=== PATIENT | female | born 1935 | race Caucasian/White ===

== ENCOUNTER → 2016-11-11 | Day surgery (SDC) | payer MEDICARE, BC ==
[~2016-11-11] MED LIST: Acetaminophen/HYDROcodone 325-5 MG Tab PO PRN; Dexamethasone 10 MG/ML SDV ONE; Glycopyrrolate 0.2 MG/ML SDV ONE; Ketorolac 30 MG/ML SDV ONE; Lactated Ringers 1,000 ML IV SCH; Metoprolol Tartrate 5 MG/5 ML SDV ONE; Midazolam 1 MG/ML 2 ML SDV ONE; Morphine 2 MG/ML Syringe IVPUSH PRN; Neostigmine Methylsulfate 10 MG/10 ML MDV ONE; Ondansetron 4 MG/2 ML SDV ONE; Propofol 200 MG/20 ML SDV ONE; Rocuronium 100 MG/10 ML MDV ONE; Sodium Chloride 0.9% 10 ML Syringe FLUSH PRN; Succinylcholine 200 MG/10 ML MDV ONE; fentaNYL 100 MCG/2 ML SDV ONE
--- NOTE | 2016-11-11 09:06 | PCM.HPR ---
H & P Addendum review - H & P Addendum Review Date of Original H & P: 10/21/16 Date Reviewed: 11/11/16 Time Reviewed: 09:00 Patient was examined: No Changes (Cardiac eval was normal. Ok to proceed with lap codey)
--- NOTE | 2016-11-11 10:29 | PCM.OPNOTE ---
- General Post-Op/Procedure Note Date of Surgery/Procedure: 11/11/16 Operative Procedure(s): Lap Deloris Pre Op Diagnosis: Symptomatic Cholelithiasis Post-Op Diagnosis: Same Anesthesia Technique: General ET tube Primary Surgeon: Deonte Arreguin Anesthesia Provider: Tereso Ga Pathology: Gallbladder EBL in mLs: 5 Complications: None Condition: Good
[2016-11-11 15:21] VITALS: BP 150/73
--- NOTE | 2016-11-11 15:43 | OR ---
Date of Procedure: 11/11/2016 PREOPERATIVE DIAGNOSIS: Symptomatic cholelithiasis. POSTOPERATIVE DIAGNOSIS: Symptomatic cholelithiasis. PROCEDURE: Laparoscopic cholecystectomy. ANESTHESIA: General. DESCRIPTION OF PROCEDURE: The patient was brought to the operating room, where general endotracheal anesthesia was administered. Her abdomen was prepped with ChloraPrep and draped sterilely. An infraumbilical incision was made and extended into the peritoneal cavity without difficulty. The Peter cannulator was introduced and pneumoperitoneum obtained. The patient was placed in reverse Trendelenburg position and rotated to the left. The remaining three 5-mm ports were placed in the usual positions. The gallbladder was large and distended. This was grasped and retracted cephalad. The cystic duct and cystic artery were dissected free without difficulty. Some fibrous adhesions were present and a large cystic duct node was also present. The cystic artery and cystic duct were each doubly clipped proximally and once distally, and then transected. Gallbladder was removed from the bed of the liver using electrocautery without difficulty. There was no bile leakage or bleeding that occurred. The gallbladder was then brought out through the umbilical incision. Right upper quadrant was thoroughly inspected and irrigated, and return was clear and hemostasis assured. Ports were removed under direct vision and remained hemostatic. Umbilical fascia was closed with [id number] 0 Vicryl. Skin was closed with 4-0 Vicryl subcuticular sutures. Benzoin and Steri-Strips were placed, and Band-Aids applied. The patient tolerated the procedure well and returned to recovery in stable condition. ESTIMATED BLOOD LOSS: 5 mL. AJ MCCRARY MD /[id number]
== END | disposition home or self-care (01) ==
LOC: LL.SDS 07:36
PROVIDERS: ATTEND Surgery
PROC: 0FT44ZZ Resection of Gallbladder, Percutaneous Endoscopic Approach (ICD-10-PCS; principal; 2016-11-11)
DX: K81.1 Chronic cholecystitis (principal); K21.9 Gastro-esophageal reflux disease without esophagitis; E11.9 Type 2 diabetes mellitus without complications; I10 Essential (primary) hypertension; K44.9 Diaphragmatic hernia without obstruction or gangrene; E78.5 Hyperlipidemia, unspecified; K57.90 Diverticulosis of intestine, part unspecified, without perforation or abscess without bleeding; I25.10 Atherosclerotic heart disease of native coronary artery without angina pectoris; Z95.5 Presence of coronary angioplasty implant and graft; R01.1 Cardiac murmur, unspecified; F41.9 Anxiety disorder, unspecified; F32.9 Major depressive disorder, single episode, unspecified; Z79.899 Other long term (current) drug therapy; Z79.84 Long term (current) use of oral hypoglycemic drugs; Z88.8 Allergy status to other drugs, medicaments and biological substances
CPT/HCPCS: 47562; 88304; J0330; J1100; J1885; J2250; J2270; J2405; J2704; J2710; J3010; J7050; J7120; 00790; J3490

== ENCOUNTER 2017-04-06 21:34 | Emergency (ER) | payer MEDICARE, BC ==
--- NOTE | 2017-04-06 21:56 | EDM.PDOC ---
ED HPI GENERAL MEDICAL PROBLEM - General Chief Complaint: General Stated Complaint: Fall Time Seen by Provider: 04/06/17 21:45 Source of Information: Reports: Patient, Family (Sister), Old Records ([facility] chart/EMR) History Limitations: Reports: No Limitations - History of Present Illness INITIAL COMMENTS - FREE TEXT/NARRATIVE: Patient was brought to the emergency room via private automobile for evaluation of multiple minor contusions, which occurred outside her apartment building at about 21:00 hours this evening. She was attempting to climb the front step when she accidentally slipped and fell hitting the side of her head and right leg with no history of visual changes, change in mental status, dizziness, nausea, headaches, neck/back pain, neurological deficits, or other complaints or injuries. No treatment prior to arrival. The patient denies any chest pain/ pressure, heart flutter, orthostasis, orthopnea, diaphoresis, paresthesias, recent decreased exercise tolerance, or any other anginal-type symptoms. No recent history of abdominal pain, heartburn, diarrhea, melena, gross hematochezia, or any food intolerance, including fatty foods, etc.. The patient also denies any recent fever, cough, wheezing, dyspnea, etc.. Onset: Today, Sudden Onset Date: 04/06/17 Onset Time: 21:00 Duration: Constant Location: Reports: Face, Upper Extremity, Right, Lower Extremity, Right. Denies : Head, Neck, Chest, Abdomen, Back, Pelvis, Upper Extremity, Left, Lower Extremity, Left, Radiates to Quality: Reports: Ache Severity: Mild Improves with: Reports: Rest Worsens with: Reports: Movement Context: Reports: Trauma (As above) Associated Symptoms: Denies: Confusion, Chest Pain, Cough, Diaphoresis, Fever/ Chills, Headaches, Loss of Appetite, Malaise, Nausea/Vomiting, Seizure, Shortness of Breath, Syncope, Weakness Treatments SUPPORT COORDINATOR: Reports: Other (see below) (None) Right Eye Pain Score (Numeric/FACES): 1 Right Arm Pain Score (Numeric/FACES): 3 Right Lower Leg Pain Score (Numeric/FACES): 1 - Related Data Allergies Allergy/AdvReac Type Severity Reaction Status Date / Time ZUNILDA Inhibitors Allergy Other Verified 04/06/17 21:40 lisinopril Allergy Cannot Verified 04/06/17 21:40 Remember shrimp Allergy Nausea and Verified 04/06/17 21:40 Vomiting Home Meds: Home Meds Aspirin 325 mg PO DAILY 09/15/16 [History] Cetirizine HCl [Zyrtec] 10 mg PO BEDTIME 09/15/16 [History] Ferrous Sulfate 325 mg PO DAILY 09/15/16 [History] Furosemide [Lasix] 20 mg PO DAILY 09/15/16 [History] LORazepam [Ativan] 1 mg PO BEDTIME 09/15/16 [History] Metoprolol Tartrate [Lopressor] 50 mg PO DAILY 09/15/16 [History] Pantoprazole Sodium [Protonix] 40 mg PO DAILY 09/15/16 [History] Pregabalin [Lyrica] 75 mg PO BEDTIME 09/15/16 [History] Simvastatin [Zocor] 20 mg PO BEDTIME 09/15/16 [History] Sodium Chloride 1 gm PO Q2D 09/15/16 [History] metFORMIN [Glucophage] 500 mg PO BIDMEALS 09/15/16 [History] Lysine 1,000 mg PO DAILY 09/16/16 [History] Sennosides [Senna] 1 tab PO BEDTIME 09/16/16 [History] Acetaminophen [Tylenol] 325 mg PO DAILY 11/11/16 [History] Cyanocobalamin (Vitamin B12) [Vitamin B12] 1,000 mcg IM ASDIRECTED 11/11/16 [ History] Multivitamin [One Daily] 1 tab PO DAILY 11/11/16 [History] Nitroglycerin [Nitrostat] 0.4 mg SL ASDIRECTED PRN 11/11/16 [History] Cholecalciferol (Vitamin D3) [Vitamin D3] 1,000 units PO DAILY 04/06/17 [History ] Past Medical History HEENT History: Reports: Allergic Rhinitis, Cataract, Hard of Hearing, Impaired Vision, Other (See Below). Denies: Glaucoma, Macular Degeneration, Retinal Detachment Other HEENT History: wears glasses, moderate bilateral presbycusis with no current hearing aids Cardiovascular History: Reports: Arrhythmia, CAD, Cardiomyopathy, Heart Murmur, High Cholesterol, Hypertension, SD, PTCA, Stents, Other (See Below). Denies: Afib, Aneurysm, Blood Clots/VTE/DVT, Pacemaker, PVD, Syncope Other Cardiovascular History: First degree AV block, grade 1 diastolic dysfunction, hyperlipidemia with history of fatty liver, mild aortic valve stenosis and mitral valve insufficiency by clinical exam with only minimal valvular disease by echocardiogram Respiratory History: Reports: COPD, Intubation, Previous. Denies: Asthma, Intubation, Difficult, PE, Sleep Apnea Gastrointestinal History: Reports: Cholelithiasis, Chronic Constipation, Diverticulosis, GERD, Hiatal Hernia, Other (See Below). Denies: Gastritis, GI Bleed, PUD Other Gastrointestinal History: Fatty liver as above with secondary LFTs elevation Genitourinary History: Reports: Other (See Below). Denies: Acute Renal Failure , Chronic Renal Insuffiency, Diabetic Nephropathy, Renal Calculus, Retention, Urinary, Urinary Incontinence Other Genitourinary History: Overactive bladder : 0 LMP (Approximate): Menopausal Musculoskeletal History: Reports: Back Pain, Chronic, Neck Pain, Chronic, Osteoarthritis, Osteoporosis, Other (See Below) Other Musculoskeletal History: Moderate degenerative disc disease with mild Scoliosis Neurological History: Reports: Neuropathy, Diabetic, Neuropathy, Peripheral Psychiatric History: Reports: Anxiety, Depression Endocrine/Metabolic History: Reports: Diabetes, Type II, Osteoporosis. Denies: Diabetes, Type I, Hypothyroidism, IDDM Hematologic History: Reports: Anemia, B12 Deficiency, Iron Deficiency Immunologic History: Reports: None. Denies: AIDS, HIV, SLE Oncologic (Cancer) History: Reports: None Dermatologic History: Reports: None - Infectious Disease History Infectious Disease History: Reports: Chicken Pox, Shingles (Left chest and back region in July 2010) - Past Surgical History Head Surgeries/Procedures: Reports: None HEENT Surgical History: Reports: Cataract Surgery, Oral Surgery, Other (See Below) Other HEENT Surgeries/Procedures: Bilateral cataract surgery in about 2014, complete upper teeth extraction with multiple lower teeth extractions Cardiovascular Surgical History: Reports: Coronary Artery Stent, Other (See Below) Other Cardiovascular Surgeries/Procedures: PTCA/stent in her 1970s Respiratory Surgical History: Reports: None GI Surgical History: Reports: Cholecystectomy, Colonoscopy, EGD, Other (See Below) Other GI Surgeries/Procedures: Laparoscopic cholecystectomy on 11/11/16, previous appendectomy, last EGD and colonoscopy with biopsies on 03/29/12 previous colonoscopy on 04/29/05 - Past Imaging History Past Imaging History: Reports: Cardiac Echo (10/12/16 with ejection fraction of 55-60%), CAT Scan (CT of the abdomen and pelvis with IV contrast on 08/11/09), DEXA Scan (07/30/11), Mammogram (Last mammogram on 09/12/13), MRI (MRI of the lumbar spine 05/01/13), Stress Testing (Cardiolite Lexiscan on 10/14/16 with previous Cardiolite evaluation on 02/07/14 with ejection fraction of 86%, additional Cardiolite stress test on 09/12/08 and 12/29/06), Ultrasound (Right upper quadrant ultrasound on 08/11/09 with complete abdominal ultrasound on 09/16), Venous Doppler (lower extremities bilaterally on 09/15/10) Social & Family History - Family History Cardiac: Reports: CAD, SD, Pacemaker, Other (See Below) Other Cardiac Family History: Sister with pacemaker, CHF, and coronary artery disease; brother with coronary artery disease and SD GI: Reports: Cholelithiasis, Other (See Below) Other GI Family History: Parents and brother with cholelithiasis Endocrine/Metabolic: Reports: Diabetes, type II, Other (See Below) Other Endocrine/Metabolic Family History: brother with diabetes mellitus - Tobacco Use Smoking Status *Q: Former Smoker Years of Tobacco use: 40 (Stopped Smoking in her 70s) Used Tobacco, but Quit: Yes Smoking Cessation Information Provided To Patient: No Second Hand Smoke Exposure: No Second Hand Smoke Education Provided: No - Caffeine Use Caffeine Use: Reports: Coffee - Recreational Drug Use Recreational Drug Use: No - Living Situation & Occupation Living situation: Reports: Alone (however her sister lives in the same apartment building) ED ROS GENERAL - Review of Systems Review Of Systems: ROS reveals no pertinent complaints other than HPI. ED EXAM, GENERAL - Physical Exam Exam: See Below Exam Limited By: No Limitations General Appearance: Alert, WD/WN, No Apparent Distress, Anxious (Moderate) Eye Exam: Bilateral Eye: EOMI, Normal Fundi (No nystagmus), Normal Inspection, Periorbital Changes (Recently in diameter right lateral periocular small hematoma with no crepitation, deformity, or sign of fracture) Ears: Normal External Exam, Normal Canal, Normal TMs, Hearing Loss (Moderate presbycusis bilaterally) Nose: Normal Inspection, Normal Mucosa, No Blood. No: Nasal Tenderness, Nasal Deformity, Nasal Swelling Throat/Mouth: Normal Inspection, Normal Lips, Normal Gums, Normal Oropharynx, Normal Voice, No Airway Compromise. No: Normal Teeth (Complete upper dentures with multiple missing teeth lowers), Dysphagia, Perioral Cyanosis Head: Facial Tenderness (Mild at site of ecchymosis as above), Other (As above) Neck: Supple, Non-Tender, Full Range of Motion, Carotid Bruit (Mild bilateral carotid bruits versus transmitted heart sounds). No: Lymphadenopathy (L), Lymphadenopathy (R), Thyromegaly Respiratory/Chest: No Respiratory Distress, Lungs Clear, Normal Breath Sounds, No Accessory Muscle Use, Chest Non-Tender. No: Pleural Rub, Retractions Cardiovascular: Normal Peripheral Pulses, Regular Rate, Rhythm, No Edema, No Gallop, No JVD, No Rub, Systolic Murmur (Mild 1/6 SHERITA over the aortic and mitral valves). No: Gallop/S3, Gallop/S4 Peripheral Pulses: 2+: Radial (L), Radial (R), Dorsalis Pedis (L), Dorsalis Pedis (R) GI/Abdominal: Normal Bowel Sounds, Soft, Non-Tender, No Organomegaly, No Distention, No Abnormal Bruit, No Mass, Pelvis Stable. No: Guarding (Female) Exam: Deferred Rectal (Female) Exam: Deferred Back Exam: Normal Inspection, Full Range of Motion. No: CVA Tenderness (L), CVA Tenderness (R), Muscle Spasm Extremities: Normal Range of Motion, No Pedal Edema, Normal Capillary Refill, Arm Pain (Small 0.25 cm ecchymosis over the right olecranon with no evidence deformity, crepitation, or fracture), Leg Pain (5 cm in diameter mild to moderate hematoma over the mid anterior right tibial region with no crepitation , fracture, or deformity, mild localized tenderness by palpation in this area). No: Christi's Sign Neurological: Alert, Oriented, CN II-XII Intact, Normal Cognition, Normal Gait, Normal Reflexes (Negative Babinski's), No Motor/Sensory Deficits Psychiatric: Anxious (Moderate). No: Depressed Mood Skin Exam: Ecchymosis (As above). No: Cyanosis, Diaphoretic, Petechiae, Wound/ Incision Lymphatic: No Adenopathy Course - Vital Signs Last Recorded V/S: Last Vital Signs Temp 36.9 C 04/06/17 21:35 Pulse 90 04/06/17 21:35 Resp 20 04/06/17 21:35 BP 168/82 H 04/06/17 22:45 Pulse Ox 99 04/06/17 21:35 Vital Signs - 24 hr 04/06/17 04/06/17 21:35 22:45 Temperature [ 36.9 C Temporal] Pulse, 90 Peripheral [ Brachial] Respiratory 20 Rate Blood Pressure 186/88 H 168/82 H [Upper Arm] O2 Sat by Pulse 99 Oximetry - Orders/Labs/Meds Labs: None Meds: None - Radiology Interpretation Free Text/Narrative:: None Departure - Departure Time of Disposition: 22:40 Disposition: Home, Self-Care 01 Condition: Good Clinical Impression: Head contusion, Contusion of leg, right, Coronary artery disease, Hypertension , Hyperlipidemia, Peptic reflux disease, Diabetes mellitus, Osteoarthritis, Mixed anxiety depressive disorder - Discharge Information Instructions: Contusion, [id number], Head Injury, Adult, [id number] Referrals: Audelia Rodrigez NP [Primary Care Provider] - Forms: ED Department Discharge Additional Instructions: 1. Follow up with your regular provider in 10-14 days as needed, if symptoms persist. 2. Tylenol 650 mg by mouth every 4 hours and/or OTC ibuprofen 2-3 tabs by mouth every 6 hours with food as directed./needed. 3. Otherwise follow-up with your regular provider, DAMIAN Lopez, from [facility] [place] in [place], as already scheduled next month with discussion of possible physical therapy referral for walker or cane evaluation 4. Strict fall precautions as discussed 5. Ice packs as discussed 6. Head precautions as directed-see form. - Problem List & Annotations (1) Head contusion SNOMED Code(s): 973401884 Code(s): S00.93XA - CONTUSION OF UNSPECIFIED PART OF HEAD, INITIAL ENCOUNTER Status: Acute Priority: High Current Visit: Yes Onset Date: 04/06/17 Annotation/Comment:: Minor right periorbital contusion with no neurological deficits. Head precautions given with her sister planning to stay with her this evening. Ice packs placed on both this contusion also on her right leg. Fall precautions discussed with possible initiation of either walker or cane use, which she will discuss with her regular provider. The patient did break her glasses, however no history or sign of foreign body in her eye Qualifiers: Encounter type: initial encounter Contusion of head detail: periocular area Laterality: right Qualified Code(s): S00.11XA - Contusion of right eyelid and periocular area, initial encounter (2) Contusion of leg, right SNOMED Code(s): 37697992 Code(s): S80.11XA - CONTUSION OF RIGHT LOWER LEG, INITIAL ENCOUNTER Status : Acute Priority: High Current Visit: Yes Onset Date: 04/06/17 Annotation/Comment:: As above Qualifiers: Encounter type: initial encounter Qualified Code(s): S80.11XA - Contusion of right lower leg, initial encounter (3) Coronary artery disease SNOMED Code(s): 29740105 Code(s): I25.10 - ATHSCL HEART DISEASE OF [place] CORONARY ARTERY W/O ANG PCTRS Status: Chronic Priority: Medium Current Visit: Yes Annotation/ Comment:: No Chest pain or anginal complaints Qualifiers: Coronary Disease-Associated Artery/Lesion type: habematolel artery [place] vs. transplanted heart: habematolel heart Associated angina: without angina Qualified Code(s): I25.10 - Atherosclerotic heart disease of [place] coronary artery without angina pectoris (4) Diabetes mellitus SNOMED Code(s): 00439864 Code(s): E11.9 - TYPE 2 DIABETES MELLITUS WITHOUT COMPLICATIONS Status: Chronic Priority: Medium Current Visit: Yes Annotation/Comment:: Stable by history Qualifiers: Diabetes mellitus type: type 2 Diabetes mellitus complication status: without complication Diabetes mellitus detention insulin use: without detention use Qualified Code(s): E11.9 - Type 2 diabetes mellitus without complications (5) Hyperlipidemia SNOMED Code(s): 95330429 Code(s): E78.5 - HYPERLIPIDEMIA, UNSPECIFIED Status: Chronic Priority: Medium Current Visit: Yes Annotation/Comment:: Currently under therapy Qualifiers: Hyperlipidemia type: unspecified Qualified Code(s): E78.5 - Hyperlipidemia , unspecified (6) Hypertension SNOMED Code(s): 86556070 Code(s): I10 - ESSENTIAL (PRIMARY) HYPERTENSION Status: Chronic Priority : Medium Current Visit: Yes Annotation/Comment:: Blood pressure somewhat elevated in the emergency room secondary to her anxiety and not yet taking her evening medications. Observe for now with blood pressures improved prior to discharge Qualifiers: Hypertension type: essential hypertension Qualified Code(s): I10 - Essential (primary) hypertension (7) Mixed anxiety depressive disorder SNOMED Code(s): 740165924 Code(s): F41.8 - OTHER SPECIFIED ANXIETY DISORDERS Status: Chronic Priority: Medium Current Visit: Yes Annotation/Comment:: Persistent moderate anxiety with no significant depression. Continue to observe closely by her regular providers (8) Osteoarthritis SNOMED Code(s): 098720739 Code(s): M19.90 - UNSPECIFIED OSTEOARTHRITIS, UNSPECIFIED SITE Status: Chronic Priority: Medium Current Visit: Yes Annotation/Comment:: Otherwise stable by history with history of osteoporosis Qualifiers: Osteoarthritis location: multiple joints Osteoarthritis type: primary Qualified Code(s): M15.0 - Primary generalized (osteo)arthritis (9) Peptic reflux disease SNOMED Code(s): 34760922 Code(s): K21.9 - GASTRO-ESOPHAGEAL REFLUX DISEASE WITHOUT ESOPHAGITIS Status: Chronic Priority: Medium Current Visit: Yes Annotation/Comment:: Stable by history - Problem List Review Problem List Initiated/Reviewed/Updated: Yes - Assessment/Plan Assessment:: As above Plan: As above. Extensive precautions were given to the patient and her sister, who are in agreement with the treatment plan.
[2017-04-06 23:03] VITALS: BP 168/82
== END 2017-04-06 22:40 | disposition home or self-care (01) ==
LOC: LL.ED 21:34
DX: S00.83XA Contusion of other part of head, initial encounter (principal); S40.021A Contusion of right upper arm, initial encounter; S80.11XA Contusion of right lower leg, initial encounter; I10 Essential (primary) hypertension; E78.5 Hyperlipidemia, unspecified; E11.9 Type 2 diabetes mellitus without complications; K21.9 Gastro-esophageal reflux disease without esophagitis; M19.90 Unspecified osteoarthritis, unspecified site; F41.8 Other specified anxiety disorders; H54.7 Unspecified visual loss; I25.10 Atherosclerotic heart disease of native coronary artery without angina pectoris; E78.00 Pure hypercholesterolemia, unspecified; I25.2 Old myocardial infarction; Z95.5 Presence of coronary angioplasty implant and graft; J44.9 Chronic obstructive pulmonary disease, unspecified; D64.9 Anemia, unspecified; M81.0 Age-related osteoporosis without current pathological fracture; Z98.49 Cataract extraction status, unspecified eye; Z90.49 Acquired absence of other specified parts of digestive tract; Z88.8 Allergy status to other drugs, medicaments and biological substances; Z79.82 Long term (current) use of aspirin; Z79.899 Other long term (current) drug therapy; Z87.891 Personal history of nicotine dependence; Z91.013 Allergy to seafood; W10.9XXA Fall (on) (from) unspecified stairs and steps, initial encounter
CPT/HCPCS: 99282; 99284

== ENCOUNTER 2019-03-18 09:35 | Emergency (ER) | payer MEDICARE, BC ==
[2019-03-18 09:41] VITALS: BP 145/58; PULSE 71
[2019-03-18] MEDS ORDERED: Bupivacaine 0.25% 10 ML SDV INJECT ONE (10:18)
[2019-03-18] MEDS ORDERED: traMADol 50 MG Tab PO ONE (11:00)
--- NOTE | 2019-03-18 12:33 | EDM.PDOC ---
ED HPI GENERAL MEDICAL PROBLEM - General Chief Complaint: Upper Extremity Injury/Pain Stated Complaint: R wrist pain Time Seen by Provider: 03/18/19 09:55 Source of Information: Reports: Patient History Limitations: Reports: No Limitations - History of Present Illness INITIAL COMMENTS - FREE TEXT/NARRATIVE: Patient fell this morning around 8am as she was getting out of bed. Denies hitting head/LOC. Only complaint is right wrist pain. Denies other injuries/complaints. No recent illness/med changes. [place] like usual self yesterday and when she woke up this morning. No reported neuro changes such as headache/one sided weakness or numbness. Fell a few months ago when she caught her foot on the edge of her bedspread. ROS is negative for other acute changes Right Wrist Pain Score (Numeric/FACES): 8 - Related Data Allergies Allergy/AdvReac Type Severity Reaction Status Date / Time ZUNILDA Inhibitors Allergy Other Verified 03/18/19 09:36 lisinopril Allergy Cannot Verified 03/18/19 09:36 Remember shrimp Allergy Nausea and Verified 03/18/19 09:36 Vomiting Home Meds: Home Meds Cetirizine HCl [Zyrtec] 10 mg PO BEDTIME 09/15/16 [History] LORazepam [Ativan] 1 mg PO BID 09/15/16 [History] Pregabalin [Lyrica] 75 mg PO BEDTIME 09/15/16 [History] Simvastatin [Zocor] 20 mg PO BEDTIME 09/15/16 [History] Sennosides [Senna] 1 tab PO BEDTIME PRN 09/16/16 [History] Acetaminophen [Tylenol] 650 mg PO Q4HR PRN 11/11/16 [History] Cholecalciferol (Vitamin D3) [Vitamin D3] 1,000 units PO DAILY 04/06/17 [History ] Metoprolol Succinate 50 mg PO DAILY 06/26/18 [History] Mirtazapine [Remeron] 15 mg PO BEDTIME #90 tablet 06/30/18 [Rx] Furosemide [Lasix] 10 mg PO DAILY 03/18/19 [History] Non-Formulary Medication [NF Drug] 1 tab PO BID 03/18/19 [History] Past Medical History HEENT History: Reports: Allergic Rhinitis, Cataract, Hard of Hearing, Impaired Vision, Other (See Below) Other HEENT History: wears glasses, moderate bilateral presbycusis with no current hearing aids Cardiovascular History: Reports: Arrhythmia, CAD, Cardiomyopathy, Heart Murmur, High Cholesterol, Hypertension, FL, PTCA, Stents, Other (See Below) Other Cardiovascular History: First degree AV block, grade 1 diastolic dysfunction, hyperlipidemia with history of fatty liver, mild aortic valve stenosis and mitral valve insufficiency by clinical exam with only minimal valvular disease by echocardiogram Respiratory History: Reports: COPD, Intubation, Previous Gastrointestinal History: Reports: Cholelithiasis, Chronic Constipation, Diverticulosis, GERD, Hiatal Hernia, Other (See Below) Other Gastrointestinal History: Fatty liver as above with secondary LFTs elevation Genitourinary History: Reports: Other (See Below) Other Genitourinary History: Overactive bladder Musculoskeletal History: Reports: Back Pain, Chronic, Neck Pain, Chronic, Osteoarthritis, Osteoporosis, Other (See Below) Other Musculoskeletal History: Moderate degenerative disc disease with mild Scoliosis Neurological History: Reports: Neuropathy, Diabetic, Neuropathy, Peripheral Psychiatric History: Reports: Anxiety, Depression Endocrine/Metabolic History: Reports: Diabetes, Type II, Osteoporosis Hematologic History: Reports: Anemia, B12 Deficiency, Iron Deficiency Immunologic History: Reports: None Oncologic (Cancer) History: Reports: None Dermatologic History: Reports: None Other Dermatologic History: shingles - Infectious Disease History Infectious Disease History: Reports: Chicken Pox, Shingles - Past Surgical History Head Surgeries/Procedures: Reports: None HEENT Surgical History: Reports: Cataract Surgery, Oral Surgery, Other (See Below) Other HEENT Surgeries/Procedures: Bilateral cataract surgery in about 2014, complete upper teeth extraction with multiple lower teeth extractions Cardiovascular Surgical History: Reports: Coronary Artery Stent, Other (See Below) Other Cardiovascular Surgeries/Procedures: PTCA/stent in her 1970s Respiratory Surgical History: Reports: None GI Surgical History: Reports: Cholecystectomy, Colonoscopy, EGD, Other (See Below) Other GI Surgeries/Procedures: Laparoscopic cholecystectomy on 11/11/16, previous appendectomy, last EGD and colonoscopy with biopsies on 03/29/12 previous colonoscopy on 04/29/05 - Past Imaging History Past Imaging History: Reports: Cardiac Echo (10/12/16 with ejection fraction of 55-60%), CAT Scan (CT of the abdomen and pelvis with IV contrast on 08/11/09), DEXA Scan (07/30/11), Mammogram (Last mammogram on 09/12/13), MRI (MRI of the lumbar spine 05/01/13), Stress Testing (Cardiolite Lexiscan on 10/14/16 with previous Cardiolite evaluation on 02/07/14 with ejection fraction of 86%, additional Cardiolite stress test on 09/12/08 and 12/29/06), Ultrasound (Right upper quadrant ultrasound on 08/11/09 with complete abdominal ultrasound on 09/16), Venous Doppler (lower extremities bilaterally on 09/15/10) Social & Family History - Family History Cardiac: Reports: CAD, FL, Pacemaker, Other (See Below) Other Cardiac Family History: Sister with pacemaker, CHF, and coronary artery disease; brother with coronary artery disease and FL GI: Reports: Cholelithiasis, Other (See Below) Other GI Family History: Parents and brother with cholelithiasis Endocrine/Metabolic: Reports: Diabetes, type II, Other (See Below) Other Endocrine/Metabolic Family History: brother with diabetes mellitus - Caffeine Use Caffeine Use: Reports: Coffee - Living Situation & Occupation Living situation: Reports: Alone (however her sister lives in the same apartment building) Review of Systems - Review of Systems Review Of Systems: ROS reveals no pertinent complaints other than HPI. ED EXAM, GENERAL - Physical Exam Exam: See Below Exam Limited By: No Limitations General Appearance: Alert, WD/WN, Anxious Eye Exam: Bilateral Eye: EOMI Ears: Normal External Exam Nose: No: Nasal Deformity, Nasal Swelling, Nasal Drainage Throat/Mouth: Normal Lips, Normal Voice, No Airway Compromise Head: Atraumatic, Normocephalic. No: Facial Swelling, Facial Tenderness, Sinus Tenderness Neck: Supple, Non-Tender Respiratory/Chest: No Respiratory Distress, Lungs Clear, Normal Breath Sounds, No Accessory Muscle Use, Chest Non-Tender Cardiovascular: Regular Rate, Rhythm, No Murmur Peripheral Pulses: 2+: Radial (L), Radial (R) GI/Abdominal: Soft, Non-Tender (Female) Exam: Deferred Rectal (Female) Exam: Deferred Extremities: Normal Capillary Refill, Other (deformity and swelling right wrist area/forearm. Able to wiggle fingers. ) Neurological: Alert, Oriented, CN II-XII Intact, Other (equal tone/strength bilaterally upper and lower extremities) Psychiatric: Anxious (mild) Skin Exam: Warm, Dry. No: Ecchymosis, Mottled, Pallor, Wound/Incision ED TRAUMA EXTREMITY PROCEDURES - Joint Reduction Site: Other (right wrist) Sedation: Hematoma/Fracture Block Local Anesthesia - Lidocaine (Xylocaine): 1% Plain Local Anesthesia - Bupivicaine (Marcaine): 0.25% Plain Local Anesthetic Volume: Other (90% Bupivicaine 10% Lidocaine mixture utilized for hematoma block. 10cc total injected into various areas of wrist area.) Pre-Procedure NV Status: Normal Post-Procedure NV Status: Normal Technique: Traction/Counter Traction Number of Attempts: 2 Post-Reduction Imaging: Acceptably Reduced, Fracture Seen Joint Reduction Complications: No - Splinting Right Upper Extremity Splint Site: right wrist/forearm Pre-Procedure NV Status: Normal Post-Procedure NV Status: Normal Splint Material: Fiberglass Splint Design: Volar Applied & Form Fitted By: Provider Provider Post-Splint Application NV Check: NV Status Normal, Good Position Complications: No Course - Vital Signs Last Recorded V/S: Last Vital Signs Temp 36.3 C 03/18/19 09:38 Pulse 71 03/18/19 09:38 Resp 15 03/18/19 09:38 BP 145/58 H 03/18/19 09:38 Pulse Ox 99 03/18/19 09:38 - Orders/Labs/Meds Orders: Active Orders 24 hr Category Date Time Status Wrist 2V Rt [CR] Stat Exams 03/18/19 11:01 Ordered Wrist 2V Rt [CR] Stat Exams 03/18/19 11:20 Ordered Wrist Comp Min 3V Rt [CR] Stat Exams 03/18/19 09:42 Taken Meds: Medications Discontinued Medications Generic Name Dose Route Start Last Admin Trade Name Freq PRN Reason Stop Dose Admin Bupivacaine HCl 10 ml 03/18/19 10:18 03/18/19 11:02 Sensorcaine-Mpf 0.25% INJECT 03/18/19 10:19 10 ml ONETIME ONE Administration Lidocaine HCl 5 ml 03/18/19 10:18 03/18/19 11:02 Xylocaine-Mpf 1% INJECT 03/18/19 10:19 5 ml ONETIME ONE Administration Tramadol HCl 50 mg 03/18/19 11:00 03/18/19 11:04 Ultram PO 03/18/19 11:01 50 mg ONETIME ONE Administration - Re-Assessments/Exams Free Text/Narrative Re-Assessment/Exam: Good pain reduction noted with hematoma block. Good improvement of fracture noted after second attempt at reduction. Splint applied. Care of splint and fracture reviewed with patient. Call placed to [facility] general operations agent Ortho, . He reviewed the films and recommended that the pt follow up at [facility] there this week for casting. Recommended to patient to go there on Tuesday or Tuesday in order to allow acute swelling to improve. Single to go bottle of Tramadol given to the patient to use for PRN pain if Tylenol is unable to help. Caution encouraged as it may be sedating and increase fall risk. To follow up otherwise as needed if there are problems. Departure - Departure Time of Disposition: 13:00 Disposition: Home, Self-Care 01 Condition: Good Clinical Impression: Fracture of radius and ulna Qualifiers: Encounter type: initial encounter Fracture type: closed Laterality: right Qualified Code(s): S52.91XA - Unspecified fracture of right forearm, initial encounter for closed fracture - Discharge Information *PRESCRIPTION DRUG MONITORING PROGRAM REVIEWED*: Not Applicable *COPY OF PRESCRIPTION DRUG MONITORING REPORT IN PATIENT TESSY: Not Applicable Instructions: Forearm Fracture, [id number], Cast or Splint Care, Adult, Easy- to-Read Referrals: Audelia Rodrigez NP [Primary Care Provider] - Forms: ED Department Discharge Additional Instructions: OK to elevate fracture for comfort. If Tylenol is unable to give good pain relief you may take one Tramadol every 6-8 hours for pain. Caution to be used if you take the Tramadol as it may make you tired. Follow up at [facility] this week on Tuesday or Tuesday for re-evaluation and casting. We spoke to from Ortho general operations agent today and he recommended this follow up plan. If you have any other problems, please follow up in the ER or clinic as needed. - My Orders Last 24 Hours: My Active Orders 03/18/19 09:42 Wrist Comp Min 3V Rt [CR] Stat 03/18/19 11:01 Wrist 2V Rt [CR] Stat 03/18/19 11:20 Wrist 2V Rt [CR] Stat - Assessment/Plan Last 24 Hours: My Active Orders 03/18/19 09:42 Wrist Comp Min 3V Rt [CR] Stat 03/18/19 11:01 Wrist 2V Rt [CR] Stat 03/18/19 11:20 Wrist 2V Rt [CR] Stat
== END 2019-03-18 14:35 | disposition home or self-care (01) ==
LOC: LL.ED 09:35
DX: S52.571A Other intraarticular fracture of lower end of right radius, initial encounter for closed fracture (principal); I25.10 Atherosclerotic heart disease of native coronary artery without angina pectoris; E78.00 Pure hypercholesterolemia, unspecified; I10 Essential (primary) hypertension; I25.2 Old myocardial infarction; J44.9 Chronic obstructive pulmonary disease, unspecified; K21.9 Gastro-esophageal reflux disease without esophagitis; F41.9 Anxiety disorder, unspecified; F32.9 Major depressive disorder, single episode, unspecified; E11.40 Type 2 diabetes mellitus with diabetic neuropathy, unspecified; Z88.8 Allergy status to other drugs, medicaments and biological substances; Z91.013 Allergy to seafood; Z79.899 Other long term (current) drug therapy; W06.XXXA Fall from bed, initial encounter
CPT/HCPCS: 25605; 73100; 73110; 99283; 99284; A9270; J2001; J3490; 29125

== ENCOUNTER 2019-07-16 07:34 | Inpatient (IN) | payer MEDICARE, BC ==
[2019-07-16] MEDS ORDERED: Famotidine 20 MG/2 ML SDV IVPUSH ONE (07:57)
--- NOTE | 2019-07-16 07:57 | EDM.PDOC ---
ED HPI GENERAL MEDICAL PROBLEM - General Chief Complaint: Cardiovascular Problem Stated Complaint: Weakness, heart racing, feeling unwell Time Seen by Provider: 07/16/19 07:50 Source of Information: Reports: Patient, Family (Sister- Indigo), Old Records ( [facility] chart/EMR) History Limitations: Reports: Altered Mental Status - History of Present Illness INITIAL COMMENTS - FREE TEXT/NARRATIVE: The patient was brought to the emergency room via private automobile by her sister for evaluation of nonspecific possible 4/10 retrosternal chest pressure associated with progressive dyspnea and some mild heart flutter/pounding during the night with symptoms starting after she went to bed at about 22:30 hours this past evening. She is a somewhat poor historian. The patient denies any dizziness, orthostasis, orthopnea, diaphoresis, paresthesias, recent decreased exercise tolerance, or any other anginal-type symptoms. No recent history of abdominal pain, heartburn, nausea, melena, gross hematochezia, or any food intolerance, including fatty foods, etc., although 2 small bowel movements this morning. She was apparently diagnosed with a mild UTI about one week ago with current antibiotic therapy, however denies any current gross hematuria, colic, or other UTI symptoms. The patient also denies any recent fever, cough, wheezing , etc.. Onset: Gradual, Unknown/Unsure Onset Date: 07/15/19 Onset Time: 22:30 Duration: Getting Worse, Intermittent Location: Reports: Chest. Denies: Head, Face, Neck, Abdomen, Back, Pelvis, Upper Extremity, Left, Upper Extremity, Right, Radiates to Quality: Reports: Pressure, Same as Previous Episode Severity: Mild Improves with: Reports: None Worsens with: Reports: None Context: Reports: Other (As above). Denies: Sick Contact, Trauma Associated Symptoms: Reports: Chest Pain, Shortness of Breath. 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: Reports: Other (see below) (None) Middle Chest Pain Score (Numeric/FACES): 4 - Related Data Allergies Allergy/AdvReac Type Severity Reaction Status Date / Time ZUNILDA Inhibitors Allergy Other Verified 03/18/19 09:36 lisinopril Allergy Cannot Verified 03/18/19 09:36 Remember shrimp Allergy Nausea and Verified 03/18/19 09:36 Vomiting tramadol Allergy Hallucinati Verified 07/16/19 08:34 ons Home Meds: Home Meds Cetirizine HCl [Zyrtec] 10 mg PO QPM 09/15/16 [History] LORazepam [Ativan] 1 mg PO BID@0800,2000 09/15/16 [History] Pregabalin [Lyrica] 75 mg PO BEDTIME 09/15/16 [History] Acetaminophen [Tylenol] 650 mg PO Q4HR PRN 11/11/16 [History] Cholecalciferol (Vitamin D3) [Vitamin D3] 1,000 units PO DAILY 04/06/17 [History ] Metoprolol Succinate 50 mg PO DAILY 06/26/18 [History] Mirtazapine [Remeron] 15 mg PO BEDTIME #90 tablet 06/30/18 [Rx] Non-Formulary Medication [NF Drug] 1 tab PO BID 03/18/19 [History] Amoxicillin/Potassium Clav [Augmentin 875-125 Tablet] 1 tab PO BID 07/16/19 [ History] Aspirin [Halfprin] 81 mg PO DAILY 07/16/19 [History] Glimepiride [Amaryl] 2 mg PO DAILY 07/16/19 [History] Past Medical History HEENT History: Reports: Allergic Rhinitis, Cataract, Hard of Hearing, Impaired Vision, Macular Degeneration, Other (See Below). Denies: Glaucoma, Otitis Media , Retinal Detachment Other HEENT History: The patient wears glasses; moderate bilateral presbycusis with no current hearing aids Cardiovascular History: Reports: Arrhythmia, CAD, Cardiomyopathy, Heart Murmur, High Cholesterol, Hypertension, NM, PTCA, Stents, Other (See Below). Denies: Afib, Aneurysm, Blood Clots/VTE/DVT, Bypass, PVD, Syncope Other Cardiovascular History: First degree AV block, grade 1 diastolic dysfunction, hyperlipidemia with history of fatty liver, mild aortic valve stenosis and mitral valve insufficiency by clinical exam with only minimal valvular disease by echocardiogram Respiratory History: Reports: Bronchitis, Recurrent, COPD, Intubation, Previous , Pneumonia, Recurrent. Denies: Intubation, Difficult, PE, Pneumothorax, Pulmonary Fibrosis, Sleep Apnea, TB Gastrointestinal History: Reports: Cholelithiasis, Chronic Constipation, Diverticulosis, Fatty Liver, GERD, Hiatal Hernia, Other (See Below). Denies: Celiac Disease, Fecal Incontinence, GI Bleed, Irritable Bowel Syndrome, Jaundice , PUD Other Gastrointestinal History: Fatty liver as above with secondary LFTs elevation Genitourinary History: Reports: Chronic Renal Insuffiency, UTI, Recurrent, Other (See Below). Denies: Acute Renal Failure, Renal Calculus, STD Other Genitourinary History: Borderline renal insufficiency/diabetic nephropathy. 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 Denies: Gout, RA, SLE Other Musculoskeletal History: Moderate degenerative disc disease with mild Scoliosis. Right sided fifth and sixth rib fractures on 01/02/19. Right distal radial fracture on 03/18/19. Neurological History: Reports: Neuropathy, Diabetic, Neuropathy, Peripheral. Denies: Alzheimers Disease, Cerebral Aneurysms, Concussion, CVA, Headaches, Chronic, Head Trauma, Migraines, MS, Parkinson's, Seizure, TIA Psychiatric History: Reports: Anxiety, Depression. Denies: Abuse, Victim of, ADD, ADHD, Addiction, Psych Hospitalization(s), PTSD, Suicide Attempt, Suicidal Ideation Endocrine/Metabolic History: Reports: Diabetes, Type II, Osteopenia, Osteoporosis, Other (See Below). Denies: Diabetes, Type I, Diabetes Mellitus, Type 3c, Hypothyroidism, IDDM Other Endocrine/Metabolic History: Hyponatremia. Hypoalbuminemia. Hematologic History: Reports: Anemia, B12 Deficiency, Iron Deficiency. Denies: Blood Transfusion(s) Immunologic History: Reports: None. Denies: AIDS, HIV, SLE Oncologic (Cancer) History: Reports: None. Denies: Basal Cell Carcinoma, Cervix , Hodgkin's Lymphoma, Leukemia, Lymphoma, Malignant Melanoma, Non-Hodgkin's Lymphoma, Ovarian, Squamous Cell Carcinoma, Uterine Dermatologic History: Reports: None. Denies: Eczema, Psoriasis Other Dermatologic History: shingles - Infectious Disease History Infectious Disease History: Reports: Chicken Pox, Shingles (Left chest and back region in July 2010.). Denies: C-Difficile, Measles, Meningitis, Mononucleosis, MRSA, Mumps, Pertussis (Whooping Cough), Rheumatic Fever, RSV, Rubella, Scarlet Fever, TB, VRE - Past Surgical History Head Surgeries/Procedures: Reports: None HEENT Surgical History: Reports: Cataract Surgery, Oral Surgery, Other (See Below). Denies: Adenoidectomy, Eye Surgery, Laser Surgery, LASIK, Myringotomy w Tube(s), Naso-Sinus Surgery, Tonsillectomy Other HEENT Surgeries/Procedures: Bilateral cataract surgery in about 2014, complete upper teeth extraction with multiple lower teeth extractions Cardiovascular Surgical History: Reports: Coronary Artery Stent, Percutaneous Transluminal Angioplasty, Other (See Below). Denies: Aneurysm, Varicose Other Cardiovascular Surgeries/Procedures: PTCA/stent in her 1970s Respiratory Surgical History: Reports: None. Denies: Thoracentesis GI Surgical History: Reports: Appendectomy, Cholecystectomy, Colonoscopy, EGD, Other (See Below). Denies: Hernia, Abdominal, Hernia, Inguinal, Hernia Repair/ Other, Polypectomy Other GI Surgeries/Procedures: Laparoscopic cholecystectomy on 11/11/16, previous appendectomy, last EGD and colonoscopy with biopsies on 03/29/12 previous colonoscopy on 04/29/05 Female Surgical History: Reports: None. Denies: D&C, Hysterectomy, Salpingo- Oophorectomy, Tubal Ligation Endocrine Surgical History: Reports: None. Denies: Thyroid Biopsy Neurological Surgical History: Reports: None. Denies: C-Spine, Discectomy, Laminectomy, Lumbar Spine, Sacral Spine, Spinal Fusion, Thoracic Spine, Vertebroplasty Musculoskeletal Surgical History: Reports: None. Denies: Arthroscopic Procedure , Carpal Tunnel, Ganglion Cyst, Joint Replacement, Knee Replacement, ORIF Oncologic Surgical History: Reports: None Dermatological Surgical History: Reports: None - Past Imaging History Past Imaging History: Reports: Cardiac Echo (10/12/16 with ejection fraction of 55-60%), CAT Scan (CT of the head on 02/12/19. CT of the abdomen and pelvis with IV contrast on 08/11/09), DEXA Scan (07/30/11), Mammogram (Last mammogram on 09/12), MRI (MRI of the lumbar spine 05/01/13), Stress Testing (Cardiolite Lexiscan on 10/14/16 with previous Cardiolite evaluation on 02/07/14 with ejection fraction of 86%, additional Cardiolite stress test on 09/12/08 and ), Ultrasound (Complete abdominal ultrasound on 04/13/19. Right upper quadrant ultrasound on 08/11/09 with complete abdominal ultrasound on 09/16/16), Venous Doppler (lower extremities bilaterally on 09/15/10) Social & Family History - Family History HEENT: Reports: None. Denies: Glaucoma, Macular Degeneration, Retinal Detachment Cardiac: Reports: Bypass, CAD, Heart Failure, High Cholesterol, Hypertension, NM , Pacemaker, PVD/COD, Other (See Below). Denies: Afib, Aneurysm, Arrhythmia, Blood Clots/VTE/DVT, Heart Murmur, Stent, Syncope Other Cardiac Family History: Sister with pacemaker, CHF, and coronary artery disease; brother with coronary artery disease and fatal NM in his 70s previous CABG. Mother with history of fatal CHF at age 72. Father with fatal CHF and NM in his early 80s. Hypertension in sister. Hyperlipidemia in sister. Stroke with history of carotid occlusive disease history of fatal NM in her 80s. Respiratory: Reports: Pneumothorax, Other (See Below). Denies: Asthma, COPD, PE , Sleep Apnea Other Respiratory Family Hisory: Mother with history of spontaneous pneumothorax. GI: Reports: Cholelithiasis, Diverticulitis, Diverticulosis, Other (See Below). Denies: Celiac Disease, Colon Polyps, GERD, GI bleed, Inflammatory Bowel Disease, Irritable Bowel Syndrome, PUD Other GI Family History: Parents and brother with cholelithiasis; sister with diverticulitis. : Reports: Renal Calculus, Other (See Below). Denies: Dialysis, Renal Disease /Insufficiency Other Family History: Brother with urolithiasis. OBGYN: Reports: None. Denies: Endometriosis, Fibroids, Recurrent Spontaneous Musculoskeletal: Reports: Arthritis, Osteoarthritis, Other (See Below). Denies : Gout, RA, SLE Neurological: Reports: Migraines, Other (See Below). Denies: Alzheimers Disease , Cerebral Aneurysms, CVA, Dementia, MS, Parkinson's, Seizure, TIA Other Neurological Family History: Migraine headaches and sisters 2. Psychiatric: Reports: None. Denies: Abuse, Victim of, ADD, Anxiety, Depression , Psych Hospitalization(s), PTSD, Suicide Attempt Endocrine/Metabolic: Reports: Diabetes, type II, Other (See Below). Denies: Diabetes, Type I, Diabetes Mellitus, Type 3c, Hypothyroidism, IDDM Other Endocrine/Metabolic Family History: Mother and brother with diabetes mellitus. Hematologic: Reports: None. Denies: Anemia Immunologic: Reports: None. Denies: AIDS, HIV, SLE Dermatologic: Reports: None. Denies: Eczema, Psoriasis Oncologic: Reports: Breast, Other (See Below). Denies: Bladder, Cervix, Colon, Leukemia, Lymphoma, Non-Hodgkin's Lymphoma, Ovarian, Prostate, Skin Other Oncologic Family History: Sister with history of breast cancer in her 70s. - Tobacco Use Smoking Status *Q: Never Smoker Tobacco Use Within Last Twelve Months: No Used Tobacco, but Quit: No Smoking Cessation Information Provided To Patient: No Second Hand Smoke Exposure: No Second Hand Smoke Education Provided: No - Caffeine Use Caffeine Use: Reports: None. 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 ED EXAM, GENERAL - Physical Exam Exam: See Below Exam Limited By: No Limitations General Appearance: Alert, WD/WN, No Apparent Distress, Anxious (Borderline) Eye Exam: Bilateral Eye: EOMI, Normal Inspection (No nystagmus. Patient wearing glasses.), PERRL Ears: Normal External Exam, Normal Canal, Normal TMs, Hearing Loss (Mild to moderate presbycusis with no current hearing aide therapy.) Nose: Normal Inspection, Normal Mucosa, No Blood Throat/Mouth: Normal Inspection, Normal Lips, Normal Teeth (Complete upper dentures with multiple missing teeth lowers the patient is normally using her lower partials.), Normal Gums, Normal Oropharynx, Normal Voice, No Airway Compromise. No: Dysphagia, Perioral Cyanosis Head: Atraumatic, Normocephalic. No: Facial Swelling, Facial Tenderness, Sinus Tenderness Neck: Supple, Non-Tender, Full Range of Motion, Carotid Bruit (Mild bilateral carotid bruits). No: Lymphadenopathy (L), Lymphadenopathy (R), Thyromegaly Respiratory/Chest: No Respiratory Distress, No Accessory Muscle Use, Chest Non- Tender, Rales (Mild bilateral basilar rales). No: Stridor, Pleural Rub, Retractions Cardiovascular: Normal Peripheral Pulses, No Edema, No Gallop, No JVD, No Rub, Tachycardia (Regular rhythm), Systolic Murmur (Mild 1/6 SHER[place] of the aortic and mitral valves.). No: Gallop/S3, Gallop/S4, Friction Rub Peripheral Pulses: 2+: Radial (L), Radial (R), Dorsalis Pedis (L), Dorsalis Pedis (R) GI/Abdominal: Normal Bowel Sounds, Soft, Non-Tender, No Organomegaly, No Distention, No Abnormal Bruit, No Mass. No: Guarding (Female) Exam: Deferred Rectal (Female) Exam: Deferred Back Exam: Full Range of Motion, Other (Mild kyphosis). No: CVA Tenderness (L) , CVA Tenderness (R), Muscle Spasm, Paraspinal Tenderness, Vertebral Tenderness Extremities: Normal Inspection, Normal Range of Motion, Non-Tender, No Pedal Edema, Normal Capillary Refill. No: Christi's Sign Neurological: Alert, Oriented, CN II-XII Intact, Normal Gait, Normal Reflexes ( Negative Babinski's), No Motor/Sensory Deficits, Confused (Borderline) Psychiatric: Anxious (Borderline). No: Depressed Mood Skin Exam: Warm, Dry, Intact, Normal Color, No Rash. No: Diaphoretic Lymphatic: No Adenopathy EKG INTERPRETATION EKG Date: 07/16/19 Time: 08:05 Rhythm: Other (Sinus tachycardia) Rate (Beats/Min): 102 [place]: Normal P-Wave: Present QRS: Normal (0.07 seconds) ST-T: Normal QT: Normal ND/PQ Interval: 0.15 seconds Comparison: NA - No Prior EKG EKG Interpretation Comments: No acute ischemic changes Course - Vital Signs Last Recorded V/S: Last Vital Signs Temp 37.7 C 07/16/19 08:10 Pulse 101 H 07/16/19 08:35 Resp 28 H 07/16/19 08:35 BP 134/48 L 07/16/19 08:35 Pulse Ox 93 L 07/16/19 08:35 Vital Signs - 24 hr 07/16/19 07/16/19 07/16/19 07:53 07:56 07:58 Temperature [ 36.8 C Temporal] Pulse, 102 H 107 H Peripheral [ Right Pulse Oximetry] Respiratory 28 H 23 H Rate Blood Pressure [Left Upper Arm ] Blood Pressure 127/44 L 143/59 H [Right Upper Arm] O2 Sat by Pulse 92 L 94 L Oximetry O2 Sat by Pulse 93 L Oximetry [Room Air] 07/16/19 07/16/19 07/16/19 08:10 08:25 08:35 Temperature [ 37.7 C Temporal] Pulse, 103 H 101 H 101 H Peripheral [ Right Pulse Oximetry] Respiratory 28 H 27 H 28 H Rate Blood Pressure 139/57 L 134/48 L [Left Upper Arm ] Blood Pressure 140/60 [Right Upper Arm] O2 Sat by Pulse 93 L 92 L 93 L Oximetry O2 Sat by Pulse Oximetry [Room Air] - Orders/Labs/Meds Orders: Active Orders 24 hr Category Date Time Status Cardiac Monitoring [RC] . DIRECTED Care 07/16/19 07:58 Active EKG Documentation Completion [RC] ASDIRECTED Care 07/16/19 07:58 Active Oxygen Therapy, ED [RC] PRN Care 07/16/19 07:58 Active Peripheral IV Care [RC] . DIRECTED Care 07/16/19 07:58 Active Pulse Oximetry [RC] CONTINUOUS Care 07/16/19 07:58 Active Up With Assistance [RC] PFP Care 07/16/19 07:58 Active Vital Signs [RC] PFP Care 07/16/19 07:58 Active Nothing per Oral Now Diet [DIET] Diet 07/16/19 Breakfast Active Chest 1V Frontal [CR] Stat Exams 07/16/19 07:58 Taken Sodium Chloride 0.9% [Saline Flush] Med 07/16/19 07:57 Active 10 ml FLUSH ASDIRECTED PRN Obtain Past Medical Record [OM.PC] Urgent Oth 07/16/19 07:58 Active Peripheral IV Insertion Adult [OM.PC] Stat Oth 07/16/19 07:58 Ordered Resuscitation Status Stat Resus Stat 07/16/19 07:57 Ordered Medication Orders Sodium Chloride (Saline Flush) 10 ml FLUSH ASDIRECTED PRN PRN Reason: Keep Vein Open Last Admin: 07/16/19 08:37 Dose: 10 ml Labs: Laboratory Tests 07/16/19 07/16/19 07/16/19 Range/Units 08:05 08:05 08:05 WBC 10.5 H (4.0-10.2) K/uL RBC 3.46 L (3.77-5.09) M/uL Hgb 10.1 L (11.7-15.5) g/dL Hct 32.2 L (34.0-46.0) % MCV 93.1 (84.0-98.0) fL MCH 29.2 (28.2-33.3) pg MCHC 31.4 L (31.7-36.0) g/dL RDW 13.8 (11.2-14.1) % Plt Count 276 (150-350) K/uL Neut % (Auto) 79.9 (45.0-80.0) % Lymph % (Auto) 7.3 L (10.0-50.0) % Craig % (Auto) 11.1 (2.0-14.0) % Eos % (Auto) 1.6 (0.0-5.0) % Baso % (Auto) 0.1 (0.0-2.0) % Neut # (Auto) 8.36 H (1.40-7.00) K/uL Lymph # (Auto) 0.76 (0.50-3.50) K/uL Craig # (Auto) 1.16 H (0.00-1.00) K/uL Eos # (Auto) 0.17 (0.00-0.50) K/uL Baso # (Auto) 0.01 (0.00-0.20) K/uL PT 10.7 (9.5-12.0) SEC INR 1.0 APTT 26.9 (21.0-31.3) SEC D-Dimer, Quantitative 1570 H (0-400) ng/mL Sodium (136-145) mmol/L Potassium (3.5-5.1) mmol/L Chloride (98-107) mmol/L Carbon Dioxide (21.0-32.0) mmol/L BUN (7-18) mg/dL Creatinine (0.51-1.17) mg/dL Est Cr Clr Drug Dosing mL/min Estimated GFR (MDRD) mL/min Glucose (74-106) mg/dL Lactic Acid (0.4-2.0) mmol/L Uric Acid (2.6-7.2) mg/dL Calcium (8.5-10.1) mg/dL Magnesium (1.8-2.4) mg/dL Total Bilirubin (0.2-1.0) mg/dL AST (15-37) U/L ALT (12-78) U/L Alkaline Phosphatase (46-116) IU/L Creatine Kinase (26-308) U/L Creatine Kinase Index (0.0-2.5) % CK-MB (CK-2) (0.00-3.60) ng/mL Troponin I (0.000-0.056) ng/mL NT-Pro-B Natriuret Pep (0-125) pg/mL Total Protein (6.4-8.2) g/dL Albumin (3.4-5.0) g/dL TSH, Ultra Sensitive (0.358-3.740) mIU/mL 07/16/19 07/16/19 Range/Units 08:05 08:05 WBC (4.0-10.2) K/uL RBC (3.77-5.09) M/uL Hgb (11.7-15.5) g/dL Hct (34.0-46.0) % MCV (84.0-98.0) fL MCH (28.2-33.3) pg MCHC (31.7-36.0) g/dL RDW (11.2-14.1) % Plt Count (150-350) K/uL Neut % (Auto) (45.0-80.0) % Lymph % (Auto) (10.0-50.0) % Craig % (Auto) (2.0-14.0) % Eos % (Auto) (0.0-5.0) % Baso % (Auto) (0.0-2.0) % Neut # (Auto) (1.40-7.00) K/uL Lymph # (Auto) (0.50-3.50) K/uL Craig # (Auto) (0.00-1.00) K/uL Eos # (Auto) (0.00-0.50) K/uL Baso # (Auto) (0.00-0.20) K/uL PT (9.5-12.0) SEC INR APTT (21.0-31.3) SEC D-Dimer, Quantitative (0-400) ng/mL Sodium 138 (136-145) mmol/L Potassium 4.7 (3.5-5.1) mmol/L Chloride 102 (98-107) mmol/L Carbon Dioxide 24.3 (21.0-32.0) mmol/L BUN 15 (7-18) mg/dL Creatinine 1.14 (0.51-1.17) mg/dL Est Cr Clr Drug Dosing 31.16 mL/min Estimated GFR (MDRD) 45 mL/min Glucose 210 H (74-106) mg/dL Lactic Acid 1.9 (0.4-2.0) mmol/L Uric Acid 7.1 (2.6-7.2) mg/dL Calcium 9.0 (8.5-10.1) mg/dL Magnesium 1.6 L (1.8-2.4) mg/dL Total Bilirubin 0.4 (0.2-1.0) mg/dL AST 20 (15-37) U/L ALT 21 (12-78) U/L Alkaline Phosphatase 81 (46-116) IU/L Creatine Kinase 19 L (26-308) U/L Creatine Kinase Index 3.7 H (0.0-2.5) % CK-MB (CK-2) 0.70 (0.00-3.60) ng/mL Troponin I 0.000 (0.000-0.056) ng/mL NT-Pro-B Natriuret Pep 537 H (0-125) pg/mL Total Protein 7.5 (6.4-8.2) g/dL Albumin 2.9 L (3.4-5.0) g/dL TSH, Ultra Sensitive 3.096 (0.358-3.740) mIU/mL Meds: Medications Generic Name Dose Route Start Last Admin Trade Name Freq PRN Reason Stop Dose Admin Sodium Chloride 10 ml 07/16/19 07:57 07/16/19 08:37 Saline Flush FLUSH 10 ml ASDIRECTED PRN Administration Keep Vein Open Discontinued Medications Generic Name Dose Route Start Last Admin Trade Name Edouard PRN Reason Stop Dose Admin Famotidine 40 mg 07/16/19 07:57 07/16/19 08:37 Pepcid IVPUSH 07/16/19 07:58 40 mg ONETIME ONE Administration - Radiology Interpretation Free Text/Narrative:: cardiac monitor shows mild sinus tachycardia with heart rate in the low 100s with no ectopy or arrhythmia Chest x-ray, portable, shows moderate COPD changes, including some mild borderline pulmonary hypertension versus centralized CHF. No pulmonary infiltrates, pneumothorax, etc. Mild scoliosis with mild to moderate osteoarthritic and osteoporotic changes. Moderately elevated right hemidiaphragm. Moderate aortic valve calcification with no cardiomegaly. Departure - Departure Time of Disposition: 09:15 Disposition: Admitted As Inpatient 64 Condition: Good Clinical Impression: Mixed anxiety depressive disorder, Peptic reflux disease, Hypomagnesemia, Elevated d-dimer, UTI (urinary tract infection), Confusion Osteoarthritis Qualifiers: Osteoarthritis location: multiple joints Osteoarthritis type: primary Qualified Code(s): M15.0 - Primary generalized (osteo)arthritis Hyperlipidemia Qualifiers: Hyperlipidemia type: unspecified Qualified Code(s): E78.5 - Hyperlipidemia, unspecified Diabetes mellitus Qualifiers: Diabetes mellitus type: type 2 Diabetes mellitus medical records custodian insulin use: without medical records custodian use Diabetes mellitus complication status: without complication Qualified Code(s): E11.9 - Type 2 diabetes mellitus without complications Coronary artery disease Qualifiers: Coronary Disease-Associated Artery/Lesion type: [place] artery [place] vs. transplanted heart: [place] heart Associated angina: without angina Qualified Code(s): I25.10 - Atherosclerotic heart disease of [place] coronary artery without angina pectoris Hypertension Qualifiers: Hypertension type: essential hypertension Qualified Code(s): I10 - Essential ( primary) hypertension COPD (chronic obstructive pulmonary disease) Qualifiers: COPD type: emphysema Emphysema type: panlobular Qualified Code(s): J43.1 - Panlobular emphysema CHF (congestive heart failure) Qualifiers: Heart failure type: systolic Heart failure chronicity: acute on chronic Qualified Code(s): I50.23 - Acute on chronic systolic (congestive) heart failure Anemia Qualifiers: Anemia type: unspecified type Qualified Code(s): D64.9 - Anemia, unspecified - Problem List & Annotations (1) CHF (congestive heart failure) SNOMED Code(s): 94604829 Code(s): I50.9 - HEART FAILURE, UNSPECIFIED Status: Acute Priority: High Current Visit: No Annotation/Comment:: Patient was apparently instructed not to take her Lasix quite some time ago. Initiate IV Lasix therapy with oral Lasix to be continued after hospital discharge. Continue close follow-up by regular provider. Echocardiogram to be conducted tomorrow. The patient is allergic to ZUNILDA inhibitors. Note only mildly elevated BNP with borderline centralized CHF by chest x-ray. Qualifiers: Heart failure type: systolic Heart failure chronicity: acute on chronic Qualified Code(s): I50.23 - Acute on chronic systolic (congestive) heart failure (2) Coronary artery disease SNOMED Code(s): 78657952 Code(s): I25.10 - ATHSCL HEART DISEASE OF [place] CORONARY ARTERY W/O ANG PCTRS Status: Chronic Priority: Medium Current Visit: No Annotation/ Comment:: No Chest pain or anginal complaints on arrival despite dyspnea as above. Patient is a somewhat poor historian. Chest pain protocol was initiated on arrival, however no ASA or Brilinta were given. Note initiation of subcutaneous Lovenox therapy as below. Initiate standard rule out NM orders with cardiology consultation depending on her clinical course. Consider further Cardiolite stress test on an outpatient basis after discharge. Patient was previously comfort care, however wishes to be full code at this time. No chest pain on admission. EKG and cardiac enzymes negative for acute NM with artifactually elevated CK index secondary to low baseline CK. Qualifiers: Coronary Disease-Associated Artery/Lesion type: [place] artery [place] vs. transplanted heart: [place] heart Associated angina: without angina Qualified Code(s): I25.10 - Atherosclerotic heart disease of [place] coronary artery without angina pectoris (3) Anemia SNOMED Code(s): 398934859 Code(s): D64.9 - ANEMIA, UNSPECIFIED Status: Chronic Priority: Medium Current Visit: No Annotation/Comment:: Iron studies and vitamin B 12 level to be conducted tomorrow morning. Anemia stable by medical records. No evidence of acute GI bleed, etc. Qualifiers: Anemia type: unspecified type Qualified Code(s): D64.9 - Anemia, unspecified (4) COPD (chronic obstructive pulmonary disease) SNOMED Code(s): 45110964 Code(s): J44.9 - CHRONIC OBSTRUCTIVE PULMONARY DISEASE, UNSPECIFIED Status : Acute Current Visit: No Qualifiers: COPD type: emphysema Emphysema type: panlobular Qualified Code(s): J43.1 - Panlobular emphysema (5) Elevated d-dimer SNOMED Code(s): 253369292 Code(s): R79.89 - OTHER SPECIFIED ABNORMAL FINDINGS OF BLOOD CHEMISTRY Status: Acute Priority: High Current Visit: No Onset Date: 07/16/19 Annotation/Comment:: No direct clinical evidence of DVT or PE, however no dyspnea likely secondary to CHF as above. CTA of the chest to be conducted immediately upon admission. Lovenox to be diagnosed at the VTE/PE dose with venous Doppler studies unavailable until tomorrow. (6) Hypertension SNOMED Code(s): 07724095 Code(s): I10 - ESSENTIAL (PRIMARY) HYPERTENSION Status: Chronic Priority : Medium Current Visit: No Annotation/Comment:: Blood pressures stable in the emergency room. Continue to observe closely during this hospitalization. Qualifiers: Hypertension type: essential hypertension Qualified Code(s): I10 - Essential (primary) hypertension (7) Hypomagnesemia SNOMED Code(s): 462452341 Code(s): E83.42 - HYPOMAGNESEMIA Status: Acute Priority: Medium Current Visit: No Onset Date: 07/16/19 Annotation/Comment:: Initiate magnesium supplementation on admission with close follow-up by her regular providers after discharge especially in light of reinitiated Lasix therapy as above. (8) Diabetes mellitus SNOMED Code(s): 93173070 Code(s): E11.9 - TYPE 2 DIABETES MELLITUS WITHOUT COMPLICATIONS Status: Chronic Priority: Medium Current Visit: No Annotation/Comment:: Oral medical therapy was initiated a few months ago. Glycosylated hemoglobin in the a.m. Qualifiers: Diabetes mellitus type: type 2 Diabetes mellitus residential insulin use: without residential use Diabetes mellitus complication status: without complication Qualified Code(s): E11.9 - Type 2 diabetes mellitus without complications (9) Hyperlipidemia SNOMED Code(s): 89424398 Code(s): E78.5 - HYPERLIPIDEMIA, UNSPECIFIED Status: Chronic Priority: Medium Current Visit: No Annotation/Comment:: Not currently under therapy with previous apparent discontinuation of her statin therapy. Lipid panel in the a.m. Consider reinitiation of statin secondary to her known coronary artery disease including previous PTCA/stent as above. Qualifiers: Hyperlipidemia type: unspecified Qualified Code(s): E78.5 - Hyperlipidemia , unspecified (10) Hypertension SNOMED Code(s): 97361724 Code(s): I10 - ESSENTIAL (PRIMARY) HYPERTENSION Status: Chronic Priority : Medium Current Visit: No Annotation/Comment:: Blood pressure somewhat elevated in the emergency room secondary to her anxiety and not yet taking her evening medications. Observe for now with blood pressures improved prior to discharge Qualifiers: Hypertension type: essential hypertension Qualified Code(s): I10 - Essential (primary) hypertension (11) Mixed anxiety depressive disorder SNOMED Code(s): 240117114 Code(s): F41.8 - OTHER SPECIFIED ANXIETY DISORDERS Status: Chronic Priority: Medium Current Visit: No Annotation/Comment:: Stable by history. Borderline anxiety today. Continue to observe closely by her regular providers with no change in medical therapy for now. (12) Osteoarthritis SNOMED Code(s): 734330981 Code(s): M19.90 - UNSPECIFIED OSTEOARTHRITIS, UNSPECIFIED SITE Status: Chronic Priority: Medium Current Visit: No Annotation/Comment:: Stable by history with history of osteoporosis Qualifiers: Osteoarthritis location: multiple joints Osteoarthritis type: primary Qualified Code(s): M15.0 - Primary generalized (osteo)arthritis (13) Peptic reflux disease SNOMED Code(s): 580505559 Code(s): K21.9 - GASTRO-ESOPHAGEAL REFLUX DISEASE WITHOUT ESOPHAGITIS Status: Chronic Priority: Medium Current Visit: No Annotation/Comment:: Stable by history with high-dose IV Pepcid given as GI prophylaxis. (14) Confusion SNOMED Code(s): 579732264 Code(s): R41.0 - DISORIENTATION, UNSPECIFIED Status: Acute Priority: Medium Current Visit: Yes Annotation/Comment:: Borderline confusion with possible beginning organic brain syndrome. Note current UTI. Observe for now. (15) UTI (urinary tract infection) SNOMED Code(s): 47138086 Code(s): N39.0 - URINARY TRACT INFECTION, SITE NOT SPECIFIED Status: Acute Priority: Medium Current Visit: Yes Annotation/Comment:: Note recent UTI currently under therapy. Repeat UA with culture and sensitivity during this hospitalization. Qualifiers: Urinary tract infection type: acute cystitis Hematuria presence: without hematuria Qualified Code(s): N30.00 - Acute cystitis without hematuria - Problem List Review Problem List Initiated/Reviewed/Updated: Yes - My Orders Last 24 Hours: My Active Orders 07/16/19 07:57 Sodium Chloride 0.9% [Saline Flush] 10 ml FLUSH ASDIRECTED PRN Resuscitation Status Stat 07/16/19 07:58 Cardiac Monitoring [RC] . DIRECTED EKG Documentation Completion [RC] ASDIRECTED Oxygen Therapy, ED [RC] PRN Peripheral IV Care [RC] . DIRECTED Pulse Oximetry [RC] CONTINUOUS Up With Assistance [RC] PFP Vital Signs [RC] PFP Chest 1V Frontal [CR] Stat Obtain Past Medical Record [OM.PC] Urgent Peripheral IV Insertion Adult [OM.PC] Stat 07/16/19 Breakfast Nothing per Oral Now Diet [DIET] - Assessment/Plan Admission H&P: Please use this note as an admission H&P Last 24 Hours: My Active Orders 07/16/19 07:57 Sodium Chloride 0.9% [Saline Flush] 10 ml FLUSH ASDIRECTED PRN Resuscitation Status Stat 07/16/19 07:58 Cardiac Monitoring [RC] . DIRECTED EKG Documentation Completion [RC] ASDIRECTED Oxygen Therapy, ED [RC] PRN Peripheral IV Care [RC] . DIRECTED Pulse Oximetry [RC] CONTINUOUS Up With Assistance [RC] PFP Vital Signs [RC] PFP Chest 1V Frontal [CR] Stat Obtain Past Medical Record [OM.PC] Urgent Peripheral IV Insertion Adult [OM.PC] Stat 07/16/19 Breakfast Nothing per Oral Now Diet [DIET] Assessment:: As above Plan: As above. Extensive precautions were given to the patient and her sister, who are in agreement with the treatment plan. The patient will require about 3-4 days of inpatient/acute care secondary to multiple health problems as above. Dr. Owen assumes care.
[2019-07-16] MEDS: Sodium Chloride 0.9% 10 ML Syringe FLUSH PRN ×4 (08:37→20:05)
[2019-07-16] MEDS ORDERED: Iopamidol 755 Mg/ML 100 ML Bottle IVPUSH ONE (09:32)
[2019-07-16] MEDS: Amoxicillin/Clavulanate K 875-125 MG Tab PO SCH ×2 (11:07→17:43)
[2019-07-16] MEDS: Metoprolol Succinate 50 MG Tab.ER PO SCH (11:08)
[2019-07-16] MEDS: Lutein/Minerals/Vitamin C/Vitamin E Acetate Cap PO SCH ×2 (11:08→17:43)
[2019-07-16] MEDS: Potassium Chloride 20 MEQ Tab.ER PO SCH ×2 (11:08→17:43)
[2019-07-16] MEDS: Furosemide 40 MG/4 ML VIAL IVPUSH SCH ×2 (11:09→17:49)
[2019-07-16] MEDS: Acetaminophen 325 MG Tab PO PRN (11:09)
[2019-07-16] MEDS: Enoxaparin 60 MG/0.6 ML Syringe SUBCUT SCH (11:10)
[2019-07-16] MEDS: Cetirizine 10 MG Tab PO SCH (17:43)
[2019-07-16] MEDS: LORazepam 0.5 MG Tab PO SCH (20:01)
[2019-07-16] MEDS: Pregabalin 75 MG Cap PO SCH (20:01)
[2019-07-16] MEDS: Mirtazapine 15 MG Tab PO SCH (20:01)
[2019-07-17] MEDS: Furosemide 40 MG/4 ML VIAL IVPUSH SCH (04:59)
[2019-07-17 07:33] LABS: HEMOGLOBIN A1C 6.5 % (4.3-5.7)
[2019-07-17] MEDS: LORazepam 0.5 MG Tab PO SCH ×2 (07:39→19:56)
[2019-07-17] MEDS: Cholecalciferol (Vitamin D3) 25 MCG Tab PO SCH (07:40)
[2019-07-17] MEDS: Acetaminophen 325 MG Tab PO PRN ×2 (07:40→16:21)
[2019-07-17] MEDS: Metoprolol Succinate 50 MG Tab.ER PO SCH (07:40)
[2019-07-17] MEDS: Glimepiride 2 MG Tab PO SCH (07:41)
[2019-07-17] MEDS: Lutein/Minerals/Vitamin C/Vitamin E Acetate Cap PO SCH ×2 (07:41→17:34)
[2019-07-17] MEDS: Potassium Chloride 20 MEQ Tab.ER PO SCH ×2 (07:42→11:10)
[2019-07-17] MEDS: Amoxicillin/Clavulanate K 875-125 MG Tab PO SCH (07:42)
[2019-07-17] MEDS: Enoxaparin 60 MG/0.6 ML Syringe SUBCUT SCH (09:59)
[2019-07-17] MEDS: Enoxaparin 30 MG/0.3 ML Syringe SUBCUT SCH (11:10)
[2019-07-17] MEDS ORDERED: Albuterol/Ipratropium 3.0-0.5 MG/3 ML Neb Soln NEB ONE (15:15)
--- NOTE | 2019-07-17 15:23 | PCM.PN ---
- General Info Date of Service: 07/17/19 Admission Dx/Problem (Free Text): Patient admitted from ER after presenting with complaint of fatigue, retrosternal tightness, and SOB. Subjective Update: Patient continues to complain that her chest feels a bit heavy. Has not really gotten out of bed today and cannot comment on if there is change in her sensation of being weak. No acute SOB however. No new complaints. Functional Status: Reports: Pain Controlled, Tolerating Diet, Urinating. Denies : New Symptoms - Review of Systems General: Reports: Weakness, Fatigue. Denies: Fever, Malaise, Chills, Night Sweats, Appetite HEENT: Reports: Glasses. Denies: Sinus Congestion, Sore Throat, Visual Changes Pulmonary: Reports: Shortness of Breath (not noted today), Cough (mild/dry). Denies: Pleuritic Chest Pain, Sputum, Hemoptysis, Wheezing Cardiovascular: Reports: Other (heavy chest sensation, however no pain complaint ). Denies: Chest Pain, Palpitations, Dyspnea on Exertion, Orthopnea, Edema, Lightheadedness Gastrointestinal: Reports: No Symptoms. Denies: Abdominal Pain, Constipation, Decreased Appetite, Diarrhea, Nausea, Vomiting Genitourinary: Reports: No Symptoms Musculoskeletal: Reports: No Symptoms (no acute changes from baseline) Skin: Reports: No Symptoms Neurological: Reports: Weakness (bilateral, nonfocal). Denies: Dizziness, Headache, Numbness, Trouble Speaking, Change in Speech, Gait Disturbance Psychiatric: Reports: No Symptoms - Patient Data Vitals - Most Recent: Last Vital Signs Temp 36.3 C 07/17/19 12:00 Pulse 83 07/17/19 12:00 Resp 17 07/17/19 12:00 BP 103/52 L 07/17/19 12:00 Pulse Ox 100 07/17/19 12:00 Weight - Most Recent: 53.479 kg I&O - Last 24 Hours: Intake & Output 07/17/19 07/17/19 07/17/19 06:59 14:59 22:59 Intake Total 100 630 Output Total 500 200 Balance -400 430 Lab Results Last 24 Hours: Laboratory Results - last 24 hr 07/16/19 07/16/19 07/17/19 Range/Units 19:30 20:05 07:11 WBC (4.0-10.2) K/uL RBC (3.77-5.09) M/uL Hgb (11.7-15.5) g/dL Hct (34.0-46.0) % MCV (84.0-98.0) fL MCH (28.2-33.3) pg MCHC (31.7-36.0) g/dL RDW (11.2-14.1) % Plt Count (150-350) K/uL Neut % (Auto) (45.0-80.0) % Lymph % (Auto) (10.0-50.0) % [place] % (Auto) (2.0-14.0) % Eos % (Auto) (0.0-5.0) % Baso % (Auto) (0.0-2.0) % Neut # (Auto) (1.40-7.00) K/uL Lymph # (Auto) (0.50-3.50) K/uL [place] # (Auto) (0.00-1.00) K/uL Eos # (Auto) (0.00-0.50) K/uL Baso # (Auto) (0.00-0.20) K/uL D-Dimer, Quantitative (0-400) ng/mL Sodium (136-145) mmol/L Potassium (3.5-5.1) mmol/L Chloride (98-107) mmol/L Carbon Dioxide (21.0-32.0) mmol/L BUN (7-18) mg/dL Creatinine (0.51-1.17) mg/dL Est Cr Clr Drug Dosing mL/min Estimated GFR (MDRD) mL/min Glucose (74-106) mg/dL Hemoglobin A1c (4.3-5.7) % Calcium (8.5-10.1) mg/dL Iron 40 L (50-175) ug/dL TIBC 222 L (250-450) ug/dL % Saturation [id number] Ferritin 130 (8-388) ng/mL Total Bilirubin (0.2-1.0) mg/dL AST (15-37) U/L ALT (12-78) U/L Alkaline Phosphatase (46-116) IU/L Creatine Kinase 26 (26-308) U/L Creatine Kinase Index 2.7 H (0.0-2.5) % CK-MB (CK-2) 0.70 (0.00-3.60) ng/mL Troponin I 0.000 (0.000-0.056) ng/mL NT-Pro-B Natriuret Pep (0-125) pg/mL Total Protein (6.4-8.2) g/dL Albumin (3.4-5.0) g/dL Triglycerides (30-150) mg/dL Cholesterol (100-200) mg/dL LDL Cholesterol, Calc (0-100) mg/dL HDL Cholesterol (40-60) mg/dL Vitamin B12 (193-986) pg/mL Specimen Type Urincc Urine Color Light yellow Urine Appearance Clear Urine pH 7.0 (5.0-9.0) Ur Specific [place] 1.015 (1.005-1.030) Urine Protein Negative (NEGATIVE) mg/dL Urine Glucose (UA) Negative (NEGATIVE) mg/dL Urine Ketones Negative (NEGATIVE) mg/dL Urine Occult Blood Trace-intact H (NEGATIVE) Urine Nitrite Negative (NEGATIVE) Urine Bilirubin Negative (NEGATIVE) Urine Urobilinogen 0.2 (0.2-1.0) E.U./dL Ur Leukocyte Esterase Negative (NEGATIVE) Urine RBC 0-5 /HPF Urine WBC 0-5 /HPF Ur Epithelial Cells Rare /LPF Urine Bacteria Rare (NONE TO FEW) /HPF 07/17/19 07/17/19 07/17/19 Range/Units 07:11 07:11 07:11 WBC 9.1 (4.0-10.2) K/uL RBC 3.54 L (3.77-5.09) M/uL Hgb 10.3 L (11.7-15.5) g/dL Hct 33.0 L (34.0-46.0) % MCV 93.2 (84.0-98.0) fL MCH 29.1 (28.2-33.3) pg MCHC 31.2 L (31.7-36.0) g/dL RDW 14.0 (11.2-14.1) % Plt Count 280 (150-350) K/uL Neut % (Auto) 58.6 (45.0-80.0) % Lymph % (Auto) 22.5 (10.0-50.0) % [place] % (Auto) 15.6 H (2.0-14.0) % Eos % (Auto) 3.0 (0.0-5.0) % Baso % (Auto) 0.3 (0.0-2.0) % Neut # (Auto) 5.35 (1.40-7.00) K/uL Lymph # (Auto) 2.06 (0.50-3.50) K/uL [place] # (Auto) 1.43 H (0.00-1.00) K/uL Eos # (Auto) 0.27 (0.00-0.50) K/uL Baso # (Auto) 0.03 (0.00-0.20) K/uL D-Dimer, Quantitative 1240 H (0-400) ng/mL Sodium 139 (136-145) mmol/L Potassium 4.3 (3.5-5.1) mmol/L Chloride 102 (98-107) mmol/L Carbon Dioxide 29.7 (21.0-32.0) mmol/L BUN 22 H (7-18) mg/dL Creatinine 1.73 H (0.51-1.17) mg/dL Est Cr Clr Drug Dosing 20.07 mL/min Estimated GFR (MDRD) 28 mL/min Glucose 142 H (74-106) mg/dL Hemoglobin A1c (4.3-5.7) % Calcium 8.6 (8.5-10.1) mg/dL Iron (50-175) ug/dL TIBC (250-450) ug/dL % Saturation Ferritin (8-388) ng/mL Total Bilirubin 0.4 (0.2-1.0) mg/dL AST 22 (15-37) U/L ALT 20 (12-78) U/L Alkaline Phosphatase 76 (46-116) IU/L Creatine Kinase 23 L (26-308) U/L Creatine Kinase Index 2.6 H (0.0-2.5) % CK-MB (CK-2) 0.60 (0.00-3.60) ng/mL Troponin I 0.000 (0.000-0.056) ng/mL NT-Pro-B Natriuret Pep 2598 H (0-125) pg/mL Total Protein 7.6 (6.4-8.2) g/dL Albumin 2.7 L (3.4-5.0) g/dL Triglycerides 83 (30-150) mg/dL Cholesterol 156 (100-200) mg/dL LDL Cholesterol, Calc 103 H (0-100) mg/dL HDL Cholesterol 36 L (40-60) mg/dL Vitamin B12 363 (193-986) pg/mL Specimen Type Urine Color Urine Appearance Urine pH (5.0-9.0) Ur Specific [place] (1.005-1.030) Urine Protein (NEGATIVE) mg/dL Urine Glucose (UA) (NEGATIVE) mg/dL Urine Ketones (NEGATIVE) mg/dL Urine Occult Blood (NEGATIVE) Urine Nitrite (NEGATIVE) Urine Bilirubin (NEGATIVE) Urine Urobilinogen (0.2-1.0) E.U./dL Ur Leukocyte Esterase (NEGATIVE) Urine RBC /HPF Urine WBC /HPF Ur Epithelial Cells /LPF Urine Bacteria (NONE TO FEW) /HPF 07/17/19 Range/Units 07:11 WBC (4.0-10.2) K/uL RBC (3.77-5.09) M/uL Hgb (11.7-15.5) g/dL Hct (34.0-46.0) % MCV (84.0-98.0) fL MCH (28.2-33.3) pg MCHC (31.7-36.0) g/dL RDW (11.2-14.1) % Plt Count (150-350) K/uL Neut % (Auto) (45.0-80.0) % Lymph % (Auto) (10.0-50.0) % [place] % (Auto) (2.0-14.0) % Eos % (Auto) (0.0-5.0) % Baso % (Auto) (0.0-2.0) % Neut # (Auto) (1.40-7.00) K/uL Lymph # (Auto) (0.50-3.50) K/uL [place] # (Auto) (0.00-1.00) K/uL Eos # (Auto) (0.00-0.50) K/uL Baso # (Auto) (0.00-0.20) K/uL D-Dimer, Quantitative (0-400) ng/mL Sodium (136-145) mmol/L Potassium (3.5-5.1) mmol/L Chloride (98-107) mmol/L Carbon Dioxide (21.0-32.0) mmol/L BUN (7-18) mg/dL Creatinine (0.51-1.17) mg/dL Est Cr Clr Drug Dosing mL/min Estimated GFR (MDRD) mL/min Glucose (74-106) mg/dL Hemoglobin A1c 6.5 H (4.3-5.7) % Calcium (8.5-10.1) mg/dL Iron (50-175) ug/dL TIBC (250-450) ug/dL % Saturation Ferritin (8-388) ng/mL Total Bilirubin (0.2-1.0) mg/dL AST (15-37) U/L ALT (12-78) U/L Alkaline Phosphatase (46-116) IU/L Creatine Kinase (26-308) U/L Creatine Kinase Index (0.0-2.5) % CK-MB (CK-2) (0.00-3.60) ng/mL Troponin I (0.000-0.056) ng/mL NT-Pro-B Natriuret Pep (0-125) pg/mL Total Protein (6.4-8.2) g/dL Albumin (3.4-5.0) g/dL Triglycerides (30-150) mg/dL Cholesterol (100-200) mg/dL LDL Cholesterol, Calc (0-100) mg/dL HDL Cholesterol (40-60) mg/dL Vitamin B12 (193-986) pg/mL Specimen Type Urine Color Urine Appearance Urine pH (5.0-9.0) Ur Specific [place] (1.005-1.030) Urine Protein (NEGATIVE) mg/dL Urine Glucose (UA) (NEGATIVE) mg/dL Urine Ketones (NEGATIVE) mg/dL Urine Occult Blood (NEGATIVE) Urine Nitrite (NEGATIVE) Urine Bilirubin (NEGATIVE) Urine Urobilinogen (0.2-1.0) E.U./dL Ur Leukocyte Esterase (NEGATIVE) Urine RBC /HPF Urine WBC /HPF Ur Epithelial Cells /LPF Urine Bacteria (NONE TO FEW) /HPF Med Orders - Current: Current Medications Acetaminophen (Tylenol) 650 mg PO Q4HR PRN PRN Reason: Pain Last Admin: 07/17/19 07:40 Dose: 650 mg Albuterol/Ipratropium (Duoneb 3.0-0.5 Mg/3 Ml) 3 ml NEB ONETIME ONE Stop: 07/17/19 15:16 Amoxicillin/Clavulanate Potassium (Augmentin 875 Mg/125 Mg) 1 tab PO BID [facility] Stop: 07/17/19 18:01 Last Admin: 07/17/19 07:42 Dose: 1 tab Cetirizine HCl (Zyrtec) 10 mg PO QPM [facility] [place] Last Admin: 07/16/19 17:43 Dose: 10 mg Cholecalciferol (Vitamin D3) 25 mcg PO DAILY [facility] [place] Last Admin: 07/17/19 07:40 Dose: 25 mcg Enoxaparin Sodium (Lovenox) 30 mg SUBCUT Q24H [facility] [place] Last Admin: 07/17/19 11:10 Dose: 30 mg Glimepiride (Amaryl) 2 mg PO DAILY [facility] [place] Last Admin: 07/17/19 07:41 Dose: 2 mg Lorazepam (Ativan) 1 mg PO BID@0800,2000 [facility] [place] Last Admin: 07/17/19 07:39 Dose: 1 mg Metoprolol Succinate (Toprol Xl) 50 mg PO DAILY [facility] [place] Last Admin: 07/17/19 07:40 Dose: 50 mg Mirtazapine (Remeron) 15 mg PO BEDTIME [facility] [place] Last Admin: 07/16/19 20:01 Dose: 15 mg Potassium Chloride (Klor-Con M20) 20 meq PO TID [facility] [place] Last Admin: 07/17/19 11:10 Dose: 20 meq Pregabalin (Lyrica) 75 mg PO BEDTIME [facility] [place] Last Admin: 07/16/19 20:01 Dose: 75 mg Sodium Chloride (Saline Flush) 10 ml FLUSH ASDIRECTED PRN PRN Reason: Keep Vein Open Last Admin: 07/16/19 20:05 Dose: 10 ml Sodium Chloride (Saline Flush) 10 ml FLUSH Q12HR PRN PRN Reason: Keep Vein Open Vit C/Vit E/Zinc/Copper/Lutein (Ocuvite Lutein) 1 each PO BID [facility] [place] Last Admin: 07/17/19 07:41 Dose: 1 each Discontinued Medications Enoxaparin Sodium (Lovenox) 50 mg SUBCUT Q24H [facility] [place] Last Admin: 07/17/19 09:59 Dose: Not Given Famotidine (Pepcid) 40 mg IVPUSH ONETIME ONE Stop: 07/16/19 07:58 Last Admin: 07/16/19 08:37 Dose: 40 mg Furosemide (Lasix) 40 mg IVPUSH Q8H [facility] Last Admin: 07/17/19 04:59 Dose: Not Given Iopamidol (Isovue-370 (76%)) 100 ml IVPUSH ONETIME ONE Stop: 07/16/19 09:33 Last Admin: 07/16/19 10:13 Dose: 100 ml - Exam Quality Assessment: DVT Prophylaxis General: Alert, Oriented, Cooperative, No Acute Distress HEENT: Pupils Equal, Pupils Reactive, EOMI, Mucous Membr. Moist/[place]ck: Supple Lungs: Clear to Auscultation, Normal Respiratory Effort Cardiovascular: Regular Rate, Regular Rhythm, Murmurs (faint/systolic) GI/Abdominal Exam: Normal Bowel Sounds, Soft, Non-Tender, No Distention (Female) Exam: Deferred Back Exam: No: CVA Tenderness (L), CVA Tenderness (R), Muscle Spasm, Paraspinal Tenderness, Vertebral Tenderness Extremities: Non-Tender, No Pedal Edema, Normal Capillary Refill Peripheral Pulses: 1+: Radial (L), Radial (R) Skin: Warm, Dry Neurological: No New Focal Deficit Psy/Mental Status: Alert, Normal Affect, Normal Mood EKG INTERPRETATION EKG Date: 07/17/19 Time: 07:04 Rhythm: NSR Rate (Beats/Min): 95 [place]: Normal P-Wave: Present QRS: Normal ST-T: Normal QT: Normal Comparison: No Change - Problem List & Annotations (1) Generalized weakness SNOMED Code(s): 03363252 Code(s): R53.1 - WEAKNESS Status: Acute Priority: High Current Visit: Yes Annotation/Comment:: Further questioning today led to patient admitting that she has been feeling weaker/more fatigued in general since early summer. Family member agrees. Sensation of weakness has included a feeling of heaviness /tightness in chest, similar to presenting complaint in ER. Still able to perform ADLs successfully/lives in apartment, but admits to becoming fatigued more easily. (2) COPD (chronic obstructive pulmonary disease) SNOMED Code(s): 31614832 Code(s): J44.9 - CHRONIC OBSTRUCTIVE PULMONARY DISEASE, UNSPECIFIED Status : Acute Current Visit: Yes Qualifiers: COPD type: emphysema Emphysema type: panlobular Qualified Code(s): J43.1 - Panlobular emphysema Annotation/Comment:: Radiology review of plain chest film and CT of chest did not appreciate any signs of fluid overload/pneumonia/PE. She does have moderate centrilobular emphysema and this may be a contributing factor to her SOB/heaviness in chest complaint in addition to the fatigue and weakness. Former smoker, quit years ago. Will trial patient on DuoNebs and see if this improves her above complaints. (3) Acute renal insufficiency SNOMED Code(s): 847526954 Code(s): N28.9 - DISORDER OF KIDNEY AND URETER, UNSPECIFIED Status: Acute Priority: High Current Visit: Yes Annotation/Comment:: Patient noted to have significant increase in BUN/Cr this morning (normal levels yesterday) and suspect this to be due to Lasix effect. Significant diuresis since admission. Lasix held this morning. Recheck levels in AM. (4) Coronary artery disease SNOMED Code(s): 58172716 Code(s): I25.10 - ATHSCL HEART DISEASE OF [place] CORONARY ARTERY W/O ANG PCTRS Status: Chronic Priority: Medium Current Visit: Yes Qualifiers: Coronary Disease-Associated Artery/Lesion type: [place] artery [place] vs. transplanted heart: [place] heart Associated angina: without angina Qualified Code(s): I25.10 - Atherosclerotic heart disease of [place] coronary artery without angina pectoris Annotation/Comment:: Patient continues to have no chest pain complaint/anginal symptoms. Serial cardiac labs unremarkable. Repeat EKG and telemetry show NSR/ no acute signs of ischemia. Given the new information of the chronic nature of patient's presenting complaints, it feels less likely that acute [place] is contributing to current picture. May still want to consider outpatient Cardiolite stress test to more fully rule out cardiac disease after discharge. (5) Comfort measures only status SNOMED Code(s): 61940609383722 Code(s): Z51.5 - ENCOUNTER FOR PALLIATIVE CARE Status: Acute Priority: High Current Visit: Yes Annotation/Comment:: Patient changed code status to DNR/DNI/comfort measures today. (6) UTI (urinary tract infection) SNOMED Code(s): 37704572 Code(s): N39.0 - URINARY TRACT INFECTION, SITE NOT SPECIFIED Status: Acute Priority: Medium Current Visit: Yes Qualifiers: Urinary tract infection type: acute cystitis Hematuria presence: without hematuria Qualified Code(s): N30.00 - Acute cystitis without hematuria Annotation/Comment:: Note recent UTI currently under therapy. Repeat UA with culture and sensitivity during this hospitalization. (7) CHF (congestive heart failure) SNOMED Code(s): 45509678 Code(s): I50.9 - HEART FAILURE, UNSPECIFIED Status: Acute Priority: Low Current Visit: Yes Qualifiers: Heart failure type: systolic Heart failure chronicity: acute on chronic Qualified Code(s): I50.23 - Acute on chronic systolic (congestive) heart failure Annotation/Comment:: Echocardiogram to be conducted today/results pending. Mildly elevated BNP at time of admission. No CHF changes noted on official Radiology reports for both chest CT and plain chest films. Patient diuresed and today reports no change in sensation of chest heaviness/fatigue/weakness. At this point CHF does not appear to be a significant contributor to presenting complaint. Given the large jump in BUN/Cr, in addition to the large increase in today's BNP (felt to be secondary to acute renal insufficiency), Lasix discontinued for now. (8) Hypomagnesemia SNOMED Code(s): 175503375 Code(s): E83.42 - HYPOMAGNESEMIA Status: Acute Priority: Medium Current Visit: Yes Onset Date: 07/16/19 Annotation/Comment:: Initiate magnesium supplementation on admission with close follow-up by her regular providers after discharge. (9) Elevated d-dimer SNOMED Code(s): 402344130 Code(s): R79.89 - OTHER SPECIFIED ABNORMAL FINDINGS OF BLOOD CHEMISTRY Status: Acute Priority: High Current Visit: Yes Onset Date: 07/16/19 Annotation/Comment:: No direct clinical evidence of DVT or PE. CTA of the chest showed no evidence of PE. Lovenox started at time of admission but dose decreased today secondary to acute renal insufficiency per recommendation of pharmacy. Venous Dopplar studies ordered for today/pending formal Radiology reading. No obvious abnormalities noted by tech performing study. DDimer level improved today. (10) Anemia SNOMED Code(s): 361455318 Code(s): D64.9 - ANEMIA, UNSPECIFIED Status: Chronic Priority: Medium Current Visit: Yes Qualifiers: Anemia type: other cause Other causes of anemia: chronic disease, other Qualified Code(s): D63.8 - Anemia in other chronic diseases classified elsewhere Annotation/Comment:: Iron/TIBC levels decreased. %Sat/Feritin and B12 levels normal. This is suggestive of anemia of chronic disease. Stable by medical records. No evidence of acute GI bleed, etc. (11) Diabetes mellitus SNOMED Code(s): 42100451 Code(s): E11.9 - TYPE 2 DIABETES MELLITUS WITHOUT COMPLICATIONS Status: Chronic Priority: Medium Current Visit: Yes Qualifiers: Diabetes mellitus type: type 2 Diabetes mellitus jail insulin use: without intermission coordinator use Diabetes mellitus complication status: without complication Qualified Code(s): E11.9 - Type 2 diabetes mellitus without complications Annotation/Comment:: Oral medical therapy was initiated a few months ago. Glycosylated hemoglobin 6.5 (12) Hyperlipidemia SNOMED Code(s): 09267857 Code(s): E78.5 - HYPERLIPIDEMIA, UNSPECIFIED Status: Chronic Priority: Low Current Visit: No Qualifiers: Hyperlipidemia type: unspecified Qualified Code(s): E78.5 - Hyperlipidemia , unspecified Annotation/Comment:: Not currently under therapy with previous apparent discontinuation of her statin therapy. Lipid panel showed normal cholesterol and Triglycerides. HDL low, LDL 103/mildly increased. (13) Hypertension SNOMED Code(s): 81256446 Code(s): I10 - ESSENTIAL (PRIMARY) HYPERTENSION Status: Chronic Priority : Medium Current Visit: Yes Qualifiers: Hypertension type: essential hypertension Qualified Code(s): I10 - Essential (primary) hypertension Annotation/Comment:: Blood pressure somewhat elevated in the emergency room secondary to her anxiety and not yet taking her evening medications. Observe for now with blood pressures improved prior to discharge (14) Hypertension SNOMED Code(s): 18608851 Code(s): I10 - ESSENTIAL (PRIMARY) HYPERTENSION Status: Chronic Priority : Medium Current Visit: No Qualifiers: Hypertension type: essential hypertension Qualified Code(s): I10 - Essential (primary) hypertension Annotation/Comment:: Blood pressures stable in the emergency room. Continue to observe closely during this hospitalization. 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 Borderline anxiety today. Continue to observe closely by her regular providers with no change in medical therapy for now. (16) Osteoarthritis SNOMED Code(s): 657297663 Code(s): M19.90 - UNSPECIFIED OSTEOARTHRITIS, UNSPECIFIED SITE Status: Chronic Priority: Medium Current Visit: No Qualifiers: Osteoarthritis location: multiple joints Osteoarthritis type: primary Qualified Code(s): M15.0 - Primary generalized (osteo)arthritis Annotation/Comment:: Stable by history with history of osteoporosis (17) Peptic reflux disease SNOMED Code(s): 231093859 Code(s): K21.9 - GASTRO-ESOPHAGEAL REFLUX DISEASE WITHOUT ESOPHAGITIS Status: Chronic Priority: Medium Current Visit: No Annotation/Comment:: Stable by history with high-dose IV Pepcid given as GI prophylaxis. (18) Confusion SNOMED Code(s): 880709761 Code(s): R41.0 - DISORIENTATION, UNSPECIFIED Status: Acute Priority: Medium Current Visit: Yes Annotation/Comment:: Borderline confusion in ER with possible beginning organic brain syndrome. Note current UTI. Observe for now. Will request cognitive eval from case management. - Problem List Review Problem List Initiated/Reviewed/Updated: Yes - My Orders Last 24 Hours: My Active Orders 07/16/19 Dinner [employer] Diet [DIET] 07/17/19 10:00 Enoxaparin [Lovenox] 30 mg SUBCUT Q24H 07/17/19 14:47 Consult to Physical Therapy [PT Evaluation and Treatment] [CONS] Routine OT Evaluation and Treatment [CONS] Routine 07/17/19 15:15 RT Aerosol Therapy [RC] ASDIRECTED Albuterol/Ipratropium [DuoNeb 3.0-0.5 MG/3 ML] 3 ml NEB ONETIME ONE - Assessment Assessment:: As above. Patient's story change a bit today to reveal that she has been experiencing increased fatigue and weakness since "early summer". Verified by family member. Chest heaviness and shortness of breath sensation is also not new, however it was worse during the night before pt presenting to ER. No specific trigger/illness or other change that could have contributed to this identified by the patient. No significant change observed by patient s/p diuresis. That in addition to acute renal insufficiency that is most likely secondary to the Lasix led to Lasix being discontinued this morning. Lovenox dose also adjusted given the decline in renal function. Cardiac enzymes/EKG/ telemetry noted to be unremarkable overall. Complaints may be secondary to age -related decline, but cannot rule out contribution from her COPD. - Plan Plan:: As above. [place] added to see if patient benefits from any improvement in above complaints. PT and OT consulted to evaluate and work with patient. Plan to request swallow eval as patient reports that she sometimes has pills get "stuck" in her throat. Also plan to ask Case Management to perform cognitive evaluation to more fully assess concerns in this area. to take over patient's care in AM.
[2019-07-17] MEDS: Sodium Chloride 0.9% 10 ML Syringe FLUSH PRN ×3 (16:23→19:57)
[2019-07-17] MEDS: Cetirizine 10 MG Tab PO SCH (17:34)
[2019-07-17] MEDS: Mirtazapine 15 MG Tab PO SCH (19:56)
[2019-07-17] MEDS: Pregabalin 75 MG Cap PO SCH (19:56)
[2019-07-17] MEDS: Albuterol/Ipratropium 3.0-0.5 MG/3 ML Neb Soln NEB SCH (19:57)
[2019-07-17] MEDS ORDERED: Sodium Chloride 0.9% 500 ML IV ONE (20:30)
[2019-07-17] MEDS ORDERED: Sodium Chloride 0.9% 500 ML IV SCH (20:45)
[2019-07-18] MEDS: LORazepam 0.5 MG Tab PO SCH ×2 (08:20→21:02)
[2019-07-18] MEDS: Glimepiride 2 MG Tab PO SCH (08:21)
[2019-07-18] MEDS: Lutein/Minerals/Vitamin C/Vitamin E Acetate Cap PO SCH ×2 (08:21→18:09)
[2019-07-18] MEDS: Metoprolol Succinate 50 MG Tab.ER PO SCH (08:22)
[2019-07-18] MEDS: Albuterol/Ipratropium 3.0-0.5 MG/3 ML Neb Soln NEB SCH ×2 (08:23→21:02)
[2019-07-18] MEDS: Cholecalciferol (Vitamin D3) 25 MCG Tab PO SCH (08:23)
[2019-07-18] MEDS: Enoxaparin 30 MG/0.3 ML Syringe SUBCUT SCH (09:41)
[2019-07-18] MEDS ORDERED: Sodium Chloride 0.9% 1,000 ML IV ONE (10:18)
--- NOTE | 2019-07-18 11:03 | PCM.PN ---
- General Info Date of Service: 07/18/19 Admission Dx/Problem (Free Text): Patient admitted from ER after presenting with complaint of fatigue, retrosternal tightness, and SOB. Subjective Update: Patient feels improved today. Reports feeling more energy and better walking endurance. Functional Status: Reports: Pain Controlled, Tolerating Diet, Ambulating, Urinating. Denies: New Symptoms - Review of Systems General: Reports: Weakness (improved), Fatigue (improved). Denies: Fever, Malaise, Chills, Night Sweats HEENT: Denies: Headaches, Sinus Congestion, Sore Throat, Rhinitis, Visual Changes Pulmonary: Reports: No Symptoms. Denies: Shortness of Breath Cardiovascular: Reports: No Symptoms. Denies: Dyspnea on Exertion, Lightheadedness Gastrointestinal: Reports: Difficulty Swallowing (sometimes has problems swallowing pills), Other (+ for occult blood). Denies: Abdominal Pain, Constipation, Diarrhea, Nausea, Vomiting Genitourinary: Reports: No Symptoms Musculoskeletal: Reports: Other (no acute changes from baseline) Skin: Reports: No Symptoms Neurological: Reports: Weakness (improving), Other (Patient thought she was in [place] today). Denies: Confusion, Dizziness, Headache, Paresthesia, Change in Speech, Gait Disturbance Psychiatric: Denies: Depression, Anxiety, Agitation, Hallucinations - Patient Data Vitals - Most Recent: Last Vital Signs Temp 36.6 C 07/18/19 05:30 Pulse 86 07/18/19 08:22 Resp 14 07/18/19 05:30 BP 113/61 07/18/19 08:22 Pulse Ox 96 07/18/19 05:30 Weight - Most Recent: 55.747 kg I&O - Last 24 Hours: Intake & Output 07/17/19 07/18/19 07/18/19 22:59 06:59 14:59 Intake Total 750 1060 680 Output Total 100 Balance 650 1060 680 Lab Results Last 24 Hours: Laboratory Results - last 24 hr 07/18/19 07/18/19 07/18/19 Range/Units 07:05 07:05 07:05 WBC 8.3 (4.0-10.2) K/uL RBC 3.04 L (3.77-5.09) M/uL Hgb 8.8 L D (11.7-15.5) g/dL Hct 28.6 L (34.0-46.0) % MCV 94.1 (84.0-98.0) fL MCH 28.9 (28.2-33.3) pg MCHC 30.8 L (31.7-36.0) g/dL RDW 13.8 (11.2-14.1) % Plt Count 263 (150-350) K/uL Neut % (Auto) 69.0 (45.0-80.0) % Lymph % (Auto) 14.7 (10.0-50.0) % [place] % (Auto) 11.0 (2.0-14.0) % Eos % (Auto) 5.2 H (0.0-5.0) % Baso % (Auto) 0.1 (0.0-2.0) % Neut # (Auto) 5.71 (1.40-7.00) K/uL Lymph # (Auto) 1.22 (0.50-3.50) K/uL [place] # (Auto) 0.91 (0.00-1.00) K/uL Eos # (Auto) 0.43 (0.00-0.50) K/uL Baso # (Auto) 0.01 (0.00-0.20) K/uL D-Dimer, Quantitative 955 H (0-400) ng/mL Sodium 137 (136-145) mmol/L Potassium 5.0 (3.5-5.1) mmol/L Chloride 104 (98-107) mmol/L Carbon Dioxide 24.6 (21.0-32.0) mmol/L BUN 31 H (7-18) mg/dL Creatinine 2.10 H (0.51-1.17) mg/dL Est Cr Clr Drug Dosing 16.91 mL/min Estimated GFR (MDRD) 22 mL/min Glucose 100 (74-106) mg/dL Calcium 7.9 L (8.5-10.1) mg/dL Magnesium 2.3 (1.8-2.4) mg/dL NT-Pro-B Natriuret Pep 1819 H (0-125) pg/mL [place] Results Last 24 Hours: Microbiology 07/16/19 19:30 Urine Culture - Final Urine, Clean Catch NO GROWTH AFTER 2 DAYS 07/18/19 07:41 Stool Occult Blood ([place]) - Final Stool / Feces Med Orders - Current: Current Medications Acetaminophen (Tylenol) 650 mg PO Q4HR PRN PRN Reason: Pain Last Admin: 07/17/19 16:21 Dose: 650 mg Albuterol/Ipratropium (Duoneb 3.0-0.5 Mg/3 Ml) 3 ml NEB BIDRT [facility] Last Admin: 07/18/19 08:23 Dose: 3 ml Cetirizine HCl (Zyrtec) 10 mg PO QPM [facility] Last Admin: 07/17/19 17:34 Dose: 10 mg Cholecalciferol (Vitamin D3) 25 mcg PO DAILY [facility] Last Admin: 07/18/19 08:23 Dose: 25 mcg Enoxaparin Sodium (Lovenox) 30 mg SUBCUT Q24H [facility] Last Admin: 07/18/19 09:41 Dose: 30 mg Glimepiride (Amaryl) 2 mg PO DAILY [facility] Last Admin: 07/18/19 08:21 Dose: 2 mg Sodium Chloride (Normal Saline) 1,000 mls @ 500 mls/hr IV ONETIME ONE Stop: 07/18/19 12:17 Lorazepam (Ativan) 1 mg PO BID@0800,2000 [facility] Last Admin: 07/18/19 08:20 Dose: 1 mg Metoprolol Succinate (Toprol Xl) 50 mg PO DAILY [facility] Last Admin: 07/18/19 08:22 Dose: 50 mg Mirtazapine (Remeron) 15 mg PO BEDTIME [facility] Last Admin: 07/17/19 19:56 Dose: 15 mg Pregabalin (Lyrica) 75 mg PO BEDTIME [facility] Last Admin: 07/17/19 19:56 Dose: 75 mg Sodium Chloride (Saline Flush) 10 ml FLUSH ASDIRECTED PRN PRN Reason: Keep Vein Open Last Admin: 07/17/19 17:35 Dose: 10 ml Sodium Chloride (Saline Flush) 10 ml FLUSH Q12HR PRN PRN Reason: Keep Vein Open Last Admin: 07/17/19 19:57 Dose: 10 ml Vit C/Vit E/Zinc/Copper/Lutein (Ocuvite Lutein) 1 each PO BID [facility] Last Admin: 07/18/19 08:21 Dose: 1 each Discontinued Medications Albuterol/Ipratropium (Duoneb 3.0-0.5 Mg/3 Ml) 3 ml NEB ONETIME ONE Stop: 07/17/19 15:16 Last Admin: 07/17/19 15:38 Dose: 3 ml Amoxicillin/Clavulanate Potassium (Augmentin 875 Mg/125 Mg) 1 tab PO BID [facility] Stop: 07/17/19 18:01 Last Admin: 07/17/19 07:42 Dose: 1 tab Enoxaparin Sodium (Lovenox) 50 mg SUBCUT Q24H [facility] Last Admin: 07/17/19 09:59 Dose: Not Given Famotidine (Pepcid) 40 mg IVPUSH ONETIME ONE Stop: 07/16/19 07:58 Last Admin: 07/16/19 08:37 Dose: 40 mg Furosemide (Lasix) 40 mg IVPUSH Q8H [facility] Last Admin: 07/17/19 04:59 Dose: Not Given Magnesium Sulfate/Dextrose 1 (gm/ Premix) 100 mls @ 100 mls/hr IV ONETIME ONE Stop: 07/17/19 17:14 Last Admin: 07/17/19 16:22 Dose: 100 mls/hr Sodium Chloride (Normal Saline) 500 mls @ 500 mls/hr IV ONETIME ONE Stop: 07/17/19 21:29 Last Admin: 07/17/19 20:55 Dose: 500 mls/hr Sodium Chloride (Normal Saline) 500 mls @ 80 mls/hr IV ASDIRECTED [facility] Stop: 07/18/19 02:59 Last Admin: 07/17/19 20:56 Dose: 80 mls/hr Iopamidol (Isovue-370 (76%)) 100 ml IVPUSH ONETIME ONE Stop: 07/16/19 09:33 Last Admin: 07/16/19 10:13 Dose: 100 ml Potassium Chloride (Klor-Con M20) 20 meq PO TID [facility] Last Admin: 07/17/19 11:10 Dose: 20 meq - Exam Quality Assessment: DVT Prophylaxis General: Alert, Oriented, Cooperative, No Acute Distress HEENT: Pupils Equal, Pupils Reactive, EOMI, Mucous Membr. Moist/[place] Neck: Supple Lungs: Clear to Auscultation, Normal Respiratory Effort Cardiovascular: Regular Rate, Regular Rhythm GI/Abdominal Exam: Normal Bowel Sounds, Soft, Non-Tender, No Distention (Female) Exam: Deferred Back Exam: No: CVA Tenderness (L), CVA Tenderness (R), Muscle Spasm, Paraspinal Tenderness, Vertebral Tenderness Extremities: Non-Tender, No Pedal Edema, Normal Capillary Refill, Other (mild puffiness right arm/attributed to IV site.) Skin: Warm, Dry Neurological: No New Focal Deficit Psy/Mental Status: Alert, Normal Affect, Normal Mood - Problem List & Annotations (1) Generalized weakness SNOMED Code(s): 67787783 Code(s): R53.1 - WEAKNESS Status: Acute Priority: High Current Visit: Yes Annotation/Comment:: Further questioning led to patient admitting that she has been feeling weaker/more fatigued in general since early summer. Family member agrees. Sensation of weakness has included a feeling of heaviness /tightness in chest, similar to presenting complaint in ER. Still able to perform ADLs successfully/lives in apartment, but admits to becoming fatigued more easily. No change s/p Lasix diuresis. Does feel improved today. Only other change was adding neb treatments for COPD yesterday morning. (2) COPD (chronic obstructive pulmonary disease) SNOMED Code(s): 85562700 Code(s): J44.9 - CHRONIC OBSTRUCTIVE PULMONARY DISEASE, UNSPECIFIED Status : Acute Current Visit: Yes Qualifiers: COPD type: emphysema Emphysema type: panlobular Qualified Code(s): J43.1 - Panlobular emphysema Annotation/Comment:: Radiology review of plain chest film and CT of chest did not appreciate any signs of fluid overload/pneumonia/PE. She does have moderate centrilobular emphysema and this may be a contributing factor to her SOB/heaviness in chest complaint in addition to the fatigue and weakness. Former smoker, quit years ago. DuoNebs initiated yesterday BID. Patient reports feeling improved today in regards to energy and walking. No chest tightness/retrosternal pressure reported today. (3) Acute renal insufficiency SNOMED Code(s): 332601560 Code(s): N28.9 - DISORDER OF KIDNEY AND URETER, UNSPECIFIED Status: Acute Priority: High Current Visit: Yes Annotation/Comment:: Patient noted to have significant increase in BUN/Cr yesterday (normal at time of admission) and suspect this to be due to Lasix effect. CT study performed in ER may have also contributed given IV contrast elimination. Significant diuresis since admission. Lasix held since yesterday. Today levels have worsened, Cr 2.1 with further elevation BUN. This is despite 500ml bolus of NS yesterday with initiation of 80ml/hr NS. Will give additional fluid today. Patient has voided small amounts of urine since last night. Continue to observe closely. (4) Coronary artery disease SNOMED Code(s): 04805719 Code(s): I25.10 - ATHSCL HEART DISEASE OF [place] CORONARY ARTERY W/O ANG PCTRS Status: Chronic Priority: Medium Current Visit: Yes Qualifiers: Coronary Disease-Associated Artery/Lesion type: [place] artery [place] vs. transplanted heart: [place] heart Associated angina: without angina Qualified Code(s): I25.10 - Atherosclerotic heart disease of [place] coronary artery without angina pectoris Annotation/Comment:: Patient continues to have no chest pain complaint/anginal symptoms. Serial cardiac labs unremarkable. Repeat EKG and telemetry show NSR/ no acute signs of ischemia. Given the new information of the chronic nature of patient's presenting complaints, it feels less likely that acute [place] is contributing to current picture. May still want to consider outpatient Cardiolite stress test to more fully rule out cardiac disease after discharge. (5) Comfort measures only status SNOMED Code(s): 67912539643017 Code(s): Z51.5 - ENCOUNTER FOR PALLIATIVE CARE Status: Acute Priority: High Current Visit: Yes Annotation/Comment:: Patient changed code status to DNR/DNI/comfort measures today. (6) UTI (urinary tract infection) SNOMED Code(s): 21864085 Code(s): N39.0 - URINARY TRACT INFECTION, SITE NOT SPECIFIED Status: Acute Priority: Medium Current Visit: Yes Qualifiers: Urinary tract infection type: acute cystitis Hematuria presence: without hematuria Qualified Code(s): N30.00 - Acute cystitis without hematuria Annotation/Comment:: Patient was on antibiotics for UTI. Recheck of UA showed infection cleared. Antibiotics discontinued. Repeat UC shows no growth after 2 days. (7) CHF (congestive heart failure) SNOMED Code(s): 09622325 Code(s): I50.9 - HEART FAILURE, UNSPECIFIED Status: Acute Priority: Low Current Visit: Yes Qualifiers: Heart failure type: systolic Heart failure chronicity: acute on chronic Qualified Code(s): I50.23 - Acute on chronic systolic (congestive) heart failure Annotation/Comment:: Echocardiogram to be conducted today/results pending. Mildly elevated BNP at time of admission. No CHF changes noted on official Radiology reports for both chest CT and plain chest films. Patient diuresed and today reports no change in sensation of chest heaviness/fatigue/weakness. At this point CHF does not appear to be a significant contributor to presenting complaint. Given the large jump in BUN/Cr, in addition to the large increase in yesterday's BNP (felt to be secondary to acute renal insufficiency), Lasix discontinued for now. BNP level showed improvement today. (8) Hypomagnesemia SNOMED Code(s): 083796323 Code(s): E83.42 - HYPOMAGNESEMIA Status: Acute Priority: Medium Current Visit: Yes Onset Date: 07/16/19 Annotation/Comment:: Level normal today per lab. Continue regular supplementation with close follow up by primary provider. (9) Elevated d-dimer SNOMED Code(s): 349755917 Code(s): R79.89 - OTHER SPECIFIED ABNORMAL FINDINGS OF BLOOD CHEMISTRY Status: Acute Priority: High Current Visit: Yes Onset Date: 07/16/19 Annotation/Comment:: No direct clinical evidence of DVT or PE. CTA of the chest showed no evidence of PE. Lovenox started at time of admission but dose decreased secondary to acute renal insufficiency per recommendation of pharmacy. Venous Dopplar study of lower extremities showed no abnormalities. DDimer level continues to improve. (10) Anemia SNOMED Code(s): 502977832 Code(s): D64.9 - ANEMIA, UNSPECIFIED Status: Chronic Priority: Medium Current Visit: Yes Qualifiers: Anemia type: other cause Other causes of anemia: chronic disease, other Qualified Code(s): D63.8 - Anemia in other chronic diseases classified elsewhere Annotation/Comment:: Iron/TIBC levels decreased. %Sat/Feritin and B12 levels normal. This is suggestive of anemia of chronic disease. Stable by medical records. 07/18: decrease of Hgb to 8.8 today. Suspect diluation effect from IV fluid received yesterday. Given worsening renal function patient will receive additional IV fluid support today and anticipate that Hgb level will fall lower tomorrow. Stool + for occult blood. Will need to consider outpatient colonoscopy after discharge. No evidence of acute GI bleed/obvious blood in stool noted during exam or by nursing staff. Continue to monitor closely. 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 Glycosylated hemoglobin 6.5 (12) Hyperlipidemia SNOMED Code(s): 74609685 Code(s): E78.5 - HYPERLIPIDEMIA, UNSPECIFIED Status: Chronic Priority: Low Current Visit: No Qualifiers: Hyperlipidemia type: unspecified Qualified Code(s): E78.5 - Hyperlipidemia , unspecified Annotation/Comment:: Not currently under therapy with previous apparent discontinuation of her statin therapy. Lipid panel showed normal cholesterol and Triglycerides. HDL low, LDL 103/mildly increased. (13) Hypertension SNOMED Code(s): 14343131 Code(s): I10 - ESSENTIAL (PRIMARY) HYPERTENSION Status: Chronic Priority : Medium Current Visit: Yes Qualifiers: Hypertension type: essential hypertension Qualified Code(s): I10 - Essential (primary) hypertension Annotation/Comment:: Blood pressure somewhat elevated in the emergency room secondary to her anxiety and not yet taking her evening medications. Observe for now with blood pressures improved prior to discharge (14) Hypertension SNOMED Code(s): 73936320 Code(s): I10 - ESSENTIAL (PRIMARY) HYPERTENSION Status: Chronic Priority : Medium Current Visit: No Qualifiers: Hypertension type: essential hypertension Qualified Code(s): I10 - Essential (primary) hypertension Annotation/Comment:: Blood pressures stable in the emergency room. Continue to observe closely during this hospitalization. 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 Borderline anxiety today. Continue to observe closely by her regular providers with no change in medical therapy for now. (16) Osteoarthritis SNOMED Code(s): 156705950 Code(s): M19.90 - UNSPECIFIED OSTEOARTHRITIS, UNSPECIFIED SITE Status: Chronic Priority: Medium Current Visit: No Qualifiers: Osteoarthritis location: multiple joints Osteoarthritis type: primary Qualified Code(s): M15.0 - Primary generalized (osteo)arthritis Annotation/Comment:: Stable by history with history of osteoporosis (17) Peptic reflux disease SNOMED Code(s): 666183771 Code(s): K21.9 - GASTRO-ESOPHAGEAL REFLUX DISEASE WITHOUT ESOPHAGITIS Status: Chronic Priority: Medium Current Visit: No Annotation/Comment:: Stable by history with high-dose IV Pepcid given as GI prophylaxis. (18) Confusion SNOMED Code(s): 408665012 Code(s): R41.0 - DISORIENTATION, UNSPECIFIED Status: Acute Priority: Medium Current Visit: Yes Annotation/Comment:: Borderline confusion in ER with possible beginning organic brain syndrome. Note current UTI. Observe for now. Will request cognitive eval from case management. - Problem List Review Problem List Initiated/Reviewed/Updated: Yes - My Orders Last 24 Hours: My Active Orders 07/17/19 10:00 Enoxaparin [Lovenox] 30 mg SUBCUT Q24H 07/17/19 14:47 Consult to Physical Therapy [PT Evaluation and Treatment] [CONS] Routine OT Evaluation and Treatment [CONS] Routine 07/17/19 15:15 RT Aerosol Therapy [RC] ASDIRECTED 07/17/19 16:36 Consult to Case Management/Heel Cutter [CONS] Routine 07/17/19 16:41 RT Aerosol Therapy [RC] 07/17/19 20:00 Albuterol/Ipratropium [DuoNeb 3.0-0.5 MG/3 ML] 3 ml NEB BIDRT 07/17/19 20:31 Communication Order [RC] 07/18/19 10:18 Sodium Chloride 0.9% [Normal Saline] 1,000 ml IV ONETIME - Assessment Assessment:: As above. Patient's story change a bit after admission to reveal that she has been experiencing increased fatigue and weakness since "early summer". Verified by family member. Chest heaviness and shortness of breath sensation is also not new, however it was worse during the night before pt presenting to ER. No specific trigger/illness or other change that could have contributed to this identified by the patient. No significant change observed by patient s/p diuresis. That in addition to acute renal insufficiency that is most likely secondary to the Lasix led to Lasix being discontinued this yesterday. Lovenox dose also adjusted given the decline in renal function. Cardiac enzymes/EKG/ telemetry noted to be unremarkable overall. Complaints may be secondary to age -related decline, but cannot rule out contribution from her COPD. DuoNebs BID added to regimen yesterday. Today patient reports feeling better/more energy and has easier time walking. Consider continuing DuoNebs at time of discharge. - Plan Plan:: As above. DuoNebs appear to be providing benefit for patient. PT and OT consulted to evaluate and work with patient. Plan to request swallow eval as patient reports that she sometimes has pills get "stuck" in her throat. Also plan to ask Case Management to perform cognitive evaluation to more fully assess concerns in this area. Continue to watch renal function and HGB closely. to take over patient's care in AM.
[2019-07-18] MEDS: Pantoprazole 40 MG Vial IVPUSH SCH (12:06)
[2019-07-18] MEDS: Cetirizine 10 MG Tab PO SCH (18:09)
[2019-07-18] MEDS: Pregabalin 75 MG Cap PO SCH (21:03)
[2019-07-18] MEDS: Mirtazapine 15 MG Tab PO SCH (21:03)
[2019-07-19] MEDS: Glimepiride 2 MG Tab PO SCH (07:53)
[2019-07-19] MEDS: LORazepam 0.5 MG Tab PO SCH ×2 (07:54→20:17)
[2019-07-19] MEDS: Cholecalciferol (Vitamin D3) 25 MCG Tab PO SCH (07:54)
[2019-07-19] MEDS: Metoprolol Succinate 50 MG Tab.ER PO SCH (07:54)
[2019-07-19] MEDS: Lutein/Minerals/Vitamin C/Vitamin E Acetate Cap PO SCH ×2 (07:54→17:05)
[2019-07-19] MEDS: Albuterol/Ipratropium 3.0-0.5 MG/3 ML Neb Soln NEB SCH ×2 (07:55→20:17)
[2019-07-19] MEDS: Magnesium Oxide 400 MG Tab PO SCH (07:55)
[2019-07-19] MEDS: Pantoprazole 40 MG Vial IVPUSH SCH (07:55)
--- NOTE | 2019-07-19 10:16 | PCM.PN ---
- General Info Date of Service: 07/19/19 Admission Dx/Problem (Free Text): 1. CHF 2. D-dimer elevation 3. Coronary artery disease 4. Anemia 5. COPD Subjective Update: Patient is a somewhat poor historian Functional Status: Reports: Pain Controlled, Tolerating Diet, Ambulating, Urinating, Incentive Spirometry. Denies: New Symptoms Pain Score: 0 - Review of Systems General: Reports: Weakness (Staple generalized), Fatigue (Stable generalized). Denies: Fever, Malaise, Chills, Night Sweats, Appetite (Adequate) HEENT: Reports: Glasses. Denies: Dysphasia, Ear Pain, Eye Pain, Headaches, Post Nasal Drip, Sinus Congestion, Sore Throat, Rhinitis, Visual Changes Pulmonary: Reports: No Symptoms. Denies: Shortness of Breath, Pleuritic Chest Pain, Cough, Sputum, Hemoptysis, Wheezing Cardiovascular: Reports: No Symptoms. Denies: Chest Pain, Palpitations, Dyspnea on Exertion, Orthopnea, PND, Edema, Lightheadedness Gastrointestinal: Reports: No Symptoms. Denies: Abdominal Pain, Constipation, Decreased Appetite, Diarrhea, Difficulty Swallowing, Flatus, Hematochezia, Melena, Nausea, Vomiting Genitourinary: Reports: No Symptoms. Denies: Dysuria, Frequency, Burning, Pain , Urgency, Hematuria, Retention, Flank Pain Musculoskeletal: Reports: No Symptoms. Denies: Neck Pain, Shoulder Pain, Arm Pain, Back Pain, Leg Pain Skin: Reports: No Symptoms. Denies: Diaphoresis, Bruising Neurological: Reports: Confusion (Stable to somewhat improved), Weakness. Denies: Dizziness, Headache, Numbness, Paresthesia, Tingling, Trouble Speaking, Difficulty Walking, Change in Speech Psychiatric: Reports: Confusion, Depression (Mild), Anxiety (Mild). Denies: Agitation, Cravings, Hallucinations - Patient Data Vitals - Most Recent: Last Vital Signs Temp 37.0 C 07/19/19 06:00 Pulse 93 07/19/19 07:54 Resp 16 07/19/19 06:00 BP 157/79 H 07/19/19 07:54 Pulse Ox 97 07/19/19 06:00 Vital Signs - 24 hr 07/18/19 07/18/19 07/18/19 11:39 18:45 23:46 Temperature [ 36.9 C 36.8 C 36.9 C Temporal] Pulse, Peripheral Pulse, 81 92 Peripheral [ Left Pulse Oximetry] Pulse, 89 Peripheral [ Right Pulse Oximetry] Respiratory 24 H 16 16 Rate Blood Pressure Blood Pressure 114/49 L [Left Upper Arm ] Blood Pressure 142/92 H 148/68 H [Right Upper Arm] O2 Sat by Pulse 95 100 100 Oximetry 07/19/19 07/19/19 06:00 07:54 Temperature [ 37.0 C Temporal] Pulse, 93 Peripheral Pulse, 93 Peripheral [ Left Pulse Oximetry] Pulse, Peripheral [ Right Pulse Oximetry] Respiratory 16 Rate Blood Pressure 157/79 H Blood Pressure [Left Upper Arm ] Blood Pressure 157/79 H [Right Upper Arm] O2 Sat by Pulse 97 Oximetry Weight - Most Recent: 55.61 kg I&O - Last 24 Hours: Intake & Output 07/18/19 07/19/19 07/19/19 22:59 06:59 14:59 Intake Total 1800 100 660 Output Total 1150 400 550 Balance 650 -300 110 Imaging Impressions - Last 24 Hours: None Lab Results Last 24 Hours: Laboratory Results - last 24 hr 07/19/19 07/19/19 07/19/19 Range/Units 06:55 06:55 06:55 WBC 7.3 (4.0-10.2) K/uL RBC 2.95 L (3.77-5.09) M/uL Hgb 8.5 L (11.7-15.5) g/dL Hct 27.8 L (34.0-46.0) % MCV 94.2 (84.0-98.0) fL MCH 28.8 (28.2-33.3) pg MCHC 30.6 L (31.7-36.0) g/dL RDW 14.0 (11.2-14.1) % Plt Count 268 (150-350) K/uL Neut % (Auto) 68.8 (45.0-80.0) % Lymph % (Auto) 15.1 (10.0-50.0) % [place] % (Auto) 10.7 (2.0-14.0) % Eos % (Auto) 5.3 H (0.0-5.0) % Baso % (Auto) 0.1 (0.0-2.0) % Neut # (Auto) 5.01 (1.40-7.00) K/uL Lymph # (Auto) 1.10 (0.50-3.50) K/uL [place] # (Auto) 0.78 (0.00-1.00) K/uL Eos # (Auto) 0.39 (0.00-0.50) K/uL Baso # (Auto) 0.01 (0.00-0.20) K/uL D-Dimer, Quantitative 910 H (0-400) ng/mL Sodium 141 (136-145) mmol/L Potassium 5.4 H (3.5-5.1) mmol/L Chloride 109 H (98-107) mmol/L Carbon Dioxide 22.8 (21.0-32.0) mmol/L BUN 20 H (7-18) mg/dL Creatinine 1.33 H (0.51-1.17) mg/dL Est Cr Clr Drug Dosing 26.70 mL/min Estimated GFR (MDRD) 38 mL/min Glucose 96 (74-106) mg/dL Calcium 8.4 L (8.5-10.1) mg/dL NT-Pro-B Natriuret Pep 3223 H (0-125) pg/mL [place] Results Last 24 Hours: Microbiology 07/16/19 19:30 Urine Culture - Final Urine, Clean Catch NO GROWTH AFTER 2 DAYS 07/18/19 07:41 Stool Occult Blood ([place]) - Final Stool / Feces Hemoccult positive Med Orders - Current: Current Medications Acetaminophen (Tylenol) 650 mg PO Q4HR PRN PRN Reason: Pain Last Admin: 07/17/19 16:21 Dose: 650 mg Albuterol/Ipratropium (Duoneb 3.0-0.5 Mg/3 Ml) 3 ml NEB BIDRT [facility] Last Admin: 07/19/19 07:55 Dose: 3 ml Cetirizine HCl (Zyrtec) 10 mg PO QPM [facility] Last Admin: 07/18/19 18:09 Dose: 10 mg Cholecalciferol (Vitamin D3) 25 mcg PO DAILY [facility] Last Admin: 07/19/19 07:54 Dose: 25 mcg Enoxaparin Sodium (Lovenox) 30 mg SUBCUT Q24H [facility] Last Admin: 07/18/19 09:41 Dose: 30 mg Glimepiride (Amaryl) 2 mg PO DAILY [facility] Last Admin: 07/19/19 07:53 Dose: 2 mg Lorazepam (Ativan) 1 mg PO BID@0800,1999 [facility] Last Admin: 07/19/19 07:54 Dose: 1 mg Magnesium Oxide (Magnesium Oxide) 400 mg PO DAILY [facility] Last Admin: 07/19/19 07:55 Dose: 400 mg Metoprolol Succinate (Toprol Xl) 50 mg PO DAILY [facility] Last Admin: 07/19/19 07:54 Dose: 50 mg Mirtazapine (Remeron) 15 mg PO BEDTIME [facility] Last Admin: 07/18/19 21:03 Dose: 15 mg Pantoprazole Sodium (Protonix Iv) 40 mg IVPUSH DAILY [facility] Last Admin: 07/19/19 07:55 Dose: 40 mg Pregabalin (Lyrica) 75 mg PO BEDTIME [facility] Last Admin: 07/18/19 21:03 Dose: 75 mg Sodium Chloride (Saline Flush) 10 ml FLUSH ASDIRECTED PRN PRN Reason: Keep Vein Open Last Admin: 07/17/19 17:35 Dose: 10 ml Sodium Chloride (Saline Flush) 10 ml FLUSH Q12HR PRN PRN Reason: Keep Vein Open Last Admin: 07/17/19 19:57 Dose: 10 ml Vit C/Vit E/Zinc/Copper/Lutein (Ocuvite Lutein) 1 each PO BID [facility] Last Admin: 07/19/19 07:54 Dose: 1 each Discontinued Medications Albuterol/Ipratropium (Duoneb 3.0-0.5 Mg/3 Ml) 3 ml NEB ONETIME ONE Stop: 07/17/19 15:16 Last Admin: 07/17/19 15:38 Dose: 3 ml Amoxicillin/Clavulanate Potassium (Augmentin 875 Mg/125 Mg) 1 tab PO BID [facility] Stop: 07/17/19 18:01 Last Admin: 07/17/19 07:42 Dose: 1 tab Enoxaparin Sodium (Lovenox) 50 mg SUBCUT Q24H [facility] Last Admin: 07/17/19 09:59 Dose: Not Given Famotidine (Pepcid) 40 mg IVPUSH ONETIME ONE Stop: 07/16/19 07:58 Last Admin: 07/16/19 08:37 Dose: 40 mg Furosemide (Lasix) 40 mg IVPUSH Q8H [facility] Last Admin: 07/17/19 04:59 Dose: Not Given Magnesium Sulfate/Dextrose 1 (gm/ Premix) 100 mls @ 100 mls/hr IV ONETIME ONE Stop: 07/17/19 17:14 Last Admin: 07/17/19 16:22 Dose: 100 mls/hr Sodium Chloride (Normal Saline) 500 mls @ 500 mls/hr IV ONETIME ONE Stop: 07/17/19 21:29 Last Admin: 07/17/19 20:55 Dose: 500 mls/hr Sodium Chloride (Normal Saline) 500 mls @ 80 mls/hr IV ASDIRECTED [facility] Stop: 07/18/19 02:59 Last Admin: 07/17/19 20:56 Dose: 80 mls/hr Sodium Chloride (Normal Saline) 1,000 mls @ 200 mls/hr IV ONETIME ONE Stop: 07/18/19 15:17 Last Infusion: 07/18/19 18:57 Dose: Infused Iopamidol (Isovue-370 (76%)) 100 ml IVPUSH ONETIME ONE Stop: 07/16/19 09:33 Last Admin: 07/16/19 10:13 Dose: 100 ml Potassium Chloride (Klor-Con M20) 20 meq PO TID [facility] Last Admin: 07/17/19 11:10 Dose: 20 meq - Exam Quality Assessment: DVT Prophylaxis (Lovenox). No: Supplemental Oxygen, Urine Catheter, Restraints General: Alert, Oriented, Cooperative, No Acute Distress HEENT: Pupils Equal, Pupils Reactive, EOMI, Mucous Membr. Moist/[place] Neck: Supple, Trachea Midline, No JVD, No Thyromegaly, Carotid Bruit (Stable mild bilateral carotid bruits versus transmitted heart sounds). No: Lymphadenopathy Lungs: Normal Respiratory Effort, Rales (Improved mild bilateral basilar). No: Rhonchi, Rub, Wheezing Cardiovascular: Regular Rate, Regular Rhythm, Murmurs (Stable mild 1/6 [place] of the aortic and mitral valves). No: No Murmurs, Gallops, Rubs GI/Abdominal Exam: Normal Bowel Sounds, Soft, Non-Tender, No Organomegaly, No Distention, No Abnormal Bruit, No Mass. No: Guarding (Female) Exam: Deferred Back Exam: Full Range of Motion, Other (Mild scoliosis). No: CVA Tenderness (L) , CVA Tenderness (R), Muscle Spasm Extremities: Normal Inspection, Normal Range of Motion, Non-Tender, No Pedal Edema, Normal Capillary Refill. No: Christi's Sign Peripheral Pulses: 2+: Radial (L), Radial (R), Dorsalis Pedis (L), Dorsalis Pedis (R) Skin: Warm, Dry, Intact. No: Ecchymosis Neurological: No New Focal Deficit, Other (Stable to somewhat improved borderline confusion/organic brain syndrome) Psy/Mental Status: Alert, Anxious (Mild), Depressed (Mild). No: Agitated, Hallucinations, Withdrawal Symptoms - Problem List & Annotations (1) CHF (congestive heart failure) SNOMED Code(s): 24107667 Code(s): I50.9 - HEART FAILURE, UNSPECIFIED Status: Acute Priority: Low Current Visit: Yes Qualifiers: Heart failure type: systolic Heart failure chronicity: acute on chronic Qualified Code(s): I50.23 - Acute on chronic systolic (congestive) heart failure Annotation/Comment:: Echocardiogram conducted on 07/18 with results pending and preliminary report not given to the on-call physician as requested.. Progressive elevated BNP after discontinuation of Lasix, which will be reinitiated today at a lower dose secondary to her progressive renal insufficiency with aggressive diuresis. Note hyperkalemia today with no potassium supplementation. CHF by clinical exam at time of admission. No CHF changes noted on official Radiology reports for both chest CTA and plain chest films. Renal insufficiency component to patient's elevated BNP, however note progressive BNP elevation despite improved renal function today. Note patient is intolerant to ZUNILDA inhibitors. (2) Coronary artery disease SNOMED Code(s): 90266196 Code(s): I25.10 - ATHSCL HEART DISEASE OF [place] CORONARY ARTERY W/O ANG PCTRS Status: Chronic Priority: Medium Current Visit: Yes Qualifiers: Coronary Disease-Associated Artery/Lesion type: [place] artery [place] vs. transplanted heart: [place] heart Associated angina: without angina Qualified Code(s): I25.10 - Atherosclerotic heart disease of [place] coronary artery without angina pectoris Annotation/Comment:: Patient continues to have no chest pain complaint/anginal symptoms. Serial cardiac labs unremarkable. Repeat EKG and telemetry show NSR/ no acute signs of ischemia. Repeat EKG and cardiac enzymes in the a.m.. May still want to consider outpatient Cardiolite stress test to more fully rule out cardiac disease after discharge, however note the patient is now requesting comfort care status only. (3) Anemia SNOMED Code(s): 851110946 Code(s): D64.9 - ANEMIA, UNSPECIFIED Status: Chronic Priority: High Current Visit: Yes Qualifiers: Anemia type: other cause Other causes of anemia: chronic disease, other Qualified Code(s): D63.8 - Anemia in other chronic diseases classified elsewhere Annotation/Comment:: Iron/TIBC levels decreased. %Sat/Feritin and B12 levels normal. This is suggestive of anemia of chronic disease with additional iron deficiency. Suspect additional diluation effect from IV fluids during this hospitalization. Note positive Hemoccult with current Lovenox as DVT prophylaxis , which will be discontinued at this time. Patient has become more active and is not a candidate for PT/OT per their evaluation during this hospitalization. Consider outpatient colonoscopy/EGD after discharge, however note comfort care status. Continue to monitor closely. (4) COPD (chronic obstructive pulmonary disease) SNOMED Code(s): 47900995 Code(s): J44.9 - CHRONIC OBSTRUCTIVE PULMONARY DISEASE, UNSPECIFIED Status : Acute Priority: Medium Current Visit: Yes Qualifiers: COPD type: emphysema Emphysema type: panlobular Qualified Code(s): J43.1 - Panlobular emphysema Annotation/Comment:: Moderate COPD by radiological reports. DuoNeb treatments initiated on 07/17 with overall improvement in symptoms. No fever or bronchitic type symptoms. Consider PFTs on an outpatient basis. (5) Elevated d-dimer SNOMED Code(s): 106143366 Code(s): R79.89 - OTHER SPECIFIED ABNORMAL FINDINGS OF BLOOD CHEMISTRY Status: Acute Priority: High Current Visit: Yes Onset Date: 07/16/19 Annotation/Comment:: Negative workup for DVT and PE during this hospital physician including negative CTA of the chest and venous Doppler studies of the lower extremities. Lovenox was discontinued on 07/19 as above. Increase activity as DVT prophylaxis with FLAVIO hose ordered on admission. (6) Hypertension SNOMED Code(s): 57518788 Code(s): I10 - ESSENTIAL (PRIMARY) HYPERTENSION Status: Chronic Priority : Medium Current Visit: Yes Qualifiers: Hypertension type: essential hypertension Qualified Code(s): I10 - Essential (primary) hypertension Annotation/Comment:: The blood pressures were variable however stable during this hospitalization. Continue to observe closely by her regular providers. (7) Hypomagnesemia SNOMED Code(s): 126530577 Code(s): E83.42 - HYPOMAGNESEMIA Status: Acute Priority: Medium Current Visit: Yes Onset Date: 07/16/19 Annotation/Comment:: Magnesium oxide initiated during this hospitalization with normal magnesium level prior to discharge. Continue close follow-up by regular provider. (8) Diabetes mellitus SNOMED Code(s): 24163002 Code(s): E11.9 - TYPE 2 DIABETES MELLITUS WITHOUT COMPLICATIONS Status: Chronic Priority: Medium Current Visit: Yes Qualifiers: Diabetes mellitus type: type 2 Diabetes mellitus alf insulin use: without alf use Diabetes mellitus complication status: without complication Qualified Code(s): E11.9 - Type 2 diabetes mellitus without complications Annotation/Comment:: Oral medical therapy was initiated a few months ago. Glycosylated hemoglobin 6.5 percent. Note probable diabetic nephropathy. (9) Hyperlipidemia SNOMED Code(s): 70235346 Code(s): E78.5 - HYPERLIPIDEMIA, UNSPECIFIED Status: Chronic Priority: Low Current Visit: Yes Qualifiers: Hyperlipidemia type: mixed hyperlipidemia Qualified Code(s): E78.2 - Mixed hyperlipidemia Annotation/Comment:: Not currently under therapy with previous apparent discontinuation of her statin therapy. Lipid panel during this hospitalization showed normal cholesterol and Triglycerides. HDL low, LDL 103/mildly increased, which indicates some mild dyslipidemia. 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 Borderline anxiety and depression during this hospitalization. Continue to observe closely by her regular providers with no change in medical therapy for now. (11) Osteoarthritis SNOMED Code(s): 959085289 Code(s): M19.90 - UNSPECIFIED OSTEOARTHRITIS, UNSPECIFIED SITE Status: Chronic Priority: Medium Current Visit: Yes Qualifiers: Osteoarthritis location: multiple joints Osteoarthritis type: primary Qualified Code(s): M15.0 - Primary generalized (osteo)arthritis Annotation/Comment:: Stable by history with history of osteoporosis (12) Peptic reflux disease SNOMED Code(s): 939860950 Code(s): K21.9 - GASTRO-ESOPHAGEAL REFLUX DISEASE WITHOUT ESOPHAGITIS Status: Chronic Priority: Medium Current Visit: Yes Annotation/Comment:: Stable by history with high-dose IV Pepcid given as GI prophylaxis in the emergency room. Secondary to her confusion/borderline organic brain syndrome this will be changed to oral Prilosec. Continue to observe her closely as above. (13) Confusion SNOMED Code(s): 625685922 Code(s): R41.0 - DISORIENTATION, UNSPECIFIED Status: Acute Priority: Medium Current Visit: Yes Annotation/Comment:: Borderline confusion in ER with possible beginning organic brain syndrome. Note current UTI treatment at time of admission, however note negative UA and urine culture during this hospitalization. Cognitive eval from case management to be performed prior to discharge. (14) UTI (urinary tract infection) SNOMED Code(s): 00800957 Code(s): N39.0 - URINARY TRACT INFECTION, SITE NOT SPECIFIED Status: Acute Priority: Medium Current Visit: Yes Qualifiers: Urinary tract infection type: acute cystitis Hematuria presence: without hematuria Qualified Code(s): N30.00 - Acute cystitis without hematuria Annotation/Comment:: Patient was on antibiotics for UTI. Recheck of UA showed infection cleared. Antibiotics discontinued. Repeat UC shows no growth after 2 days. (15) Comfort measures only status SNOMED Code(s): 24113339151743 Code(s): Z51.5 - ENCOUNTER FOR PALLIATIVE CARE Status: Acute Priority: High Current Visit: Yes Annotation/Comment:: Patient changed code status to DNR/DNI/comfort measures on 07/16. (16) Pulmonary nodules SNOMED Code(s): 089211756 Code(s): R91.8 - OTHER NONSPECIFIC ABNORMAL FINDING OF LUNG FIELD Status: Acute Current Visit: Yes Annotation/Comment:: Note bilateral small multiple pulmonary granulomas by CTA of the chest during this hospitalization. Continue to observe closely by regular providers. - Problem List Review Problem List Initiated/Reviewed/Updated: Yes - Assessment Assessment:: As above. - Plan Plan:: As above. Extensive precautions were given to the patient, who is in agreement with the treatment plan. She will require an additional 1-2 days of inpatient care.
[2019-07-19] MEDS: Enoxaparin 30 MG/0.3 ML Syringe SUBCUT SCH (10:37)
[2019-07-19] MEDS ORDERED: Furosemide 40 MG/4 ML VIAL IVPUSH ONE (10:45)
[2019-07-19] MEDS ORDERED: Omeprazole 20 MG Cap.CR PO SCH (11:02)
[2019-07-19] MEDS ORDERED: Albuterol/Ipratropium 3.0-0.5 MG/3 ML Neb Soln NEB PRN (11:03)
[2019-07-19] MEDS: Ferrous Sulfate 325 MG Tab PO SCH ×2 (11:08→17:05)
[2019-07-19] MEDS: Cetirizine 10 MG Tab PO SCH (17:05)
[2019-07-19] MEDS: Mirtazapine 15 MG Tab PO SCH (20:17)
[2019-07-19] MEDS: Pregabalin 75 MG Cap PO SCH (20:17)
[2019-07-20] MEDS: Pantoprazole 40 MG Vial IVPUSH SCH (07:33)
[2019-07-20] MEDS: Magnesium Oxide 400 MG Tab PO SCH (07:33)
[2019-07-20] MEDS: Albuterol/Ipratropium 3.0-0.5 MG/3 ML Neb Soln NEB SCH (07:33)
[2019-07-20] MEDS: LORazepam 0.5 MG Tab PO SCH (07:33)
[2019-07-20] MEDS: Cholecalciferol (Vitamin D3) 25 MCG Tab PO SCH (07:33)
[2019-07-20] MEDS: Ferrous Sulfate 325 MG Tab PO SCH (07:34)
[2019-07-20] MEDS: Lutein/Minerals/Vitamin C/Vitamin E Acetate Cap PO SCH (07:34)
[2019-07-20] MEDS: Metoprolol Succinate 50 MG Tab.ER PO SCH (07:34)
[2019-07-20] MEDS: Glimepiride 2 MG Tab PO SCH (07:34)
[2019-07-20] MEDS: Sodium Chloride 0.9% 10 ML Syringe FLUSH PRN (07:35)
--- NOTE | 2019-07-20 09:54 | PCM.DCSUM1 ---
Discharge Summary - Hospital Course HPI Initial Comments: See emergency room note/admission H&P Brief History: See emergency room note/admission H&P Diagnosis: Stroke: No Modified Thornton Scale: No Symptoms at All Modified Thornton Scale Score: 0 - Discharge Data Discharge Date: 07/20/19 Discharge Disposition: Home, W Home Health Agency 06 Condition: Fair - Referral to Home Health Date of Face to Face Encounter: 07/20/19 Reason for Homebound Status: Note that a mental status evaluation was conducted by case management on 07/20/19 during this hospitalization, including a mini mental score of 25/30 a MOCA score of 23/30. Patient does need home health secondary to her confusion with medication changes as per the above assessment with multiple medication changes during this hospitalization. Note likely end- stage CHF with close follow-up by regular providers. Meals on Wheels also initiated at discharge. Primary Care Physician: Audelia Rodrigez NP Skilled Need: As above, including medication set up and continued close observation of her ADLs, etc. - Discharge Diagnosis/Problem(s) (1) CHF (congestive heart failure) SNOMED Code(s): 51238004 ICD Code: I50.9 - HEART FAILURE, UNSPECIFIED Status: Acute Priority: Low Current Visit: Yes Problem Details: The patient is clinically improved despite persistent BNP elevation him although improved with reinitiation of IV Lasix on 07/19 as below. Echocardiogram conducted on 07/18 with results still pending and preliminary report not given to the on-call physician as requested.. Progressive elevated BNP after discontinuation of Lasix, which was reinitiated on 07/19 at a lower dose secondary to her progressive renal insufficiency with aggressive diuresis. Note hyperkalemia on 07/19 with previous discontinuation of potassium supplementation. No potassium at time of discharge with potassium supplement not to be initiated. CHF by clinical exam at time of admission despite no CHF changes noted on official Radiology reports for both chest CTA and plain chest films. Renal insufficiency component to patient's elevated BNP, however note progressive BNP elevation despite improved renal function on 07/19, which is stable at time of discharge. Note patient is intolerant to ZUNILDA inhibitors. Close follow-up by regular providers. Qualifiers: Heart failure type: systolic Heart failure chronicity: acute on chronic Qualified Code(s): I50.23 - Acute on chronic systolic (congestive) heart failure (2) Coronary artery disease SNOMED Code(s): 16443611 ICD Code: I25.10 - ATHSCL HEART DISEASE OF [place] CORONARY ARTERY W/O ANG PCTRS Status: Chronic Priority: Medium Current Visit: Yes Problem Details: Patient continues to have no chest pain complaint/anginal symptoms. Serial cardiac labs unremarkable. Repeat EKG and telemetry show NSR/no acute signs of ischemia. Repeat EKG and cardiac enzymes prior to discharge show no evidence of ND. May still want to consider outpatient Cardiolite stress test to more fully rule out cardiac disease after discharge, however note the patient is now requesting comfort care status only. Qualifiers: Coronary Disease-Associated Artery/Lesion type: [place] artery [place] vs. transplanted heart: [place] heart Associated angina: without angina Qualified Code(s): I25.10 - Atherosclerotic heart disease of [place] coronary artery without angina pectoris (3) Anemia SNOMED Code(s): 236353426 ICD Code: D64.9 - ANEMIA, UNSPECIFIED Status: Chronic Priority: High Current Visit: Yes Problem Details: Iron/TIBC levels decreased. %Sat/ Ferritin and B12 levels normal. This is suggestive of anemia of chronic disease with additional iron deficiency. Suspect additional diluation effect from IV fluids during this hospitalization. She was started on iron supplementation during this hospitalization with recommended repeat iron studies in 4 weeks. Note positive Hemoccult with current Lovenox as DVT prophylaxis, which was discontinued on 07/19. Patient has become more active and is not a candidate for PT/OT per their evaluation during this hospitalization. Consider outpatient colonoscopy/EGD after discharge, however note comfort care status. Continue to monitor closely. Qualifiers: Anemia type: other cause Other causes of anemia: chronic disease, other Qualified Code(s): D63.8 - Anemia in other chronic diseases classified elsewhere (4) COPD (chronic obstructive pulmonary disease) SNOMED Code(s): 81370999 ICD Code: J44.9 - CHRONIC OBSTRUCTIVE PULMONARY DISEASE, UNSPECIFIED Status : Acute Priority: Medium Current Visit: Yes Problem Details: Moderate COPD by radiological reports. DuoNeb treatments initiated on 07/17 with overall improvement in symptoms and continuation of this therapy at discharge. No fever or bronchitic type symptoms. Consider PFTs on an outpatient basis. Qualifiers: COPD type: emphysema Emphysema type: panlobular Qualified Code(s): J43.1 - Panlobular emphysema (5) Elevated d-dimer SNOMED Code(s): 112831367 ICD Code: R79.89 - OTHER SPECIFIED ABNORMAL FINDINGS OF BLOOD CHEMISTRY Status: Acute Priority: High Current Visit: Yes Onset Date: 07/16/19 Problem Details: Negative workup for DVT and PE during this hospital physician, including negative CTA of the chest and venous Doppler studies of the lower extremities. Lovenox was discontinued on 07/19 as above. Increase activity as DVT prophylaxis with FLAVIO hose ordered on admission. Close follow-up by regular provider with improved d-dimer throughout this hospitalization. (6) Hypertension SNOMED Code(s): 39576352 ICD Code: I10 - ESSENTIAL (PRIMARY) HYPERTENSION Status: Chronic Priority : Medium Current Visit: Yes Problem Details: The blood pressures were variable however stable during this hospitalization. Continue to observe closely by her regular providers. Qualifiers: Hypertension type: essential hypertension Qualified Code(s): I10 - Essential (primary) hypertension (7) Hypomagnesemia SNOMED Code(s): 165221995 ICD Code: E83.42 - HYPOMAGNESEMIA Status: Acute Priority: Medium Current Visit: Yes Onset Date: 07/16/19 Problem Details: Magnesium oxide initiated during this hospitalization with normal magnesium level prior to discharge. Continue close follow-up by regular provider. (8) Diabetes mellitus SNOMED Code(s): 65927586 ICD Code: E11.9 - TYPE 2 DIABETES MELLITUS WITHOUT COMPLICATIONS Status: Chronic Priority: Medium Current Visit: Yes Problem Details: Oral medical therapy was initiated a few months ago. Glycosylated hemoglobin 6.5 percent. Note probable diabetic nephropathy. Continue to observe closely by regular provider. Qualifiers: Diabetes mellitus type: type 2 Diabetes mellitus intermediate insulin use: without intermediate use Diabetes mellitus complication status: without complication Qualified Code(s): E11.9 - Type 2 diabetes mellitus without complications (9) Hyperlipidemia SNOMED Code(s): 78749387 ICD Code: E78.5 - HYPERLIPIDEMIA, UNSPECIFIED Status: Chronic Priority: Low Current Visit: Yes Problem Details: Not currently under therapy with previous apparent discontinuation of her statin therapy. Lipid panel during this hospitalization showed normal cholesterol and Triglycerides. HDL low, LDL 103/mildly increased, which indicates some mild dyslipidemia. No change in medical therapy for now with continued close observation by her regular provider. Qualifiers: Hyperlipidemia type: mixed hyperlipidemia Qualified Code(s): E78.2 - Mixed hyperlipidemia (10) Mixed anxiety depressive disorder SNOMED Code(s): 251929465 ICD Code: F41.8 - OTHER SPECIFIED ANXIETY DISORDERS Status: Chronic Priority: Medium Current Visit: Yes Problem Details: Stable by history. Borderline anxiety and depression during this hospitalization. Continue to observe closely by her regular providers with no change in medical therapy for now. (11) Osteoarthritis SNOMED Code(s): 124156513 ICD Code: M19.90 - UNSPECIFIED OSTEOARTHRITIS, UNSPECIFIED SITE Status: Chronic Priority: Medium Current Visit: Yes Problem Details: Stable by history with history of osteoporosis Qualifiers: Osteoarthritis location: multiple joints Osteoarthritis type: primary Qualified Code(s): M15.0 - Primary generalized (osteo)arthritis (12) Peptic reflux disease SNOMED Code(s): 049279837 ICD Code: K21.9 - GASTRO-ESOPHAGEAL REFLUX DISEASE WITHOUT ESOPHAGITIS Status: Chronic Priority: Medium Current Visit: Yes Problem Details: Stable by history with high-dose IV Pepcid given as GI prophylaxis in the emergency room. Note subsequent IV Protonix therapy during this hospitalization. Secondary to her confusion/borderline organic brain syndrome this will be changed to oral Prilosec. Continue to observe her closely as above. (13) Confusion SNOMED Code(s): 265087272 ICD Code: R41.0 - DISORIENTATION, UNSPECIFIED Status: Acute Priority: Medium Current Visit: Yes Problem Details: Borderline confusion in ER with possible beginning organic brain syndrome. Note current UTI treatment at time of admission, however note negative UA and urine culture during this hospitalization. Cognitive eval from case management to be performed prior to discharge. (14) UTI (urinary tract infection) SNOMED Code(s): 43042097 ICD Code: N39.0 - URINARY TRACT INFECTION, SITE NOT SPECIFIED Status: Acute Priority: Medium Current Visit: Yes Problem Details: Patient was on antibiotics for UTI. Recheck of UA showed infection cleared. Antibiotics discontinued. Repeat UC shows no growth after 2 days. Qualifiers: Urinary tract infection type: acute cystitis Hematuria presence: without hematuria Qualified Code(s): N30.00 - Acute cystitis without hematuria (15) Comfort measures only status SNOMED Code(s): 95204000472228 ICD Code: Z51.5 - ENCOUNTER FOR PALLIATIVE CARE Status: Acute Priority: High Current Visit: Yes Problem Details: Patient changed code status to DNR/ DNI/comfort measures on 07/16. (16) Pulmonary nodules SNOMED Code(s): 784956578 ICD Code: R91.8 - OTHER NONSPECIFIC ABNORMAL FINDING OF LUNG FIELD Status: Acute Current Visit: Yes Problem Details: Note bilateral small multiple pulmonary granulomas by CTA of the chest during this hospitalization. Continue to observe closely by regular providers. - Patient Summary/Data Operative Procedure(s) Performed: None Complications: None Consults: Consultations 07/17/19 14:47 Consult to Physical Therapy [PT Evaluation and Treatment] [CONS] Routine OT Evaluation and Treatment [CONS] Routine 07/17/19 16:36 Consult to Case Management/Surfacing Technician [CONS] Routine Labs Pending at D/C: Final echocardiogram report from 07/17/19 Recommended Follow-up Testing/Procedures: As per discharge instructions Planned Operative Procedure(s) after DC: None Hospital Course: The patient was admitted to inpatient/acute care with negative workup for acute ND. She was aggressively diuresed with IV Lasix, however note worsening renal function with this therapy. She did tolerate subsequent decrease of her IV Lasix with the patient to be discharged on oral Lasix with no additional potassium supplementation secondary to development of hyperkalemia as above without sequelae. She did decide to change her advanced directives back to no code as above. No further complications during this hospitalization. I did have an extensive family consultation throughout this hospitalization, including her 2 sisters on day prior to discharge. They were somewhat concerned about the patient going home, however note mental status, etc. evaluation prior to discharge as above. Note that a mental status evaluation was conducted by case management on 07/20/19 during this hospitalization, including a minimental score of 25/30 a MOCA score of 23/30. Patient does need home health secondary to her confusion with medication changes as per the above assessment with multiple medication changes during this hospitalization. Note likely end-stage CHF with close follow-up by regular providers. Meals on Wheels also initiated at discharge. Patient did not want to be admitted to either swing bed or a fpc. - Patient Instructions Diet: Fluid Restriction Diet, Other: Heart healthy, 1800-calorie ADA, diverticulosis Fluid Restriction: 2000 mL Activity: As Tolerated Driving: Do Not Drive Showering/Bathing: May Shower Notify Provider of: Fever, Increased Pain, Nausea and/or Vomiting Other/Special Instructions: 1. Followup with your regular provider in 3-4 days as directed for reevaluation and recommended repeat chest x-ray, CBC, comprehensive metabolic panel, d-dimer, CK, CK-MB, troponin I, and BNP. Bring these discharge instructions with you to that visit. 2. TIBC panel and ferritin level should be repeated in 4 weeks secondary to iron supplementation, which was initiated during this hospitalization. 3. Consider Cardiolite stress test on an outpatient basis, however patient has decided to be a NO CODE/ COMFORT CARE. 4. Home health and Meals on Wheels has been ordered at discharge. 5. Consider GI workup including EGD and colonoscopy secondary to iron deficiency anemia, however note patient's age and NO CODE STATUS. 6. DuoNeb nebulizer treatments are to be continued at discharge. 7. Immediately after this visit verify that your cellular telephone's voicemail has been activated and is empty. Also verify that your home telephone's answering machine is operating properly and has space to receive messages. Note that it is sometimes necessary for us to be able to contact you at a later date to discuss your medical care. 8. Please remember that we are ALWAYS here for you and want to answer any questions you may have. Feel free to call the hospital any time and we call you back GRETCHEN. 9. Consider repeat CT of the chest with IV contrast in 36 months secondary to newly diagnosed bilateral pulmonary nodules. - Discharge Plan *PRESCRIPTION DRUG MONITORING PROGRAM REVIEWED*: Not Applicable *COPY OF PRESCRIPTION DRUG MONITORING REPORT IN PATIENT TESSY: Not Applicable Prescriptions/Med Rec: Albuterol/Ipratropium [DuoNeb 3.0-0.5 MG/3 ML] 3 ml NEB Q4HRRT PRN #1 neb PRN Reason: Dyspnea Albuterol/Ipratropium [DuoNeb 3.0-0.5 MG/3 ML] 3 ml NEB BIDRT #60 neb Furosemide [Lasix] 20 mg PO DAILY #20 tab Omeprazole 20 mg PO BEDTIME #30 cap.sr Home Medications: Home Meds Cetirizine HCl [Zyrtec] 10 mg PO QPM 09/15/16 [History] LORazepam [Ativan] 1 mg PO BID@0800,2000 09/15/16 [History] Pregabalin [Lyrica] 75 mg PO BEDTIME 09/15/16 [History] Acetaminophen [Tylenol] 650 mg PO Q4HR PRN 11/11/16 [History] Cholecalciferol (Vitamin D3) [Vitamin D3] 1,000 units PO DAILY 04/06/17 [History ] Metoprolol Succinate 50 mg PO DAILY 06/26/18 [History] Non-Formulary Medication [NF Drug] 1 tab PO BID 03/18/19 [History] Aspirin [Halfprin] 81 mg PO DAILY 07/16/19 [History] Glimepiride [Amaryl] 2 mg PO DAILY 07/16/19 [History] Albuterol/Ipratropium [DuoNeb 3.0-0.5 MG/3 ML] 3 ml NEB BIDRT #60 neb 07/20/19 [ Rx] Albuterol/Ipratropium [DuoNeb 3.0-0.5 MG/3 ML] 3 ml NEB Q4HRRT PRN #1 neb [Rx] Ferrous Sulfate 325 mg PO BIDMEALS #60 tablet 07/20/19 [Rx] Furosemide [Lasix] 20 mg PO DAILY #20 tab 07/20/19 [Rx] Magnesium Oxide 400 mg PO DAILY tablet 07/20/19 [Rx] Omeprazole 20 mg PO BEDTIME #30 cap.sr 07/20/19 [Rx] Oxygen Therapy Mode: Room Air Patient Handouts: Heart Failure, [id number] Forms: ED Department Discharge Referrals: Audelia Rodrigze [facility] COORDINATOR [Primary Care Provider] - - Discharge Summary/Plan Comment DC Time >30 min.: Yes (Coordination of care) Discharge Summary/Plan Comment: As above. Extensive precautions were given to the patient, who is in agreement with the treatment plan. See Patient Instructions for further treatment and plan. - General Info Date of Service: 07/20/19 Admission Dx/Problem (Free Text: 1. CHF 2. D-dimer elevation 3. Coronary artery disease 4. Anemia 5. COPD Functional Status: Reports: Pain Controlled, Tolerating Diet, Ambulating, Urinating, New Symptoms, Incentive Spirometry Numeric/FACES Score: 0 - Review of Systems General: Reports: No Symptoms. Denies: Fever, Weakness (Improved), Fatigue ( Improved), Malaise, Chills, Night Sweats, Appetite (Adequate) HEENT: Reports: Glasses. Denies: Contact Lenses, Dysphasia, Ear Pain, Eye Pain , Headaches, Post Nasal Drip, Sinus Congestion, Sore Throat, Rhinitis, Visual Changes Pulmonary: Reports: No Symptoms. Denies: Shortness of Breath, Pleuritic Chest Pain, Cough, Sputum, Wheezing Cardiovascular: Reports: No Symptoms. Denies: Chest Pain, Palpitations, Dyspnea on Exertion, Orthopnea, Edema, Lightheadedness Gastrointestinal: Reports: No Symptoms, Other (Normal bowel movement yesterday by patient history). Denies: Abdominal Pain, Constipation, Decreased Appetite, Diarrhea, Difficulty Swallowing, Hematochezia, Melena, Nausea, Vomiting Genitourinary: Reports: No Symptoms. Denies: Dysuria, Frequency, Burning, Urgency, Hematuria, Retention, Flank Pain Musculoskeletal: Reports: No Symptoms. Denies: Neck Pain, Shoulder Pain, Arm Pain, Back Pain, Leg Pain Skin: Reports: No Symptoms. Denies: Diaphoresis, Bruising, Pruritis, Rash Neurological: Reports: Confusion (Borderline). Denies: Dizziness, Headache, Numbness, Paresthesia, Tingling, Weakness (Improved) Psychiatric: Reports: No Symptoms. Denies: Confusion (Improved) - Patient Data Vitals - Most Recent: Last Vital Signs Temp 36.2 C 07/20/19 06:00 Pulse 94 07/20/19 07:34 Resp 18 07/20/19 06:00 BP 143/72 H 07/20/19 07:34 Pulse Ox 95 07/20/19 06:00 Vital Signs - 24 hr 07/19/19 07/19/19 07/19/19 11:00 17:43 23:43 Temperature [ Oral] Temperature [ 36.6 C 36.9 C 37.3 C Temporal] Pulse, Peripheral Pulse, 96 88 91 Peripheral [ Left Pulse Oximetry] Respiratory 20 16 13 Rate Blood Pressure Blood Pressure 132/63 [Left Upper Arm ] Blood Pressure 147/69 H 158/78 H [Right Upper Arm] O2 Sat by Pulse 98 98 93 L Oximetry 07/20/19 07/20/19 06:00 07:34 Temperature [ 36.2 C Oral] Temperature [ Temporal] Pulse, 94 Peripheral Pulse, 94 Peripheral [ Left Pulse Oximetry] Respiratory 18 Rate Blood Pressure 143/72 H Blood Pressure 143/72 H [Left Upper Arm ] Blood Pressure [Right Upper Arm] O2 Sat by Pulse 95 Oximetry Weight - Most Recent: 54.295 kg I&O - Last 24 hours: Intake & Output 07/19/19 07/20/19 07/20/19 22:59 06:59 14:59 Intake Total 800 450 Output Total 450 900 125 Balance 350 -900 325 Imaging Impressions - Last 24 hrs: Chest X-ray, PA and lateral, report from 07/20/19 shows moderate COPD with left basilar atelectasis and small left pleural effusion with no significant cardiomegaly, infiltrates, etc.. CTA of the chest on 07/16/19 was negative for PE, however note incidental multiple bilateral pulmonary nodules and moderate COPD. Venous Doppler studies of the lower extremities bilaterally on 07/17/19 shows no evidence of DVT. Final echocardiogram report from 07/17/19 is still pending. Lab Results - Last 24 hrs: Laboratory Results - last 24 hr 07/20/19 07/20/19 07/20/19 Range/Units 06:47 06:47 06:47 WBC 8.0 (4.0-10.2) K/uL RBC 3.04 L (3.77-5.09) M/uL Hgb 8.7 L (11.7-15.5) g/dL Hct 28.5 L (34.0-46.0) % MCV 93.8 (84.0-98.0) fL MCH 28.6 (28.2-33.3) pg MCHC 30.5 L (31.7-36.0) g/dL RDW 13.9 (11.2-14.1) % Plt Count 289 (150-350) K/uL Neut % (Auto) 68.1 (45.0-80.0) % Lymph % (Auto) 12.8 (10.0-50.0) % [place] % (Auto) 12.6 (2.0-14.0) % Eos % (Auto) 6.2 H (0.0-5.0) % Baso % (Auto) 0.3 (0.0-2.0) % Neut # (Auto) 5.42 (1.40-7.00) K/uL Lymph # (Auto) 1.02 (0.50-3.50) K/uL [place] # (Auto) 1.00 (0.00-1.00) K/uL Eos # (Auto) 0.49 (0.00-0.50) K/uL Baso # (Auto) 0.02 (0.00-0.20) K/uL D-Dimer, Quantitative 982 H (0-400) ng/mL Sodium 139 (136-145) mmol/L Potassium 4.7 (3.5-5.1) mmol/L Chloride 105 (98-107) mmol/L Carbon Dioxide 23.3 (21.0-32.0) mmol/L BUN 19 H (7-18) mg/dL Creatinine 1.30 H (0.51-1.17) mg/dL Est Cr Clr Drug Dosing 27.32 mL/min Estimated GFR (MDRD) 39 mL/min Glucose 125 H (74-106) mg/dL Calcium 8.5 (8.5-10.1) mg/dL Total Bilirubin 0.2 (0.2-1.0) mg/dL AST 26 (15-37) U/L ALT 20 (12-78) U/L Alkaline Phosphatase 78 (46-116) IU/L Creatine Kinase 25 L (26-308) U/L Creatine Kinase Index 4.8 H (0.0-2.5) % CK-MB (CK-2) 1.20 (0.00-3.60) ng/mL Troponin I 0.000 (0.000-0.056) ng/mL NT-Pro-B Natriuret Pep 2288 H (0-125) pg/mL Total Protein 6.8 (6.4-8.2) g/dL Albumin 2.5 L (3.4-5.0) g/dL Laboratory Tests 07/16/19 07/16/19 07/16/19 Range/Units 08:05 08:05 08:05 WBC 10.5 H (4.0-10.2) K/uL RBC 3.46 L (3.77-5.09) M/uL Hgb 10.1 L (11.7-15.5) g/dL Hct 32.2 L (34.0-46.0) % MCV 93.1 (84.0-98.0) fL MCH 29.2 (28.2-33.3) pg MCHC 31.4 L (31.7-36.0) g/dL RDW 13.8 (11.2-14.1) % Plt Count 276 (150-350) K/uL Neut % (Auto) 79.9 (45.0-80.0) % Lymph % (Auto) 7.3 L (10.0-50.0) % [place] % (Auto) 11.1 (2.0-14.0) % Eos % (Auto) 1.6 (0.0-5.0) % Baso % (Auto) 0.1 (0.0-2.0) % Neut # (Auto) 8.36 H (1.40-7.00) K/uL Lymph # (Auto) 0.76 (0.50-3.50) K/uL [place] # (Auto) 1.16 H (0.00-1.00) K/uL Eos # (Auto) 0.17 (0.00-0.50) K/uL Baso # (Auto) 0.01 (0.00-0.20) K/uL PT 10.7 (9.5-12.0) SEC INR 1.0 APTT 26.9 (21.0-31.3) SEC D-Dimer, Quantitative 1570 H (0-400) ng/mL Sodium (136-145) mmol/L Potassium (3.5-5.1) mmol/L Chloride (98-107) mmol/L Carbon Dioxide (21.0-32.0) mmol/L BUN (7-18) mg/dL Creatinine (0.51-1.17) mg/dL Est Cr Clr Drug Dosing mL/min Estimated GFR (MDRD) mL/min Glucose (74-106) mg/dL Hemoglobin A1c (4.3-5.7) % Lactic Acid (0.4-2.0) mmol/L Uric Acid (2.6-7.2) mg/dL Calcium (8.5-10.1) mg/dL Magnesium (1.8-2.4) mg/dL Iron (50-175) ug/dL TIBC (250-450) ug/dL % Saturation Ferritin (8-388) ng/mL Total Bilirubin (0.2-1.0) mg/dL AST (15-37) U/L ALT (12-78) U/L Alkaline Phosphatase (46-116) IU/L Creatine Kinase (26-308) U/L Creatine Kinase Index (0.0-2.5) % CK-MB (CK-2) (0.00-3.60) ng/mL Troponin I (0.000-0.056) ng/mL NT-Pro-B Natriuret Pep (0-125) pg/mL Total Protein (6.4-8.2) g/dL Albumin (3.4-5.0) g/dL Triglycerides (30-150) mg/dL Cholesterol (100-200) mg/dL LDL Cholesterol, Calc (0-100) mg/dL HDL Cholesterol (40-60) mg/dL Vitamin B12 (193-986) pg/mL TSH, Ultra Sensitive (0.358-3.740) mIU/mL Specimen Type Urine Color Urine Appearance Urine pH (5.0-9.0) Ur Specific [place] (1.005-1.030) Urine Protein (NEGATIVE) mg/dL Urine Glucose (UA) (NEGATIVE) mg/dL Urine Ketones (NEGATIVE) mg/dL Urine Occult Blood (NEGATIVE) Urine Nitrite (NEGATIVE) Urine Bilirubin (NEGATIVE) Urine Urobilinogen (0.2-1.0) E.U./dL Ur Leukocyte Esterase (NEGATIVE) Urine RBC /HPF Urine WBC /HPF Ur Epithelial Cells /LPF Urine Bacteria (NONE TO FEW) /HPF 07/16/19 07/16/19 07/16/19 Range/Units 08:05 08:05 13:36 WBC (4.0-10.2) K/uL RBC (3.77-5.09) M/uL Hgb (11.7-15.5) g/dL Hct (34.0-46.0) % MCV (84.0-98.0) fL MCH (28.2-33.3) pg MCHC (31.7-36.0) g/dL RDW (11.2-14.1) % Plt Count (150-350) K/uL Neut % (Auto) (45.0-80.0) % Lymph % (Auto) (10.0-50.0) % [place] % (Auto) (2.0-14.0) % Eos % (Auto) (0.0-5.0) % Baso % (Auto) (0.0-2.0) % Neut # (Auto) (1.40-7.00) K/uL Lymph # (Auto) (0.50-3.50) K/uL [place] # (Auto) (0.00-1.00) K/uL Eos # (Auto) (0.00-0.50) K/uL Baso # (Auto) (0.00-0.20) K/uL PT (9.5-12.0) SEC INR APTT (21.0-31.3) SEC D-Dimer, Quantitative (0-400) ng/mL Sodium 138 (136-145) mmol/L Potassium 4.7 (3.5-5.1) mmol/L Chloride 102 (98-107) mmol/L Carbon Dioxide 24.3 (21.0-32.0) mmol/L BUN 15 (7-18) mg/dL Creatinine 1.14 (0.51-1.17) mg/dL Est Cr Clr Drug Dosing 31.16 mL/min Estimated GFR (MDRD) 45 mL/min Glucose 210 H (74-106) mg/dL Hemoglobin A1c (4.3-5.7) % Lactic Acid 1.9 (0.4-2.0) mmol/L Uric Acid 7.1 (2.6-7.2) mg/dL Calcium 9.0 (8.5-10.1) mg/dL Magnesium 1.6 L (1.8-2.4) mg/dL Iron (50-175) ug/dL TIBC (250-450) ug/dL % Saturation Ferritin (8-388) ng/mL Total Bilirubin 0.4 (0.2-1.0) mg/dL AST 20 (15-37) U/L ALT 21 (12-78) U/L Alkaline Phosphatase 81 (46-116) IU/L Creatine Kinase 19 L 18 L (26-308) U/L Creatine Kinase Index 3.7 H 2.8 H (0.0-2.5) % CK-MB (CK-2) 0.70 0.50 (0.00-3.60) ng/mL Troponin I 0.000 0.000 (0.000-0.056) ng/mL NT-Pro-B Natriuret Pep 537 H (0-125) pg/mL Total Protein 7.5 (6.4-8.2) g/dL Albumin 2.9 L (3.4-5.0) g/dL Triglycerides (30-150) mg/dL Cholesterol (100-200) mg/dL LDL Cholesterol, Calc (0-100) mg/dL HDL Cholesterol (40-60) mg/dL Vitamin B12 (193-986) pg/mL TSH, Ultra Sensitive 3.096 (0.358-3.740) mIU/mL Specimen Type Urine Color Urine Appearance Urine pH (5.0-9.0) Ur Specific [place] (1.005-1.030) Urine Protein (NEGATIVE) mg/dL Urine Glucose (UA) (NEGATIVE) mg/dL Urine Ketones (NEGATIVE) mg/dL Urine Occult Blood (NEGATIVE) Urine Nitrite (NEGATIVE) Urine Bilirubin (NEGATIVE) Urine Urobilinogen (0.2-1.0) E.U./dL Ur Leukocyte Esterase (NEGATIVE) Urine RBC /HPF Urine WBC /HPF Ur Epithelial Cells /LPF Urine Bacteria (NONE TO FEW) /HPF 07/16/19 07/16/19 07/17/19 Range/Units 19:30 20:05 07:11 WBC (4.0-10.2) K/uL RBC (3.77-5.09) M/uL Hgb (11.7-15.5) g/dL Hct (34.0-46.0) % MCV (84.0-98.0) fL MCH (28.2-33.3) pg MCHC (31.7-36.0) g/dL RDW (11.2-14.1) % Plt Count (150-350) K/uL Neut % (Auto) (45.0-80.0) % Lymph % (Auto) (10.0-50.0) % [place] % (Auto) (2.0-14.0) % Eos % (Auto) (0.0-5.0) % Baso % (Auto) (0.0-2.0) % Neut # (Auto) (1.40-7.00) K/uL Lymph # (Auto) (0.50-3.50) K/uL [place] # (Auto) (0.00-1.00) K/uL Eos # (Auto) (0.00-0.50) K/uL Baso # (Auto) (0.00-0.20) K/uL PT (9.5-12.0) SEC INR APTT (21.0-31.3) SEC D-Dimer, Quantitative (0-400) ng/mL Sodium (136-145) mmol/L Potassium (3.5-5.1) mmol/L Chloride (98-107) mmol/L Carbon Dioxide (21.0-32.0) mmol/L BUN (7-18) mg/dL Creatinine (0.51-1.17) mg/dL Est Cr Clr Drug Dosing mL/min Estimated GFR (MDRD) mL/min Glucose (74-106) mg/dL Hemoglobin A1c (4.3-5.7) % Lactic Acid (0.4-2.0) mmol/L Uric Acid (2.6-7.2) mg/dL Calcium (8.5-10.1) mg/dL Magnesium (1.8-2.4) mg/dL Iron 40 L (50-175) ug/dL TIBC 222 L (250-450) ug/dL % Saturation [id number] Ferritin 130 (8-388) ng/mL Total Bilirubin (0.2-1.0) mg/dL AST (15-37) U/L ALT (12-78) U/L Alkaline Phosphatase (46-116) IU/L Creatine Kinase 26 (26-308) U/L Creatine Kinase Index 2.7 H (0.0-2.5) % CK-MB (CK-2) 0.70 (0.00-3.60) ng/mL Troponin I 0.000 (0.000-0.056) ng/mL NT-Pro-B Natriuret Pep (0-125) pg/mL Total Protein (6.4-8.2) g/dL Albumin (3.4-5.0) g/dL Triglycerides (30-150) mg/dL Cholesterol (100-200) mg/dL LDL Cholesterol, Calc (0-100) mg/dL HDL Cholesterol (40-60) mg/dL Vitamin B12 (193-986) pg/mL TSH, Ultra Sensitive (0.358-3.740) mIU/mL Specimen Type Urincc Urine Color Light yellow Urine Appearance Clear Urine pH 7.0 (5.0-9.0) Ur Specific [place] 1.015 (1.005-1.030) Urine Protein Negative (NEGATIVE) mg/dL Urine Glucose (UA) Negative (NEGATIVE) mg/dL Urine Ketones Negative (NEGATIVE) mg/dL Urine Occult Blood Trace-intact H (NEGATIVE) Urine Nitrite Negative (NEGATIVE) Urine Bilirubin Negative (NEGATIVE) Urine Urobilinogen 0.2 (0.2-1.0) E.U./dL Ur Leukocyte Esterase Negative (NEGATIVE) Urine RBC 0-5 /HPF Urine WBC 0-5 /HPF Ur Epithelial Cells Rare /LPF Urine Bacteria Rare (NONE TO FEW) /HPF 07/17/19 07/17/19 07/17/19 Range/Units 07:11 07:11 07:11 WBC 9.1 (4.0-10.2) K/uL RBC 3.54 L (3.77-5.09) M/uL Hgb 10.3 L (11.7-15.5) g/dL Hct 33.0 L (34.0-46.0) % MCV 93.2 (84.0-98.0) fL MCH 29.1 (28.2-33.3) pg MCHC 31.2 L (31.7-36.0) g/dL RDW 14.0 (11.2-14.1) % Plt Count 280 (150-350) K/uL Neut % (Auto) 58.6 (45.0-80.0) % Lymph % (Auto) 22.5 (10.0-50.0) % [place] % (Auto) 15.6 H (2.0-14.0) % Eos % (Auto) 3.0 (0.0-5.0) % Baso % (Auto) 0.3 (0.0-2.0) % Neut # (Auto) 5.35 (1.40-7.00) K/uL Lymph # (Auto) 2.06 (0.50-3.50) K/uL [place] # (Auto) 1.43 H (0.00-1.00) K/uL Eos # (Auto) 0.27 (0.00-0.50) K/uL Baso # (Auto) 0.03 (0.00-0.20) K/uL PT (9.5-12.0) SEC INR APTT (21.0-31.3) SEC D-Dimer, Quantitative 1240 H (0-400) ng/mL Sodium 139 (136-145) mmol/L Potassium 4.3 (3.5-5.1) mmol/L Chloride 102 (98-107) mmol/L Carbon Dioxide 29.7 (21.0-32.0) mmol/L BUN 22 H (7-18) mg/dL Creatinine 1.73 H (0.51-1.17) mg/dL Est Cr Clr Drug Dosing 20.07 mL/min Estimated GFR (MDRD) 28 mL/min Glucose 142 H (74-106) mg/dL Hemoglobin A1c (4.3-5.7) % Lactic Acid (0.4-2.0) mmol/L Uric Acid (2.6-7.2) mg/dL Calcium 8.6 (8.5-10.1) mg/dL Magnesium (1.8-2.4) mg/dL Iron (50-175) ug/dL TIBC (250-450) ug/dL % Saturation Ferritin (8-388) ng/mL Total Bilirubin 0.4 (0.2-1.0) mg/dL AST 22 (15-37) U/L ALT 20 (12-78) U/L Alkaline Phosphatase 76 (46-116) IU/L Creatine Kinase 23 L (26-308) U/L Creatine Kinase Index 2.6 H (0.0-2.5) % CK-MB (CK-2) 0.60 (0.00-3.60) ng/mL Troponin I 0.000 (0.000-0.056) ng/mL NT-Pro-B Natriuret Pep 2598 H (0-125) pg/mL Total Protein 7.6 (6.4-8.2) g/dL Albumin 2.7 L (3.4-5.0) g/dL Triglycerides 83 (30-150) mg/dL Cholesterol 156 (100-200) mg/dL LDL Cholesterol, Calc 103 H (0-100) mg/dL HDL Cholesterol 36 L (40-60) mg/dL Vitamin B12 363 (193-986) pg/mL TSH, Ultra Sensitive (0.358-3.740) mIU/mL Specimen Type Urine Color Urine Appearance Urine pH (5.0-9.0) Ur Specific [place] (1.005-1.030) Urine Protein (NEGATIVE) mg/dL Urine Glucose (UA) (NEGATIVE) mg/dL Urine Ketones (NEGATIVE) mg/dL Urine Occult Blood (NEGATIVE) Urine Nitrite (NEGATIVE) Urine Bilirubin (NEGATIVE) Urine Urobilinogen (0.2-1.0) E.U./dL Ur Leukocyte Esterase (NEGATIVE) Urine RBC /HPF Urine WBC /HPF Ur Epithelial Cells /LPF Urine Bacteria (NONE TO FEW) /HPF 07/17/19 07/18/19 07/18/19 Range/Units 07:11 07:05 07:05 WBC 8.3 (4.0-10.2) K/uL RBC 3.04 L (3.77-5.09) M/uL Hgb 8.8 L D (11.7-15.5) g/dL Hct 28.6 L (34.0-46.0) % MCV 94.1 (84.0-98.0) fL MCH 28.9 (28.2-33.3) pg MCHC 30.8 L (31.7-36.0) g/dL RDW 13.8 (11.2-14.1) % Plt Count 263 (150-350) K/uL Neut % (Auto) 69.0 (45.0-80.0) % Lymph % (Auto) 14.7 (10.0-50.0) % [place] % (Auto) 11.0 (2.0-14.0) % Eos % (Auto) 5.2 H (0.0-5.0) % Baso % (Auto) 0.1 (0.0-2.0) % Neut # (Auto) 5.71 (1.40-7.00) K/uL Lymph # (Auto) 1.22 (0.50-3.50) K/uL [place] # (Auto) 0.91 (0.00-1.00) K/uL Eos # (Auto) 0.43 (0.00-0.50) K/uL Baso # (Auto) 0.01 (0.00-0.20) K/uL PT (9.5-12.0) SEC INR APTT (21.0-31.3) SEC D-Dimer, Quantitative (0-400) ng/mL Sodium 137 (136-145) mmol/L Potassium 5.0 (3.5-5.1) mmol/L Chloride 104 (98-107) mmol/L Carbon Dioxide 24.6 (21.0-32.0) mmol/L BUN 31 H (7-18) mg/dL Creatinine 2.10 H (0.51-1.17) mg/dL Est Cr Clr Drug Dosing 16.91 mL/min Estimated GFR (MDRD) 22 mL/min Glucose 100 (74-106) mg/dL Hemoglobin A1c 6.5 H (4.3-5.7) % Lactic Acid (0.4-2.0) mmol/L Uric Acid (2.6-7.2) mg/dL Calcium 7.9 L (8.5-10.1) mg/dL Magnesium 2.3 (1.8-2.4) mg/dL Iron (50-175) ug/dL TIBC (250-450) ug/dL % Saturation Ferritin (8-388) ng/mL Total Bilirubin (0.2-1.0) mg/dL AST (15-37) U/L ALT (12-78) U/L Alkaline Phosphatase (46-116) IU/L Creatine Kinase (26-308) U/L Creatine Kinase Index (0.0-2.5) % CK-MB (CK-2) (0.00-3.60) ng/mL Troponin I (0.000-0.056) ng/mL NT-Pro-B Natriuret Pep 1819 H (0-125) pg/mL Total Protein (6.4-8.2) g/dL Albumin (3.4-5.0) g/dL Triglycerides (30-150) mg/dL Cholesterol (100-200) mg/dL LDL Cholesterol, Calc (0-100) mg/dL HDL Cholesterol (40-60) mg/dL Vitamin B12 (193-986) pg/mL TSH, Ultra Sensitive (0.358-3.740) mIU/mL Specimen Type Urine Color Urine Appearance Urine pH (5.0-9.0) Ur Specific [place] (1.005-1.030) Urine Protein (NEGATIVE) mg/dL Urine Glucose (UA) (NEGATIVE) mg/dL Urine Ketones (NEGATIVE) mg/dL Urine Occult Blood (NEGATIVE) Urine Nitrite (NEGATIVE) Urine Bilirubin (NEGATIVE) Urine Urobilinogen (0.2-1.0) E.U./dL Ur Leukocyte Esterase (NEGATIVE) Urine RBC /HPF Urine WBC /HPF Ur Epithelial Cells /LPF Urine Bacteria (NONE TO FEW) /HPF 07/18/19 07/19/19 07/19/19 Range/Units 07:05 06:55 06:55 WBC (4.0-10.2) K/uL RBC (3.77-5.09) M/uL Hgb (11.7-15.5) g/dL Hct (34.0-46.0) % MCV (84.0-98.0) fL MCH (28.2-33.3) pg MCHC (31.7-36.0) g/dL RDW (11.2-14.1) % Plt Count (150-350) K/uL Neut % (Auto) (45.0-80.0) % Lymph % (Auto) (10.0-50.0) % [place] % (Auto) (2.0-14.0) % Eos % (Auto) (0.0-5.0) % Baso % (Auto) (0.0-2.0) % Neut # (Auto) (1.40-7.00) K/uL Lymph # (Auto) (0.50-3.50) K/uL [place] # (Auto) (0.00-1.00) K/uL Eos # (Auto) (0.00-0.50) K/uL Baso # (Auto) (0.00-0.20) K/uL PT (9.5-12.0) SEC INR APTT (21.0-31.3) SEC D-Dimer, Quantitative 955 H 910 H (0-400) ng/mL Sodium 141 (136-145) mmol/L Potassium 5.4 H (3.5-5.1) mmol/L Chloride 109 H (98-107) mmol/L Carbon Dioxide 22.8 (21.0-32.0) mmol/L BUN 20 H (7-18) mg/dL Creatinine 1.33 H (0.51-1.17) mg/dL Est Cr Clr Drug Dosing 26.70 mL/min Estimated GFR (MDRD) 38 mL/min Glucose 96 (74-106) mg/dL Hemoglobin A1c (4.3-5.7) % Lactic Acid (0.4-2.0) mmol/L Uric Acid (2.6-7.2) mg/dL Calcium 8.4 L (8.5-10.1) mg/dL Magnesium (1.8-2.4) mg/dL Iron (50-175) ug/dL TIBC (250-450) ug/dL % Saturation Ferritin (8-388) ng/mL Total Bilirubin (0.2-1.0) mg/dL AST (15-37) U/L ALT (12-78) U/L Alkaline Phosphatase (46-116) IU/L Creatine Kinase (26-308) U/L Creatine Kinase Index (0.0-2.5) % CK-MB (CK-2) (0.00-3.60) ng/mL Troponin I (0.000-0.056) ng/mL NT-Pro-B Natriuret Pep 3223 H (0-125) pg/mL Total Protein (6.4-8.2) g/dL Albumin (3.4-5.0) g/dL Triglycerides (30-150) mg/dL Cholesterol (100-200) mg/dL LDL Cholesterol, Calc (0-100) mg/dL HDL Cholesterol (40-60) mg/dL Vitamin B12 (193-986) pg/mL TSH, Ultra Sensitive (0.358-3.740) mIU/mL Specimen Type Urine Color Urine Appearance Urine pH (5.0-9.0) Ur Specific [place] (1.005-1.030) Urine Protein (NEGATIVE) mg/dL Urine Glucose (UA) (NEGATIVE) mg/dL Urine Ketones (NEGATIVE) mg/dL Urine Occult Blood (NEGATIVE) Urine Nitrite (NEGATIVE) Urine Bilirubin (NEGATIVE) Urine Urobilinogen (0.2-1.0) E.U./dL Ur Leukocyte Esterase (NEGATIVE) Urine RBC /HPF Urine WBC /HPF Ur Epithelial Cells /LPF Urine Bacteria (NONE TO FEW) /HPF 07/19/19 07/20/19 07/20/19 Range/Units 06:55 06:47 06:47 WBC 7.3 8.0 (4.0-10.2) K/uL RBC 2.95 L 3.04 L (3.77-5.09) M/uL Hgb 8.5 L 8.7 L (11.7-15.5) g/dL Hct 27.8 L 28.5 L (34.0-46.0) % MCV 94.2 93.8 (84.0-98.0) fL MCH 28.8 28.6 (28.2-33.3) pg MCHC 30.6 L 30.5 L (31.7-36.0) g/dL RDW 14.0 13.9 (11.2-14.1) % Plt Count 268 289 (150-350) K/uL Neut % (Auto) 68.8 68.1 (45.0-80.0) % Lymph % (Auto) 15.1 12.8 (10.0-50.0) % [place] % (Auto) 10.7 12.6 (2.0-14.0) % Eos % (Auto) 5.3 H 6.2 H (0.0-5.0) % Baso % (Auto) 0.1 0.3 (0.0-2.0) % Neut # (Auto) 5.01 5.42 (1.40-7.00) K/uL Lymph # (Auto) 1.10 1.02 (0.50-3.50) K/uL [place] # (Auto) 0.78 1.00 (0.00-1.00) K/uL Eos # (Auto) 0.39 0.49 (0.00-0.50) K/uL Baso # (Auto) 0.01 0.02 (0.00-0.20) K/uL PT (9.5-12.0) SEC INR APTT (21.0-31.3) SEC D-Dimer, Quantitative (0-400) ng/mL Sodium 139 (136-145) mmol/L Potassium 4.7 (3.5-5.1) mmol/L Chloride 105 (98-107) mmol/L Carbon Dioxide 23.3 (21.0-32.0) mmol/L BUN 19 H (7-18) mg/dL Creatinine 1.30 H (0.51-1.17) mg/dL Est Cr Clr Drug Dosing 27.32 mL/min Estimated GFR (MDRD) 39 mL/min Glucose 125 H (74-106) mg/dL Hemoglobin A1c (4.3-5.7) % Lactic Acid (0.4-2.0) mmol/L Uric Acid (2.6-7.2) mg/dL Calcium 8.5 (8.5-10.1) mg/dL Magnesium (1.8-2.4) mg/dL Iron (50-175) ug/dL TIBC (250-450) ug/dL % Saturation Ferritin (8-388) ng/mL Total Bilirubin 0.2 (0.2-1.0) mg/dL AST 26 (15-37) U/L ALT 20 (12-78) U/L Alkaline Phosphatase 78 (46-116) IU/L Creatine Kinase 25 L (26-308) U/L Creatine Kinase Index 4.8 H (0.0-2.5) % CK-MB (CK-2) 1.20 (0.00-3.60) ng/mL Troponin I 0.000 (0.000-0.056) ng/mL NT-Pro-B Natriuret Pep 2288 H (0-125) pg/mL Total Protein 6.8 (6.4-8.2) g/dL Albumin 2.5 L (3.4-5.0) g/dL Triglycerides (30-150) mg/dL Cholesterol (100-200) mg/dL LDL Cholesterol, Calc (0-100) mg/dL HDL Cholesterol (40-60) mg/dL Vitamin B12 (193-986) pg/mL TSH, Ultra Sensitive (0.358-3.740) mIU/mL Specimen Type Urine Color Urine Appearance Urine pH (5.0-9.0) Ur Specific [place] (1.005-1.030) Urine Protein (NEGATIVE) mg/dL Urine Glucose (UA) (NEGATIVE) mg/dL Urine Ketones (NEGATIVE) mg/dL Urine Occult Blood (NEGATIVE) Urine Nitrite (NEGATIVE) Urine Bilirubin (NEGATIVE) Urine Urobilinogen (0.2-1.0) E.U./dL Ur Leukocyte Esterase (NEGATIVE) Urine RBC /HPF Urine WBC /HPF Ur Epithelial Cells /LPF Urine Bacteria (NONE TO FEW) /HPF 07/20/19 Range/Units 06:47 WBC (4.0-10.2) K/uL RBC (3.77-5.09) M/uL Hgb (11.7-15.5) g/dL Hct (34.0-46.0) % MCV (84.0-98.0) fL MCH (28.2-33.3) pg MCHC (31.7-36.0) g/dL RDW (11.2-14.1) % Plt Count (150-350) K/uL Neut % (Auto) (45.0-80.0) % Lymph % (Auto) (10.0-50.0) % [place] % (Auto) (2.0-14.0) % Eos % (Auto) (0.0-5.0) % Baso % (Auto) (0.0-2.0) % Neut # (Auto) (1.40-7.00) K/uL Lymph # (Auto) (0.50-3.50) K/uL [place] # (Auto) (0.00-1.00) K/uL Eos # (Auto) (0.00-0.50) K/uL Baso # (Auto) (0.00-0.20) K/uL PT (9.5-12.0) SEC INR APTT (21.0-31.3) SEC D-Dimer, Quantitative 982 H (0-400) ng/mL Sodium (136-145) mmol/L Potassium (3.5-5.1) mmol/L Chloride (98-107) mmol/L Carbon Dioxide (21.0-32.0) mmol/L BUN (7-18) mg/dL Creatinine (0.51-1.17) mg/dL Est Cr Clr Drug Dosing mL/min Estimated GFR (MDRD) mL/min Glucose (74-106) mg/dL Hemoglobin A1c (4.3-5.7) % Lactic Acid (0.4-2.0) mmol/L Uric Acid (2.6-7.2) mg/dL Calcium (8.5-10.1) mg/dL Magnesium (1.8-2.4) mg/dL Iron (50-175) ug/dL TIBC (250-450) ug/dL % Saturation Ferritin (8-388) ng/mL Total Bilirubin (0.2-1.0) mg/dL AST (15-37) U/L ALT (12-78) U/L Alkaline Phosphatase (46-116) IU/L Creatine Kinase (26-308) U/L Creatine Kinase Index (0.0-2.5) % CK-MB (CK-2) (0.00-3.60) ng/mL Troponin I (0.000-0.056) ng/mL NT-Pro-B Natriuret Pep (0-125) pg/mL Total Protein (6.4-8.2) g/dL Albumin (3.4-5.0) g/dL Triglycerides (30-150) mg/dL Cholesterol (100-200) mg/dL LDL Cholesterol, Calc (0-100) mg/dL HDL Cholesterol (40-60) mg/dL Vitamin B12 (193-986) pg/mL TSH, Ultra Sensitive (0.358-3.740) mIU/mL Specimen Type Urine Color Urine Appearance Urine pH (5.0-9.0) Ur Specific [place] (1.005-1.030) Urine Protein (NEGATIVE) mg/dL Urine Glucose (UA) (NEGATIVE) mg/dL Urine Ketones (NEGATIVE) mg/dL Urine Occult Blood (NEGATIVE) Urine Nitrite (NEGATIVE) Urine Bilirubin (NEGATIVE) Urine Urobilinogen (0.2-1.0) E.U./dL Ur Leukocyte Esterase (NEGATIVE) Urine RBC /HPF Urine WBC /HPF Ur Epithelial Cells /LPF Urine Bacteria (NONE TO FEW) /HPF [facility]ITT[facility] Results - Last 24 hrs: Microbiology 07/18/19 07:41 Helicobacter pylori Antigen - Final Stool / Feces H. pylori stool antigen negative Microbiology 07/18/19 07:41 Stool / Feces Helicobacter pylori Antigen - Final 07/16/19 19:30 Urine, Clean Catch Urine Culture - Final NO GROWTH AFTER 2 DAYS 07/18/19 07:41 Stool / Feces Stool Occult Blood (BRITTANEY) - Final Hemoccult of stool positive Med Orders - Current: Current Medications Acetaminophen (Tylenol) 650 mg PO Q4HR PRN PRN Reason: Pain Last Admin: 07/17/19 16:21 Dose: 650 mg Albuterol/Ipratropium (Duoneb 3.0-0.5 Mg/3 Ml) 3 ml NEB BIDRT GILBERTO Last Admin: 07/20/19 07:33 Dose: 3 ml Albuterol/Ipratropium (Duoneb 3.0-0.5 Mg/3 Ml) 3 ml NEB Q4HRRT PRN PRN Reason: Dyspnea Cetirizine HCl (Zyrtec) 10 mg PO QPM [facility] Last Admin: 07/19/19 17:05 Dose: 10 mg Cholecalciferol (Vitamin D3) 25 mcg PO DAILY [facility] Last Admin: 07/20/19 07:33 Dose: 25 mcg Ferrous Sulfate (Ferrous Sulfate) 325 mg PO BIDMEALS [facility] Last Admin: 07/20/19 07:34 Dose: 325 mg Glimepiride (Amaryl) 2 mg PO DAILY [facility] Last Admin: 07/20/19 07:34 Dose: 2 mg Lorazepam (Ativan) 1 mg PO BID@0800,2000 [facility] Last Admin: 07/20/19 07:33 Dose: 1 mg Magnesium Oxide (Magnesium Oxide) 400 mg PO DAILY [facility] Last Admin: 07/20/19 07:33 Dose: 400 mg Metoprolol Succinate (Toprol Xl) 50 mg PO DAILY [facility] Last Admin: 07/20/19 07:34 Dose: 50 mg Mirtazapine (Remeron) 15 mg PO BEDTIME [facility] Last Admin: 07/19/19 20:17 Dose: 15 mg Pantoprazole Sodium (Protonix Iv) 40 mg IVPUSH DAILY [facility] Last Admin: 07/20/19 07:33 Dose: 40 mg Pregabalin (Lyrica) 75 mg PO BEDTIME [facility] Last Admin: 07/19/19 20:17 Dose: 75 mg Sodium Chloride (Saline Flush) 10 ml FLUSH ASDIRECTED PRN PRN Reason: Keep Vein Open Last Admin: 07/17/19 17:35 Dose: 10 ml Sodium Chloride (Saline Flush) 10 ml FLUSH Q12HR PRN PRN Reason: Keep Vein Open Last Admin: 07/20/19 07:35 Dose: 10 ml Vit C/Vit E/Zinc/Copper/Lutein (Ocuvite Lutein) 1 each PO BID [facility] Last Admin: 07/20/19 07:34 Dose: 1 each Discontinued Medications Albuterol/Ipratropium (Duoneb 3.0-0.5 Mg/3 Ml) 3 ml NEB ONETIME ONE Stop: 07/17/19 15:16 Last Admin: 07/17/19 15:38 Dose: 3 ml Amoxicillin/Clavulanate Potassium (Augmentin 875 Mg/125 Mg) 1 tab PO BID [facility] Stop: 07/17/19 18:01 Last Admin: 07/17/19 07:42 Dose: 1 tab Enoxaparin Sodium (Lovenox) 50 mg SUBCUT Q24H [facility] Last Admin: 07/17/19 09:59 Dose: Not Given Enoxaparin Sodium (Lovenox) 30 mg SUBCUT Q24H [facility] Last Admin: 07/19/19 10:37 Dose: 30 mg Famotidine (Pepcid) 40 mg IVPUSH ONETIME ONE Stop: 07/16/19 07:58 Last Admin: 07/16/19 08:37 Dose: 40 mg Furosemide (Lasix) 40 mg IVPUSH Q8H [facility] Last Admin: 07/17/19 04:59 Dose: Not Given Furosemide (Lasix) 40 mg IVPUSH NOW ONE Stop: 07/19/19 10:46 Last Admin: 07/19/19 11:08 Dose: 40 mg Magnesium Sulfate/Dextrose 1 (gm/ Premix) 100 mls @ 100 mls/hr IV ONETIME ONE Stop: 07/17/19 17:14 Last Admin: 07/17/19 16:22 Dose: 100 mls/hr Sodium Chloride (Normal Saline) 500 mls @ 500 mls/hr IV ONETIME ONE Stop: 07/17/19 21:29 Last Admin: 07/17/19 20:55 Dose: 500 mls/hr Sodium Chloride (Normal Saline) 500 mls @ 80 mls/hr IV ASDIRECTED [facility] Stop: 07/18/19 02:59 Last Admin: 07/17/19 20:56 Dose: 80 mls/hr Sodium Chloride (Normal Saline) 1,000 mls @ 200 mls/hr IV ONETIME ONE Stop: 07/18/19 15:17 Last Infusion: 07/18/19 18:57 Dose: Infused Iopamidol (Isovue-370 (76%)) 100 ml IVPUSH ONETIME ONE Stop: 07/16/19 09:33 Last Admin: 07/16/19 10:13 Dose: 100 ml Omeprazole (Omeprazole) 20 mg PO BIDAC [facility] Last Admin: 11/28/19 11:09 Dose: Not Given Potassium Chloride (Klor-Con M20) 20 meq PO TID GILBERTO Last Admin: 07/17/19 11:10 Dose: 20 meq - Exam Quality Assessment: Reports: DVT Prophylaxis. Denies: Supplemental Oxygen, Central Line/PICC, Urine Catheter, Skin Breakdown, Restraints General: Reports: Alert, Oriented, Cooperative, No Acute Distress, Other ( Borderline confusion) HEENT: Reports: Pupils Equal, Pupils Reactive, EOMI, Mucous Membr. Moist/[place] Neck: Reports: Supple, Trachea Midline, No JVD, No Thyromegaly, Carotid Bruit ( Mild bilateral carotid bruits versus transmitted heart sounds). Denies: Lymphadenopathy Lungs: Reports: Normal Respiratory Effort, Rales (Bilateral basilar ralesmild) . Denies: Rhonchi, Rub, Stridor, Wheezing Cardiovascular: Reports: Regular Rate, Regular Rhythm, Murmurs (Stable mild 1/6 SHERITA of the aortic and mitral valves). Denies: Gallops, Rubs GI/Abdominal Exam: Normal Bowel Sounds, Soft, Non-Tender, No Organomegaly, No Distention, No Abnormal Bruit, No Mass. No: Guarding (Female) Exam: Deferred Rectal (Female) Exam: Deferred Back Exam: Reports: Full Range of Motion, CVA Tenderness (L), Other ( Kyphoscoliosismild). Denies: CVA Tenderness (R), Muscle Spasm, Paraspinal Tenderness, Vertebral Tenderness Extremities: Normal Inspection, Normal Range of Motion, Non-Tender, No Pedal Edema, Normal Capillary Refill. No: Christi's Sign Skin: Reports: Warm, Dry, Intact. Denies: Ecchymosis Neurological: Reports: No New Focal Deficit, Other (Stable borderline confusion) Psy/Mental Status: Reports: Alert, Normal Affect, Normal Mood. Denies: Agitated , Hallucinations, Withdrawal Symptoms EKG INTERPRETATION EKG Date: 07/20/19 Time: 07:20 Rhythm: NSR Rate (Beats/Min): 91 [place]: Normal (Neutral) P-Wave: Present QRS: Normal (0.07 seconds with T-wave inversion in lead V1) ST-T: Normal QT: Normal TN/PQ Interval: 0.17 seconds with poor R-wave progression in the anterior leads Comparison: No Change (Since 07/17/19) EKG Interpretation Comments: No acute ischemic changes
[2019-07-20 11:22] VITALS: BP 135/70; PULSE 92
[2019-07-20] MEDS ORDERED: Pneumococcal 13-Valent Conjugate Vaccine 0.5 ML Syringe IM ONE (11:30)
--- NOTE | 2019-07-21 10:43 | PCM.SN ---
- Free Text/Narrative Note: Note that the patient's sister came back to the emergency room on the evening of 07/20 stating that her sister apparently no longer has any remaining Ativan at home. Note pharmacies are closed over the weekend. Note that I did discharge the patient from this facility earlier in the morning of 07/20. Her sister was given an emergency room prescription of promethazine 25 mg tablets 1 tab by mouth 4 times a day when necessary with discretion, #10 with no refills, with sedation precautions given and her sister reminded that she should not take the promethazine when she resumes her previous Ativan therapy. Refill her Ativan on 07/23 as previously ordered by her regular provider. Extensive precautions were given to the patient's sister, who is in agreement with the treatment plan.
== END 2019-07-20 13:45 | disposition home health service (06) | DRG 291 ==
LOC: LL.ED 07:34 → LL.MS 09:03 → UNDOADMIN 09:03 → LL.MS 09:18
PROVIDERS: ADMIT Family Medicine; ATTEND Family Medicine
DX: I13.0 Hypertensive heart and chronic kidney disease with heart failure and stage 1 through stage 4 chronic kidney disease, or unspecified chronic kidney disease (principal); I50.23 Acute on chronic systolic (congestive) heart failure; N17.9 Acute kidney failure, unspecified; D64.9 Anemia, unspecified; N30.00 Acute cystitis without hematuria; R41.0 Disorientation, unspecified; I25.10 Atherosclerotic heart disease of native coronary artery without angina pectoris; K59.09 Other constipation; Z51.5 Encounter for palliative care; N18.9 Chronic kidney disease, unspecified; D63.8 Anemia in other chronic diseases classified elsewhere; J43.1 Panlobular emphysema; E11.21 Type 2 diabetes mellitus with diabetic nephropathy; E83.42 Hypomagnesemia; N32.81 Overactive bladder; G89.29 Other chronic pain; M54.2 Cervicalgia; E78.5 Hyperlipidemia, unspecified; H54.7 Unspecified visual loss; H91.90 Unspecified hearing loss, unspecified ear; M54.9 Dorsalgia, unspecified; I42.9 Cardiomyopathy, unspecified; R79.1 Abnormal coagulation profile; E78.2 Mixed hyperlipidemia; I44.0 Atrioventricular block, first degree; F41.8 Other specified anxiety disorders; I08.0 Rheumatic disorders of both mitral and aortic valves; K76.0 Fatty (change of) liver, not elsewhere classified; I25.2 Old myocardial infarction; M15.0 Primary generalized (osteo)arthritis; Z91.013 Allergy to seafood; K21.9 Gastro-esophageal reflux disease without esophagitis; R91.1 Solitary pulmonary nodule; Z95.5 Presence of coronary angioplasty implant and graft; Z87.01 Personal history of pneumonia (recurrent); Z87.440 Personal history of urinary (tract) infections; M41.9 Scoliosis, unspecified; E11.42 Type 2 diabetes mellitus with diabetic polyneuropathy; M85.80 Other specified disorders of bone density and structure, unspecified site; Z79.84 Long term (current) use of oral hypoglycemic drugs; E87.5 Hyperkalemia; E11.22 Type 2 diabetes mellitus with diabetic chronic kidney disease; Z90.49 Acquired absence of other specified parts of digestive tract; E78.00 Pure hypercholesterolemia, unspecified; M81.0 Age-related osteoporosis without current pathological fracture; Z88.5 Allergy status to narcotic agent; Z88.8 Allergy status to other drugs, medicaments and biological substances; Z79.82 Long term (current) use of aspirin; Z79.899 Other long term (current) drug therapy; Z98.41 Cataract extraction status, right eye; Z98.42 Cataract extraction status, left eye
CPT/HCPCS: 36415; 71045; 71046; 71275; 80048; 80053; 80061; 81001; 82272; 82550; 82553; 82607; 82728; 83036; 83540; 83550; 83605; 83735; 83880; 84443; 84484; 84550; 85025; 85379; 85610; 85730; 87086; 87338; 90670; 93005; 93970; 94640; 96374; 97110-GP; 97116-GP; 97161-GP; 97165-GO; 97530-GP; 99285-25; A9270-GY; C9113; G0515-GO; J1650; J1940; J3475; J3490; J7030; J7040; J7620-GY; Q9967

== ENCOUNTER 2019-07-23 16:51 | Emergency (ER) | payer MEDICARE, BC ==
[2019-07-23 17:17] VITALS: BP 142/71; PULSE 90
--- NOTE | 2019-07-23 17:39 | EDM.PDOC ---
ED HPI GENERAL MEDICAL PROBLEM - General Chief Complaint: General Stated Complaint: abdominal cramping Time Seen by Provider: 07/23/19 17:30 Source of Information: Reports: Patient, Family History Limitations: Reports: Altered Mental Status (cognitive decline) - History of Present Illness INITIAL COMMENTS - FREE TEXT/NARRATIVE: Patient brought to ER by sister with complaint of crampy abdominal pain. Unable to get a well defined history in regards to chief complaint due to memory impairment. It appears that the crampy discomfort started in mid/late afternoon. Patient felt like she needed to have bowel movement but none came, so she elected to use a suppository. Reports a few loose stools after that. No fever/chills. No vomiting/nausea. No dysuria/hematuria/buring with urination. No other acute complaints during ROS. Patient just discharged late last week from hospital after being evaluated for nonspecific weakness/retrosternal tightness of long standing duration. Cleared by PT/OT prior to discharge home. Cognitive testing showed impairment and it was noted that patient's short term memory was poor. retirement placement was felt to be best/safest option but patient disagreed. She was discharged with plans for Home Health. Noted to have significant anxiety last week, improved on Ativan. Discharged with Ativan Rx which they did not orange picker. Somehow patient ended up with a bottle of Phenergan to use instead and has been using that every 8 hours or so over the weekend. Able to obtain Ativan today however has not started it. - Related Data Allergies Allergy/AdvReac Type Severity Reaction Status Date / Time ZUNILDA Inhibitors Allergy Other Verified 03/18/19 09:36 lisinopril Allergy Cannot Verified 03/18/19 09:36 Remember shrimp Allergy Nausea and Verified 03/18/19 09:36 Vomiting tramadol Allergy Hallucinati Verified 07/16/19 08:34 ons Home Meds: Home Meds Cetirizine HCl [Zyrtec] 10 mg PO QPM 09/15/16 [History] LORazepam [Ativan] 1 mg PO BID@0800,2000 09/15/16 [History] Pregabalin [Lyrica] 75 mg PO BEDTIME 09/15/16 [History] Acetaminophen [Tylenol] 650 mg PO Q4HR PRN 11/11/16 [History] Cholecalciferol (Vitamin D3) [Vitamin D3] 1,000 units PO DAILY 04/06/17 [History ] Metoprolol Succinate 50 mg PO DAILY 06/26/18 [History] Non-Formulary Medication [NF Drug] 1 tab PO BID 03/18/19 [History] Aspirin [Halfprin] 81 mg PO DAILY 07/16/19 [History] Glimepiride [Amaryl] 2 mg PO DAILY 07/16/19 [History] Albuterol/Ipratropium [DuoNeb 3.0-0.5 MG/3 ML] 3 ml NEB BIDRT #60 neb 07/20/19 [ Rx] Albuterol/Ipratropium [DuoNeb 3.0-0.5 MG/3 ML] 3 ml NEB Q4HRRT PRN #1 neb [Rx] Ferrous Sulfate 325 mg PO BIDMEALS #60 tablet 07/20/19 [Rx] Furosemide [Lasix] 20 mg PO DAILY #20 tab 07/20/19 [Rx] Magnesium Oxide 400 mg PO DAILY tablet 07/20/19 [Rx] Omeprazole 20 mg PO BEDTIME #30 cap.sr 07/20/19 [Rx] Past Medical History HEENT History: Reports: Allergic Rhinitis, Cataract, Hard of Hearing, Impaired Vision, Macular Degeneration, Other (See Below). Denies: Glaucoma, Otitis Media , Retinal Detachment Other HEENT History: The patient wears glasses; moderate bilateral presbycusis with no current hearing aids Cardiovascular History: Reports: Arrhythmia, CAD, Cardiomyopathy, Heart Murmur, High Cholesterol, Hypertension, VT, PTCA, Stents, Other (See Below). Denies: Afib, Aneurysm, Blood Clots/VTE/DVT, Bypass, PVD, Syncope Other Cardiovascular History: First degree AV block, grade 1 diastolic dysfunction, hyperlipidemia with history of fatty liver, mild aortic valve stenosis and mitral valve insufficiency by clinical exam with only minimal valvular disease by echocardiogram Respiratory History: Reports: Bronchitis, Recurrent, COPD, Intubation, Previous , Pneumonia, Recurrent. Denies: Intubation, Difficult, PE, Pneumothorax, Pulmonary Fibrosis, Sleep Apnea, TB Gastrointestinal History: Reports: Cholelithiasis, Chronic Constipation, Diverticulosis, Fatty Liver, GERD, Hiatal Hernia, Other (See Below). Denies: Celiac Disease, Fecal Incontinence, GI Bleed, Irritable Bowel Syndrome, Jaundice , PUD Other Gastrointestinal History: Fatty liver as above with secondary LFTs elevation Genitourinary History: Reports: Chronic Renal Insuffiency, UTI, Recurrent, Other (See Below). Denies: Acute Renal Failure, Renal Calculus, STD Other Genitourinary History: Borderline renal insufficiency/diabetic nephropathy. Overactive bladder Musculoskeletal History: Reports: Arthritis, Back Pain, Chronic, Fracture, Neck Pain, Chronic, Osteoarthritis, Osteoporosis, Other (See Below). Denies: Gout, RA, SLE Other Musculoskeletal History: Moderate degenerative disc disease with mild Scoliosis. Right sided fifth and sixth rib fractures on 01/02/19. Right distal radial fracture on 03/18/19. Neurological History: Reports: Neuropathy, Diabetic, Neuropathy, Peripheral, Other (See Below) (cognitive impairment). Denies: Cerebral Aneurysms, Concussion, CVA, Headaches, Chronic, Head Trauma, Migraines, MS, Parkinson's, Seizure, TIA Psychiatric History: Reports: Anxiety, Dementia, Depression. Denies: Abuse, Victim of, ADD, ADHD, Addiction, Psych Hospitalization(s), PTSD, Suicide Attempt , Suicidal Ideation Endocrine/Metabolic History: Reports: Diabetes, Type II, Osteopenia, Osteoporosis, Other (See Below). Denies: Diabetes, Type I, Diabetes Mellitus, Type 3c, Hypothyroidism, IDDM Other Endocrine/Metabolic History: Hyponatremia. Hypoalbuminemia. Hematologic History: Reports: Anemia, B12 Deficiency, Iron Deficiency. Denies: Blood Transfusion(s) Immunologic History: Reports: None. Denies: AIDS, HIV, SLE Oncologic (Cancer) History: Reports: None. Denies: Basal Cell Carcinoma, Cervix , Hodgkin's Lymphoma, Leukemia, Lymphoma, Malignant Melanoma, Non-Hodgkin's Lymphoma, Ovarian, Squamous Cell Carcinoma, Uterine Dermatologic History: Reports: None. Denies: Eczema, Psoriasis Other Dermatologic History: shingles - Infectious Disease History Infectious Disease History: Reports: Chicken Pox, Shingles (Left chest and back region in July 2010.). Denies: C-Difficile, Measles, Meningitis, Mononucleosis, MRSA, Mumps, Pertussis (Whooping Cough), Rheumatic Fever, RSV, Rubella, Scarlet Fever, TB, VRE - Past Surgical History Head Surgeries/Procedures: Reports: None HEENT Surgical History: Reports: Cataract Surgery, Oral Surgery, Other (See Below). Denies: Adenoidectomy, Eye Surgery, Laser Surgery, LASIK, Myringotomy w Tube(s), Naso-Sinus Surgery, Tonsillectomy Other HEENT Surgeries/Procedures: Bilateral cataract surgery in about 2014, complete upper teeth extraction with multiple lower teeth extractions Cardiovascular Surgical History: Reports: Coronary Artery Stent, Percutaneous Transluminal Angioplasty, Other (See Below). Denies: Aneurysm, Varicose Other Cardiovascular Surgeries/Procedures: PTCA/stent in her 1970s Respiratory Surgical History: Reports: None. Denies: Thoracentesis GI Surgical History: Reports: Appendectomy, Cholecystectomy, Colonoscopy, EGD, Other (See Below). Denies: Hernia, Abdominal, Hernia, Inguinal, Hernia Repair/ Other, Polypectomy Other GI Surgeries/Procedures: Laparoscopic cholecystectomy on 11/11/16, previous appendectomy, last EGD and colonoscopy with biopsies on 03/29/12 previous colonoscopy on 04/29/05 Female Surgical History: Reports: None. Denies: D&C, Hysterectomy, Salpingo- Oophorectomy, Tubal Ligation Endocrine Surgical History: Reports: None. Denies: Thyroid Biopsy Neurological Surgical History: Reports: None. Denies: C-Spine, Discectomy, Laminectomy, Lumbar Spine, Sacral Spine, Spinal Fusion, Thoracic Spine, Vertebroplasty Musculoskeletal Surgical History: Reports: None. Denies: Arthroscopic Procedure , Carpal Tunnel, Ganglion Cyst, Joint Replacement, Knee Replacement, ORIF Oncologic Surgical History: Reports: None Dermatological Surgical History: Reports: None - Past Imaging History Past Imaging History: Reports: Cardiac Echo (10/12/16 with ejection fraction of 55-60%), CAT Scan (CT of the head on 02/12/19. CT of the abdomen and pelvis with IV contrast on 08/11/09), DEXA Scan (07/30/11), Mammogram (Last mammogram on 09/12), MRI (MRI of the lumbar spine 05/01/13), Stress Testing (Cardiolite Lexiscan on 10/14/16 with previous Cardiolite evaluation on 02/07/14 with ejection fraction of 86%, additional Cardiolite stress test on 09/12/08 and ), Ultrasound (Complete abdominal ultrasound on 04/13/19. Right upper quadrant ultrasound on 08/11/09 with complete abdominal ultrasound on 09/16/16), Venous Doppler (lower extremities bilaterally on 09/15/10) Social & Family History - Family History HEENT: Reports: None. Denies: Glaucoma, Macular Degeneration, Retinal Detachment Cardiac: Reports: Bypass, CAD, Heart Failure, High Cholesterol, Hypertension, VT , Pacemaker, PVD/COD, Other (See Below). Denies: Afib, Aneurysm, Arrhythmia, Blood Clots/VTE/DVT, Heart Murmur, Stent, Syncope Other Cardiac Family History: Sister with pacemaker, CHF, and coronary artery disease; brother with coronary artery disease and fatal VT in his 70s previous CABG. Mother with history of fatal CHF at age 72. Father with fatal CHF and VT in his early 80s. Hypertension in sister. Hyperlipidemia in sister. Stroke with history of carotid occlusive disease history of fatal VT in her 80s. Respiratory: Reports: Pneumothorax, Other (See Below). Denies: Asthma, COPD, PE , Sleep Apnea Other Respiratory Family Hisory: Mother with history of spontaneous pneumothorax. GI: Reports: Cholelithiasis, Diverticulitis, Diverticulosis, Other (See Below). Denies: Celiac Disease, Colon Polyps, GERD, GI bleed, Inflammatory Bowel Disease, Irritable Bowel Syndrome, PUD Other GI Family History: Parents and brother with cholelithiasis; sister with diverticulitis. : Reports: Renal Calculus, Other (See Below). Denies: Dialysis, Renal Disease /Insufficiency Other Family History: Brother with urolithiasis. OBGYN: Reports: None. Denies: Endometriosis, Fibroids, Recurrent Spontaneous Musculoskeletal: Reports: Arthritis, Osteoarthritis, Other (See Below). Denies : Gout, RA, SLE Neurological: Reports: Migraines, Other (See Below). Denies: Alzheimers Disease , Cerebral Aneurysms, CVA, Dementia, MS, Parkinson's, Seizure, TIA Other Neurological Family History: Migraine headaches and sisters 2. Psychiatric: Reports: None. Denies: Abuse, Victim of, ADD, Anxiety, Depression , Psych Hospitalization(s), PTSD, Suicide Attempt Endocrine/Metabolic: Reports: Diabetes, type II, Other (See Below). Denies: Diabetes, Type I, Diabetes Mellitus, Type 3c, Hypothyroidism, IDDM Other Endocrine/Metabolic Family History: Mother and brother with diabetes mellitus. Hematologic: Reports: None. Denies: Anemia Immunologic: Reports: None. Denies: AIDS, HIV, SLE Dermatologic: Reports: None. Denies: Eczema, Psoriasis Oncologic: Reports: Breast, Other (See Below). Denies: Bladder, Cervix, Colon, Leukemia, Lymphoma, Non-Hodgkin's Lymphoma, Ovarian, Prostate, Skin Other Oncologic Family History: Sister with history of breast cancer in her 70s. - Caffeine Use Caffeine Use: Reports: None. 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 Denies: Fever, Chills, Night Sweats, Diaphoresis , Decreased Appetite, Weight Loss, Weight Gain HEENT: Reports: Glasses. Denies: Throat Pain Respiratory: Reports: No Symptoms Cardiovascular: Reports: No Symptoms GI/Abdominal: Reports: Abdominal Pain (crampy, bilateraly), Diarrhea (two small loose stools today per patient). Denies: Black Stool, Bloody Stool, Constipation, Difficulty Swallowing, Distension, Hematemesis, Hematochezia, Melena, Nausea, Vomiting : Denies: Discharge, Dysuria, Flank Pain, Frequency, Hematuria, Pain, Urgency Musculoskeletal: Reports: Other (no acute changes from baseline) Skin: Reports: No Symptoms Neurological: Reports: Confusion (patient has chronic memory impairment but is not aware of this/denies). Denies: Dizziness, Headache, Trouble Speaking, Difficulty Walking, Change in Speech Psychiatric: Reports: Anxiety Hematologic/Lymphatic: Reports: No Symptoms ED EXAM, GENERAL - Physical Exam Exam: See Below Exam Limited By: No Limitations General Appearance: Alert, WD/WN, No Apparent Distress Eye Exam: Bilateral Eye: EOMI, PERRL Ears: Normal External Exam, Hearing Grossly Normal Nose: No: Nasal Deformity, Nasal Swelling, Nasal Drainage Throat/Mouth: Normal Lips, Normal Voice, No Airway Compromise Head: Atraumatic, Normocephalic Neck: Supple, Non-Tender, Full Range of Motion. No: Lymphadenopathy (L), Lymphadenopathy (R) Respiratory/Chest: No Respiratory Distress, Lungs Clear, Normal Breath Sounds, No Accessory Muscle Use, Chest Non-Tender Cardiovascular: Normal Peripheral Pulses, Regular Rate, Rhythm, No Edema, No Murmur Peripheral Pulses: 2+: Radial (L), Radial (R) GI/Abdominal: Normal Bowel Sounds, Soft, Non-Tender, No Distention. No: Guarding, Rigid, Rebound, Tender (Female) Exam: Deferred Rectal (Female) Exam: Deferred Back Exam: No: CVA Tenderness (L), CVA Tenderness (R) Extremities: Non-Tender, Normal Capillary Refill Neurological: Alert, Memory Loss Recent Events, Other (Moves all 4s equally, no focal deficit noted. ) Psychiatric: Anxious Skin Exam: Warm, Dry, Intact, Normal Color Course - Vital Signs Last Recorded V/S: Last Vital Signs Temp 36.2 C 07/23/19 17:15 Pulse 90 07/23/19 17:15 Resp 16 07/23/19 17:15 BP 142/71 H 07/23/19 17:15 Pulse Ox 97 07/23/19 17:15 - Orders/Labs/Meds Orders: Active Orders 24 hr Category Date Time Status Abdomen 2V AP Flat Upright [CR] Stat Exams 07/23/19 17:43 Taken UA W/MICROSCOPIC [URIN] Stat Lab 07/23/19 17:04 Ordered Labs: Laboratory Tests 07/23/19 Range/Units 17:17 WBC 8.4 (4.0-10.2) K/uL RBC 3.26 L (3.77-5.09) M/uL Hgb 9.5 L (11.7-15.5) g/dL Hct 30.2 L (34.0-46.0) % MCV 92.6 (84.0-98.0) fL MCH 29.1 (28.2-33.3) pg MCHC 31.5 L (31.7-36.0) g/dL RDW 14.3 H (11.2-14.1) % Plt Count 373 H D (150-350) K/uL Neut % (Auto) 71.3 (45.0-80.0) % Lymph % (Auto) 14.6 (10.0-50.0) % Hitchcock % (Auto) 11.0 (2.0-14.0) % Eos % (Auto) 3.0 (0.0-5.0) % Baso % (Auto) 0.1 (0.0-2.0) % Neut # (Auto) 5.98 (1.40-7.00) K/uL Lymph # (Auto) 1.22 (0.50-3.50) K/uL Hitchcock # (Auto) 0.92 (0.00-1.00) K/uL Eos # (Auto) 0.25 (0.00-0.50) K/uL Baso # (Auto) 0.01 (0.00-0.20) K/uL Meds: Medications Discontinued Medications Generic Name Dose Route Start Last Admin Trade Name Edouard PRN Reason Stop Dose Admin Lorazepam 1 mg 07/23/19 18:05 07/23/19 18:13 Ativan PO 07/23/19 18:06 1 mg ONETIME ONE Administration - Radiology Interpretation Free Text/Narrative:: Abdominal films showed no obvious acute abnormalities/air-fluid levels/signs of obstruction - Re-Assessments/Exams Free Text/Narrative Re-Assessment/Exam: Normal WBC. Vital signs stable. Afebrile. No sign of discomfort when abdomen palpated. Patient observed to stand up easily/take of coat/ambulate. Unable to provide UA but had normal UA last week. Uncertain as to specific cause of abdominal cramping complaint but feel anxiety is a component. Patient did not exhibit any signs of pain/discomfort during stay or during exam. This was discussed with patient and her sister. Patient upset that we could not identify cause of cramping and make it go away. Sister admits that she feels better if patient admitted. They were told that in this case there were no indications for admission to the floor and that the best option for now is for them to continue to observe for changes overnight. They were made aware that private pay was an option for admission but were not interested in that. Single Ativan given to patient to help with anxiety. She denied receiving the pill 5 minutes after taking it, forgetting that the medication was taken. We discussed our continued concerns with patient's memory impairment and continued anxiety issues, along with her being at home, even with home health support. Patient denies having impairment issues despite our discussing the recent test scores when mental status evaluations were performed during last admission. Sister was present during exam/conversations. They have follow up appointment tomorrow with Audelia at [facility] and patient can be rechecked tomorrow. Of course they can follow up at the ER if sudden acute worsening is noted. Departure - Departure Time of Disposition: 18:27 Disposition: Home, Self-Care 01 Condition: Good Clinical Impression: Abdominal cramping, Confusion - Discharge Information *PRESCRIPTION DRUG MONITORING PROGRAM REVIEWED*: Not Applicable *COPY OF PRESCRIPTION DRUG MONITORING REPORT IN PATIENT TESSY: Not Applicable Instructions: Abdominal Pain, Adult, [id number] Referrals: Audelia Rodrigez, EMPLOYMENT REPRESENTATIVE [Primary Care Provider] - Forms: ED Department Discharge Additional Instructions: Observe for changes between now and your clinic appointment tomorrow. You may have a stomach flu that has started to cause discomfort, but it may be due to other things such as food, anxiety, medications, or other causes. Your white count was normal tonight, you did not have a fever, and the xray appeared to be unremarkable. No further testing is indicated at this time. Stay hydrated. Try to rest. Keep track of any symptoms and discuss with Audelia tomorrow. Also review your meds with Audelia. No nighttime neb tonight. Do not take any more Promethazine for now. Do not take your night time Ativan unless you cannot sleep. If needed, you can take one at 12 midnight. - My Orders Last 24 Hours: My Active Orders 07/23/19 17:04 UA W/MICROSCOPIC [URIN] Stat 07/23/19 17:43 Abdomen 2V AP Flat Upright [CR] Stat - Assessment/Plan Last 24 Hours: My Active Orders 07/23/19 17:04 UA W/MICROSCOPIC [URIN] Stat 07/23/19 17:43 Abdomen 2V AP Flat Upright [CR] Stat
[2019-07-23] MEDS: LORazepam 1 MG Tab PO ONE (18:13)
== END 2019-07-23 18:45 | disposition home or self-care (01) ==
LOC: LL.ED 16:51
DX: R10.9 Unspecified abdominal pain (principal); R41.0 Disorientation, unspecified; E11.22 Type 2 diabetes mellitus with diabetic chronic kidney disease; I12.9 Hypertensive chronic kidney disease with stage 1 through stage 4 chronic kidney disease, or unspecified chronic kidney disease; N18.9 Chronic kidney disease, unspecified; D63.1 Anemia in chronic kidney disease; I25.10 Atherosclerotic heart disease of native coronary artery without angina pectoris; E78.00 Pure hypercholesterolemia, unspecified; E11.42 Type 2 diabetes mellitus with diabetic polyneuropathy; I25.2 Old myocardial infarction; J44.9 Chronic obstructive pulmonary disease, unspecified; K21.9 Gastro-esophageal reflux disease without esophagitis; M19.90 Unspecified osteoarthritis, unspecified site; Z88.8 Allergy status to other drugs, medicaments and biological substances; Z88.5 Allergy status to narcotic agent; Z91.013 Allergy to seafood; Z79.82 Long term (current) use of aspirin; Z79.84 Long term (current) use of oral hypoglycemic drugs; Z79.899 Other long term (current) drug therapy
CPT/HCPCS: 36415; 74019; 85025; 99284-25; A9270-GY

== ENCOUNTER 2020-03-06 10:50 | Emergency (ER) | payer MEDICARE, BC ==
[2020-03-06 10:59] VITALS: BP 142/73; PULSE 87
--- NOTE | 2020-03-06 11:58 | EDM.PDOC ---
ED HPI GENERAL MEDICAL PROBLEM - General Chief Complaint: Upper Extremity Injury/Pain Stated Complaint: fall, left wrist injury Time Seen by Provider: 03/06/20 10:50 Source of Information: Reports: Patient, Old Records ([facility] chart/EMR) History Limitations: Reports: No Limitations - History of Present Illness INITIAL COMMENTS - FREE TEXT/NARRATIVE: The patient was brought to the emergency room via private automobile by her sister for evaluation of 05/31 left wrist pain after she fell while standing on her bed in order to change light bulb in her apartment. The patient fell forward on the carpeted floor landing on her left forehead with no history of loss of consciousness, change in mental status, visual changes, headaches, neck/back pain, neurological deficits, or other complaints or injuries. The patient denies any chest pain/pressure, heart flutter, dizziness, orthostasis, orthopnea, diaphoresis, paresthesias, recent decreased exercise tolerance, or any other anginal-type symptoms. No recent history of abdominal pain, heartburn, nausea, diarrhea, melena, gross hematochezia, or any food intolerance, including fatty foods, etc.. She denies any gross hematuria, colic, UTI symptoms. The patient also denies any recent fever, cough, wheezing, dyspnea, etc.. Onset: Today, Sudden Onset Date: 03/06/20 Onset Time: 09:00 Duration: Constant Location: Reports: Head, Upper Extremity, Left, Lower Extremity, Left. Denies: Face, Neck, Chest, Abdomen, Back, Pelvis, Radiates to Quality: Reports: Same as Previous Episode, Throbbing Severity: Severe Improves with: Reports: None Worsens with: Reports: None Context: Reports: Trauma (As above) Associated Symptoms: Reports: Confusion (Stable by history). 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: Other (see below) (None) Left Wrist Pain Score (Numeric/FACES): 10 - Related Data Allergies Allergy/AdvReac Type Severity Reaction Status Date / Time SAGAR Inhibitors Allergy Other Verified 03/06/20 11:01 lisinopril Allergy Cannot Verified 03/06/20 11:01 Remember shrimp Allergy Nausea and Verified 03/06/20 11:01 Vomiting tramadol Allergy Hallucinati Verified 03/06/20 11:01 ons Home Meds: Home Meds Cetirizine HCl [Zyrtec] 10 mg PO QPM 09/15/16 [History] LORazepam [Ativan] 1 mg PO BID@0800,2000 09/15/16 [History] Pregabalin [Lyrica] 75 mg PO BEDTIME 09/15/16 [History] Acetaminophen [Tylenol] 650 mg PO Q4HR PRN 11/11/16 [History] Cholecalciferol (Vitamin D3) [Vitamin D3] 1,000 units PO DAILY 04/06/17 [History] Metoprolol Succinate 50 mg PO DAILY 06/26/18 [History] Non-Formulary Medication [NF Drug] 1 tab PO BID 03/18/19 [History] Aspirin [Halfprin] 81 mg PO DAILY 07/16/19 [History] Glimepiride [Amaryl] 2 mg PO DAILY 07/16/19 [History] Albuterol/Ipratropium [DuoNeb 3.0-0.5 MG/3 ML] 3 ml NEB BIDRT #60 neb 07/20/19 [ Rx] Albuterol/Ipratropium [DuoNeb 3.0-0.5 MG/3 ML] 3 ml NEB Q4HRRT PRN #1 neb 07/20/19 [Rx] Ferrous Sulfate 325 mg PO BIDMEALS #60 tablet 07/20/19 [Rx] Furosemide [Lasix] 20 mg PO DAILY #20 tab 07/20/19 [Rx] Magnesium Oxide 400 mg PO DAILY tablet 07/20/19 [Rx] Omeprazole 20 mg PO BEDTIME #30 cap.sr 07/20/19 [Rx] Past Medical History HEENT History: Reports: Allergic Rhinitis, Cataract, Hard of Hearing, Impaired Vision, Macular Degeneration, Other (See Below). Denies: Glaucoma, Otitis Media, Retinal Detachment Other HEENT History: The patient wears glasses; moderate bilateral presbycusis with no current hearing aids. Cardiovascular History: Reports: Arrhythmia, CAD, Cardiomyopathy, Heart Failure, Heart Murmur, High Cholesterol, Hypertension, IN, PTCA, Stents, Other (See Below). Denies: Afib, Aneurysm, Blood Clots/VTE/DVT, PVD Other Cardiovascular History: First degree AV block, grade 1 diastolic dysfunction, hyperlipidemia and dyslipidemia with history of fatty liver, mild aortic valve stenosis and mitral valve insufficiency by clinical exam with only minimal valvular disease by echocardiogram. D-dimer elevation on 07/16/19 with negative workup as below. Respiratory History: Reports: Bronchitis, Recurrent, COPD, Intubation, Previous, Pneumonia, Recurrent, Other (See Below) Other Respiratory History: Benign pulmonary nodules bilaterally by CT scan on 07/16/19. Gastrointestinal History: Reports: Cholelithiasis, Chronic Constipation, Diverticulosis, Fatty Liver, GERD, Hiatal Hernia, Other (See Below). Denies: Celiac Disease, Chronic Diarrhea, Gastritis, Hepatitis, Inflammatory Bowel Disease, Irritable Bowel Syndrome, Jaundice, Pancreatitis, PUD Other Gastrointestinal History: Fatty liver as above with secondary LFTs elevation Genitourinary History: Reports: Acute Renal Failure, Chronic Renal Insuffiency, UTI, Recurrent, Other (See Below). Denies: Renal Calculus, Retention, Urinary, STD, Urinary Incontinence Other Genitourinary History: Borderline renal insufficiency/diabetic nephropathy. 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 Denies: Amputation, Gout, RA, SLE Other Musculoskeletal History: Moderate degenerative disc disease with mild Scoliosis. Right sided fifth and sixth rib fractures on 01/02/19. Right distal radial fracture on 03/18/19. Neurological History: Reports: Alzheimers Disease, Neuropathy, Diabetic, Neuropathy, Peripheral, Other (See Below). 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 Denies: Abuse, Victim of, ADD, ADHD, Addiction, Psych Hospitalization(s), Psychosis, PTSD, Suicide Attempt Endocrine/Metabolic History: Reports: Diabetes, Type II, Hypomagnesemia, Osteopenia, Osteoporosis, Other (See Below). Denies: Diabetes, Type I, Diabetes Mellitus, Type 3c, Hypothyroidism, IDDM Other Endocrine/Metabolic History: Hyponatremia. Hypoalbuminemia. Hematologic History: Reports: Anemia, B12 Deficiency, Iron Deficiency. Denies: Blood Transfusion(s) Immunologic History: Reports: None. Denies: AIDS, HIV, SLE Oncologic (Cancer) History: Reports: None. Denies: Basal Cell Carcinoma, Breast, Cervix, Colon, Hodgkin's Lymphoma, Leukemia, Malignant Melanoma, Non- Hodgkin's Lymphoma, Ovarian, Squamous Cell Carcinoma, Uterine Dermatologic History: Reports: None. Denies: Eczema, Psoriasis Other Dermatologic History: shingles - Infectious Disease History Infectious Disease History: Reports: Chicken Pox, Shingles (Left chest and back region in July 2010.). Denies: C-Difficile, Measles, Meningitis, Mononucleosis, MRSA, Mumps, Pertussis (Whooping Cough), Rheumatic Fever, RSV, Rubella, Scarlet Fever, TB, VRE - Past Surgical History Head Surgeries/Procedures: Reports: None HEENT Surgical History: Reports: Cataract Surgery, Oral Surgery, Other (See Below). Denies: Adenoidectomy, Eye Surgery, Laser Surgery, LASIK, Myringotomy w Tube(s), Naso-Sinus Surgery, Tonsillectomy Other HEENT Surgeries/Procedures: Bilateral cataract surgery in about 2014, complete upper teeth extraction with multiple lower teeth extractions Cardiovascular Surgical History: Reports: Coronary Artery Stent, Percutaneous Transluminal Angioplasty, Other (See Below). Denies: Coronary Artery Bypass, Varicose Other Cardiovascular Surgeries/Procedures: PTCA/stent in her 1970s Respiratory Surgical History: Reports: None. Denies: Thoracentesis GI Surgical History: Reports: Appendectomy, Cholecystectomy, Colonoscopy, EGD, Other (See Below). Denies: Hernia, Abdominal, Hernia, Inguinal, Hernia Repair/Other, Polypectomy Other GI Surgeries/Procedures: Laparoscopic cholecystectomy on 11/11/16, previous appendectomy, last EGD and colonoscopy with biopsies on 03/29/12 with previous colonoscopy on 04/29/05. Female Surgical History: Reports: None. Denies: D&C, Hysterectomy, Oophorectomy, Salpingo-Oophorectomy, Tubal Ligation Endocrine Surgical History: Reports: None. Denies: Thyroid Biopsy Neurological Surgical History: Reports: None. Denies: C-Spine, Discectomy, Laminectomy, Lumbar Spine, Sacral Spine, Spinal Fusion, Thoracic Spine, Vertebroplasty Musculoskeletal Surgical History: Reports: None. Denies: Arthroscopic Procedure, Carpal Tunnel, Ganglion Cyst, Joint Replacement, ORIF, Shoulder Surgery Oncologic Surgical History: Reports: None Dermatological Surgical History: Reports: None - Past Imaging History Past Imaging History: Reports: Cardiac Echo (10/12/16 with ejection fraction of 55-60%), CAT Scan (Negative CTA of the chest on 07/16/19. CT of the head on 02/12/19. CT of the abdomen and pelvis with IV contrast on 08/11/09), DEXA Scan (07/30/11), Mammogram (Last mammogram on 09/12/13), MRI (MRI of the lumbar spine 05/01/13), Stress Testing (Cardiolite Lexiscan on 10/14/16 with previous Cardiolite evaluation on 02/07/14 with ejection fraction of 86%, additional Cardiolite stress test on 09/12/08 and 12/29/06), Ultrasound (Pelvic ultrasound on 12/31/19. Complete abdominal ultrasound on 04/13/19. Right upper quadrant ultrasound on 08/11/09 with complete abdominal ultrasound on 09/16/16), Venous Doppler (Negative venous Doppler studies of the lower extremities bilaterally on 07/17/19 and 09/15/10.) Social & Family History - Family History HEENT: Reports: None. Denies: Glaucoma, Macular Degeneration, Retinal Detachment Cardiac: Reports: Bypass, CAD, Cardiomyopathy, Heart Failure, High Cholesterol, Hypertension, IN, Pacemaker, PVD/COD, Other (See Below). Denies: Afib, Aneurysm, Blood Clots/VTE/DVT, Heart Murmur, Syncope Other Cardiac Family History: Sister with pacemaker, CHF, and coronary artery disease; brother with coronary artery disease and fatal IN in his 70s previous CABG. Mother with history of fatal CHF at age 72. Father with fatal CHF and IN in his early 80s. Hypertension in sister. Hyperlipidemia in sister. Stroke with history of carotid occlusive disease history of fatal IN in her 80s. Respiratory: Reports: Pneumothorax, Other (See Below). Denies: Asthma, COPD, PE, Sleep Apnea Other Respiratory Family Hisory: Mother with history of spontaneous pneumothorax. GI: Reports: Cholelithiasis, Diverticulitis, Diverticulosis, Other (See Below). Denies: Celiac Disease, Colon Polyps, GI bleed, Inflammatory Bowel Disease, Irritable Bowel Syndrome, PUD Other GI Family History: Parents and brother with cholelithiasis; sister with diverticulitis. : Reports: Renal Calculus, Other (See Below). Denies: Renal Disease/Insufficiency Other Family History: Brother with urolithiasis. OBGYN: Reports: None. Denies: Endometriosis, Recurrent Spontaneous Musculoskeletal: Reports: Arthritis, Osteoarthritis. Denies: Gout, SLE Neurological: Reports: Migraines, Other (See Below) Other Neurological Family History: Migraine headaches in sisters 2. Psychiatric: Reports: None. Denies: Abuse, Victim of, ADD, ADHD, Anxiety, Depression, Psych Hospitalization(s), PTSD, Suicide Attempt Endocrine/Metabolic: Reports: Diabetes, type II, Other (See Below). Denies: Diabetes, Gestational, Diabetes, Type I, Diabetes Mellitus, Type 3c, Hypothyroidism, IDDM Other Endocrine/Metabolic Family History: Mother and brother with diabetes mellitus. Hematologic: Reports: None. Denies: SLE Immunologic: Reports: None. Denies: AIDS, HIV, SLE Dermatologic: Reports: None. Denies: Eczema, Psoriasis Oncologic: Reports: Breast, Other (See Below). Denies: Cervix, Colon, Hodgkin's Lymphoma, Leukemia, Lymphoma, Non-Hodgkin's Lymphoma, Ovarian, Skin, Uterine Other Oncologic Family History: Sister with history of breast cancer in her 70s. - Tobacco Use Smoking Status *Q: Never Smoker Tobacco Use Within Last Twelve Months: No Used Tobacco, but Quit: No Smoking Cessation Information Provided To Patient: No Second Hand Smoke Exposure: No Second Hand Smoke Education Provided: No - Caffeine Use Caffeine Use: Reports: None. Denies: Coffee, Energy Drinks, Soda, Tea - Alcohol Use Alcohol Use History: No Days Per Week of Alcohol Use: 0 Number of Drinks Per Day Comment: No previous DWIs, problems with alcohol abuse, etc. 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 ED EXAM, GENERAL - Physical Exam Exam: See Below Exam Limited By: No Limitations General Appearance: Alert, WD/WN, No Apparent Distress, Anxious (Mild to moderate) Eye Exam: Bilateral Eye: EOMI, Normal Fundi, Normal Inspection (No nystagmus. Patient wearing glasses), PERRL Ears: Normal External Exam, Normal Canal, Normal TMs, Hearing Loss (Mild bilateral presbycusis) Nose: Normal Inspection, Normal Mucosa, No Blood Throat/Mouth: Normal Inspection, Normal Lips, Normal Teeth (Complete upper dentures with multiple missing teeth lowers), Normal Gums, Normal Oropharynx, Normal Voice, No Airway Compromise. No: Dysphagia, Inflammation, Perioral Cyanosis Head: Other (2 cm area of mild subcutaneous hematoma over the left superior fr ontal region with no crepitation, deformity, etc. No significant localized tenderness.). No: Facial Swelling, Facial Tenderness, Sinus Tenderness Neck: Supple, Non-Tender, Full Range of Motion, Carotid Bruit (Mild bilateral carotid bruits versus transmitted heart sounds). No: Lymphadenopathy (L), Lymphadenopathy (R) Respiratory/Chest: No Respiratory Distress, Lungs Clear, Normal Breath Sounds, No Accessory Muscle Use, Chest Non-Tender. No: Pleural Rub, Retractions Cardiovascular: Normal Peripheral Pulses, Regular Rate, Rhythm, No Gallop, No JVD, No Rub, Systolic Murmur (Mild 1/6 SHERITA of the aortic and mitral valves). No: No Edema (Dependent edema as below), Gallop/S3, Gallop/S4 Peripheral Pulses: 2+: Radial (L), Radial (R), Dorsalis Pedis (L), Dorsalis Pedis (R) GI/Abdominal: Normal Bowel Sounds, Soft, Non-Tender, No Organomegaly, No Distention, No Abnormal Bruit, No Mass, Pelvis Stable. No: Guarding (Female) Exam: Deferred Rectal (Female) Exam: Deferred Back Exam: Normal Inspection, Full Range of Motion. No: CVA Tenderness (L), CVA Tenderness (R) Extremities: Normal Range of Motion, Non-Tender, Normal Capillary Refill, Pedal Edema (Trace bilateral pedal/pretibial edema), Joint Swelling (Left wrist), Arm Pain (Mild palpation pain in the left wrist with secondary deformity and swelling. No snuffbox tenderness.), Limited Range of Motion (Left wrist secondary to injury), Other (Left knee shows no significant localized tenderness, instability, etc. with good range of motion, etc.). No: Christi's Sign Neurological: Alert, Normal Reflexes (Negative Babinski's), No Motor/Sensory Deficits, Confused (Borderline stable by history), Other (No clinical orthostasis) Psychiatric: Anxious (Mild to moderate). No: Depressed Mood Skin Exam: Warm, Dry, Intact, Ecchymosis (Mild in left forehead and left knee region). No: Diaphoretic, Wound/Incision Lymphatic: No Adenopathy ED TRAUMA EXTREMITY PROCEDURES - Splinting Left Upper Extremity Splint Site: Left wrist Pre-Procedure NV Status: Normal Post-Procedure NV Status: Normal Splint Material: Other (3-inch by 12 inch pre-formed padded fiberglass splint cut to fit and secured with one 2 inch Sagar wrap) Splint Design: Volar, Other (Short arm palmar) Applied & Form Fitted By: Provider Provider Post-Splint Application NV Check: NV Status Normal, Good Position Complications: No Course - Vital Signs Last Recorded V/S: Last Vital Signs Temp 36.4 C 03/06/20 10:56 Pulse 87 03/06/20 10:56 Resp 18 03/06/20 10:56 BP 142/73 H 03/06/20 10:56 Pulse Ox 97 03/06/20 10:56 Vital Signs - 24 hr 03/06/20 10:56 Temperature [ 36.4 C Temporal] Pulse, 87 Peripheral [ Right Pulse Oximetry] Respiratory 18 Rate Blood Pressure 142/73 H [Right Upper Arm] O2 Sat by Pulse 97 Oximetry - Orders/Labs/Meds Orders: Active Orders 24 hr Category Date Time Status Wrist Comp Min 3V Lt [CR] Stat Exams 03/06/20 11:03 Taken Obtain Past Medical Record [OM.PC] Routine Oth 03/06/20 11:03 Active Labs: As above Meds: As above - Radiology Interpretation Free Text/Narrative:: X-rays of the left wrist, 3 views, shows evidence of mildly angulated however not significantly displaced distal radial and ulnar fractures with moderate osteoarthritic and osteoporotic changes. Departure - Departure Time of Disposition: 12:30 Disposition: Home, Self-Care 01 Condition: Good Clinical Impression: Closed fracture of radius and ulna, Hypertension, Mixed anxiety depressive disorder, Osteoarthritis, Coronary artery disease, COPD (chronic obstructive pulmonary disease), Confusion, Head contusion - Discharge Information *PRESCRIPTION DRUG MONITORING PROGRAM REVIEWED*: Not Applicable *COPY OF PRESCRIPTION DRUG MONITORING REPORT IN PATIENT TESSY: Not Applicable Instructions: Cast or Splint Care, Adult, [id number], Head Injury, Adult, [id number], Wrist Fracture Treated With Immobilization, [id number] Referrals: Audelia Rodrigez NP [Primary Care Provider] - Forms: ED Department Discharge Additional Instructions: 1. Followup with your regular provider in 7 days as directed for reevaluation, repeat x-ray of your left wrist, and short arm cast placement. Bring these discharge instructions with you to that visit. 2. Tylenol 650 mg by mouth every 4 hours and/or OTC ibuprofen 2-3 tabs by mouth every 6 hours with food as directed./needed. You may stagger these medications for 48-72 hours only, which essentially means that you are receiving a pain medication about every 2 hours. 3. Ice packs and arm elevation as discussed 4. Wear short arm splint on the left arm at all times until otherwise directed by your regular provider with limited use of your left hand and arm as discussed 5. Strict fall precautions as discussed. Don't be afraid to ask for help when needed 6. Head precautions as directed-see form. 7. Immediately after this visit verify that your cellular telephone's voicemail has been activated and is empty. Also verify that your home telephone's answering machine is operating properly and has space to receive messages. Note that it is sometimes necessary for us to be able to contact you at a later date to discuss your medical care. 8. Please remember that we are ALWAYS here for you and want to answer any questions you may have. Feel free to call the hospital any time and we call you back GRETCHEN. Sepsis Event Note (ED) - Evaluation Sepsis Screening Result: No Definite Risk - Focused Exam Vital Signs: Vital Signs Temp Pulse Resp BP Pulse Ox 03/06/20 10:56 36.4 C 87 18 142/73 H 97 - Problem List & Annotations (1) Closed fracture of radius and ulna SNOMED Code(s): 72727208 Code(s): S52.90XA - UNSP FRACTURE OF UNSP FOREARM, INIT FOR CLOS FX; S52.209A - UNSP FRACTURE OF SHAFT OF UNSP ULNA, INIT FOR CLOS FX Status: Acute Priority: High Current Visit: Yes Onset Date: 03/06/20 Annotation/Comment:: Overall adequate position of distal radial and ulnar fractures with no reduction required. Short arm palmar splint placed as above. Close follow-up by regular provider as per discharge instructions. Strict fall precautions were extensively discussed with the patient strongly encouraged to ask for help when needing to do tasks in her apartment. Consider reinitiation of previous home health by regular provider. Qualifiers: Encounter type: initial encounter Laterality: left Qualified Code(s): S52.92XA - Unspecified fracture of left forearm, initial encounter for closed fracture; S52.202A - Unspecified fracture of shaft of left ulna, initial encounter for closed fracture (2) Head contusion SNOMED Code(s): 865955674 Code(s): S00.93XA - CONTUSION OF UNSPECIFIED PART OF HEAD, INITIAL ENCOUNTER Status: Acute Priority: High Current Visit: Yes Onset Date: 03/06/20 Annotation/Comment:: Minor head contusion with no evidence of concussion. Head precautions given. Qualifiers: Encounter type: initial encounter Contusion of head detail: other part of head Qualified Code(s): S00.83XA - Contusion of other part of head, initial encounter (3) COPD (chronic obstructive pulmonary disease) SNOMED Code(s): 97271081 Code(s): J44.9 - CHRONIC OBSTRUCTIVE PULMONARY DISEASE, UNSPECIFIED Status: Acute Priority: Medium Current Visit: Yes Annotation/Comment:: Moderate COPD with additional pulmonary fibrosis by previous radiological reports. No fever or bronchitic type symptoms. Consider PFTs on an outpatient basis. Patient has been noncompliant with her nebulizer treatments with medication compliance encouraged. Qualifiers: COPD type: emphysema Emphysema type: panlobular Qualified Code(s): J43.1 - Panlobular emphysema (4) Confusion SNOMED Code(s): 666829389 Code(s): R41.0 - DISORIENTATION, UNSPECIFIED Status: Acute Priority: Medium Current Visit: Yes Annotation/Comment:: Borderline confusion in ER with stable findings when compared to my previous examinations in this facility. Continue to observe closely by her regular provider. (5) Coronary artery disease SNOMED Code(s): 63835682 Code(s): I25.10 - ATHSCL HEART DISEASE OF [place] CORONARY ARTERY W/O ANG PCTRS Status: Chronic Priority: Medium Current Visit: Yes Annotation/Comment:: No chest pain or anginal type symptoms. Previous history of CHF. Qualifiers: Coronary Disease-Associated Artery/Lesion type: [place] artery [place] vs. transplanted heart: [place] heart Associated angina: without angina Qualified Code(s): I25.10 - Atherosclerotic heart disease of [place] coronary artery without angina pectoris (6) Hypertension SNOMED Code(s): 38152485 Code(s): I10 - ESSENTIAL (PRIMARY) HYPERTENSION Status: Chronic Priority: Medium Current Visit: Yes Annotation/Comment:: Overall good control in the emergency room. Continue to observe closely by her regular providers. Qualifiers: Hypertension type: essential hypertension Qualified Code(s): I10 - Essential (primary) hypertension (7) Mixed anxiety depressive disorder SNOMED Code(s): 019304845 Code(s): F41.8 - OTHER SPECIFIED ANXIETY DISORDERS Status: Chronic Priority: Medium Current Visit: Yes Annotation/Comment:: Stable by history, however moderate control based on today's exam. Continue to observe closely by her regular providers with no change in medical therapy for now. (8) Osteoarthritis SNOMED Code(s): 708098618 Code(s): M19.90 - UNSPECIFIED OSTEOARTHRITIS, UNSPECIFIED SITE Status: Chronic Priority: Medium Current Visit: Yes Annotation/Comment:: Stable by history with history of osteoporosis and no evidence of other injuries or complaints. Qualifiers: Osteoarthritis location: multiple joints Osteoarthritis type: primary Qualified Code(s): M89.49 - Other hypertrophic osteoarthropathy, multiple sites (9) Hyperlipidemia SNOMED Code(s): 12516393 Code(s): E78.5 - HYPERLIPIDEMIA, UNSPECIFIED Status: Chronic Priority: Low Current Visit: No Annotation/Comment:: Not currently under therapy with previous apparent discontinuation of her statin therapy. Recent hospitalization did show some mild dyslipidemia. Continue to observe by her regular provider. Note comfort care. Qualifiers: Hyperlipidemia type: mixed hyperlipidemia Qualified Code(s): E78.2 - Mixed hyperlipidemia - Problem List Review Problem List Initiated/Reviewed/Updated: Yes - My Orders Last 24 Hours: My Active Orders 03/06/20 11:03 Wrist Comp Min 3V Lt [CR] Stat Obtain Past Medical Record [OM.PC] Routine - Assessment/Plan Last 24 Hours: My Active Orders 03/06/20 11:03 Wrist Comp Min 3V Lt [CR] Stat Obtain Past Medical Record [OM.PC] Routine Assessment:: As above Plan: As above. Extensive precautions were given to the patient, who is in agreement with the treatment plan. See Patient Instructions for further treatment and plan.
== END 2020-03-06 12:30 | disposition home or self-care (01) ==
LOC: LL.ED 10:50
DX: S52.502A Unspecified fracture of the lower end of left radius, initial encounter for closed fracture (principal); S52.602A Unspecified fracture of lower end of left ulna, initial encounter for closed fracture; S00.93XA Contusion of unspecified part of head, initial encounter; S80.02XA Contusion of left knee, initial encounter; F41.8 Other specified anxiety disorders; M19.032 Primary osteoarthritis, left wrist; J44.9 Chronic obstructive pulmonary disease, unspecified; I25.10 Atherosclerotic heart disease of native coronary artery without angina pectoris; I13.0 Hypertensive heart and chronic kidney disease with heart failure and stage 1 through stage 4 chronic kidney disease, or unspecified chronic kidney disease; E11.22 Type 2 diabetes mellitus with diabetic chronic kidney disease; I50.9 Heart failure, unspecified; N18.9 Chronic kidney disease, unspecified; I25.2 Old myocardial infarction; E11.40 Type 2 diabetes mellitus with diabetic neuropathy, unspecified; Z88.6 Allergy status to analgesic agent; Z91.013 Allergy to seafood; Z88.8 Allergy status to other drugs, medicaments and biological substances; Z79.82 Long term (current) use of aspirin; Z79.899 Other long term (current) drug therapy; X58.XXXA Exposure to other specified factors, initial encounter
CPT/HCPCS: 73110-LT; 99283-25; 99284

== ENCOUNTER 2020-03-15 09:51 | Emergency (ER) | payer MEDICARE, BC ==
[2020-03-15 10:11] VITALS: BP 150/47; PULSE 71
[2020-03-15] MEDS ORDERED: Ondansetron 4 MG Tab.DIS PO ONE (10:28)
--- NOTE | 2020-03-15 11:59 | EDM.PDOC ---
ED HPI GENERAL MEDICAL PROBLEM - General Chief Complaint: General Stated Complaint: nausea Time Seen by Provider: 03/15/20 10:21 Source of Information: Reports: Patient History Limitations: Reports: Other (Poor general recall) - History of Present Illness INITIAL COMMENTS - FREE TEXT/NARRATIVE: Patient comes to ER complaining of nausea and some discomfort around her left thumb. She feels that the nausea might be related to taking Tylenol every 4 hours (650mg) for her broken wrist. She was seen here 03/06 for that injury. The thumb discomfort she blames on the recent cast for the fracture. She did not want any narcotics for pain at the time as she usually does not tolerate pain medications well. Left frontal headache last 3 days. No other acute changes/complaints during ROS. Nausea present for 2-3 days. Last dose of Tylenol was last night. Tylenol does not really improve pain. Left Wrist Pain Score (Numeric/FACES): 6 - Related Data Allergies Allergy/AdvReac Type Severity Reaction Status Date / Time ZUNILDA Inhibitors Allergy Other Verified 03/15/20 11:45 lisinopril Allergy Cannot Verified 03/15/20 11:45 Remember shrimp Allergy Nausea and Verified 03/15/20 11:45 Vomiting tramadol Allergy Hallucinati Verified 03/15/20 11:45 ons Home Meds: Home Meds Cetirizine HCl [Zyrtec] 10 mg PO QPM 09/15/16 [History] LORazepam [Ativan] 1 mg PO BID@0800,2000 09/15/16 [History] Pregabalin [Lyrica] 75 mg PO BEDTIME 09/15/16 [History] Cholecalciferol (Vitamin D3) [Vitamin D3] 1,000 units PO DAILY 04/06/17 [History] Metoprolol Succinate 50 mg PO DAILY 06/26/18 [History] Non-Formulary Medication [NF Drug] 1 tab PO BID 03/18/19 [History] Aspirin [Halfprin] 81 mg PO DAILY 07/16/19 [History] Glimepiride [Amaryl] 2 mg PO DAILY 07/16/19 [History] Albuterol/Ipratropium [DuoNeb 3.0-0.5 MG/3 ML] 3 ml NEB Q4HRRT PRN #1 neb 07/20/19 [Rx] Ferrous Sulfate 325 mg PO BIDMEALS #60 tablet 07/20/19 [Rx] Furosemide [Lasix] 20 mg PO DAILY #20 tab 07/20/19 [Rx] Magnesium Oxide 400 mg PO DAILY tablet 07/20/19 [Rx] Omeprazole 20 mg PO BEDTIME #30 cap.sr 07/20/19 [Rx] Acetaminophen [Tylenol] 325 mg PO Q6HR PRN 03/15/20 [History] Calcium Carb/Vitamin D3/Vit K1 [Viactiv 650 mg-12.5 Mcg Chew] 1 each PO DAILY 03/15/20 [History] Docusate Sodium [Colace] 200 mg PO BID 03/15/20 [History] Multivitamin [Multi-Day Vitamins] 1 tab PO DAILY 03/15/20 [History] Nitroglycerin [Nitrostat] 0.4 mg SL ASDIRECTED PRN 03/15/20 [History] Sennosides [Senna] 8.6 mg PO DAILY PRN 03/15/20 [History] Past Medical History HEENT History: Reports: Allergic Rhinitis, Cataract, Hard of Hearing, Impaired Vision, Macular Degeneration, Other (See Below) Other HEENT History: The patient wears glasses; moderate bilateral presbycusis with no current hearing aids. Cardiovascular History: Reports: Arrhythmia, CAD, Cardiomyopathy, Heart Failure, Heart Murmur, High Cholesterol, Hypertension, IA, PTCA, Stents, Other (See Below) Other Cardiovascular History: First degree AV block, grade 1 diastolic dysfunction, hyperlipidemia and dyslipidemia with history of fatty liver, mild aortic valve stenosis and mitral valve insufficiency by clinical exam with only minimal valvular disease by echocardiogram. D-dimer elevation on 07/16/19 with negative workup as below. Respiratory History: Reports: Bronchitis, Recurrent, COPD, Intubation, Previous, Pneumonia, Recurrent, Other (See Below) Other Respiratory History: Benign pulmonary nodules bilaterally by CT scan on 07/16/19. Gastrointestinal History: Reports: Cholelithiasis, Chronic Constipation, Diverticulosis, Fatty Liver, GERD, Hiatal Hernia, Other (See Below) Other Gastrointestinal History: Fatty liver as above with secondary LFTs elevation Genitourinary History: Reports: Acute Renal Failure, Chronic Renal Insuffiency, UTI, Recurrent, Other (See Below) Other Genitourinary History: Borderline renal insufficiency/diabetic nephropathy. Overactive bladder Musculoskeletal History: Reports: Arthritis, Back Pain, Chronic, Fracture, Neck Pain, Chronic, Osteoarthritis, Osteoporosis, Other (See Below) Other Musculoskeletal History: Moderate degenerative disc disease with mild Scoliosis. Right sided fifth and sixth rib fractures on 01/02/19. Right distal radial fracture on 03/18/19. 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 Hypoalbuminemia. Hematologic History: Reports: Anemia, B12 Deficiency, Iron Deficiency Immunologic History: Reports: None Oncologic (Cancer) History: Reports: None Dermatologic History: Reports: None Other Dermatologic History: shingles - Infectious Disease History Infectious Disease History: Reports: Chicken Pox, Shingles (Left chest and back region in July 2010.). Denies: C-Difficile, Measles, Meningitis, Mononucleosis, MRSA, Mumps, Pertussis (Whooping Cough), Rheumatic Fever, RSV, Rubella, Scarlet Fever, TB, VRE - Past Surgical History Head Surgeries/Procedures: Reports: None HEENT Surgical History: Reports: Cataract Surgery, Oral Surgery, Other (See Below) Other HEENT Surgeries/Procedures: Bilateral cataract surgery in about 2014, complete upper teeth extraction with multiple lower teeth extractions Cardiovascular Surgical History: Reports: Coronary Artery Stent, Percutaneous Transluminal Angioplasty, Other (See Below) Other Cardiovascular Surgeries/Procedures: PTCA/stent in her 1970s Respiratory Surgical History: Reports: None GI Surgical History: Reports: Appendectomy, Cholecystectomy, Colonoscopy, EGD, Other (See Below) Other GI Surgeries/Procedures: Laparoscopic cholecystectomy on 11/11/16, previous appendectomy, last EGD and colonoscopy with biopsies on 03/29/12 with previous colonoscopy on 04/29/05. Female Surgical History: Reports: None Endocrine Surgical History: Reports: None Neurological Surgical History: Reports: None Musculoskeletal Surgical History: Reports: None Oncologic Surgical History: Reports: None Dermatological Surgical History: Reports: None - Past Imaging History Past Imaging History: Reports: Cardiac Echo (10/12/16 with ejection fraction of 55-60%), CAT Scan (Negative CTA of the chest on 07/16/19. CT of the head on 02/12/19. CT of the abdomen and pelvis with IV contrast on 08/11/09), DEXA Scan (07/30/11), Mammogram (Last mammogram on 09/12/13), MRI (MRI of the lumbar spine 05/01/13), Stress Testing (Cardiolite Lexiscan on 10/14/16 with previous Cardiolite evaluation on 02/07/14 with ejection fraction of 86%, additional Cardiolite stress test on 09/12/08 and 12/29/06), Ultrasound (Pelvic ultrasound on 12/31/19. Complete abdominal ultrasound on 04/13/19. Right upper quadrant ultrasound on 08/11/09 with complete abdominal ultrasound on 09/16/16), Venous Doppler (Negative venous Doppler studies of the lower extremities bilaterally on 07/17/19 and 09/15/10.) Social & Family History - Family History HEENT: Reports: None Cardiac: Reports: Bypass, CAD, Cardiomyopathy, Heart Failure, High Cholesterol, Hypertension, IA, Pacemaker, PVD/COD, Other (See Below) Other Cardiac Family History: Sister with pacemaker, CHF, and coronary artery disease; brother with coronary artery disease and fatal IA in his 70s previous CABG. Mother with history of fatal CHF at age 72. Father with fatal CHF and IA in his early 80s. Hypertension in sister. Hyperlipidemia in sister. Stroke with history of carotid occlusive disease history of fatal IA in her 80s. Respiratory: Reports: Pneumothorax, Other (See Below) Other Respiratory Family Hisory: Mother with history of spontaneous pneumothorax. GI: Reports: Cholelithiasis, Diverticulitis, Diverticulosis, Other (See Below) Other GI Family History: Parents and brother with cholelithiasis; sister with diverticulitis. : Reports: Renal Calculus, Other (See Below) Other Family History: Brother with urolithiasis. OBGYN: Reports: None Musculoskeletal: Reports: Arthritis, Osteoarthritis Neurological: Reports: Migraines, Other (See Below) Other Neurological Family History: Migraine headaches in sisters 2. Psychiatric: Reports: None Endocrine/Metabolic: Reports: Diabetes, type II, Other (See Below) Other Endocrine/Metabolic Family History: Mother and brother with diabetes mellitus. Hematologic: Reports: None Immunologic: Reports: None Dermatologic: Reports: None Oncologic: Reports: Breast, Other (See Below) Other Oncologic Family History: Sister with history of breast cancer in her 70s. - Caffeine Use Caffeine Use: Reports: None. 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 Denies: Fever HEENT: Reports: Glasses, Other (has chronic intermittent rhinitis that is unchanged). Denies: Dental Pain, Ear Pain, Throat Pain, Throat Swelling, Vertigo, Vision Change Respiratory: Denies: Shortness of Breath, Wheezing, Pleuritic Chest Pain, Cough, Sputum, Hemoptysis Cardiovascular: Reports: No Symptoms GI/Abdominal: Reports: Nausea. Denies: Abdominal Pain, Black Stool, Bloody Stool, Constipation, Diarrhea, Distension, Vomiting : Reports: No Symptoms Musculoskeletal: Reports: Other (left wrist pain s/p recent fracture. No report of overall worsening discomfort. ) Skin: Reports: Bruising (left forehead from fall 03/06) Neurological: Reports: Headache, Other (patient denies any acute changes other that left frontal headache. Does admit to problems remembering things. ) Psychiatric: Reports: No Symptoms ED EXAM, GENERAL - Physical Exam Exam: See Below Exam Limited By: No Limitations General Appearance: Alert, WD/WN, No Apparent Distress Eye Exam: Bilateral Eye: EOMI, PERRL Ears: Hearing Grossly Normal Nose: No: Nasal Deformity, Nasal Swelling, Nasal Drainage Throat/Mouth: Normal Lips, Normal Voice, No Airway Compromise Head: Facial Tenderness (around old bruise forehead), Other (old bruising noted left forehead). No: Facial Swelling, Sinus Tenderness Neck: Supple, Non-Tender Respiratory/Chest: No Respiratory Distress, Lungs Clear, Normal Breath Sounds, No Accessory Muscle Use, Chest Non-Tender Cardiovascular: Regular Rate, Rhythm, No Murmur GI/Abdominal: Normal Bowel Sounds, Soft, Non-Tender, No Distention (Female) Exam: Deferred Rectal (Female) Exam: Deferred Back Exam: No: CVA Tenderness (L), CVA Tenderness (R), Muscle Spasm Extremities: No Pedal Edema, Normal Capillary Refill, Other (forearm/wrist cast in place on left. Fingers pink/good cap refill) Neurological: Alert, Oriented, Other (equal tone/strength bilaterally) Psychiatric: Normal Affect, Normal Mood Skin Exam: Warm, Dry, Normal Color, Other (old bruise left forehead) Course - Vital Signs Last Recorded V/S: Last Vital Signs Temp 36.6 C 03/15/20 09:54 Pulse 71 03/15/20 09:54 Resp 16 03/15/20 09:54 BP 150/47 H 03/15/20 09:54 Pulse Ox 97 03/15/20 09:54 - Orders/Labs/Meds Orders: Active Orders 24 hr Category Date Time Status Consult to Home Care [Consult to Home Health] [CONS] Cons 03/15/20 11:59 Ordered Routine Head wo Cont [CT] Stat Exams 03/15/20 10:48 Ordered Labs: Laboratory Tests 03/15/20 Range/Units 10:40 Specimen Type Urinvoid Urine Color Light yellow Urine Appearance Clear Urine pH 6.0 (5.0-9.0) Ur Specific [place] 1.020 (1.005-1.030) Urine Protein Negative (NEGATIVE) mg/dL Urine Glucose (UA) Negative (NEGATIVE) mg/dL Urine Ketones Negative (NEGATIVE) mg/dL Urine Occult Blood Trace-intact H (NEGATIVE) Urine Nitrite Negative (NEGATIVE) Urine Bilirubin Negative (NEGATIVE) Urine Urobilinogen 0.2 (0.2-1.0) E.U./dL Ur Leukocyte Esterase Negative (NEGATIVE) Urine RBC 0-5 /HPF Urine WBC 0-5 /HPF Ur Epithelial Cells Few /LPF Urine Bacteria Few (NONE TO FEW) /HPF Meds: Medications Discontinued Medications Generic Name Dose Route Start Last Admin Trade Name Freq PRN Reason Stop Dose Admin Ondansetron HCl 4 mg 03/15/20 10:28 03/15/20 10:35 Zofran Odt PO 03/15/20 10:29 4 mg ONETIME ONE Administration - Re-Assessments/Exams Free Text/Narrative Re-Assessment/Exam: 03/15/20 13:44 Patient received Zofran to see if it helped nausea. Given history of nausea along with history fall/increasing headache on left side of head around area of bruising, CT performed to r/o subdural/other intracranial trauma. This was read as negative by Radiology. Nausea did improve with Zofran. UA performed and no evidence of UTI noted. Nursing staff placed more padding around thumb/edge of cast and patient reported it was much more comfortable. Time spent with patient discussing option for pain management of wrist fracture. It was noted that she repeated herself often during visit. Staff is in agreement that patient shows cognitive decline since last ER visit and there is concern as to her continuing to live alone. Concerns relayed to patient's sister who accompanied patient to ER. It was suggested that they look into [facility] or [facility]. Patient did not wish to have any narcotic medication prescribed. It was recommended to change Tylenol to 4 times a day instead of 6 to see if nausea improves. She is also to look out for any additional developing symptoms that may suggest other process such as gastroenteritis. 10 pack of Zofran from ER sent home with patient for PRN nausea use. It was recommended that she get rechecked by her primary provider early next week. To follow up in ER as needed if worsening problems develop over weekend. Departure - Departure Time of Disposition: 11:55 Disposition: Home, Self-Care 01 Condition: Good Clinical Impression: Nausea Closed fracture of radius and ulna Qualifiers: Encounter type: sequela Laterality: left Qualified Code(s): S52.92XS - Unspecified fracture of left forearm, sequela - Discharge Information *PRESCRIPTION DRUG MONITORING PROGRAM REVIEWED*: Not Applicable *COPY OF PRESCRIPTION DRUG MONITORING REPORT IN PATIENT TESSY: Not Applicable Referrals: Audelia Rodrigez TRAVEL ACCOMMODATION INSPECTOR [Primary Care Provider] - Forms: ED Department Discharge Additional Instructions: Take the Zofran for nausea every 6-8 hours as needed. Try to space out the Tylenol to every 6 hours instead of 4 and see if that helps the nausea. Make sure you are eating food with the tylenol to prevent stomach upset. Call the clinic on Tuesday and clarify if you are to RESTART taking the REMERON (MIRTAZAPINE) at betime. Clarify if you are to take OMEPRAZOLE 20mg capsule ONCE OR TWICE a day. You normally take this only at bedtime. Make sure that NONE of your Tylenol is Tylenol PM as this should only be taken at bedtime for SLEEP IF NEEDED. Talk to your Dr. about this....IF it is needed. Consider using the oral CBD oil for pain since you wish to avoid Ibuprofen and narcotic medications for wrist pain. Follow up with your primary provider next week for recheck. Follow up otherwise as needed if you have any problems Sepsis Event Note (ED) - Evaluation Sepsis Screening Result: No Definite Risk - Focused Exam Vital Signs: Vital Signs Temp Pulse Resp BP Pulse Ox 03/15/20 09:54 36.6 C 71 16 150/47 H 97 - My Orders Last 24 Hours: My Active Orders 03/15/20 10:48 Head wo Cont [CT] Stat 03/15/20 11:59 Consult to Home Care [Consult to Home Health] [CONS] Routine - Assessment/Plan Last 24 Hours: My Active Orders 03/15/20 10:48 Head wo Cont [CT] Stat 03/15/20 11:59 Consult to Home Care [Consult to Home Health] [CONS] Routine
== END 2020-03-15 13:15 | disposition home or self-care (01) ==
LOC: LL.ED 09:51
DX: S52.202D Unspecified fracture of shaft of left ulna, subsequent encounter for closed fracture with routine healing (principal); S52.92XD Unspecified fracture of left forearm, subsequent encounter for closed fracture with routine healing; R11.0 Nausea; I11.0 Hypertensive heart disease with heart failure; I50.9 Heart failure, unspecified; I25.10 Atherosclerotic heart disease of native coronary artery without angina pectoris; M19.90 Unspecified osteoarthritis, unspecified site; G30.9 Alzheimer's disease, unspecified; F02.80 Dementia in other diseases classified elsewhere, unspecified severity, without behavioral disturbance, psychotic disturbance, mood disturbance, and anxiety; F41.9 Anxiety disorder, unspecified; F32.9 Major depressive disorder, single episode, unspecified; E11.42 Type 2 diabetes mellitus with diabetic polyneuropathy; D50.9 Iron deficiency anemia, unspecified; Z88.5 Allergy status to narcotic agent; Z88.8 Allergy status to other drugs, medicaments and biological substances; Z91.013 Allergy to seafood; Z79.82 Long term (current) use of aspirin; Z79.899 Other long term (current) drug therapy; Z79.84 Long term (current) use of oral hypoglycemic drugs; W06.XXXA Fall from bed, initial encounter
CPT/HCPCS: 70450; 81001; 99283; 99284-25; A9270-GY

== ENCOUNTER 2021-10-08 10:30 | Emergency (ER) | payer BC, MEDICAID, MEDICARE ==
[2021-10-08] MEDS ORDERED: Ondansetron 4 MG/2 ML SDV IV ONE (10:33)
[2021-10-08] MEDS ORDERED: Sodium Chloride 0.9% 10 ML Syringe FLUSH PRN (10:33)
[2021-10-08] MEDS ORDERED: fentaNYL 50 MCG/ML SDV IVPUSH ONE (10:33)
[2021-10-08 11:32] LABS: ANION GAP 10.1 meq/L (7-15); CHLORIDE,CL 104 mmol/L (98-107); SODIUM,NA 139 mmol/L (136-145)
[2021-10-08 11:42] LABS: PTT,PARTIAL THROMBOPLSTIN TIME 26.3 SEC (23.6-29.8)
[2021-10-08] MEDS ORDERED: HYDROmorphone 0.5 MG/0.5 ML Syringe IV ONE (12:36)
[2021-10-08] MEDS ORDERED: Sodium Chloride 0.9% 250 ML IV SCH (14:00)
[2021-10-08 16:09] VITALS: BP 104/53; PULSE 84
== END 2021-10-08 12:50 ==
LOC: LL.ED 10:30
DX: S72.001A Fracture of unspecified part of neck of right femur, initial encounter for closed fracture (principal); I13.0 Hypertensive heart and chronic kidney disease with heart failure and stage 1 through stage 4 chronic kidney disease, or unspecified chronic kidney disease; I50.9 Heart failure, unspecified; N18.30 Chronic kidney disease, stage 3 unspecified; J44.9 Chronic obstructive pulmonary disease, unspecified; I25.10 Atherosclerotic heart disease of native coronary artery without angina pectoris; Z88.5 Allergy status to narcotic agent; Z91.018 Allergy to other foods; Z88.8 Allergy status to other drugs, medicaments and biological substances; Z79.82 Long term (current) use of aspirin; Z79.899 Other long term (current) drug therapy; W00.0XXA Fall on same level due to ice and snow, initial encounter
CPT/HCPCS: 36415; 73502; 80053; 85025; 85610; 85730; 96374; 96375; 99285; J1170; J2405; J3010; J7050

== ENCOUNTER 2021-10-16 08:14 | Inpatient (IN) | payer MEDICARE ==
[2021-10-16] MEDS ORDERED: Ondansetron 4 MG Tab.DIS PO PRN (15:31)
[2021-10-16] MEDS ORDERED: Albuterol/Ipratropium 3.0-0.5 MG/3 ML Neb Soln NEB PRN (15:35)
[2021-10-16] MEDS: Lutein/Minerals/Vitamin C/Vitamin E Acetate Cap PO SCH (18:08)
[2021-10-16] MEDS: Ferrous Sulfate 325 MG Tab PO SCH (18:08)
[2021-10-16] MEDS: Metoprolol Succinate 50 MG Tab.ER PO SCH (18:09)
[2021-10-16] MEDS: Pregabalin 75 MG Cap PO SCH (19:36)
[2021-10-16] MEDS: Acetaminophen 325 MG Tab PO PRN (19:36)
[2021-10-16] MEDS: Melatonin 3 MG Tab PO PRN (21:51)
[2021-10-17] MEDS: LORazepam 0.5 MG Tab PO PRN ×2 (03:42→19:39)
[2021-10-17] MEDS: Magnesium Oxide 400 MG Tab PO SCH (07:52)
[2021-10-17] MEDS: Enoxaparin 30 MG/0.3 ML Syringe SUBCUT SCH (07:52)
[2021-10-17] MEDS: Cholecalciferol (Vitamin D3) 25 MCG Tab PO SCH (07:53)
[2021-10-17] MEDS: Cetirizine 10 MG Tab PO SCH (07:53)
[2021-10-17] MEDS: Metoprolol Succinate 50 MG Tab.ER PO SCH ×2 (07:53→18:30)
[2021-10-17] MEDS: Glimepiride 2 MG Tab PO SCH (07:53)
[2021-10-17] MEDS: Aspirin 81 MG Tab.EC PO SCH (07:53)
[2021-10-17] MEDS: Furosemide 20 MG Tab PO SCH (07:53)
[2021-10-17] MEDS: Multivitamin Tab PO SCH (07:53)
[2021-10-17] MEDS: Lutein/Minerals/Vitamin C/Vitamin E Acetate Cap PO SCH ×2 (07:53→18:30)
[2021-10-17] MEDS: Ferrous Sulfate 325 MG Tab PO SCH ×2 (07:53→18:30)
[2021-10-17] MEDS: Bisacodyl 5 MG Tab PO PRN (18:30)
[2021-10-17] MEDS: Pregabalin 75 MG Cap PO SCH (19:39)
[2021-10-17] MEDS: Melatonin 3 MG Tab PO PRN (21:52)
[2021-10-18] MEDS: Metoprolol Succinate 50 MG Tab.ER PO SCH ×2 (08:26→17:37)
[2021-10-18] MEDS: Cetirizine 10 MG Tab PO SCH (08:26)
[2021-10-18] MEDS: Cholecalciferol (Vitamin D3) 25 MCG Tab PO SCH (08:27)
[2021-10-18] MEDS: Multivitamin Tab PO SCH (08:27)
[2021-10-18] MEDS: Glimepiride 2 MG Tab PO SCH (08:27)
[2021-10-18] MEDS: Lutein/Minerals/Vitamin C/Vitamin E Acetate Cap PO SCH ×2 (08:27→17:37)
[2021-10-18] MEDS: Aspirin 81 MG Tab.EC PO SCH (08:28)
[2021-10-18] MEDS: Furosemide 20 MG Tab PO SCH (08:28)
[2021-10-18] MEDS: Magnesium Oxide 400 MG Tab PO SCH (08:28)
[2021-10-18] MEDS: Ferrous Sulfate 325 MG Tab PO SCH ×2 (08:28→17:37)
[2021-10-18] MEDS: Enoxaparin 30 MG/0.3 ML Syringe SUBCUT SCH (08:28)
[2021-10-18] MEDS: Acetaminophen 325 MG Tab PO PRN ×2 (13:24→18:20)
[2021-10-18] MEDS: LORazepam 0.5 MG Tab PO PRN (18:19)
[2021-10-18] MEDS: Pregabalin 75 MG Cap PO SCH (19:22)
[2021-10-19] MEDS: Melatonin 3 MG Tab PO PRN (01:27)
[2021-10-19] MEDS: LORazepam 0.5 MG Tab PO PRN ×2 (03:58→20:02)
[2021-10-19] MEDS: Acetaminophen 325 MG Tab PO PRN (08:41)
[2021-10-19] MEDS: Cetirizine 10 MG Tab PO SCH (08:41)
[2021-10-19] MEDS: Lutein/Minerals/Vitamin C/Vitamin E Acetate Cap PO SCH ×2 (08:42→18:14)
[2021-10-19] MEDS: Magnesium Oxide 400 MG Tab PO SCH (08:42)
[2021-10-19] MEDS: Ferrous Sulfate 325 MG Tab PO SCH ×2 (08:43→16:38)
[2021-10-19] MEDS: Aspirin 81 MG Tab.EC PO SCH (08:43)
[2021-10-19] MEDS: Multivitamin Tab PO SCH (08:43)
[2021-10-19] MEDS: Furosemide 20 MG Tab PO SCH (08:43)
[2021-10-19] MEDS: Enoxaparin 30 MG/0.3 ML Syringe SUBCUT SCH (08:44)
[2021-10-19] MEDS: Glimepiride 2 MG Tab PO SCH (08:44)
[2021-10-19] MEDS: Cholecalciferol (Vitamin D3) 25 MCG Tab PO SCH (08:44)
[2021-10-19] MEDS: Metoprolol Succinate 50 MG Tab.ER PO SCH ×2 (08:50→18:14)
[2021-10-19] MEDS: Polyethylene Glycol 3350 Powder 17 GM Packet PO SCH (10:33)
[2021-10-19] MEDS: Bisacodyl 5 MG Tab PO PRN (18:14)
[2021-10-19] MEDS: Pregabalin 75 MG Cap PO SCH (20:02)
[2021-10-20] MEDS: Polyethylene Glycol 3350 Powder 17 GM Packet PO SCH (08:09)
[2021-10-20] MEDS: Lutein/Minerals/Vitamin C/Vitamin E Acetate Cap PO SCH ×2 (08:09→17:13)
[2021-10-20] MEDS: Magnesium Oxide 400 MG Tab PO SCH (08:09)
[2021-10-20] MEDS: Cholecalciferol (Vitamin D3) 25 MCG Tab PO SCH (08:09)
[2021-10-20] MEDS: Furosemide 20 MG Tab PO SCH (08:10)
[2021-10-20] MEDS: Aspirin 81 MG Tab.EC PO SCH (08:10)
[2021-10-20] MEDS: Enoxaparin 30 MG/0.3 ML Syringe SUBCUT SCH (08:10)
[2021-10-20] MEDS: Cetirizine 10 MG Tab PO SCH (08:10)
[2021-10-20] MEDS: Glimepiride 2 MG Tab PO SCH (08:10)
[2021-10-20] MEDS: Multivitamin Tab PO SCH (08:10)
[2021-10-20] MEDS: Ferrous Sulfate 325 MG Tab PO SCH ×2 (08:10→17:13)
[2021-10-20] MEDS: Acetaminophen 325 MG Tab PO PRN (08:11)
[2021-10-20] MEDS: Metoprolol Succinate 50 MG Tab.ER PO SCH ×2 (08:16→17:12)
[2021-10-20] MEDS: Acetaminophen 650 MG Tab.ER PO SCH (17:13)
[2021-10-20] MEDS: Bisacodyl 5 MG Tab PO PRN (17:14)
[2021-10-20] MEDS: LORazepam 0.5 MG Tab PO PRN (19:42)
[2021-10-20] MEDS: Mirtazapine 15 MG Tab PO SCH (19:42)
[2021-10-20] MEDS: Melatonin 3 MG Tab PO PRN (19:44)
[2021-10-20] MEDS: Pregabalin 75 MG Cap PO SCH (19:44)
[2021-10-21] MEDS: Acetaminophen 650 MG Tab.ER PO SCH ×2 (07:57→17:15)
[2021-10-21] MEDS: Cholecalciferol (Vitamin D3) 25 MCG Tab PO SCH (07:58)
[2021-10-21] MEDS: Magnesium Oxide 400 MG Tab PO SCH (07:58)
[2021-10-21] MEDS: Multivitamin Tab PO SCH (07:58)
[2021-10-21] MEDS: Aspirin 81 MG Tab.EC PO SCH (07:58)
[2021-10-21] MEDS: Ferrous Sulfate 325 MG Tab PO SCH ×2 (07:59→17:14)
[2021-10-21] MEDS: Enoxaparin 30 MG/0.3 ML Syringe SUBCUT SCH (07:59)
[2021-10-21] MEDS: Cetirizine 10 MG Tab PO SCH (08:00)
[2021-10-21] MEDS: Glimepiride 2 MG Tab PO SCH (08:00)
[2021-10-21] MEDS: Furosemide 20 MG Tab PO SCH (08:00)
[2021-10-21] MEDS: Polyethylene Glycol 3350 Powder 17 GM Packet PO SCH (08:01)
[2021-10-21] MEDS: Lutein/Minerals/Vitamin C/Vitamin E Acetate Cap PO SCH ×2 (08:05→17:14)
[2021-10-21] MEDS: Metoprolol Succinate 50 MG Tab.ER PO SCH ×2 (08:05→17:15)
[2021-10-21] MEDS: Mirtazapine 15 MG Tab PO SCH (19:46)
[2021-10-21] MEDS: Pregabalin 75 MG Cap PO SCH (19:46)
[2021-10-22] MEDS: Ferrous Sulfate 325 MG Tab PO SCH ×2 (08:13→17:19)
[2021-10-22] MEDS: Cetirizine 10 MG Tab PO SCH (08:13)
[2021-10-22] MEDS: Polyethylene Glycol 3350 Powder 17 GM Packet PO SCH (08:13)
[2021-10-22] MEDS: Acetaminophen 650 MG Tab.ER PO SCH ×2 (08:14→17:18)
[2021-10-22] MEDS: Cholecalciferol (Vitamin D3) 25 MCG Tab PO SCH (08:14)
[2021-10-22] MEDS: Lutein/Minerals/Vitamin C/Vitamin E Acetate Cap PO SCH ×2 (08:14→17:19)
[2021-10-22] MEDS: Multivitamin Tab PO SCH (08:14)
[2021-10-22] MEDS: Magnesium Oxide 400 MG Tab PO SCH (08:14)
[2021-10-22] MEDS: Furosemide 20 MG Tab PO SCH (08:14)
[2021-10-22] MEDS: Glimepiride 2 MG Tab PO SCH (08:15)
[2021-10-22] MEDS: Aspirin 81 MG Tab.EC PO SCH (08:15)
[2021-10-22] MEDS: Metoprolol Succinate 50 MG Tab.ER PO SCH ×2 (08:16→17:19)
[2021-10-22] MEDS: Enoxaparin 30 MG/0.3 ML Syringe SUBCUT SCH (08:17)
[2021-10-22] MEDS: Pregabalin 75 MG Cap PO SCH (21:09)
[2021-10-22] MEDS: Mirtazapine 15 MG Tab PO SCH (21:10)
[2021-10-22] MEDS: Melatonin 3 MG Tab PO PRN (21:10)
[2021-10-23] MEDS: Enoxaparin 30 MG/0.3 ML Syringe SUBCUT SCH (09:09)
[2021-10-23] MEDS: Acetaminophen 650 MG Tab.ER PO SCH ×2 (09:09→17:19)
[2021-10-23] MEDS: Polyethylene Glycol 3350 Powder 17 GM Packet PO SCH (09:09)
[2021-10-23] MEDS: Aspirin 81 MG Tab.EC PO SCH (09:10)
[2021-10-23] MEDS: Glimepiride 2 MG Tab PO SCH (09:10)
[2021-10-23] MEDS: Furosemide 20 MG Tab PO SCH (09:11)
[2021-10-23] MEDS: Ferrous Sulfate 325 MG Tab PO SCH ×2 (09:11→17:18)
[2021-10-23] MEDS: Lutein/Minerals/Vitamin C/Vitamin E Acetate Cap PO SCH ×2 (09:11→17:18)
[2021-10-23] MEDS: Cetirizine 10 MG Tab PO SCH (09:11)
[2021-10-23] MEDS: Metoprolol Succinate 50 MG Tab.ER PO SCH ×2 (09:11→17:18)
[2021-10-23] MEDS: Cholecalciferol (Vitamin D3) 25 MCG Tab PO SCH (09:12)
[2021-10-23] MEDS: Multivitamin Tab PO SCH (09:12)
[2021-10-23] MEDS: Magnesium Oxide 400 MG Tab PO SCH (09:12)
[2021-10-23] MEDS: Pregabalin 75 MG Cap PO SCH (20:08)
[2021-10-23] MEDS: Mirtazapine 15 MG Tab PO SCH (20:08)
[2021-10-24] MEDS: LORazepam 0.5 MG Tab PO PRN (01:22)
[2021-10-24] MEDS: Cetirizine 10 MG Tab PO SCH (07:58)
[2021-10-24] MEDS: Polyethylene Glycol 3350 Powder 17 GM Packet PO SCH (07:58)
[2021-10-24] MEDS: Enoxaparin 30 MG/0.3 ML Syringe SUBCUT SCH (07:58)
[2021-10-24] MEDS: Metoprolol Succinate 50 MG Tab.ER PO SCH ×2 (07:58→17:40)
[2021-10-24] MEDS: Magnesium Oxide 400 MG Tab PO SCH (07:59)
[2021-10-24] MEDS: Lutein/Minerals/Vitamin C/Vitamin E Acetate Cap PO SCH ×2 (07:59→17:40)
[2021-10-24] MEDS: Multivitamin Tab PO SCH (07:59)
[2021-10-24] MEDS: Ferrous Sulfate 325 MG Tab PO SCH ×2 (07:59→17:40)
[2021-10-24] MEDS: Furosemide 20 MG Tab PO SCH (07:59)
[2021-10-24] MEDS: Cholecalciferol (Vitamin D3) 25 MCG Tab PO SCH (07:59)
[2021-10-24] MEDS: Acetaminophen 650 MG Tab.ER PO SCH ×2 (08:00→17:40)
[2021-10-24] MEDS: Glimepiride 2 MG Tab PO SCH (08:00)
[2021-10-24] MEDS: Aspirin 81 MG Tab.EC PO SCH (08:00)
[2021-10-24] MEDS: Pregabalin 75 MG Cap PO SCH (19:19)
[2021-10-24] MEDS: Melatonin 3 MG Tab PO PRN (19:19)
[2021-10-24] MEDS: Mirtazapine 15 MG Tab PO SCH (19:20)
[2021-10-25] MEDS: Glimepiride 2 MG Tab PO SCH (07:41)
[2021-10-25] MEDS: Multivitamin Tab PO SCH (07:41)
[2021-10-25] MEDS: Aspirin 81 MG Tab.EC PO SCH (07:41)
[2021-10-25] MEDS: Lutein/Minerals/Vitamin C/Vitamin E Acetate Cap PO SCH ×2 (07:41→18:06)
[2021-10-25] MEDS: Cetirizine 10 MG Tab PO SCH (07:41)
[2021-10-25] MEDS: Ferrous Sulfate 325 MG Tab PO SCH ×2 (07:41→18:06)
[2021-10-25] MEDS: Furosemide 20 MG Tab PO SCH (07:41)
[2021-10-25] MEDS: Magnesium Oxide 400 MG Tab PO SCH (07:41)
[2021-10-25] MEDS: Cholecalciferol (Vitamin D3) 25 MCG Tab PO SCH (07:42)
[2021-10-25] MEDS: Acetaminophen 650 MG Tab.ER PO SCH ×2 (07:42→18:06)
[2021-10-25] MEDS: Enoxaparin 30 MG/0.3 ML Syringe SUBCUT SCH (07:42)
[2021-10-25] MEDS: Metoprolol Succinate 50 MG Tab.ER PO SCH ×2 (07:43→18:10)
[2021-10-25] MEDS: Polyethylene Glycol 3350 Powder 17 GM Packet PO SCH (08:02)
[2021-10-25] MEDS: Mirtazapine 15 MG Tab PO SCH (19:37)
[2021-10-25] MEDS: Pregabalin 75 MG Cap PO SCH (19:38)
[2021-10-25] MEDS: Melatonin 3 MG Tab PO PRN (19:38)
[2021-10-26] MEDS: LORazepam 0.5 MG Tab PO PRN (01:55)
[2021-10-26] MEDS: Lutein/Minerals/Vitamin C/Vitamin E Acetate Cap PO SCH ×2 (08:25→18:21)
[2021-10-26] MEDS: Glimepiride 2 MG Tab PO SCH (08:25)
[2021-10-26] MEDS: Polyethylene Glycol 3350 Powder 17 GM Packet PO SCH (08:25)
[2021-10-26] MEDS: Magnesium Oxide 400 MG Tab PO SCH (08:26)
[2021-10-26] MEDS: Multivitamin Tab PO SCH (08:26)
[2021-10-26] MEDS: Cholecalciferol (Vitamin D3) 25 MCG Tab PO SCH (08:26)
[2021-10-26] MEDS: Ferrous Sulfate 325 MG Tab PO SCH ×2 (08:26→18:21)
[2021-10-26] MEDS: Aspirin 81 MG Tab.EC PO SCH (08:26)
[2021-10-26] MEDS: Furosemide 20 MG Tab PO SCH (08:26)
[2021-10-26] MEDS: Enoxaparin 30 MG/0.3 ML Syringe SUBCUT SCH (08:27)
[2021-10-26] MEDS: Cetirizine 10 MG Tab PO SCH (08:27)
[2021-10-26] MEDS: Metoprolol Succinate 50 MG Tab.ER PO SCH ×2 (08:27→18:21)
[2021-10-26] MEDS: Acetaminophen 650 MG Tab.ER PO SCH ×2 (08:28→18:21)
[2021-10-26] MEDS: Mirtazapine 15 MG Tab PO SCH (19:56)
[2021-10-26] MEDS: Pregabalin 75 MG Cap PO SCH (19:57)
[2021-10-26] MEDS: Melatonin 3 MG Tab PO PRN (22:22)
[2021-10-27] MEDS: Magnesium Oxide 400 MG Tab PO SCH (08:27)
[2021-10-27] MEDS: Glimepiride 2 MG Tab PO SCH (08:27)
[2021-10-27] MEDS: Multivitamin Tab PO SCH (08:27)
[2021-10-27] MEDS: Aspirin 81 MG Tab.EC PO SCH (08:27)
[2021-10-27] MEDS: Lutein/Minerals/Vitamin C/Vitamin E Acetate Cap PO SCH ×2 (08:27→18:15)
[2021-10-27] MEDS: Polyethylene Glycol 3350 Powder 17 GM Packet PO SCH (08:27)
[2021-10-27] MEDS: Cholecalciferol (Vitamin D3) 25 MCG Tab PO SCH (08:27)
[2021-10-27] MEDS: Ferrous Sulfate 325 MG Tab PO SCH ×2 (08:28→17:36)
[2021-10-27] MEDS: Furosemide 20 MG Tab PO SCH (08:28)
[2021-10-27] MEDS: Cetirizine 10 MG Tab PO SCH (08:29)
[2021-10-27] MEDS: Metoprolol Succinate 50 MG Tab.ER PO SCH (08:29)
[2021-10-27] MEDS: Acetaminophen 650 MG Tab.ER PO SCH ×2 (08:29→17:28)
[2021-10-27] MEDS: Enoxaparin 30 MG/0.3 ML Syringe SUBCUT SCH (08:30)
[2021-10-27] MEDS: Metoprolol Succinate 25 MG Tab.ER PO SCH (17:31)
[2021-10-27] MEDS: Pregabalin 75 MG Cap PO SCH (20:38)
[2021-10-27] MEDS: Mirtazapine 15 MG Tab PO SCH (20:39)
[2021-10-28] MEDS: Ferrous Sulfate 325 MG Tab PO SCH ×2 (07:46→17:03)
[2021-10-28] MEDS: Glimepiride 2 MG Tab PO SCH (07:48)
[2021-10-28] MEDS: Acetaminophen 650 MG Tab.ER PO SCH ×2 (07:54→17:03)
[2021-10-28] MEDS: Metoprolol Succinate 25 MG Tab.ER PO SCH ×2 (07:55→17:04)
[2021-10-28] MEDS: Furosemide 20 MG Tab PO SCH (07:55)
[2021-10-28] MEDS: Cholecalciferol (Vitamin D3) 25 MCG Tab PO SCH (07:56)
[2021-10-28] MEDS: Cetirizine 10 MG Tab PO SCH (07:56)
[2021-10-28] MEDS: Enoxaparin 30 MG/0.3 ML Syringe SUBCUT SCH (07:58)
[2021-10-28] MEDS: Magnesium Oxide 400 MG Tab PO SCH (07:59)
[2021-10-28] MEDS: Polyethylene Glycol 3350 Powder 17 GM Packet PO SCH (08:41)
[2021-10-28] MEDS: Lutein/Minerals/Vitamin C/Vitamin E Acetate Cap PO SCH ×2 (08:42→17:04)
[2021-10-28] MEDS: Aspirin 81 MG Tab.EC PO SCH (08:42)
[2021-10-28] MEDS: Multivitamin Tab PO SCH (08:43)
[2021-10-28] MEDS: Pregabalin 75 MG Cap PO SCH (19:41)
[2021-10-28] MEDS: Mirtazapine 15 MG Tab PO SCH (19:41)
[2021-10-28] MEDS: Melatonin 3 MG Tab PO PRN (19:44)
[2021-10-28] MEDS: ORAJEL TOP PRN (19:49)
[2021-10-29] MEDS: Multivitamin Tab PO SCH (07:14)
[2021-10-29] MEDS: Aspirin 81 MG Tab.EC PO SCH (07:14)
[2021-10-29] MEDS: Acetaminophen 650 MG Tab.ER PO SCH ×2 (07:15→17:07)
[2021-10-29] MEDS: Lutein/Minerals/Vitamin C/Vitamin E Acetate Cap PO SCH ×2 (07:15→17:06)
[2021-10-29] MEDS: Enoxaparin 30 MG/0.3 ML Syringe SUBCUT SCH (07:16)
[2021-10-29] MEDS: Polyethylene Glycol 3350 Powder 17 GM Packet PO SCH (07:16)
[2021-10-29] MEDS: Metoprolol Succinate 25 MG Tab.ER PO SCH ×2 (07:16→17:06)
[2021-10-29] MEDS: Furosemide 20 MG Tab PO SCH (07:17)
[2021-10-29] MEDS: Glimepiride 2 MG Tab PO SCH (07:17)
[2021-10-29] MEDS: Cholecalciferol (Vitamin D3) 25 MCG Tab PO SCH (07:20)
[2021-10-29] MEDS: Magnesium Oxide 400 MG Tab PO SCH (07:20)
[2021-10-29] MEDS: Ferrous Sulfate 325 MG Tab PO SCH ×2 (07:20→17:06)
[2021-10-29] MEDS: Cetirizine 10 MG Tab PO SCH (07:20)
[2021-10-29] MEDS: Pregabalin 75 MG Cap PO SCH (20:05)
[2021-10-29] MEDS: Mirtazapine 15 MG Tab PO SCH (20:07)
[2021-10-29] MEDS: Melatonin 3 MG Tab PO PRN (20:08)
[2021-10-30] MEDS: Furosemide 20 MG Tab PO SCH (07:34)
[2021-10-30] MEDS: Ferrous Sulfate 325 MG Tab PO SCH ×2 (07:34→17:33)
[2021-10-30] MEDS: Acetaminophen 650 MG Tab.ER PO SCH ×2 (07:35→17:35)
[2021-10-30] MEDS: Metoprolol Succinate 25 MG Tab.ER PO SCH ×2 (07:35→17:35)
[2021-10-30] MEDS: Aspirin 81 MG Tab.EC PO SCH (07:36)
[2021-10-30] MEDS: Multivitamin Tab PO SCH (07:36)
[2021-10-30] MEDS: Cholecalciferol (Vitamin D3) 25 MCG Tab PO SCH (07:37)
[2021-10-30] MEDS: Cetirizine 10 MG Tab PO SCH (07:37)
[2021-10-30] MEDS: Magnesium Oxide 400 MG Tab PO SCH (07:38)
[2021-10-30] MEDS: Polyethylene Glycol 3350 Powder 17 GM Packet PO SCH (07:38)
[2021-10-30] MEDS: Enoxaparin 30 MG/0.3 ML Syringe SUBCUT SCH (07:38)
[2021-10-30] MEDS: Lutein/Minerals/Vitamin C/Vitamin E Acetate Cap PO SCH ×2 (07:38→17:34)
[2021-10-30] MEDS: Glimepiride 2 MG Tab PO SCH (07:39)
[2021-10-30] MEDS: ORAJEL TOP PRN ×2 (07:53→19:29)
[2021-10-30] MEDS: Mirtazapine 15 MG Tab PO SCH (19:27)
[2021-10-30] MEDS: Pregabalin 75 MG Cap PO SCH (19:27)
[2021-10-30] MEDS: Melatonin 3 MG Tab PO PRN (19:29)
[2021-10-31] MEDS: Acetaminophen 650 MG Tab.ER PO SCH ×2 (08:20→17:00)
[2021-10-31] MEDS: Glimepiride 2 MG Tab PO SCH (08:20)
[2021-10-31] MEDS: Metoprolol Succinate 25 MG Tab.ER PO SCH ×2 (08:21→17:00)
[2021-10-31] MEDS: Furosemide 20 MG Tab PO SCH (08:22)
[2021-10-31] MEDS: Aspirin 81 MG Tab.EC PO SCH (08:22)
[2021-10-31] MEDS: Lutein/Minerals/Vitamin C/Vitamin E Acetate Cap PO SCH ×2 (08:22→17:00)
[2021-10-31] MEDS: Multivitamin Tab PO SCH (08:22)
[2021-10-31] MEDS: Enoxaparin 30 MG/0.3 ML Syringe SUBCUT SCH (08:23)
[2021-10-31] MEDS: Ferrous Sulfate 325 MG Tab PO SCH ×2 (08:23→16:59)
[2021-10-31] MEDS: Magnesium Oxide 400 MG Tab PO SCH (08:24)
[2021-10-31] MEDS: Cholecalciferol (Vitamin D3) 25 MCG Tab PO SCH (08:24)
[2021-10-31] MEDS: Cetirizine 10 MG Tab PO SCH (08:24)
[2021-10-31] MEDS: Polyethylene Glycol 3350 Powder 510 GM Bot PO SCH (08:25)
[2021-10-31] MEDS: ORAJEL TOP PRN ×2 (14:55→19:35)
[2021-10-31] MEDS: Pregabalin 75 MG Cap PO SCH (19:33)
[2021-10-31] MEDS: Mirtazapine 15 MG Tab PO SCH (19:34)
[2021-10-31] MEDS: Melatonin 3 MG Tab PO PRN (19:35)
[2021-10-31] MEDS: oxyCODONE 5 MG Tab PO PRN (22:26)
[2021-11-01] MEDS: Cetirizine 10 MG Tab PO SCH (07:50)
[2021-11-01] MEDS: Glimepiride 2 MG Tab PO SCH (07:50)
[2021-11-01] MEDS: Enoxaparin 30 MG/0.3 ML Syringe SUBCUT SCH (07:50)
[2021-11-01] MEDS: Metoprolol Succinate 25 MG Tab.ER PO SCH ×2 (07:50→17:02)
[2021-11-01] MEDS: Multivitamin Tab PO SCH (07:51)
[2021-11-01] MEDS: Ferrous Sulfate 325 MG Tab PO SCH ×2 (07:51→17:01)
[2021-11-01] MEDS: Acetaminophen 650 MG Tab.ER PO SCH ×2 (07:51→17:01)
[2021-11-01] MEDS: Polyethylene Glycol 3350 Powder 510 GM Bot PO SCH (07:51)
[2021-11-01] MEDS: Lutein/Minerals/Vitamin C/Vitamin E Acetate Cap PO SCH ×2 (07:51→17:01)
[2021-11-01] MEDS: Furosemide 20 MG Tab PO SCH (07:51)
[2021-11-01] MEDS: Aspirin 81 MG Tab.EC PO SCH (07:51)
[2021-11-01] MEDS: Magnesium Oxide 400 MG Tab PO SCH (07:52)
[2021-11-01] MEDS: Cholecalciferol (Vitamin D3) 25 MCG Tab PO SCH (07:52)
[2021-11-01] MEDS: ORAJEL TOP PRN ×2 (13:59→19:32)
[2021-11-01] MEDS: Pregabalin 75 MG Cap PO SCH (19:30)
[2021-11-01] MEDS: Mirtazapine 15 MG Tab PO SCH (19:31)
[2021-11-01] MEDS: oxyCODONE 5 MG Tab PO PRN (19:33)
[2021-11-01] MEDS: Melatonin 3 MG Tab PO PRN (19:34)
[2021-11-02] MEDS: Ferrous Sulfate 325 MG Tab PO SCH ×2 (08:37→17:23)
[2021-11-02] MEDS: Glimepiride 2 MG Tab PO SCH (08:38)
[2021-11-02] MEDS: Aspirin 81 MG Tab.EC PO SCH (08:39)
[2021-11-02] MEDS: Enoxaparin 30 MG/0.3 ML Syringe SUBCUT SCH (08:41)
[2021-11-02] MEDS: Furosemide 20 MG Tab PO SCH (08:41)
[2021-11-02] MEDS: Magnesium Oxide 400 MG Tab PO SCH (08:42)
[2021-11-02] MEDS: Polyethylene Glycol 3350 Powder 510 GM Bot PO SCH (08:43)
[2021-11-02] MEDS: Lutein/Minerals/Vitamin C/Vitamin E Acetate Cap PO SCH ×2 (08:44→17:24)
[2021-11-02] MEDS: Multivitamin Tab PO SCH (08:45)
[2021-11-02] MEDS: Metoprolol Succinate 25 MG Tab.ER PO SCH ×2 (08:46→17:24)
[2021-11-02] MEDS: Acetaminophen 650 MG Tab.ER PO SCH ×2 (08:47→17:25)
[2021-11-02] MEDS: Cholecalciferol (Vitamin D3) 25 MCG Tab PO SCH (08:48)
[2021-11-02] MEDS: Cetirizine 10 MG Tab PO SCH (08:49)
[2021-11-02] MEDS: Pregabalin 75 MG Cap PO SCH (19:22)
[2021-11-02] MEDS: Mirtazapine 15 MG Tab PO SCH (19:23)
[2021-11-02] MEDS: ORAJEL TOP PRN (19:29)
[2021-11-02] MEDS: Melatonin 3 MG Tab PO PRN (19:36)
[2021-11-02] MEDS: oxyCODONE 5 MG Tab PO PRN (22:32)
[2021-11-03] MEDS: Polyethylene Glycol 3350 Powder 510 GM Bot PO SCH (07:12)
[2021-11-03] MEDS: Acetaminophen 650 MG Tab.ER PO SCH ×2 (07:13→17:10)
[2021-11-03] MEDS: Lutein/Minerals/Vitamin C/Vitamin E Acetate Cap PO SCH ×2 (07:13→17:10)
[2021-11-03] MEDS: Multivitamin Tab PO SCH (07:14)
[2021-11-03] MEDS: Cholecalciferol (Vitamin D3) 25 MCG Tab PO SCH (07:14)
[2021-11-03] MEDS: Magnesium Oxide 400 MG Tab PO SCH (07:14)
[2021-11-03] MEDS: Metoprolol Succinate 25 MG Tab.ER PO SCH ×2 (07:14→17:10)
[2021-11-03] MEDS: Furosemide 20 MG Tab PO SCH (07:15)
[2021-11-03] MEDS: Ferrous Sulfate 325 MG Tab PO SCH ×2 (07:15→17:10)
[2021-11-03] MEDS: Aspirin 81 MG Tab.EC PO SCH (07:15)
[2021-11-03] MEDS: Glimepiride 2 MG Tab PO SCH (07:16)
[2021-11-03] MEDS: Enoxaparin 30 MG/0.3 ML Syringe SUBCUT SCH (07:17)
[2021-11-03] MEDS: Cetirizine 10 MG Tab PO SCH (07:17)
[2021-11-03] MEDS: Mirtazapine 15 MG Tab PO SCH (19:38)
[2021-11-03] MEDS: Pregabalin 75 MG Cap PO SCH (19:39)
[2021-11-04] MEDS: Ferrous Sulfate 325 MG Tab PO SCH ×2 (07:46→17:19)
[2021-11-04] MEDS: Aspirin 81 MG Tab.EC PO SCH (07:49)
[2021-11-04] MEDS: Glimepiride 2 MG Tab PO SCH (07:49)
[2021-11-04] MEDS: Enoxaparin 30 MG/0.3 ML Syringe SUBCUT SCH (07:50)
[2021-11-04] MEDS: Furosemide 20 MG Tab PO SCH (07:50)
[2021-11-04] MEDS: Magnesium Oxide 400 MG Tab PO SCH (07:51)
[2021-11-04] MEDS: Lutein/Minerals/Vitamin C/Vitamin E Acetate Cap PO SCH ×2 (07:52→17:20)
[2021-11-04] MEDS: Polyethylene Glycol 3350 Powder 510 GM Bot PO SCH (07:52)
[2021-11-04] MEDS: Multivitamin Tab PO SCH (07:52)
[2021-11-04] MEDS: Metoprolol Succinate 25 MG Tab.ER PO SCH ×2 (07:53→17:20)
[2021-11-04] MEDS: Acetaminophen 650 MG Tab.ER PO SCH ×2 (07:53→17:21)
[2021-11-04] MEDS: Cetirizine 10 MG Tab PO SCH (07:54)
[2021-11-04] MEDS: Cholecalciferol (Vitamin D3) 25 MCG Tab PO SCH (07:54)
[2021-11-04] MEDS: Pregabalin 75 MG Cap PO SCH (19:56)
[2021-11-04] MEDS: Mirtazapine 15 MG Tab PO SCH (19:58)
[2021-11-04] MEDS: Melatonin 3 MG Tab PO PRN (19:59)
[2021-11-05] MEDS: Glimepiride 2 MG Tab PO SCH (07:57)
[2021-11-05] MEDS: Ferrous Sulfate 325 MG Tab PO SCH ×2 (07:57→17:04)
[2021-11-05] MEDS: Aspirin 81 MG Tab.EC PO SCH (07:58)
[2021-11-05] MEDS: Enoxaparin 30 MG/0.3 ML Syringe SUBCUT SCH (07:59)
[2021-11-05] MEDS: Furosemide 20 MG Tab PO SCH (07:59)
[2021-11-05] MEDS: Magnesium Oxide 400 MG Tab PO SCH (07:59)
[2021-11-05] MEDS: Polyethylene Glycol 3350 Powder 510 GM Bot PO SCH (08:00)
[2021-11-05] MEDS: Multivitamin Tab PO SCH (08:01)
[2021-11-05] MEDS: Metoprolol Succinate 25 MG Tab.ER PO SCH ×2 (08:01→17:05)
[2021-11-05] MEDS: Lutein/Minerals/Vitamin C/Vitamin E Acetate Cap PO SCH ×2 (08:01→17:04)
[2021-11-05] MEDS: Acetaminophen 650 MG Tab.ER PO SCH ×2 (08:02→17:05)
[2021-11-05] MEDS: Cholecalciferol (Vitamin D3) 25 MCG Tab PO SCH (08:03)
[2021-11-05] MEDS: Cetirizine 10 MG Tab PO SCH (08:04)
[2021-11-05] MEDS: Pregabalin 75 MG Cap PO SCH (19:18)
[2021-11-05] MEDS: Mirtazapine 15 MG Tab PO SCH (19:20)
[2021-11-05] MEDS: Melatonin 3 MG Tab PO PRN (19:35)
[2021-11-06] MEDS: LORazepam 0.5 MG Tab PO PRN (01:34)
[2021-11-06] MEDS: Acetaminophen 325 MG Tab PO PRN (01:35)
[2021-11-06] MEDS: Ferrous Sulfate 325 MG Tab PO SCH (07:36)
[2021-11-06] MEDS: Polyethylene Glycol 3350 Powder 510 GM Bot PO SCH (07:36)
[2021-11-06] MEDS: Magnesium Oxide 400 MG Tab PO SCH (07:36)
[2021-11-06] MEDS: Aspirin 81 MG Tab.EC PO SCH (07:37)
[2021-11-06] MEDS: Acetaminophen 650 MG Tab.ER PO SCH (07:37)
[2021-11-06] MEDS: Multivitamin Tab PO SCH (07:37)
[2021-11-06] MEDS: Glimepiride 2 MG Tab PO SCH (07:38)
[2021-11-06] MEDS: Lutein/Minerals/Vitamin C/Vitamin E Acetate Cap PO SCH (07:39)
[2021-11-06] MEDS: Furosemide 20 MG Tab PO SCH (07:39)
[2021-11-06] MEDS: Metoprolol Succinate 25 MG Tab.ER PO SCH (07:40)
[2021-11-06] MEDS: Cholecalciferol (Vitamin D3) 25 MCG Tab PO SCH (07:40)
[2021-11-06] MEDS: Cetirizine 10 MG Tab PO SCH (07:41)
[2021-11-06 07:57] VITALS: BP 174/55; PULSE 77
== END 2021-11-06 20:59 | DRG 560 ==
LOC: LL.MS 12:45 → LL.SWG 10-27 13:00
PROVIDERS: ADMIT Physician Assistant; ATTEND Nurse Practitioner Family
DX: S72.001D Fracture of unspecified part of neck of right femur, subsequent encounter for closed fracture with routine healing (principal); I42.9 Cardiomyopathy, unspecified; I13.0 Hypertensive heart and chronic kidney disease with heart failure and stage 1 through stage 4 chronic kidney disease, or unspecified chronic kidney disease; Z47.1 Aftercare following joint replacement surgery; Z96.641 Presence of right artificial hip joint; D63.8 Anemia in other chronic diseases classified elsewhere; I25.10 Atherosclerotic heart disease of native coronary artery without angina pectoris; Z20.822 Contact with and (suspected) exposure to COVID-19; H91.90 Unspecified hearing loss, unspecified ear; H54.7 Unspecified visual loss; J30.9 Allergic rhinitis, unspecified; H91.13 Presbycusis, bilateral; I50.9 Heart failure, unspecified; I44.0 Atrioventricular block, first degree; E78.00 Pure hypercholesterolemia, unspecified; E78.5 Hyperlipidemia, unspecified; K76.0 Fatty (change of) liver, not elsewhere classified; K59.09 Other constipation; K57.90 Diverticulosis of intestine, part unspecified, without perforation or abscess without bleeding; N18.9 Chronic kidney disease, unspecified; M19.90 Unspecified osteoarthritis, unspecified site; M54.9 Dorsalgia, unspecified; G89.29 Other chronic pain; M54.2 Cervicalgia; M81.0 Age-related osteoporosis without current pathological fracture; G30.9 Alzheimer's disease, unspecified; F02.80 Dementia in other diseases classified elsewhere, unspecified severity, without behavioral disturbance, psychotic disturbance, mood disturbance, and anxiety; F41.9 Anxiety disorder, unspecified; F03.90 Unspecified dementia, unspecified severity, without behavioral disturbance, psychotic disturbance, mood disturbance, and anxiety; E83.42 Hypomagnesemia; J43.1 Panlobular emphysema; E78.2 Mixed hyperlipidemia; Z66 Do not resuscitate; E11.22 Type 2 diabetes mellitus with diabetic chronic kidney disease; F32.A Depression, unspecified; E53.8 Deficiency of other specified B group vitamins; I25.2 Old myocardial infarction; Z95.5 Presence of coronary angioplasty implant and graft; Z87.01 Personal history of pneumonia (recurrent); Z79.82 Long term (current) use of aspirin; Z79.84 Long term (current) use of oral hypoglycemic drugs; Z88.8 Allergy status to other drugs, medicaments and biological substances; Z91.013 Allergy to seafood; Z88.5 Allergy status to narcotic agent; Z79.899 Other long term (current) drug therapy; Z98.41 Cataract extraction status, right eye; Z98.42 Cataract extraction status, left eye; Z90.49 Acquired absence of other specified parts of digestive tract; Z87.891 Personal history of nicotine dependence
CPT/HCPCS: 36415; 82947; 85025; 97110-GO; 97110-GP; 97162-GP; 97165-GO; 97530-GO; 97530-GP; 97535-GO; A9270-GY; J1650; U0002

== ENCOUNTER 2021-11-12 15:34 | Emergency (ER) | payer MEDICARE ==
[2021-11-12] MEDS ORDERED: Sodium Chloride 0.9% 10 ML Syringe FLUSH PRN (15:39)
[2021-11-12] MEDS ORDERED: Iopamidol 755 MG/ML 50 ML Bottle ONE (15:50)
[2021-11-12] MEDS ORDERED: Iopamidol 755 Mg/ML 100 ML Bottle ONE (15:51)
[2021-11-12] MEDS ORDERED: Piperacillin/Tazobactam 3.375 GM in Sodium Chloride 0.9% 100 ML IV STA (15:54)
[2021-11-12] MEDS ORDERED: Ondansetron 4 MG/2 ML SDV IV ONE (15:57)
[2021-11-12] MEDS ORDERED: Morphine 2 MG/ML SYRINGE IVPUSH ONE (15:57)
[2021-11-12] MEDS ORDERED: Lactated Ringers 1,000 ML IV SCH (16:00)
[2021-11-12 16:33] LABS: CHLORIDE,CL 102 mmol/L (98-107); SODIUM,NA 136 mmol/L (136-145)
[2021-11-12 16:36] LABS: ANION GAP 14.9 meq/L (7-15)
[2021-11-12 16:52] LABS: PTT,PARTIAL THROMBOPLSTIN TIME 30.2 SEC (23.6-29.8)
[2021-11-12 20:49] VITALS: BP 111/44; PULSE 83
== END 2021-11-12 20:00 ==
LOC: LL.ED 15:34
DX: K92.2 Gastrointestinal hemorrhage, unspecified (principal); I25.10 Atherosclerotic heart disease of native coronary artery without angina pectoris; R22.9 Localized swelling, mass and lump, unspecified; E11.42 Type 2 diabetes mellitus with diabetic polyneuropathy; E11.21 Type 2 diabetes mellitus with diabetic nephropathy; E11.22 Type 2 diabetes mellitus with diabetic chronic kidney disease; I13.0 Hypertensive heart and chronic kidney disease with heart failure and stage 1 through stage 4 chronic kidney disease, or unspecified chronic kidney disease; N18.9 Chronic kidney disease, unspecified; I50.9 Heart failure, unspecified; D63.1 Anemia in chronic kidney disease; E78.00 Pure hypercholesterolemia, unspecified; I25.2 Old myocardial infarction; E11.9 Type 2 diabetes mellitus without complications; Z88.5 Allergy status to narcotic agent; Z91.018 Allergy to other foods; Z88.8 Allergy status to other drugs, medicaments and biological substances; Z79.82 Long term (current) use of aspirin; Z79.899 Other long term (current) drug therapy; Z20.822 Contact with and (suspected) exposure to COVID-19
CPT/HCPCS: 36415; 36430; 74178; 80053; 82272; 83605; 84484; 85025; 85610; 85730; 86140; 86850; 86900; 86901; 86922; 87040; 93005; 96365; 96375; 99285; J2270; J2405; J2543; J3490; J7120; P9016; Q9967; U0002; 86920; 99284

== ENCOUNTER 2021-11-24 09:51 | Inpatient (IN) | payer MEDICARE, MEDICAID ==
[2021-11-24] MEDS ORDERED: Acetaminophen 325 MG Tab PO PRN (16:14)
[2021-11-24] MEDS ORDERED: oxyCODONE 5 MG Tab PO PRN (16:19)
[2021-11-24] MEDS ORDERED: Albuterol/Ipratropium 3.0-0.5 MG/3 ML Neb Soln NEB PRN (16:19)
[2021-11-24] MEDS: Acetaminophen 650 MG Tab.ER PO SCH (17:58)
[2021-11-24] MEDS: Metoprolol Succinate 25 MG Tab.ER PO SCH (17:58)
[2021-11-24] MEDS: Pantoprazole 40 MG Tab.CR PO SCH (20:28)
[2021-11-24] MEDS: Pregabalin 75 MG Cap PO SCH (20:28)
[2021-11-24] MEDS: Mirtazapine 15 MG Tab PO SCH (20:30)
[2021-11-25] MEDS: LORazepam 0.5 MG Tab PO PRN (03:26)
[2021-11-25] MEDS: Calcium Carbonate/Vitamin D3 625 MG-125 Unit Tab PO SCH (08:22)
[2021-11-25] MEDS: Magnesium Oxide 400 MG Tab PO SCH (08:22)
[2021-11-25] MEDS: Metoprolol Succinate 25 MG Tab.ER PO SCH ×2 (08:22→17:41)
[2021-11-25] MEDS: Acetaminophen 650 MG Tab.ER PO SCH ×3 (08:23→17:42)
[2021-11-25] MEDS: Cholecalciferol (Vitamin D3) 25 MCG Tab PO SCH (08:23)
[2021-11-25] MEDS: Cetirizine 10 MG Tab PO SCH (08:23)
[2021-11-25] MEDS: Losartan 50 MG Tab PO SCH (08:39)
[2021-11-25] MEDS: Pregabalin 75 MG Cap PO SCH (19:54)
[2021-11-25] MEDS: Pantoprazole 40 MG Tab.CR PO SCH (19:55)
[2021-11-25] MEDS: Mirtazapine 15 MG Tab PO SCH (19:55)
[2021-11-26 07:12] LABS: ANION GAP 9.6 meq/L (7-15)
[2021-11-26] MEDS: Calcium Carbonate/Vitamin D3 625 MG-125 Unit Tab PO SCH (07:53)
[2021-11-26] MEDS: Magnesium Oxide 400 MG Tab PO SCH (07:53)
[2021-11-26] MEDS: Losartan 50 MG Tab PO SCH (07:53)
[2021-11-26] MEDS: Cholecalciferol (Vitamin D3) 25 MCG Tab PO SCH (07:54)
[2021-11-26] MEDS: Metoprolol Succinate 25 MG Tab.ER PO SCH ×2 (07:54→17:10)
[2021-11-26] MEDS: Acetaminophen 650 MG Tab.ER PO SCH ×3 (07:54→17:10)
[2021-11-26] MEDS: Cetirizine 10 MG Tab PO SCH (08:27)
[2021-11-26] MEDS: Pregabalin 75 MG Cap PO SCH (19:46)
[2021-11-26] MEDS: Pantoprazole 40 MG Tab.CR PO SCH (19:52)
[2021-11-26] MEDS: Mirtazapine 15 MG Tab PO SCH (19:53)
[2021-11-26] MEDS: Melatonin 3 MG Tab PO PRN (19:54)
[2021-11-26] MEDS: LORazepam 0.5 MG Tab PO PRN (19:55)
[2021-11-27] MEDS: Metoprolol Succinate 25 MG Tab.ER PO SCH ×2 (07:07→17:01)
[2021-11-27] MEDS: Furosemide 40 MG Tab PO SCH (07:08)
[2021-11-27] MEDS: Potassium Chloride 10 MEQ Tab.ER PO SCH (07:08)
[2021-11-27] MEDS: Losartan 50 MG Tab PO SCH (07:09)
[2021-11-27] MEDS: Magnesium Oxide 400 MG Tab PO SCH (07:10)
[2021-11-27] MEDS: Cholecalciferol (Vitamin D3) 25 MCG Tab PO SCH (07:11)
[2021-11-27] MEDS: Cetirizine 10 MG Tab PO SCH (07:11)
[2021-11-27] MEDS: Calcium Carbonate/Vitamin D3 625 MG-125 Unit Tab PO SCH (07:11)
[2021-11-27] MEDS: Acetaminophen 650 MG Tab.ER PO SCH ×3 (07:11→17:00)
[2021-11-27] MEDS ORDERED: Furosemide 20 MG Tab PO SCH (08:00)
[2021-11-27] MEDS: Amoxicillin 250 MG Cap PO SCH (20:00)
[2021-11-27] MEDS: Pregabalin 75 MG Cap PO SCH (20:26)
[2021-11-27] MEDS: Pantoprazole 40 MG Tab.CR PO SCH (20:27)
[2021-11-27] MEDS: Mirtazapine 15 MG Tab PO SCH (20:28)
[2021-11-28] MEDS: Melatonin 3 MG Tab PO PRN ×2 (00:19→20:54)
[2021-11-28] MEDS: Losartan 50 MG Tab PO SCH (07:40)
[2021-11-28] MEDS: Amoxicillin 250 MG Cap PO SCH ×2 (07:40→20:49)
[2021-11-28] MEDS: Furosemide 40 MG Tab PO SCH (07:41)
[2021-11-28] MEDS: Potassium Chloride 10 MEQ Tab.ER PO SCH (07:41)
[2021-11-28] MEDS: Calcium Carbonate/Vitamin D3 625 MG-125 Unit Tab PO SCH (07:42)
[2021-11-28] MEDS: Metoprolol Succinate 25 MG Tab.ER PO SCH ×2 (07:42→17:02)
[2021-11-28] MEDS: Magnesium Oxide 400 MG Tab PO SCH (07:42)
[2021-11-28] MEDS: Cetirizine 10 MG Tab PO SCH (07:43)
[2021-11-28] MEDS: Acetaminophen 650 MG Tab.ER PO SCH ×3 (07:43→17:03)
[2021-11-28] MEDS: Cholecalciferol (Vitamin D3) 25 MCG Tab PO SCH (07:43)
[2021-11-28] MEDS: Pantoprazole 40 MG Tab.CR PO SCH (20:51)
[2021-11-28] MEDS: Pregabalin 75 MG Cap PO SCH (20:51)
[2021-11-28] MEDS: Mirtazapine 15 MG Tab PO SCH (20:52)
[2021-11-29] MEDS: Amoxicillin 250 MG Cap PO SCH ×2 (08:26→20:21)
[2021-11-29] MEDS: Losartan 50 MG Tab PO SCH (08:27)
[2021-11-29] MEDS: Potassium Chloride 10 MEQ Tab.ER PO SCH (08:28)
[2021-11-29] MEDS: Furosemide 40 MG Tab PO SCH (08:29)
[2021-11-29] MEDS: Calcium Carbonate/Vitamin D3 625 MG-125 Unit Tab PO SCH (08:30)
[2021-11-29] MEDS: Magnesium Oxide 400 MG Tab PO SCH (08:30)
[2021-11-29] MEDS: Acetaminophen 650 MG Tab.ER PO SCH ×3 (08:31→17:11)
[2021-11-29] MEDS: Metoprolol Succinate 25 MG Tab.ER PO SCH ×2 (08:31→17:11)
[2021-11-29] MEDS: Cholecalciferol (Vitamin D3) 25 MCG Tab PO SCH (08:32)
[2021-11-29] MEDS: Cetirizine 10 MG Tab PO SCH (08:32)
[2021-11-29] MEDS: Pregabalin 75 MG Cap PO SCH (20:23)
[2021-11-29] MEDS: Pantoprazole 40 MG Tab.CR PO SCH (20:24)
[2021-11-29] MEDS: Mirtazapine 15 MG Tab PO SCH (20:24)
[2021-11-29] MEDS: Melatonin 3 MG Tab PO PRN (20:26)
[2021-11-30] MEDS: Losartan 50 MG Tab PO SCH (07:39)
[2021-11-30] MEDS: Furosemide 40 MG Tab PO SCH (07:41)
[2021-11-30] MEDS: Metoprolol Succinate 25 MG Tab.ER PO SCH ×2 (07:41→19:01)
[2021-11-30] MEDS: Potassium Chloride 10 MEQ Tab.ER PO SCH (07:42)
[2021-11-30] MEDS: Cholecalciferol (Vitamin D3) 25 MCG Tab PO SCH (07:43)
[2021-11-30] MEDS: Cetirizine 10 MG Tab PO SCH (07:43)
[2021-11-30] MEDS: Magnesium Oxide 400 MG Tab PO SCH (07:45)
[2021-11-30] MEDS: Calcium Carbonate/Vitamin D3 625 MG-125 Unit Tab PO SCH (07:46)
[2021-11-30] MEDS: Acetaminophen 650 MG Tab.ER PO SCH ×3 (07:49→19:01)
[2021-11-30] MEDS: Amoxicillin 250 MG Cap PO SCH ×2 (08:17→20:15)
[2021-11-30 08:41] LABS: ANION GAP 6.3 meq/L (7-15)
[2021-11-30] MEDS: Pregabalin 75 MG Cap PO SCH (20:14)
[2021-11-30] MEDS: Pantoprazole 40 MG Tab.CR PO SCH (20:15)
[2021-11-30] MEDS: Mirtazapine 15 MG Tab PO SCH (20:15)
[2021-11-30] MEDS: LORazepam 0.5 MG Tab PO PRN (20:33)
[2021-11-30] MEDS: Melatonin 3 MG Tab PO PRN (20:33)
[2021-12-01] MEDS: Magnesium Oxide 400 MG Tab PO SCH (08:17)
[2021-12-01] MEDS: Metoprolol Succinate 25 MG Tab.ER PO SCH ×2 (08:18→17:10)
[2021-12-01] MEDS: Calcium Carbonate/Vitamin D3 625 MG-125 Unit Tab PO SCH (08:18)
[2021-12-01] MEDS: Acetaminophen 650 MG Tab.ER PO SCH ×3 (08:18→17:11)
[2021-12-01] MEDS: Potassium Chloride 10 MEQ Tab.ER PO SCH (08:19)
[2021-12-01] MEDS: Cholecalciferol (Vitamin D3) 25 MCG Tab PO SCH (08:19)
[2021-12-01] MEDS: Cetirizine 10 MG Tab PO SCH (08:19)
[2021-12-01] MEDS: Amoxicillin 250 MG Cap PO SCH ×2 (08:20→20:02)
[2021-12-01] MEDS: Losartan 50 MG Tab PO SCH (08:20)
[2021-12-01] MEDS: Furosemide 40 MG Tab PO SCH (08:21)
[2021-12-01] MEDS ORDERED: LORazepam 0.5 MG Tab PO PRN (10:00)
[2021-12-01] MEDS: LORazepam 0.5 MG Tab PO SCH (20:04)
[2021-12-01] MEDS: Pregabalin 75 MG Cap PO SCH (20:05)
[2021-12-01] MEDS: Mirtazapine 15 MG Tab PO SCH (20:06)
[2021-12-01] MEDS: Pantoprazole 40 MG Tab.CR PO SCH (20:06)
[2021-12-02] MEDS: Losartan 50 MG Tab PO SCH (08:06)
[2021-12-02] MEDS: Furosemide 40 MG Tab PO SCH (08:06)
[2021-12-02] MEDS: Metoprolol Succinate 25 MG Tab.ER PO SCH ×2 (08:06→18:11)
[2021-12-02] MEDS: Amoxicillin 250 MG Cap PO SCH ×2 (08:06→20:29)
[2021-12-02] MEDS: Potassium Chloride 10 MEQ Tab.ER PO SCH (08:06)
[2021-12-02] MEDS: Magnesium Oxide 400 MG Tab PO SCH (08:07)
[2021-12-02] MEDS: Calcium Carbonate/Vitamin D3 625 MG-125 Unit Tab PO SCH (08:08)
[2021-12-02] MEDS: Acetaminophen 650 MG Tab.ER PO SCH ×3 (08:08→18:12)
[2021-12-02] MEDS: Cetirizine 10 MG Tab PO SCH (08:09)
[2021-12-02] MEDS: Cholecalciferol (Vitamin D3) 25 MCG Tab PO SCH (08:09)
[2021-12-02] MEDS: LORazepam 0.5 MG Tab PO SCH (20:30)
[2021-12-02] MEDS: Pregabalin 75 MG Cap PO SCH (20:31)
[2021-12-02] MEDS: Pantoprazole 40 MG Tab.CR PO SCH (20:32)
[2021-12-02] MEDS: Mirtazapine 15 MG Tab PO SCH (20:32)
[2021-12-03] MEDS: Potassium Chloride 10 MEQ Tab.ER PO SCH (07:06)
[2021-12-03] MEDS: Metoprolol Succinate 25 MG Tab.ER PO SCH ×2 (07:06→18:02)
[2021-12-03] MEDS: Furosemide 40 MG Tab PO SCH (07:07)
[2021-12-03] MEDS: Calcium Carbonate/Vitamin D3 625 MG-125 Unit Tab PO SCH (07:07)
[2021-12-03] MEDS: Magnesium Oxide 400 MG Tab PO SCH (07:07)
[2021-12-03] MEDS: Acetaminophen 650 MG Tab.ER PO SCH ×3 (07:07→18:02)
[2021-12-03] MEDS: Losartan 50 MG Tab PO SCH (07:07)
[2021-12-03] MEDS: Cholecalciferol (Vitamin D3) 25 MCG Tab PO SCH (07:08)
[2021-12-03] MEDS: Cetirizine 10 MG Tab PO SCH (07:08)
[2021-12-03] MEDS: Pantoprazole 40 MG Tab.CR PO SCH (19:57)
[2021-12-03] MEDS: Mirtazapine 15 MG Tab PO SCH (19:57)
[2021-12-03] MEDS: LORazepam 0.5 MG Tab PO SCH (19:58)
[2021-12-03] MEDS: Pregabalin 75 MG Cap PO SCH (19:58)
[2021-12-04] MEDS: Potassium Chloride 10 MEQ Tab.ER PO SCH (07:49)
[2021-12-04] MEDS: Losartan 50 MG Tab PO SCH (07:49)
[2021-12-04] MEDS: Magnesium Oxide 400 MG Tab PO SCH (07:50)
[2021-12-04] MEDS: Furosemide 40 MG Tab PO SCH (07:50)
[2021-12-04] MEDS: Metoprolol Succinate 25 MG Tab.ER PO SCH ×2 (07:50→17:01)
[2021-12-04] MEDS: Calcium Carbonate/Vitamin D3 625 MG-125 Unit Tab PO SCH (07:50)
[2021-12-04] MEDS: Acetaminophen 650 MG Tab.ER PO SCH ×3 (07:51→17:02)
[2021-12-04] MEDS: Cholecalciferol (Vitamin D3) 25 MCG Tab PO SCH (07:51)
[2021-12-04] MEDS: Cetirizine 10 MG Tab PO SCH (07:51)
[2021-12-04] MEDS: Pregabalin 75 MG Cap PO SCH (19:23)
[2021-12-04] MEDS: Mirtazapine 15 MG Tab PO SCH (19:24)
[2021-12-04] MEDS: Pantoprazole 40 MG Tab.CR PO SCH (19:24)
[2021-12-04] MEDS: LORazepam 0.5 MG Tab PO SCH (19:24)
[2021-12-05] MEDS: Losartan 50 MG Tab PO SCH (07:04)
[2021-12-05] MEDS: Potassium Chloride 10 MEQ Tab.ER**PT OWN PO SCH (07:05)
[2021-12-05] MEDS: Calcium Carbonate/Vitamin D3 625 MG-125 Unit Tab PO SCH (07:05)
[2021-12-05] MEDS: Furosemide 20 MG Tab**PT OWN PO SCH (07:05)
[2021-12-05] MEDS: Magnesium Oxide 400 MG Tab PO SCH (07:05)
[2021-12-05] MEDS: Cholecalciferol (Vitamin D3) 25 MCG Tab PO SCH (07:06)
[2021-12-05] MEDS: Acetaminophen 650 MG Tab.ER PO SCH ×3 (07:06→17:02)
[2021-12-05] MEDS: Metoprolol Succinate 25 MG Tab.ER PO SCH ×2 (07:06→17:02)
[2021-12-05] MEDS: Cetirizine 10 MG Tab PO SCH (07:07)
[2021-12-05] MEDS ORDERED: Potassium Chloride 10 MEQ Tab.ER PO SCH (08:00)
[2021-12-05] MEDS: LORazepam 0.5 MG Tab PO SCH (20:08)
[2021-12-05] MEDS: Pregabalin 75 MG Cap PO SCH (20:09)
[2021-12-05] MEDS: Mirtazapine 15 MG Tab PO SCH (20:09)
[2021-12-05] MEDS: Pantoprazole 40 MG Tab.CR PO SCH (20:09)
[2021-12-05] MEDS: Melatonin 3 MG Tab PO PRN (20:10)
[2021-12-06] MEDS: Losartan 50 MG Tab PO SCH (07:17)
[2021-12-06] MEDS: Potassium Chloride 10 MEQ Tab.ER**PT OWN PO SCH (07:17)
[2021-12-06] MEDS: Calcium Carbonate/Vitamin D3 625 MG-125 Unit Tab PO SCH (07:18)
[2021-12-06] MEDS: Metoprolol Succinate 25 MG Tab.ER PO SCH ×2 (07:18→16:59)
[2021-12-06] MEDS: Furosemide 20 MG Tab**PT OWN PO SCH (07:18)
[2021-12-06] MEDS: Acetaminophen 650 MG Tab.ER PO SCH ×3 (07:19→16:59)
[2021-12-06] MEDS: Cholecalciferol (Vitamin D3) 25 MCG Tab PO SCH (07:19)
[2021-12-06] MEDS: Magnesium Oxide 400 MG Tab PO SCH (07:19)
[2021-12-06] MEDS: Cetirizine 10 MG Tab PO SCH (07:20)
[2021-12-06] MEDS: LORazepam 0.5 MG Tab PO SCH (20:05)
[2021-12-06] MEDS: Pregabalin 75 MG Cap PO SCH (20:05)
[2021-12-06] MEDS: Mirtazapine 15 MG Tab PO SCH (20:06)
[2021-12-06] MEDS: Pantoprazole 40 MG Tab.CR PO SCH (20:06)
[2021-12-06] MEDS: Melatonin 3 MG Tab PO PRN (20:15)
[2021-12-07] MEDS: Losartan 50 MG Tab PO SCH (07:24)
[2021-12-07] MEDS: Potassium Chloride 10 MEQ Tab.ER**PT OWN PO SCH (07:24)
[2021-12-07] MEDS: Calcium Carbonate/Vitamin D3 625 MG-125 Unit Tab PO SCH (07:25)
[2021-12-07] MEDS: Metoprolol Succinate 25 MG Tab.ER PO SCH ×2 (07:25→17:31)
[2021-12-07] MEDS: Furosemide 20 MG Tab**PT OWN PO SCH (07:25)
[2021-12-07] MEDS: Magnesium Oxide 400 MG Tab PO SCH (07:25)
[2021-12-07] MEDS: Acetaminophen 650 MG Tab.ER PO SCH ×3 (07:25→17:31)
[2021-12-07] MEDS: Cholecalciferol (Vitamin D3) 25 MCG Tab PO SCH (07:26)
[2021-12-07] MEDS: Cetirizine 10 MG Tab PO SCH (07:26)
[2021-12-07] MEDS: LORazepam 0.5 MG Tab PO SCH (20:35)
[2021-12-07] MEDS: Pregabalin 75 MG Cap PO SCH (20:36)
[2021-12-07] MEDS: Mirtazapine 15 MG Tab PO SCH (20:37)
[2021-12-07] MEDS: Pantoprazole 40 MG Tab.CR PO SCH (20:37)
[2021-12-08] MEDS: Potassium Chloride 10 MEQ Tab.ER**PT OWN PO SCH (07:43)
[2021-12-08] MEDS: Losartan 50 MG Tab PO SCH (07:43)
[2021-12-08] MEDS: Calcium Carbonate/Vitamin D3 625 MG-125 Unit Tab PO SCH (07:44)
[2021-12-08] MEDS: Acetaminophen 650 MG Tab.ER PO SCH ×3 (07:44→17:05)
[2021-12-08] MEDS: Magnesium Oxide 400 MG Tab PO SCH (07:44)
[2021-12-08] MEDS: Furosemide 20 MG Tab**PT OWN PO SCH (07:44)
[2021-12-08] MEDS: Metoprolol Succinate 25 MG Tab.ER PO SCH ×2 (07:44→17:05)
[2021-12-08] MEDS: Cetirizine 10 MG Tab PO SCH (07:45)
[2021-12-08] MEDS: Cholecalciferol (Vitamin D3) 25 MCG Tab PO SCH (07:45)
[2021-12-08 07:51] LABS: ANION GAP 9.3 meq/L (7-15)
[2021-12-08] MEDS: Pregabalin 75 MG Cap PO SCH (20:07)
[2021-12-08] MEDS: LORazepam 0.5 MG Tab PO SCH (20:07)
[2021-12-08] MEDS: Mirtazapine 15 MG Tab PO SCH (20:08)
[2021-12-08] MEDS: Pantoprazole 40 MG Tab.CR PO SCH (20:08)
[2021-12-08] MEDS: Melatonin 3 MG Tab PO PRN (22:39)
[2021-12-09] MEDS: Losartan 50 MG Tab PO SCH (07:52)
[2021-12-09] MEDS: Furosemide 20 MG Tab**PT OWN PO SCH (07:52)
[2021-12-09] MEDS: Potassium Chloride 10 MEQ Tab.ER**PT OWN PO SCH (07:53)
[2021-12-09] MEDS: Metoprolol Succinate 25 MG Tab.ER PO SCH ×2 (07:53→17:43)
[2021-12-09] MEDS: Calcium Carbonate/Vitamin D3 625 MG-125 Unit Tab PO SCH (07:54)
[2021-12-09] MEDS: Acetaminophen 650 MG Tab.ER PO SCH ×3 (07:54→17:43)
[2021-12-09] MEDS: Magnesium Oxide 400 MG Tab PO SCH (07:54)
[2021-12-09] MEDS: Cholecalciferol (Vitamin D3) 25 MCG Tab PO SCH (07:55)
[2021-12-09] MEDS: Cetirizine 10 MG Tab PO SCH (07:55)
[2021-12-09] MEDS: Mirtazapine 15 MG Tab PO SCH (19:31)
[2021-12-09] MEDS: Pregabalin 75 MG Cap PO SCH (19:31)
[2021-12-09] MEDS: Pantoprazole 40 MG Tab.CR PO SCH (19:31)
[2021-12-09] MEDS: LORazepam 0.5 MG Tab PO SCH (19:31)
[2021-12-10] MEDS: Potassium Chloride 10 MEQ Tab.ER**PT OWN PO SCH (07:30)
[2021-12-10] MEDS: Losartan 50 MG Tab PO SCH (07:30)
[2021-12-10] MEDS: Furosemide 20 MG Tab**PT OWN PO SCH (07:30)
[2021-12-10] MEDS: Magnesium Oxide 400 MG Tab PO SCH (07:30)
[2021-12-10] MEDS: Calcium Carbonate/Vitamin D3 625 MG-125 Unit Tab PO SCH (07:30)
[2021-12-10] MEDS: Acetaminophen 650 MG Tab.ER PO SCH ×3 (07:31→17:28)
[2021-12-10] MEDS: Cholecalciferol (Vitamin D3) 25 MCG Tab PO SCH (07:31)
[2021-12-10] MEDS: Metoprolol Succinate 25 MG Tab.ER PO SCH ×2 (07:31→17:28)
[2021-12-10] MEDS: Cetirizine 10 MG Tab PO SCH (07:32)
[2021-12-10] MEDS: LORazepam 0.5 MG Tab PO SCH (19:21)
[2021-12-10] MEDS: Pantoprazole 40 MG Tab.CR PO SCH (19:21)
[2021-12-10] MEDS: Mirtazapine 15 MG Tab PO SCH (19:21)
[2021-12-10] MEDS: Pregabalin 75 MG Cap PO SCH (19:21)
[2021-12-11] MEDS: Potassium Chloride 10 MEQ Tab.ER**PT OWN PO SCH (07:19)
[2021-12-11] MEDS: Losartan 50 MG Tab PO SCH (07:19)
[2021-12-11] MEDS: Furosemide 20 MG Tab**PT OWN PO SCH (07:19)
[2021-12-11] MEDS: Metoprolol Succinate 25 MG Tab.ER PO SCH ×2 (07:19→17:01)
[2021-12-11] MEDS: Acetaminophen 650 MG Tab.ER PO SCH ×3 (07:20→17:01)
[2021-12-11] MEDS: Calcium Carbonate/Vitamin D3 625 MG-125 Unit Tab PO SCH (07:20)
[2021-12-11] MEDS: Cetirizine 10 MG Tab PO SCH (07:20)
[2021-12-11] MEDS: Magnesium Oxide 400 MG Tab PO SCH (07:20)
[2021-12-11] MEDS: Cholecalciferol (Vitamin D3) 25 MCG Tab PO SCH (07:20)
[2021-12-11 08:53] LABS: ANION GAP 9.4 meq/L (7-15)
[2021-12-11] MEDS: LORazepam 0.5 MG Tab PO SCH (19:54)
[2021-12-11] MEDS: Pregabalin 75 MG Cap PO SCH (19:55)
[2021-12-11] MEDS: Melatonin 3 MG Tab PO PRN (19:56)
[2021-12-11] MEDS: Mirtazapine 15 MG Tab PO SCH (19:56)
[2021-12-11] MEDS: Pantoprazole 40 MG Tab.CR PO SCH (19:56)
[2021-12-12] MEDS: Calcium Carbonate/Vitamin D3 625 MG-125 Unit Tab PO SCH (08:46)
[2021-12-12] MEDS: Metoprolol Succinate 25 MG Tab.ER PO SCH ×2 (08:46→17:04)
[2021-12-12] MEDS: Magnesium Oxide 400 MG Tab PO SCH (08:46)
[2021-12-12] MEDS: Potassium Chloride 10 MEQ Tab.ER**PT OWN PO SCH (08:46)
[2021-12-12] MEDS: Furosemide 20 MG Tab**PT OWN PO SCH (08:46)
[2021-12-12] MEDS: Losartan 50 MG Tab PO SCH (08:46)
[2021-12-12] MEDS: Acetaminophen 650 MG Tab.ER PO SCH ×3 (08:47→17:04)
[2021-12-12] MEDS: Cholecalciferol (Vitamin D3) 25 MCG Tab PO SCH (08:47)
[2021-12-12] MEDS: Cetirizine 10 MG Tab PO SCH (08:47)
[2021-12-12] MEDS: LORazepam 0.5 MG Tab PO SCH (20:00)
[2021-12-12] MEDS: Pregabalin 75 MG Cap PO SCH (20:00)
[2021-12-12] MEDS: Mirtazapine 15 MG Tab PO SCH (20:01)
[2021-12-12] MEDS: Pantoprazole 40 MG Tab.CR PO SCH (20:01)
[2021-12-12] MEDS: Melatonin 3 MG Tab PO PRN (20:02)
[2021-12-13] MEDS: Potassium Chloride 10 MEQ Tab.ER**PT OWN PO SCH (07:04)
[2021-12-13] MEDS: Magnesium Oxide 400 MG Tab PO SCH (07:04)
[2021-12-13] MEDS: Acetaminophen 650 MG Tab.ER PO SCH ×3 (07:04→17:00)
[2021-12-13] MEDS: Losartan 50 MG Tab PO SCH (07:04)
[2021-12-13] MEDS: Furosemide 20 MG Tab**PT OWN PO SCH (07:04)
[2021-12-13] MEDS: Metoprolol Succinate 25 MG Tab.ER PO SCH ×2 (07:04→17:00)
[2021-12-13] MEDS: Calcium Carbonate/Vitamin D3 625 MG-125 Unit Tab PO SCH (07:04)
[2021-12-13] MEDS: Cholecalciferol (Vitamin D3) 25 MCG Tab PO SCH (07:05)
[2021-12-13] MEDS: Cetirizine 10 MG Tab PO SCH (07:05)
[2021-12-13] MEDS: LORazepam 0.5 MG Tab PO PRN (11:07)
[2021-12-13] MEDS: Pregabalin 75 MG Cap PO SCH (19:53)
[2021-12-13] MEDS: LORazepam 0.5 MG Tab PO SCH (19:53)
[2021-12-13] MEDS: Pantoprazole 40 MG Tab.CR PO SCH (19:54)
[2021-12-13] MEDS: Mirtazapine 15 MG Tab PO SCH (19:54)
[2021-12-13] MEDS: Melatonin 3 MG Tab PO PRN (19:55)
[2021-12-14] MEDS: Potassium Chloride 10 MEQ Tab.ER**PT OWN PO SCH (07:01)
[2021-12-14] MEDS: Metoprolol Succinate 25 MG Tab.ER PO SCH ×2 (07:01→17:18)
[2021-12-14] MEDS: Losartan 50 MG Tab PO SCH (07:01)
[2021-12-14] MEDS: Magnesium Oxide 400 MG Tab PO SCH (07:01)
[2021-12-14] MEDS: Furosemide 20 MG Tab**PT OWN PO SCH (07:01)
[2021-12-14] MEDS: Acetaminophen 650 MG Tab.ER PO SCH ×3 (07:02→17:17)
[2021-12-14] MEDS: Cholecalciferol (Vitamin D3) 25 MCG Tab PO SCH (07:02)
[2021-12-14] MEDS: Cetirizine 10 MG Tab PO SCH (07:02)
[2021-12-14] MEDS: Calcium Carbonate/Vitamin D3 625 MG-125 Unit Tab PO SCH (07:02)
[2021-12-14] MEDS: LORazepam 0.5 MG Tab PO PRN (07:03)
[2021-12-14] MEDS: LORazepam 0.5 MG Tab PO SCH (19:45)
[2021-12-14] MEDS: Pregabalin 75 MG Cap PO SCH (19:45)
[2021-12-14] MEDS: Mirtazapine 15 MG Tab PO SCH (19:46)
[2021-12-14] MEDS: Pantoprazole 40 MG Tab.CR PO SCH (19:46)
[2021-12-15] MEDS: Losartan 50 MG Tab PO SCH (07:18)
[2021-12-15] MEDS: Calcium Carbonate/Vitamin D3 625 MG-125 Unit Tab PO SCH (07:19)
[2021-12-15] MEDS: Magnesium Oxide 400 MG Tab PO SCH (07:19)
[2021-12-15] MEDS: Potassium Chloride 10 MEQ Tab.ER**PT OWN PO SCH (07:19)
[2021-12-15] MEDS: Furosemide 20 MG Tab**PT OWN PO SCH (07:19)
[2021-12-15] MEDS: Cholecalciferol (Vitamin D3) 25 MCG Tab PO SCH (07:20)
[2021-12-15] MEDS: Acetaminophen 650 MG Tab.ER PO SCH ×3 (07:20→17:02)
[2021-12-15] MEDS: Metoprolol Succinate 25 MG Tab.ER PO SCH ×2 (07:20→17:02)
[2021-12-15] MEDS: Cetirizine 10 MG Tab PO SCH (07:21)
[2021-12-15] MEDS: Pregabalin 75 MG Cap PO SCH (20:12)
[2021-12-15] MEDS: LORazepam 0.5 MG Tab PO SCH (20:12)
[2021-12-15] MEDS: Melatonin 3 MG Tab PO PRN (20:13)
[2021-12-15] MEDS: Mirtazapine 15 MG Tab PO SCH (20:13)
[2021-12-15] MEDS: Pantoprazole 40 MG Tab.CR PO SCH (20:13)
[2021-12-16] MEDS: Losartan 50 MG Tab PO SCH (07:47)
[2021-12-16] MEDS: Furosemide 20 MG Tab**PT OWN PO SCH (07:48)
[2021-12-16] MEDS: Potassium Chloride 10 MEQ Tab.ER**PT OWN PO SCH (07:48)
[2021-12-16] MEDS: Metoprolol Succinate 25 MG Tab.ER PO SCH ×2 (07:48→17:43)
[2021-12-16] MEDS: Magnesium Oxide 400 MG Tab PO SCH (07:49)
[2021-12-16] MEDS: Calcium Carbonate/Vitamin D3 625 MG-125 Unit Tab PO SCH (07:49)
[2021-12-16] MEDS: Acetaminophen 650 MG Tab.ER PO SCH ×3 (07:50→17:43)
[2021-12-16] MEDS: Cetirizine 10 MG Tab PO SCH (07:51)
[2021-12-16] MEDS: Cholecalciferol (Vitamin D3) 25 MCG Tab PO SCH (07:51)
[2021-12-16] MEDS: LORazepam 0.5 MG Tab PO SCH (19:27)
[2021-12-16] MEDS: Pregabalin 75 MG Cap PO SCH (19:27)
[2021-12-16] MEDS: Mirtazapine 15 MG Tab PO SCH (19:28)
[2021-12-16] MEDS: Pantoprazole 40 MG Tab.CR PO SCH (19:28)
[2021-12-17] MEDS: Potassium Chloride 10 MEQ Tab.ER**PT OWN PO SCH (07:08)
[2021-12-17] MEDS: Losartan 50 MG Tab PO SCH (07:08)
[2021-12-17] MEDS: Magnesium Oxide 400 MG Tab PO SCH (07:08)
[2021-12-17] MEDS: Furosemide 20 MG Tab**PT OWN PO SCH (07:08)
[2021-12-17] MEDS: Metoprolol Succinate 25 MG Tab.ER PO SCH ×2 (07:09→17:04)
[2021-12-17] MEDS: Calcium Carbonate/Vitamin D3 625 MG-125 Unit Tab PO SCH (07:09)
[2021-12-17] MEDS: Acetaminophen 650 MG Tab.ER PO SCH ×3 (07:09→17:04)
[2021-12-17] MEDS: Cetirizine 10 MG Tab PO SCH (07:10)
[2021-12-17] MEDS: Cholecalciferol (Vitamin D3) 25 MCG Tab PO SCH (07:10)
[2021-12-17] MEDS: Pregabalin 75 MG Cap PO SCH (19:30)
[2021-12-17] MEDS: LORazepam 0.5 MG Tab PO SCH (19:30)
[2021-12-17] MEDS: Mirtazapine 15 MG Tab PO SCH (19:31)
[2021-12-17] MEDS: Pantoprazole 40 MG Tab.CR PO SCH (19:31)
[2021-12-18] MEDS: Metoprolol Succinate 25 MG Tab.ER PO SCH ×2 (07:09→17:50)
[2021-12-18] MEDS: Potassium Chloride 10 MEQ Tab.ER**PT OWN PO SCH (07:10)
[2021-12-18] MEDS: Furosemide 20 MG Tab**PT OWN PO SCH (07:10)
[2021-12-18] MEDS: Magnesium Oxide 400 MG Tab PO SCH (07:11)
[2021-12-18] MEDS: Losartan 50 MG Tab PO SCH (07:11)
[2021-12-18] MEDS: Cholecalciferol (Vitamin D3) 25 MCG Tab PO SCH (07:12)
[2021-12-18] MEDS: Calcium Carbonate/Vitamin D3 625 MG-125 Unit Tab PO SCH (07:12)
[2021-12-18] MEDS: Acetaminophen 650 MG Tab.ER PO SCH ×3 (07:13→17:51)
[2021-12-18] MEDS: Cetirizine 10 MG Tab PO SCH (07:14)
[2021-12-18] MEDS: Pregabalin 75 MG Cap PO SCH (20:16)
[2021-12-18] MEDS: Pantoprazole 40 MG Tab.CR PO SCH (20:17)
[2021-12-18] MEDS: LORazepam 0.5 MG Tab PO SCH (20:17)
[2021-12-18] MEDS: Mirtazapine 15 MG Tab PO SCH (20:18)
[2021-12-19] MEDS: Furosemide 20 MG Tab**PT OWN PO SCH (07:13)
[2021-12-19] MEDS: Losartan 50 MG Tab PO SCH (07:13)
[2021-12-19] MEDS: Potassium Chloride 10 MEQ Tab.ER**PT OWN PO SCH (07:13)
[2021-12-19] MEDS: Magnesium Oxide 400 MG Tab PO SCH (07:13)
[2021-12-19] MEDS: Cholecalciferol (Vitamin D3) 25 MCG Tab PO SCH (07:14)
[2021-12-19] MEDS: Acetaminophen 650 MG Tab.ER PO SCH ×3 (07:14→17:08)
[2021-12-19] MEDS: Calcium Carbonate/Vitamin D3 625 MG-125 Unit Tab PO SCH (07:14)
[2021-12-19] MEDS: Metoprolol Succinate 25 MG Tab.ER PO SCH ×2 (07:14→17:08)
[2021-12-19] MEDS: Cetirizine 10 MG Tab PO SCH (07:15)
[2021-12-19] MEDS: LORazepam 0.5 MG Tab PO SCH (20:38)
[2021-12-19] MEDS: Pregabalin 75 MG Cap PO SCH (20:38)
[2021-12-19] MEDS: Pantoprazole 40 MG Tab.CR PO SCH (20:39)
[2021-12-19] MEDS: Mirtazapine 15 MG Tab PO SCH (20:39)
[2021-12-19] MEDS: Melatonin 3 MG Tab PO PRN (20:40)
[2021-12-20] MEDS: Losartan 50 MG Tab PO SCH (07:04)
[2021-12-20] MEDS: Potassium Chloride 10 MEQ Tab.ER**PT OWN PO SCH (07:05)
[2021-12-20] MEDS: Furosemide 20 MG Tab**PT OWN PO SCH (07:05)
[2021-12-20] MEDS: Magnesium Oxide 400 MG Tab PO SCH (07:05)
[2021-12-20] MEDS: Metoprolol Succinate 25 MG Tab.ER PO SCH ×2 (07:05→17:03)
[2021-12-20] MEDS: Cholecalciferol (Vitamin D3) 25 MCG Tab PO SCH (07:06)
[2021-12-20] MEDS: Calcium Carbonate/Vitamin D3 625 MG-125 Unit Tab PO SCH (07:06)
[2021-12-20] MEDS: Cetirizine 10 MG Tab PO SCH (07:06)
[2021-12-20] MEDS: Acetaminophen 650 MG Tab.ER PO SCH ×3 (07:06→17:04)
[2021-12-20] MEDS: LORazepam 0.5 MG Tab PO SCH (20:32)
[2021-12-20] MEDS: Pregabalin 75 MG Cap PO SCH (20:32)
[2021-12-20] MEDS: Mirtazapine 15 MG Tab PO SCH (20:33)
[2021-12-20] MEDS: Pantoprazole 40 MG Tab.CR PO SCH (20:33)
[2021-12-20] MEDS: Melatonin 3 MG Tab PO PRN (20:34)
[2021-12-21] MEDS: Metoprolol Succinate 25 MG Tab.ER PO SCH ×2 (07:34→17:11)
[2021-12-21] MEDS: Potassium Chloride 10 MEQ Tab.ER**PT OWN PO SCH (07:34)
[2021-12-21] MEDS: Losartan 50 MG Tab PO SCH (07:34)
[2021-12-21] MEDS: Furosemide 20 MG Tab**PT OWN PO SCH (07:34)
[2021-12-21] MEDS: Acetaminophen 650 MG Tab.ER PO SCH ×3 (07:35→17:12)
[2021-12-21] MEDS: Magnesium Oxide 400 MG Tab PO SCH (07:35)
[2021-12-21] MEDS: Calcium Carbonate/Vitamin D3 625 MG-125 Unit Tab PO SCH (07:35)
[2021-12-21] MEDS: Cholecalciferol (Vitamin D3) 25 MCG Tab PO SCH (07:36)
[2021-12-21] MEDS: Cetirizine 10 MG Tab PO SCH (07:36)
[2021-12-21] MEDS: LORazepam 0.5 MG Tab PO SCH (20:11)
[2021-12-21] MEDS: Pregabalin 75 MG Cap PO SCH (20:12)
[2021-12-21] MEDS: Pantoprazole 40 MG Tab.CR PO SCH (20:12)
[2021-12-21] MEDS: Melatonin 3 MG Tab PO PRN (20:12)
[2021-12-21] MEDS: Mirtazapine 15 MG Tab PO SCH (20:12)
[2021-12-22] MEDS: Potassium Chloride 10 MEQ Tab.ER**PT OWN PO SCH (07:15)
[2021-12-22] MEDS: Losartan 50 MG Tab PO SCH (07:15)
[2021-12-22] MEDS: Furosemide 20 MG Tab**PT OWN PO SCH (07:15)
[2021-12-22] MEDS: Magnesium Oxide 400 MG Tab PO SCH (07:16)
[2021-12-22] MEDS: Metoprolol Succinate 25 MG Tab.ER PO SCH ×2 (07:16→17:36)
[2021-12-22] MEDS: Acetaminophen 650 MG Tab.ER PO SCH ×3 (07:16→17:37)
[2021-12-22] MEDS: Calcium Carbonate/Vitamin D3 625 MG-125 Unit Tab PO SCH (07:16)
[2021-12-22] MEDS: Cholecalciferol (Vitamin D3) 25 MCG Tab PO SCH (07:17)
[2021-12-22] MEDS: Cetirizine 10 MG Tab PO SCH (07:17)
[2021-12-22] MEDS: LORazepam 0.5 MG Tab PO SCH (20:30)
[2021-12-22] MEDS: Pregabalin 75 MG Cap PO SCH (20:30)
[2021-12-22] MEDS: Melatonin 3 MG Tab PO PRN (20:31)
[2021-12-22] MEDS: Pantoprazole 40 MG Tab.CR PO SCH (20:31)
[2021-12-22] MEDS: Mirtazapine 15 MG Tab PO SCH (20:31)
[2021-12-23] MEDS: Losartan 50 MG Tab PO SCH (07:41)
[2021-12-23] MEDS: Cholecalciferol (Vitamin D3) 25 MCG Tab PO SCH (07:42)
[2021-12-23] MEDS: Magnesium Oxide 400 MG Tab PO SCH (07:42)
[2021-12-23] MEDS: Furosemide 20 MG Tab**PT OWN PO SCH (07:42)
[2021-12-23] MEDS: Metoprolol Succinate 25 MG Tab.ER PO SCH ×2 (07:42→17:19)
[2021-12-23] MEDS: Cetirizine 10 MG Tab PO SCH (07:42)
[2021-12-23] MEDS: Potassium Chloride 10 MEQ Tab.ER**PT OWN PO SCH (07:42)
[2021-12-23] MEDS: Acetaminophen 650 MG Tab.ER PO SCH ×3 (07:43→17:19)
[2021-12-23] MEDS: Calcium Carbonate/Vitamin D3 625 MG-125 Unit Tab PO SCH (08:12)
[2021-12-23] MEDS: Pregabalin 75 MG Cap PO SCH (20:13)
[2021-12-23] MEDS: LORazepam 0.5 MG Tab PO SCH (20:13)
[2021-12-23] MEDS: Pantoprazole 40 MG Tab.CR PO SCH (20:14)
[2021-12-23] MEDS: Mirtazapine 15 MG Tab PO SCH (20:14)
[2021-12-24] MEDS: Furosemide 20 MG Tab**PT OWN PO SCH (07:22)
[2021-12-24] MEDS: Losartan 25 MG Tab PO SCH (07:22)
[2021-12-24] MEDS: Potassium Chloride 10 MEQ Tab.ER**PT OWN PO SCH (07:22)
[2021-12-24] MEDS: Cholecalciferol (Vitamin D3) 25 MCG Tab PO SCH (07:23)
[2021-12-24] MEDS: Metoprolol Succinate 25 MG Tab.ER PO SCH ×2 (07:23→17:16)
[2021-12-24] MEDS: Acetaminophen 650 MG Tab.ER PO SCH ×3 (07:23→17:16)
[2021-12-24] MEDS: Magnesium Oxide 400 MG Tab PO SCH (07:23)
[2021-12-24] MEDS: Calcium Carbonate/Vitamin D3 625 MG-125 Unit Tab PO SCH (07:23)
[2021-12-24] MEDS: Cetirizine 10 MG Tab PO SCH (07:24)
[2021-12-24] MEDS: LORazepam 0.5 MG Tab PO SCH (20:07)
[2021-12-24] MEDS: Pregabalin 75 MG Cap PO SCH (20:07)
[2021-12-24] MEDS: Pantoprazole 40 MG Tab.CR PO SCH (20:08)
[2021-12-24] MEDS: Mirtazapine 15 MG Tab PO SCH (20:08)
[2021-12-25] MEDS: Losartan 25 MG Tab PO SCH (07:25)
[2021-12-25] MEDS: Metoprolol Succinate 25 MG Tab.ER PO SCH ×2 (07:26→17:09)
[2021-12-25] MEDS: Calcium Carbonate/Vitamin D3 625 MG-125 Unit Tab PO SCH (07:26)
[2021-12-25] MEDS: Magnesium Oxide 400 MG Tab PO SCH (07:26)
[2021-12-25] MEDS: Cetirizine 10 MG Tab PO SCH (07:27)
[2021-12-25] MEDS: Cholecalciferol (Vitamin D3) 25 MCG Tab PO SCH (07:27)
[2021-12-25] MEDS: Acetaminophen 650 MG Tab.ER PO SCH ×3 (07:27→17:09)
[2021-12-25] MEDS: Mirtazapine 15 MG Tab PO SCH (19:36)
[2021-12-25] MEDS: Pantoprazole 40 MG Tab.CR PO SCH (19:36)
[2021-12-25] MEDS: LORazepam 0.5 MG Tab PO SCH (19:36)
[2021-12-25] MEDS: Pregabalin 75 MG Cap PO SCH (19:36)
[2021-12-26] MEDS: Losartan 25 MG Tab PO SCH (07:47)
[2021-12-26] MEDS: Metoprolol Succinate 25 MG Tab.ER PO SCH ×2 (07:47→17:20)
[2021-12-26] MEDS: Calcium Carbonate/Vitamin D3 625 MG-125 Unit Tab PO SCH (07:52)
[2021-12-26] MEDS: Magnesium Oxide 400 MG Tab PO SCH (07:52)
[2021-12-26] MEDS: Acetaminophen 650 MG Tab.ER PO SCH ×3 (07:53→17:21)
[2021-12-26] MEDS: Cetirizine 10 MG Tab PO SCH (07:54)
[2021-12-26] MEDS: Cholecalciferol (Vitamin D3) 25 MCG Tab PO SCH (07:54)
[2021-12-26] MEDS: Pregabalin 75 MG Cap PO SCH (19:42)
[2021-12-26] MEDS: LORazepam 0.5 MG Tab PO SCH (19:42)
[2021-12-26] MEDS: Pantoprazole 40 MG Tab.CR PO SCH (19:47)
[2021-12-26] MEDS: Mirtazapine 15 MG Tab PO SCH (19:47)
[2021-12-27] MEDS: Metoprolol Succinate 25 MG Tab.ER PO SCH ×2 (07:13→17:42)
[2021-12-27] MEDS: Losartan 25 MG Tab PO SCH (07:13)
[2021-12-27] MEDS: Magnesium Oxide 400 MG Tab PO SCH (07:13)
[2021-12-27] MEDS: Calcium Carbonate/Vitamin D3 625 MG-125 Unit Tab PO SCH (07:13)
[2021-12-27] MEDS: Cetirizine 10 MG Tab PO SCH (07:14)
[2021-12-27] MEDS: Cholecalciferol (Vitamin D3) 25 MCG Tab PO SCH (07:14)
[2021-12-27] MEDS: Acetaminophen 650 MG Tab.ER PO SCH ×3 (07:14→17:42)
[2021-12-27] MEDS: Mirtazapine 15 MG Tab PO SCH (19:48)
[2021-12-27] MEDS: Pantoprazole 40 MG Tab.CR PO SCH (19:48)
[2021-12-27] MEDS: LORazepam 0.5 MG Tab PO SCH (19:49)
[2021-12-27] MEDS: Pregabalin 75 MG Cap PO SCH (19:49)
[2021-12-28] MEDS: Magnesium Oxide 400 MG Tab PO SCH (07:49)
[2021-12-28] MEDS: Losartan 25 MG Tab PO SCH (07:49)
[2021-12-28] MEDS: Calcium Carbonate/Vitamin D3 625 MG-125 Unit Tab PO SCH (07:50)
[2021-12-28] MEDS: Metoprolol Succinate 25 MG Tab.ER PO SCH ×2 (07:50→17:45)
[2021-12-28] MEDS: Acetaminophen 650 MG Tab.ER PO SCH ×3 (07:51→17:46)
[2021-12-28] MEDS: Cholecalciferol (Vitamin D3) 25 MCG Tab PO SCH (07:52)
[2021-12-28] MEDS: Cetirizine 10 MG Tab PO SCH (07:53)
[2021-12-28] MEDS: Pregabalin 75 MG Cap PO SCH (20:38)
[2021-12-28] MEDS: LORazepam 0.5 MG Tab PO SCH (20:38)
[2021-12-28] MEDS: Pantoprazole 40 MG Tab.CR PO SCH (20:39)
[2021-12-28] MEDS: Mirtazapine 15 MG Tab PO SCH (20:39)
[2021-12-28] MEDS: Melatonin 3 MG Tab PO PRN (20:41)
[2021-12-29] MEDS: Losartan 25 MG Tab PO SCH (07:11)
[2021-12-29] MEDS: Metoprolol Succinate 25 MG Tab.ER PO SCH ×2 (07:12→17:04)
[2021-12-29] MEDS: Calcium Carbonate/Vitamin D3 625 MG-125 Unit Tab PO SCH (07:12)
[2021-12-29] MEDS: Magnesium Oxide 400 MG Tab PO SCH (07:12)
[2021-12-29] MEDS: Acetaminophen 650 MG Tab.ER PO SCH ×3 (07:12→17:04)
[2021-12-29] MEDS: Cetirizine 10 MG Tab PO SCH (07:13)
[2021-12-29] MEDS: Cholecalciferol (Vitamin D3) 25 MCG Tab PO SCH (07:13)
[2021-12-29] MEDS: Mirtazapine 15 MG Tab PO SCH (19:57)
[2021-12-29] MEDS: Pantoprazole 40 MG Tab.CR PO SCH (19:57)
[2021-12-29] MEDS: LORazepam 0.5 MG Tab PO SCH (19:57)
[2021-12-29] MEDS: Pregabalin 75 MG Cap PO SCH (19:57)
[2021-12-30] MEDS: Losartan 25 MG Tab PO SCH (07:22)
[2021-12-30] MEDS: Acetaminophen 650 MG Tab.ER PO SCH ×3 (07:23→17:05)
[2021-12-30] MEDS: Metoprolol Succinate 25 MG Tab.ER PO SCH ×2 (07:23→17:04)
[2021-12-30] MEDS: Magnesium Oxide 400 MG Tab PO SCH (07:23)
[2021-12-30] MEDS: Calcium Carbonate/Vitamin D3 625 MG-125 Unit Tab PO SCH (07:23)
[2021-12-30] MEDS: Cetirizine 10 MG Tab PO SCH (07:24)
[2021-12-30] MEDS: Cholecalciferol (Vitamin D3) 25 MCG Tab PO SCH (07:24)
[2021-12-30] MEDS: LORazepam 0.5 MG Tab PO SCH (19:59)
[2021-12-30] MEDS: Pregabalin 75 MG Cap PO SCH (19:59)
[2021-12-30] MEDS: Pantoprazole 40 MG Tab.CR PO SCH (20:00)
[2021-12-30] MEDS: Mirtazapine 15 MG Tab PO SCH (20:00)
[2021-12-31] MEDS: Magnesium Oxide 400 MG Tab PO SCH (07:07)
[2021-12-31] MEDS: Losartan 25 MG Tab PO SCH (07:07)
[2021-12-31] MEDS: Calcium Carbonate/Vitamin D3 625 MG-125 Unit Tab PO SCH (07:07)
[2021-12-31] MEDS: Cholecalciferol (Vitamin D3) 25 MCG Tab PO SCH (07:08)
[2021-12-31] MEDS: Acetaminophen 650 MG Tab.ER PO SCH ×3 (07:08→17:05)
[2021-12-31] MEDS: Metoprolol Succinate 25 MG Tab.ER PO SCH ×2 (07:08→17:04)
[2021-12-31] MEDS: Cetirizine 10 MG Tab PO SCH (07:09)
[2021-12-31] MEDS: Pregabalin 75 MG Cap PO SCH (20:28)
[2021-12-31] MEDS: LORazepam 0.5 MG Tab PO SCH (20:28)
[2021-12-31] MEDS: Pantoprazole 40 MG Tab.CR PO SCH (20:29)
[2021-12-31] MEDS: Mirtazapine 15 MG Tab PO SCH (20:29)
[2022-01-01] MEDS: Acetaminophen 650 MG Tab.ER PO SCH ×3 (07:11→17:08)
[2022-01-01] MEDS: Calcium Carbonate/Vitamin D3 625 MG-125 Unit Tab PO SCH (07:11)
[2022-01-01] MEDS: Magnesium Oxide 400 MG Tab PO SCH (07:11)
[2022-01-01] MEDS: Metoprolol Succinate 25 MG Tab.ER PO SCH ×2 (07:11→17:08)
[2022-01-01] MEDS: Losartan 25 MG Tab PO SCH (07:11)
[2022-01-01] MEDS: Cetirizine 10 MG Tab PO SCH (07:12)
[2022-01-01] MEDS: Cholecalciferol (Vitamin D3) 25 MCG Tab PO SCH (07:12)
[2022-01-01 08:54] LABS: ANION GAP 15.1 meq/L (7-15)
[2022-01-01] MEDS: LORazepam 0.5 MG Tab PO SCH (20:32)
[2022-01-01] MEDS: Pregabalin 75 MG Cap PO SCH (20:32)
[2022-01-01] MEDS: Melatonin 3 MG Tab PO PRN (20:33)
[2022-01-01] MEDS: Pantoprazole 40 MG Tab.CR PO SCH (20:33)
[2022-01-01] MEDS: Mirtazapine 15 MG Tab PO SCH (20:33)
[2022-01-02] MEDS: Metoprolol Succinate 25 MG Tab.ER PO SCH ×2 (07:42→17:07)
[2022-01-02] MEDS: Magnesium Oxide 400 MG Tab PO SCH (07:42)
[2022-01-02] MEDS: Losartan 25 MG Tab PO SCH (07:42)
[2022-01-02] MEDS: Calcium Carbonate/Vitamin D3 625 MG-125 Unit Tab PO SCH (07:43)
[2022-01-02] MEDS: Cetirizine 10 MG Tab PO SCH (07:44)
[2022-01-02] MEDS: Acetaminophen 650 MG Tab.ER PO SCH ×3 (07:44→17:07)
[2022-01-02] MEDS: Cholecalciferol (Vitamin D3) 25 MCG Tab PO SCH (07:44)
[2022-01-02] MEDS: Pregabalin 75 MG Cap PO SCH (20:10)
[2022-01-02] MEDS: LORazepam 0.5 MG Tab PO SCH (20:10)
[2022-01-02] MEDS: Pantoprazole 40 MG Tab.CR PO SCH (20:11)
[2022-01-02] MEDS: Mirtazapine 15 MG Tab PO SCH (20:11)
[2022-01-02] MEDS: Melatonin 3 MG Tab PO PRN (20:12)
[2022-01-03] MEDS: Magnesium Oxide 400 MG Tab PO SCH (07:17)
[2022-01-03] MEDS: Acetaminophen 650 MG Tab.ER PO SCH ×3 (07:17→17:12)
[2022-01-03] MEDS: Calcium Carbonate/Vitamin D3 625 MG-125 Unit Tab PO SCH (07:17)
[2022-01-03] MEDS: Metoprolol Succinate 25 MG Tab.ER PO SCH ×2 (07:18→17:12)
[2022-01-03] MEDS: Cholecalciferol (Vitamin D3) 25 MCG Tab PO SCH (07:18)
[2022-01-03] MEDS: Losartan 25 MG Tab PO SCH (07:18)
[2022-01-03] MEDS: Cetirizine 10 MG Tab PO SCH (07:18)
[2022-01-03] MEDS: Pregabalin 75 MG Cap PO SCH (20:12)
[2022-01-03] MEDS: Pantoprazole 40 MG Tab.CR PO SCH (20:12)
[2022-01-03] MEDS: LORazepam 0.5 MG Tab PO SCH (20:12)
[2022-01-03] MEDS: Mirtazapine 15 MG Tab PO SCH (20:12)
[2022-01-03] MEDS: Melatonin 3 MG Tab PO PRN (20:13)
[2022-01-04] MEDS: Losartan 25 MG Tab PO SCH (07:08)
[2022-01-04] MEDS: Calcium Carbonate/Vitamin D3 625 MG-125 Unit Tab PO SCH (07:13)
[2022-01-04] MEDS: Metoprolol Succinate 25 MG Tab.ER PO SCH ×2 (07:13→17:20)
[2022-01-04] MEDS: Acetaminophen 650 MG Tab.ER PO SCH ×3 (07:13→17:20)
[2022-01-04] MEDS: Magnesium Oxide 400 MG Tab PO SCH (07:13)
[2022-01-04] MEDS: Cetirizine 10 MG Tab PO SCH (07:14)
[2022-01-04] MEDS: Cholecalciferol (Vitamin D3) 25 MCG Tab PO SCH (07:14)
[2022-01-04] MEDS: Pantoprazole 40 MG Tab.CR PO SCH (20:10)
[2022-01-04] MEDS: Mirtazapine 15 MG Tab PO SCH (20:10)
[2022-01-04] MEDS: LORazepam 0.5 MG Tab PO SCH (20:11)
[2022-01-04] MEDS: Pregabalin 75 MG Cap PO SCH (20:11)
[2022-01-05] MEDS: Acetaminophen 650 MG Tab.ER PO SCH ×3 (07:14→17:12)
[2022-01-05] MEDS: Metoprolol Succinate 25 MG Tab.ER PO SCH ×2 (07:14→17:12)
[2022-01-05] MEDS: Losartan 25 MG Tab PO SCH (07:14)
[2022-01-05] MEDS: Cetirizine 10 MG Tab PO SCH (07:15)
[2022-01-05] MEDS: Cholecalciferol (Vitamin D3) 25 MCG Tab PO SCH (07:15)
[2022-01-05] MEDS: Magnesium Oxide 400 MG Tab PO SCH (07:15)
[2022-01-05] MEDS: Calcium Carbonate/Vitamin D3 625 MG-125 Unit Tab PO SCH (07:15)
[2022-01-05] MEDS: LORazepam 0.5 MG Tab PO SCH (19:37)
[2022-01-05] MEDS: Pregabalin 75 MG Cap PO SCH (19:37)
[2022-01-05] MEDS: Pantoprazole 40 MG Tab.CR PO SCH (19:37)
[2022-01-05] MEDS: Mirtazapine 15 MG Tab PO SCH (19:37)
[2022-01-06] MEDS: Metoprolol Succinate 25 MG Tab.ER PO SCH ×2 (07:53→18:25)
[2022-01-06] MEDS: Losartan 25 MG Tab PO SCH (07:53)
[2022-01-06] MEDS: Magnesium Oxide 400 MG Tab PO SCH (07:54)
[2022-01-06] MEDS: Calcium Carbonate/Vitamin D3 625 MG-125 Unit Tab PO SCH (07:54)
[2022-01-06] MEDS: Acetaminophen 650 MG Tab.ER PO SCH ×3 (07:54→18:26)
[2022-01-06] MEDS: Cholecalciferol (Vitamin D3) 25 MCG Tab PO SCH (07:55)
[2022-01-06] MEDS: Cetirizine 10 MG Tab PO SCH (07:55)
[2022-01-06] MEDS: Pantoprazole 40 MG Tab.CR PO SCH (19:46)
[2022-01-06] MEDS: LORazepam 0.5 MG Tab PO SCH (19:46)
[2022-01-06] MEDS: Pregabalin 75 MG Cap PO SCH (19:46)
[2022-01-06] MEDS: Mirtazapine 15 MG Tab PO SCH (19:46)
[2022-01-07] MEDS: Calcium Carbonate/Vitamin D3 625 MG-125 Unit Tab PO SCH (07:06)
[2022-01-07] MEDS: Losartan 25 MG Tab PO SCH (07:06)
[2022-01-07] MEDS: Magnesium Oxide 400 MG Tab PO SCH (07:06)
[2022-01-07] MEDS: Metoprolol Succinate 25 MG Tab.ER PO SCH ×2 (07:07→17:34)
[2022-01-07] MEDS: Acetaminophen 650 MG Tab.ER PO SCH ×3 (07:07→17:35)
[2022-01-07] MEDS: Cholecalciferol (Vitamin D3) 25 MCG Tab PO SCH (07:07)
[2022-01-07] MEDS: Cetirizine 10 MG Tab PO SCH (07:08)
[2022-01-07] MEDS: Pregabalin 75 MG Cap PO SCH (20:22)
[2022-01-07] MEDS: Mirtazapine 15 MG Tab PO SCH (20:22)
[2022-01-07] MEDS: LORazepam 0.5 MG Tab PO SCH (20:22)
[2022-01-07] MEDS: Pantoprazole 40 MG Tab.CR PO SCH (20:22)
[2022-01-08] MEDS: Metoprolol Succinate 25 MG Tab.ER PO SCH ×2 (07:47→17:09)
[2022-01-08] MEDS: Losartan 25 MG Tab PO SCH (07:47)
[2022-01-08] MEDS: Cholecalciferol (Vitamin D3) 25 MCG Tab PO SCH (07:48)
[2022-01-08] MEDS: Acetaminophen 650 MG Tab.ER PO SCH ×3 (07:48→17:10)
[2022-01-08] MEDS: Magnesium Oxide 400 MG Tab PO SCH (07:48)
[2022-01-08] MEDS: Calcium Carbonate/Vitamin D3 625 MG-125 Unit Tab PO SCH (07:48)
[2022-01-08] MEDS: Cetirizine 10 MG Tab PO SCH (07:49)
[2022-01-08] MEDS: Pregabalin 75 MG Cap PO SCH (20:03)
[2022-01-08] MEDS: LORazepam 0.5 MG Tab PO SCH (20:03)
[2022-01-08] MEDS: Pantoprazole 40 MG Tab.CR PO SCH (20:04)
[2022-01-08] MEDS: Mirtazapine 15 MG Tab PO SCH (20:04)
[2022-01-09] MEDS: Losartan 25 MG Tab PO SCH (07:03)
[2022-01-09] MEDS: Metoprolol Succinate 25 MG Tab.ER PO SCH ×2 (07:03→17:23)
[2022-01-09] MEDS: Calcium Carbonate/Vitamin D3 625 MG-125 Unit Tab PO SCH (07:04)
[2022-01-09] MEDS: Magnesium Oxide 400 MG Tab PO SCH (07:04)
[2022-01-09] MEDS: Acetaminophen 650 MG Tab.ER PO SCH ×3 (07:04→17:23)
[2022-01-09] MEDS: Cholecalciferol (Vitamin D3) 25 MCG Tab PO SCH (07:04)
[2022-01-09] MEDS: Cetirizine 10 MG Tab PO SCH (07:04)
[2022-01-09] MEDS: LORazepam 0.5 MG Tab PO SCH (20:04)
[2022-01-09] MEDS: Pregabalin 75 MG Cap PO SCH (20:04)
[2022-01-09] MEDS: Mirtazapine 15 MG Tab PO SCH (20:06)
[2022-01-09] MEDS: Pantoprazole 40 MG Tab.CR PO SCH (20:06)
[2022-01-09] MEDS: Melatonin 3 MG Tab PO PRN (20:07)
[2022-01-10] MEDS: Calcium Carbonate/Vitamin D3 625 MG-125 Unit Tab PO SCH (07:26)
[2022-01-10] MEDS: Metoprolol Succinate 25 MG Tab.ER PO SCH ×2 (07:26→17:17)
[2022-01-10] MEDS: Acetaminophen 650 MG Tab.ER PO SCH ×3 (07:26→17:17)
[2022-01-10] MEDS: Cetirizine 10 MG Tab PO SCH (07:26)
[2022-01-10] MEDS: Losartan 25 MG Tab PO SCH (07:26)
[2022-01-10] MEDS: Magnesium Oxide 400 MG Tab PO SCH (07:26)
[2022-01-10] MEDS: Cholecalciferol (Vitamin D3) 25 MCG Tab PO SCH (07:27)
[2022-01-10] MEDS: LORazepam 0.5 MG Tab PO SCH (20:16)
[2022-01-10] MEDS: Pregabalin 75 MG Cap PO SCH (20:17)
[2022-01-10] MEDS: Mirtazapine 15 MG Tab PO SCH (20:17)
[2022-01-10] MEDS: Pantoprazole 40 MG Tab.CR PO SCH (20:17)
[2022-01-11] MEDS: Magnesium Oxide 400 MG Tab PO SCH (07:48)
[2022-01-11] MEDS: Metoprolol Succinate 25 MG Tab.ER PO SCH ×2 (07:48→17:53)
[2022-01-11] MEDS: Calcium Carbonate/Vitamin D3 625 MG-125 Unit Tab PO SCH (07:48)
[2022-01-11] MEDS: Cetirizine 10 MG Tab PO SCH (07:49)
[2022-01-11] MEDS: Losartan 25 MG Tab PO SCH (07:49)
[2022-01-11] MEDS: Acetaminophen 650 MG Tab.ER PO SCH ×3 (07:49→17:54)
[2022-01-11] MEDS: Cholecalciferol (Vitamin D3) 25 MCG Tab PO SCH (07:49)
[2022-01-11] MEDS: LORazepam 0.5 MG Tab PO SCH (20:11)
[2022-01-11] MEDS: Pantoprazole 40 MG Tab.CR PO SCH (20:12)
[2022-01-11] MEDS: Pregabalin 75 MG Cap PO SCH (20:12)
[2022-01-11] MEDS: Mirtazapine 15 MG Tab PO SCH (20:13)
[2022-01-12] MEDS: Magnesium Oxide 400 MG Tab PO SCH (07:13)
[2022-01-12] MEDS: Losartan 25 MG Tab PO SCH (07:13)
[2022-01-12] MEDS: Calcium Carbonate/Vitamin D3 625 MG-125 Unit Tab PO SCH (07:14)
[2022-01-12] MEDS: Acetaminophen 650 MG Tab.ER PO SCH ×3 (07:14→17:04)
[2022-01-12] MEDS: Metoprolol Succinate 25 MG Tab.ER PO SCH ×2 (07:14→17:04)
[2022-01-12] MEDS: Cholecalciferol (Vitamin D3) 25 MCG Tab PO SCH (07:14)
[2022-01-12] MEDS: Cetirizine 10 MG Tab PO SCH (07:15)
[2022-01-12] MEDS: Pantoprazole 40 MG Tab.CR PO SCH (19:04)
[2022-01-12] MEDS: Pregabalin 75 MG Cap PO SCH (19:05)
[2022-01-12] MEDS: Mirtazapine 15 MG Tab PO SCH (19:05)
[2022-01-12] MEDS: LORazepam 0.5 MG Tab PO SCH (19:05)
[2022-01-13] MEDS: Losartan 25 MG Tab PO SCH (07:23)
[2022-01-13] MEDS: Metoprolol Succinate 25 MG Tab.ER PO SCH ×2 (07:23→17:48)
[2022-01-13] MEDS: Calcium Carbonate/Vitamin D3 625 MG-125 Unit Tab PO SCH (07:24)
[2022-01-13] MEDS: Acetaminophen 650 MG Tab.ER PO SCH ×3 (07:24→17:48)
[2022-01-13] MEDS: Magnesium Oxide 400 MG Tab PO SCH (07:24)
[2022-01-13] MEDS: Cholecalciferol (Vitamin D3) 25 MCG Tab PO SCH (07:26)
[2022-01-13] MEDS: Cetirizine 10 MG Tab PO SCH (07:26)
[2022-01-13] MEDS: LORazepam 0.5 MG Tab PO SCH (20:16)
[2022-01-13] MEDS: Pantoprazole 40 MG Tab.CR PO SCH (20:17)
[2022-01-13] MEDS: Pregabalin 75 MG Cap PO SCH (20:17)
[2022-01-13] MEDS: Mirtazapine 15 MG Tab PO SCH (20:18)
[2022-01-14] MEDS: Metoprolol Succinate 25 MG Tab.ER PO SCH ×2 (07:12→17:02)
[2022-01-14] MEDS: Calcium Carbonate/Vitamin D3 625 MG-125 Unit Tab PO SCH (07:12)
[2022-01-14] MEDS: Magnesium Oxide 400 MG Tab PO SCH (07:12)
[2022-01-14] MEDS: Losartan 25 MG Tab PO SCH (07:12)
[2022-01-14] MEDS: Cetirizine 10 MG Tab PO SCH (07:13)
[2022-01-14] MEDS: Acetaminophen 650 MG Tab.ER PO SCH ×3 (07:13→17:03)
[2022-01-14] MEDS: Cholecalciferol (Vitamin D3) 25 MCG Tab PO SCH (07:13)
[2022-01-14] MEDS: Mirtazapine 15 MG Tab PO SCH (20:08)
[2022-01-14] MEDS: Pantoprazole 40 MG Tab.CR PO SCH (20:09)
[2022-01-14] MEDS: Pregabalin 75 MG Cap PO SCH (20:09)
[2022-01-14] MEDS: LORazepam 0.5 MG Tab PO SCH (20:09)
[2022-01-15] MEDS: Losartan 25 MG Tab PO SCH (07:41)
[2022-01-15] MEDS: Metoprolol Succinate 25 MG Tab.ER PO SCH ×2 (07:41→17:34)
[2022-01-15] MEDS: Magnesium Oxide 400 MG Tab PO SCH (07:42)
[2022-01-15] MEDS: Calcium Carbonate/Vitamin D3 625 MG-125 Unit Tab PO SCH (07:42)
[2022-01-15] MEDS: Acetaminophen 650 MG Tab.ER PO SCH ×3 (07:42→17:35)
[2022-01-15] MEDS: Cholecalciferol (Vitamin D3) 25 MCG Tab PO SCH (07:43)
[2022-01-15] MEDS: Cetirizine 10 MG Tab PO SCH (07:43)
[2022-01-15] MEDS: Mirtazapine 15 MG Tab PO SCH (19:59)
[2022-01-15] MEDS: Pregabalin 75 MG Cap PO SCH (19:59)
[2022-01-15] MEDS: LORazepam 0.5 MG Tab PO SCH (19:59)
[2022-01-15] MEDS: Pantoprazole 40 MG Tab.CR PO SCH (19:59)
[2022-01-16] MEDS: Losartan 25 MG Tab PO SCH (07:13)
[2022-01-16] MEDS: Magnesium Oxide 400 MG Tab PO SCH (07:14)
[2022-01-16] MEDS: Acetaminophen 650 MG Tab.ER PO SCH ×3 (07:14→17:04)
[2022-01-16] MEDS: Metoprolol Succinate 25 MG Tab.ER PO SCH ×2 (07:14→17:04)
[2022-01-16] MEDS: Calcium Carbonate/Vitamin D3 625 MG-125 Unit Tab PO SCH (07:14)
[2022-01-16] MEDS: Cholecalciferol (Vitamin D3) 25 MCG Tab PO SCH (07:15)
[2022-01-16] MEDS: Cetirizine 10 MG Tab PO SCH (07:15)
[2022-01-16] MEDS: Mirtazapine 15 MG Tab PO SCH (19:29)
[2022-01-16] MEDS: Pregabalin 75 MG Cap PO SCH (19:29)
[2022-01-16] MEDS: Pantoprazole 40 MG Tab.CR PO SCH (19:29)
[2022-01-16] MEDS: LORazepam 0.5 MG Tab PO SCH (19:29)
[2022-01-17] MEDS: Metoprolol Succinate 25 MG Tab.ER PO SCH ×2 (07:13→17:00)
[2022-01-17] MEDS: Magnesium Oxide 400 MG Tab PO SCH (07:13)
[2022-01-17] MEDS: Losartan 25 MG Tab PO SCH (07:13)
[2022-01-17] MEDS: Calcium Carbonate/Vitamin D3 625 MG-125 Unit Tab PO SCH (07:13)
[2022-01-17] MEDS: Acetaminophen 650 MG Tab.ER PO SCH ×3 (07:14→17:00)
[2022-01-17] MEDS: Cetirizine 10 MG Tab PO SCH (07:14)
[2022-01-17] MEDS: Cholecalciferol (Vitamin D3) 25 MCG Tab PO SCH (07:14)
[2022-01-17] MEDS: LORazepam 0.5 MG Tab PO SCH (21:03)
[2022-01-17] MEDS: Pregabalin 75 MG Cap PO SCH (21:03)
[2022-01-17] MEDS: Pantoprazole 40 MG Tab.CR PO SCH (21:04)
[2022-01-17] MEDS: Mirtazapine 15 MG Tab PO SCH (21:04)
[2022-01-18] MEDS: Losartan 25 MG Tab PO SCH (07:17)
[2022-01-18] MEDS: Metoprolol Succinate 25 MG Tab.ER PO SCH ×2 (07:17→17:04)
[2022-01-18] MEDS: Acetaminophen 650 MG Tab.ER PO SCH ×3 (07:18→17:05)
[2022-01-18] MEDS: Cholecalciferol (Vitamin D3) 25 MCG Tab PO SCH (07:18)
[2022-01-18] MEDS: Magnesium Oxide 400 MG Tab PO SCH (07:18)
[2022-01-18] MEDS: Calcium Carbonate/Vitamin D3 625 MG-125 Unit Tab PO SCH (07:18)
[2022-01-18] MEDS: Cetirizine 10 MG Tab PO SCH (07:19)
[2022-01-18] MEDS: Pregabalin 75 MG Cap PO SCH (20:28)
[2022-01-18] MEDS: LORazepam 0.5 MG Tab PO SCH (20:28)
[2022-01-18] MEDS: Mirtazapine 15 MG Tab PO SCH (20:29)
[2022-01-18] MEDS: Pantoprazole 40 MG Tab.CR PO SCH (20:29)
[2022-01-19] MEDS: Magnesium Oxide 400 MG Tab PO SCH (07:43)
[2022-01-19] MEDS: Metoprolol Succinate 25 MG Tab.ER PO SCH ×2 (07:43→17:14)
[2022-01-19] MEDS: Losartan 25 MG Tab PO SCH (07:43)
[2022-01-19] MEDS: Cholecalciferol (Vitamin D3) 25 MCG Tab PO SCH (07:44)
[2022-01-19] MEDS: Cetirizine 10 MG Tab PO SCH (07:44)
[2022-01-19] MEDS: Acetaminophen 650 MG Tab.ER PO SCH ×3 (07:44→17:14)
[2022-01-19] MEDS: Calcium Carbonate/Vitamin D3 625 MG-125 Unit Tab PO SCH (07:44)
[2022-01-19] MEDS: LORazepam 0.5 MG Tab PO SCH (20:42)
[2022-01-19] MEDS: Pregabalin 75 MG Cap PO SCH (20:42)
[2022-01-19] MEDS: Pantoprazole 40 MG Tab.CR PO SCH (20:43)
[2022-01-19] MEDS: Mirtazapine 15 MG Tab PO SCH (20:43)
[2022-01-20] MEDS: Losartan 25 MG Tab PO SCH (07:15)
[2022-01-20] MEDS: Calcium Carbonate/Vitamin D3 625 MG-125 Unit Tab PO SCH (07:16)
[2022-01-20] MEDS: Magnesium Oxide 400 MG Tab PO SCH (07:16)
[2022-01-20] MEDS: Acetaminophen 650 MG Tab.ER PO SCH ×3 (07:16→17:08)
[2022-01-20] MEDS: Metoprolol Succinate 25 MG Tab.ER PO SCH ×2 (07:16→17:07)
[2022-01-20] MEDS: Cetirizine 10 MG Tab PO SCH (07:17)
[2022-01-20] MEDS: Cholecalciferol (Vitamin D3) 25 MCG Tab PO SCH (07:17)
[2022-01-20] MEDS: Pantoprazole 40 MG Tab.CR PO SCH (20:06)
[2022-01-20] MEDS: Mirtazapine 15 MG Tab PO SCH (20:06)
[2022-01-20] MEDS: LORazepam 0.5 MG Tab PO SCH (20:06)
[2022-01-20] MEDS: Pregabalin 75 MG Cap PO SCH (20:07)
[2022-01-21] MEDS: Calcium Carbonate/Vitamin D3 625 MG-125 Unit Tab PO SCH (07:03)
[2022-01-21] MEDS: Losartan 25 MG Tab PO SCH (07:03)
[2022-01-21] MEDS: Magnesium Oxide 400 MG Tab PO SCH (07:03)
[2022-01-21] MEDS: Acetaminophen 650 MG Tab.ER PO SCH ×3 (07:04→17:07)
[2022-01-21] MEDS: Cholecalciferol (Vitamin D3) 25 MCG Tab PO SCH (07:04)
[2022-01-21] MEDS: Metoprolol Succinate 25 MG Tab.ER PO SCH ×2 (07:04→17:06)
[2022-01-21] MEDS: Cetirizine 10 MG Tab PO SCH (07:05)
[2022-01-21] MEDS: Pregabalin 75 MG Cap PO SCH (19:45)
[2022-01-21] MEDS: LORazepam 0.5 MG Tab PO SCH (19:45)
[2022-01-21] MEDS: Mirtazapine 15 MG Tab PO SCH (19:45)
[2022-01-21] MEDS: Pantoprazole 40 MG Tab.CR PO SCH (19:45)
[2022-01-22] MEDS: Losartan 25 MG Tab PO SCH (07:09)
[2022-01-22] MEDS: Magnesium Oxide 400 MG Tab PO SCH (07:10)
[2022-01-22] MEDS: Metoprolol Succinate 25 MG Tab.ER PO SCH ×2 (07:10→17:22)
[2022-01-22] MEDS: Cholecalciferol (Vitamin D3) 25 MCG Tab PO SCH (07:11)
[2022-01-22] MEDS: Cetirizine 10 MG Tab PO SCH (07:11)
[2022-01-22] MEDS: Acetaminophen 650 MG Tab.ER PO SCH ×3 (07:11→17:22)
[2022-01-22] MEDS: Calcium Carbonate/Vitamin D3 625 MG-125 Unit Tab PO SCH (07:13)
[2022-01-22] MEDS: LORazepam 0.5 MG Tab PO SCH (19:50)
[2022-01-22] MEDS: Pregabalin 75 MG Cap PO SCH (19:50)
[2022-01-22] MEDS: Mirtazapine 15 MG Tab PO SCH (19:50)
[2022-01-22] MEDS: Pantoprazole 40 MG Tab.CR PO SCH (19:50)
[2022-01-23] MEDS: Losartan 25 MG Tab PO SCH (07:14)
[2022-01-23] MEDS: Metoprolol Succinate 25 MG Tab.ER PO SCH ×2 (07:14→17:13)
[2022-01-23] MEDS: Magnesium Oxide 400 MG Tab PO SCH (07:15)
[2022-01-23] MEDS: Calcium Carbonate/Vitamin D3 625 MG-125 Unit Tab PO SCH (07:15)
[2022-01-23] MEDS: Acetaminophen 650 MG Tab.ER PO SCH ×3 (07:15→17:13)
[2022-01-23] MEDS: Cetirizine 10 MG Tab PO SCH (07:16)
[2022-01-23] MEDS: Cholecalciferol (Vitamin D3) 25 MCG Tab PO SCH (07:16)
[2022-01-23] MEDS: Pantoprazole 40 MG Tab.CR PO SCH (19:53)
[2022-01-23] MEDS: Pregabalin 75 MG Cap PO SCH (19:53)
[2022-01-23] MEDS: Mirtazapine 15 MG Tab PO SCH (19:53)
[2022-01-23] MEDS: LORazepam 0.5 MG Tab PO SCH (19:53)
[2022-01-24] MEDS: Losartan 25 MG Tab PO SCH (07:14)
[2022-01-24] MEDS: Magnesium Oxide 400 MG Tab PO SCH (07:15)
[2022-01-24] MEDS: Calcium Carbonate/Vitamin D3 625 MG-125 Unit Tab PO SCH (07:15)
[2022-01-24] MEDS: Acetaminophen 650 MG Tab.ER PO SCH ×3 (07:16→18:32)
[2022-01-24] MEDS: Metoprolol Succinate 25 MG Tab.ER PO SCH ×2 (07:16→18:31)
[2022-01-24] MEDS: Cetirizine 10 MG Tab PO SCH (07:17)
[2022-01-24] MEDS: Cholecalciferol (Vitamin D3) 25 MCG Tab PO SCH (07:17)
[2022-01-24] MEDS: Pregabalin 75 MG Cap PO SCH (19:59)
[2022-01-24] MEDS: LORazepam 0.5 MG Tab PO SCH (19:59)
[2022-01-24] MEDS: Mirtazapine 15 MG Tab PO SCH (20:00)
[2022-01-24] MEDS: Pantoprazole 40 MG Tab.CR PO SCH (20:00)
[2022-01-25] MEDS: Losartan 25 MG Tab PO SCH (07:43)
[2022-01-25] MEDS: Metoprolol Succinate 25 MG Tab.ER PO SCH ×2 (07:43→18:04)
[2022-01-25] MEDS: Acetaminophen 650 MG Tab.ER PO SCH ×3 (07:43→18:04)
[2022-01-25] MEDS: Calcium Carbonate/Vitamin D3 625 MG-125 Unit Tab PO SCH (07:44)
[2022-01-25] MEDS: Cetirizine 10 MG Tab PO SCH (07:44)
[2022-01-25] MEDS: Cholecalciferol (Vitamin D3) 25 MCG Tab PO SCH (07:44)
[2022-01-25] MEDS: Magnesium Oxide 400 MG Tab PO SCH (07:44)
[2022-01-25] MEDS: Pregabalin 75 MG Cap PO SCH (20:19)
[2022-01-25] MEDS: Mirtazapine 15 MG Tab PO SCH (20:20)
[2022-01-25] MEDS: Pantoprazole 40 MG Tab.CR PO SCH (20:20)
[2022-01-25] MEDS: LORazepam 0.5 MG Tab PO SCH (20:20)
[2022-01-26] MEDS: Losartan 25 MG Tab PO SCH (07:14)
[2022-01-26] MEDS: Metoprolol Succinate 25 MG Tab.ER PO SCH ×2 (07:14→17:35)
[2022-01-26] MEDS: Calcium Carbonate/Vitamin D3 625 MG-125 Unit Tab PO SCH (07:14)
[2022-01-26] MEDS: Magnesium Oxide 400 MG Tab PO SCH (07:14)
[2022-01-26] MEDS: Acetaminophen 650 MG Tab.ER PO SCH ×3 (07:14→17:36)
[2022-01-26] MEDS: Cetirizine 10 MG Tab PO SCH (07:15)
[2022-01-26] MEDS: Cholecalciferol (Vitamin D3) 25 MCG Tab PO SCH (07:15)
[2022-01-26] MEDS: Pantoprazole 40 MG Tab.CR PO SCH (19:27)
[2022-01-26] MEDS: Pregabalin 75 MG Cap PO SCH (19:27)
[2022-01-26] MEDS: Mirtazapine 15 MG Tab PO SCH (19:27)
[2022-01-26] MEDS: LORazepam 0.5 MG Tab PO SCH (19:27)
[2022-01-27] MEDS: Magnesium Oxide 400 MG Tab PO SCH (07:10)
[2022-01-27] MEDS: Acetaminophen 650 MG Tab.ER PO SCH ×3 (07:10→17:07)
[2022-01-27] MEDS: Calcium Carbonate/Vitamin D3 625 MG-125 Unit Tab PO SCH (07:10)
[2022-01-27] MEDS: Losartan 25 MG Tab PO SCH (07:11)
[2022-01-27] MEDS: Cholecalciferol (Vitamin D3) 25 MCG Tab PO SCH (07:11)
[2022-01-27] MEDS: Cetirizine 10 MG Tab PO SCH (07:11)
[2022-01-27] MEDS: Metoprolol Succinate 25 MG Tab.ER PO SCH ×2 (07:11→17:07)
[2022-01-27] MEDS: LORazepam 0.5 MG Tab PO SCH (20:05)
[2022-01-27] MEDS: Pregabalin 75 MG Cap PO SCH (20:05)
[2022-01-27] MEDS: Pantoprazole 40 MG Tab.CR PO SCH (20:06)
[2022-01-27] MEDS: Mirtazapine 15 MG Tab PO SCH (20:06)
[2022-01-28] MEDS: Losartan 25 MG Tab PO SCH (07:38)
[2022-01-28] MEDS: Calcium Carbonate/Vitamin D3 625 MG-125 Unit Tab PO SCH (07:39)
[2022-01-28] MEDS: Acetaminophen 650 MG Tab.ER PO SCH ×3 (07:39→17:23)
[2022-01-28] MEDS: Magnesium Oxide 400 MG Tab PO SCH (07:39)
[2022-01-28] MEDS: Metoprolol Succinate 25 MG Tab.ER PO SCH ×2 (07:39→17:23)
[2022-01-28] MEDS: Cholecalciferol (Vitamin D3) 25 MCG Tab PO SCH (07:40)
[2022-01-28] MEDS: Cetirizine 10 MG Tab PO SCH (07:40)
[2022-01-28] MEDS: LORazepam 0.5 MG Tab PO SCH (19:54)
[2022-01-28] MEDS: Pregabalin 75 MG Cap PO SCH (19:54)
[2022-01-28] MEDS: Mirtazapine 15 MG Tab PO SCH (19:55)
[2022-01-28] MEDS: Pantoprazole 40 MG Tab.CR PO SCH (19:55)
[2022-01-29] MEDS: Magnesium Oxide 400 MG Tab PO SCH (07:12)
[2022-01-29] MEDS: Losartan 25 MG Tab PO SCH (07:12)
[2022-01-29] MEDS: Calcium Carbonate/Vitamin D3 625 MG-125 Unit Tab PO SCH (07:12)
[2022-01-29] MEDS: Metoprolol Succinate 25 MG Tab.ER PO SCH ×2 (07:12→17:03)
[2022-01-29] MEDS: Cetirizine 10 MG Tab PO SCH (07:13)
[2022-01-29] MEDS: Cholecalciferol (Vitamin D3) 25 MCG Tab PO SCH (07:13)
[2022-01-29] MEDS: Acetaminophen 650 MG Tab.ER PO SCH ×3 (07:13→17:03)
[2022-01-29] MEDS: LORazepam 0.5 MG Tab PO SCH (20:42)
[2022-01-29] MEDS: Pantoprazole 40 MG Tab.CR PO SCH (20:43)
[2022-01-29] MEDS: Mirtazapine 15 MG Tab PO SCH (20:43)
[2022-01-29] MEDS: Pregabalin 75 MG Cap PO SCH (20:43)
[2022-01-30] MEDS: Losartan 25 MG Tab PO SCH (07:05)
[2022-01-30] MEDS: Metoprolol Succinate 25 MG Tab.ER PO SCH ×2 (07:05→17:02)
[2022-01-30] MEDS: Calcium Carbonate/Vitamin D3 625 MG-125 Unit Tab PO SCH (07:05)
[2022-01-30] MEDS: Acetaminophen 650 MG Tab.ER PO SCH ×3 (07:05→17:03)
[2022-01-30] MEDS: Cetirizine 10 MG Tab PO SCH (07:06)
[2022-01-30] MEDS: Cholecalciferol (Vitamin D3) 25 MCG Tab PO SCH (07:06)
[2022-01-30] MEDS: Magnesium Oxide 400 MG Tab PO SCH (07:06)
[2022-01-30] MEDS: Pregabalin 75 MG Cap PO SCH (20:04)
[2022-01-30] MEDS: LORazepam 0.5 MG Tab PO SCH (20:04)
[2022-01-30] MEDS: Pantoprazole 40 MG Tab.CR PO SCH (20:05)
[2022-01-30] MEDS: Mirtazapine 15 MG Tab PO SCH (20:05)
[2022-01-31] MEDS: Magnesium Oxide 400 MG Tab PO SCH (07:18)
[2022-01-31] MEDS: Losartan 25 MG Tab PO SCH (07:18)
[2022-01-31] MEDS: Calcium Carbonate/Vitamin D3 625 MG-125 Unit Tab PO SCH (07:18)
[2022-01-31] MEDS: Metoprolol Succinate 25 MG Tab.ER PO SCH ×2 (07:18→17:08)
[2022-01-31] MEDS: Cetirizine 10 MG Tab PO SCH (07:19)
[2022-01-31] MEDS: Acetaminophen 650 MG Tab.ER PO SCH ×3 (07:19→17:08)
[2022-01-31] MEDS: Cholecalciferol (Vitamin D3) 25 MCG Tab PO SCH (07:19)
[2022-01-31] MEDS: Pregabalin 75 MG Cap PO SCH (20:15)
[2022-01-31] MEDS: LORazepam 0.5 MG Tab PO SCH (20:15)
[2022-01-31] MEDS: Pantoprazole 40 MG Tab.CR PO SCH (20:16)
[2022-01-31] MEDS: Mirtazapine 15 MG Tab PO SCH (20:16)
[2022-02-01] MEDS: Losartan 25 MG Tab PO SCH (07:06)
[2022-02-01] MEDS: Metoprolol Succinate 25 MG Tab.ER PO SCH ×2 (07:06→17:40)
[2022-02-01] MEDS: Calcium Carbonate/Vitamin D3 625 MG-125 Unit Tab PO SCH (07:07)
[2022-02-01] MEDS: Magnesium Oxide 400 MG Tab PO SCH (07:07)
[2022-02-01] MEDS: Acetaminophen 650 MG Tab.ER PO SCH ×3 (07:07→17:41)
[2022-02-01] MEDS: Cholecalciferol (Vitamin D3) 25 MCG Tab PO SCH (07:07)
[2022-02-01] MEDS: Cetirizine 10 MG Tab PO SCH (07:08)
[2022-02-01] MEDS: LORazepam 0.5 MG Tab PO SCH (20:01)
[2022-02-01] MEDS: Pregabalin 75 MG Cap PO SCH (20:01)
[2022-02-01] MEDS: Mirtazapine 15 MG Tab PO SCH (20:02)
[2022-02-01] MEDS: Pantoprazole 40 MG Tab.CR PO SCH (20:02)
[2022-02-02] MEDS: Losartan 25 MG Tab PO SCH (07:30)
[2022-02-02] MEDS: Magnesium Oxide 400 MG Tab PO SCH (07:31)
[2022-02-02] MEDS: Calcium Carbonate/Vitamin D3 625 MG-125 Unit Tab PO SCH (07:31)
[2022-02-02] MEDS: Metoprolol Succinate 25 MG Tab.ER PO SCH ×2 (07:31→17:07)
[2022-02-02] MEDS: Acetaminophen 650 MG Tab.ER PO SCH ×3 (07:32→17:07)
[2022-02-02] MEDS: Cetirizine 10 MG Tab PO SCH (07:32)
[2022-02-02] MEDS: Cholecalciferol (Vitamin D3) 25 MCG Tab PO SCH (07:32)
[2022-02-02] MEDS: LORazepam 0.5 MG Tab PO SCH (19:58)
[2022-02-02] MEDS: Pregabalin 75 MG Cap PO SCH (19:58)
[2022-02-02] MEDS: Mirtazapine 15 MG Tab PO SCH (19:59)
[2022-02-02] MEDS: Pantoprazole 40 MG Tab.CR PO SCH (19:59)
[2022-02-03] MEDS: Magnesium Oxide 400 MG Tab PO SCH (07:06)
[2022-02-03] MEDS: Losartan 25 MG Tab PO SCH (07:06)
[2022-02-03] MEDS: Metoprolol Succinate 25 MG Tab.ER PO SCH ×2 (07:06→17:16)
[2022-02-03] MEDS: Calcium Carbonate/Vitamin D3 625 MG-125 Unit Tab PO SCH (07:06)
[2022-02-03] MEDS: Cetirizine 10 MG Tab PO SCH (07:07)
[2022-02-03] MEDS: Cholecalciferol (Vitamin D3) 25 MCG Tab PO SCH (07:07)
[2022-02-03] MEDS: Acetaminophen 650 MG Tab.ER PO SCH ×3 (07:07→17:16)
[2022-02-03] MEDS: Mirtazapine 15 MG Tab PO SCH (20:17)
[2022-02-03] MEDS: Pantoprazole 40 MG Tab.CR PO SCH (20:17)
[2022-02-03] MEDS: Pregabalin 75 MG Cap PO SCH (20:18)
[2022-02-03] MEDS: LORazepam 0.5 MG Tab PO SCH (20:18)
[2022-02-04] MEDS: Metoprolol Succinate 25 MG Tab.ER PO SCH ×2 (08:11→17:20)
[2022-02-04] MEDS: Losartan 25 MG Tab PO SCH (08:12)
[2022-02-04] MEDS: Cholecalciferol (Vitamin D3) 25 MCG Tab PO SCH (08:13)
[2022-02-04] MEDS: Magnesium Oxide 400 MG Tab PO SCH (08:13)
[2022-02-04] MEDS: Acetaminophen 650 MG Tab.ER PO SCH ×3 (08:14→17:21)
[2022-02-04] MEDS: Calcium Carbonate/Vitamin D3 625 MG-125 Unit Tab PO SCH (08:14)
[2022-02-04] MEDS: Cetirizine 10 MG Tab PO SCH (08:15)
[2022-02-04] MEDS: LORazepam 0.5 MG Tab PO SCH (19:56)
[2022-02-04] MEDS: Pregabalin 75 MG Cap PO SCH (19:57)
[2022-02-04] MEDS: Mirtazapine 15 MG Tab PO SCH (19:58)
[2022-02-04] MEDS: Pantoprazole 40 MG Tab.CR PO SCH (19:58)
[2022-02-05] MEDS: Metoprolol Succinate 25 MG Tab.ER PO SCH ×2 (07:14→17:01)
[2022-02-05] MEDS: Magnesium Oxide 400 MG Tab PO SCH (07:15)
[2022-02-05] MEDS: Losartan 25 MG Tab PO SCH (07:15)
[2022-02-05] MEDS: Calcium Carbonate/Vitamin D3 625 MG-125 Unit Tab PO SCH (07:15)
[2022-02-05] MEDS: Acetaminophen 650 MG Tab.ER PO SCH ×3 (07:15→17:02)
[2022-02-05] MEDS: Cetirizine 10 MG Tab PO SCH (07:16)
[2022-02-05] MEDS: Cholecalciferol (Vitamin D3) 25 MCG Tab PO SCH (07:16)
[2022-02-05] MEDS: Pantoprazole 40 MG Tab.CR PO SCH (19:36)
[2022-02-05] MEDS: Mirtazapine 15 MG Tab PO SCH (19:36)
[2022-02-05] MEDS: Pregabalin 75 MG Cap PO SCH (19:37)
[2022-02-05] MEDS: LORazepam 0.5 MG Tab PO SCH (19:37)
[2022-02-06] MEDS: Losartan 25 MG Tab PO SCH (07:25)
[2022-02-06] MEDS: Metoprolol Succinate 25 MG Tab.ER PO SCH ×2 (07:26→17:28)
[2022-02-06] MEDS: Calcium Carbonate/Vitamin D3 625 MG-125 Unit Tab PO SCH (07:26)
[2022-02-06] MEDS: Magnesium Oxide 400 MG Tab PO SCH (07:26)
[2022-02-06] MEDS: Acetaminophen 650 MG Tab.ER PO SCH ×3 (07:27→17:28)
[2022-02-06] MEDS: Cholecalciferol (Vitamin D3) 25 MCG Tab PO SCH (07:28)
[2022-02-06] MEDS: Cetirizine 10 MG Tab PO SCH (07:28)
[2022-02-06] MEDS: Pregabalin 75 MG Cap PO SCH (21:46)
[2022-02-06] MEDS: Mirtazapine 15 MG Tab PO SCH (21:46)
[2022-02-06] MEDS: LORazepam 0.5 MG Tab PO SCH (21:46)
[2022-02-06] MEDS: Pantoprazole 40 MG Tab.CR PO SCH (21:46)
[2022-02-07] MEDS: Metoprolol Succinate 25 MG Tab.ER PO SCH ×2 (07:18→17:11)
[2022-02-07] MEDS: Losartan 25 MG Tab PO SCH (07:18)
[2022-02-07] MEDS: Acetaminophen 650 MG Tab.ER PO SCH ×3 (07:19→17:11)
[2022-02-07] MEDS: Magnesium Oxide 400 MG Tab PO SCH (07:19)
[2022-02-07] MEDS: Cholecalciferol (Vitamin D3) 25 MCG Tab PO SCH (07:19)
[2022-02-07] MEDS: Calcium Carbonate/Vitamin D3 625 MG-125 Unit Tab PO SCH (07:19)
[2022-02-07] MEDS: Cetirizine 10 MG Tab PO SCH (07:20)
[2022-02-07] MEDS: Mirtazapine 15 MG Tab PO SCH (20:03)
[2022-02-07] MEDS: Pantoprazole 40 MG Tab.CR PO SCH (20:03)
[2022-02-07] MEDS: LORazepam 0.5 MG Tab PO SCH (20:04)
[2022-02-07] MEDS: Pregabalin 75 MG Cap PO SCH (20:04)
[2022-02-08] MEDS: Acetaminophen 650 MG Tab.ER PO SCH ×3 (08:00→17:59)
[2022-02-08] MEDS: Calcium Carbonate/Vitamin D3 625 MG-125 Unit Tab PO SCH (08:00)
[2022-02-08] MEDS: Losartan 25 MG Tab PO SCH (08:00)
[2022-02-08] MEDS: Metoprolol Succinate 25 MG Tab.ER PO SCH ×2 (08:00→17:59)
[2022-02-08] MEDS: Cetirizine 10 MG Tab PO SCH (08:00)
[2022-02-08] MEDS: Magnesium Oxide 400 MG Tab PO SCH (08:00)
[2022-02-08] MEDS: Cholecalciferol (Vitamin D3) 25 MCG Tab PO SCH (08:00)
[2022-02-08] MEDS: Pregabalin 75 MG Cap PO SCH (20:17)
[2022-02-08] MEDS: LORazepam 0.5 MG Tab PO SCH (20:17)
[2022-02-08] MEDS: Mirtazapine 15 MG Tab PO SCH (20:18)
[2022-02-08] MEDS: Pantoprazole 40 MG Tab.CR PO SCH (20:18)
[2022-02-09] MEDS: Metoprolol Succinate 25 MG Tab.ER PO SCH ×2 (07:45→18:05)
[2022-02-09] MEDS: Losartan 25 MG Tab PO SCH (07:45)
[2022-02-09] MEDS: Magnesium Oxide 400 MG Tab PO SCH (07:46)
[2022-02-09] MEDS: Calcium Carbonate/Vitamin D3 625 MG-125 Unit Tab PO SCH (07:47)
[2022-02-09] MEDS: Acetaminophen 650 MG Tab.ER PO SCH ×3 (07:48→18:05)
[2022-02-09] MEDS: Cholecalciferol (Vitamin D3) 25 MCG Tab PO SCH (07:50)
[2022-02-09] MEDS: Cetirizine 10 MG Tab PO SCH (07:50)
[2022-02-09] MEDS: Pregabalin 75 MG Cap PO SCH (20:17)
[2022-02-09] MEDS: LORazepam 0.5 MG Tab PO SCH (20:17)
[2022-02-09] MEDS: Mirtazapine 15 MG Tab PO SCH (20:18)
[2022-02-09] MEDS: Pantoprazole 40 MG Tab.CR PO SCH (20:18)
[2022-02-10] MEDS: Metoprolol Succinate 25 MG Tab.ER PO SCH ×2 (08:17→17:27)
[2022-02-10] MEDS: Losartan 25 MG Tab PO SCH (08:17)
[2022-02-10] MEDS: Calcium Carbonate/Vitamin D3 625 MG-125 Unit Tab PO SCH (08:18)
[2022-02-10] MEDS: Magnesium Oxide 400 MG Tab PO SCH (08:18)
[2022-02-10] MEDS: Acetaminophen 650 MG Tab.ER PO SCH ×3 (08:18→17:27)
[2022-02-10] MEDS: Cetirizine 10 MG Tab PO SCH (08:19)
[2022-02-10] MEDS: Cholecalciferol (Vitamin D3) 25 MCG Tab PO SCH (08:19)
[2022-02-10] MEDS: Pantoprazole 40 MG Tab.CR PO SCH (19:57)
[2022-02-10] MEDS: Mirtazapine 15 MG Tab PO SCH (19:57)
[2022-02-10] MEDS: Pregabalin 75 MG Cap PO SCH (19:58)
[2022-02-10] MEDS: LORazepam 0.5 MG Tab PO SCH (19:58)
[2022-02-11] MEDS: Losartan 25 MG Tab PO SCH (07:33)
[2022-02-11] MEDS: Metoprolol Succinate 25 MG Tab.ER PO SCH ×2 (07:34→17:28)
[2022-02-11] MEDS: Acetaminophen 650 MG Tab.ER PO SCH ×3 (07:34→17:29)
[2022-02-11] MEDS: Magnesium Oxide 400 MG Tab PO SCH (07:34)
[2022-02-11] MEDS: Calcium Carbonate/Vitamin D3 625 MG-125 Unit Tab PO SCH (07:34)
[2022-02-11] MEDS: Cholecalciferol (Vitamin D3) 25 MCG Tab PO SCH (07:35)
[2022-02-11] MEDS: Cetirizine 10 MG Tab PO SCH (07:35)
[2022-02-11] MEDS ORDERED: Menthol 10%/Methyl Salicylate 15% 85 GM Tube TOP PRN (12:13)
[2022-02-11] MEDS: LORazepam 0.5 MG Tab PO SCH (20:03)
[2022-02-11] MEDS: Pregabalin 75 MG Cap PO SCH (20:03)
[2022-02-11] MEDS: Pantoprazole 40 MG Tab.CR PO SCH (20:05)
[2022-02-11] MEDS: Mirtazapine 15 MG Tab PO SCH (20:05)
[2022-02-12] MEDS: Losartan 25 MG Tab PO SCH (08:12)
[2022-02-12] MEDS: Metoprolol Succinate 25 MG Tab.ER PO SCH ×2 (08:12→17:30)
[2022-02-12] MEDS: Magnesium Oxide 400 MG Tab PO SCH (08:12)
[2022-02-12] MEDS: Cholecalciferol (Vitamin D3) 25 MCG Tab PO SCH (08:13)
[2022-02-12] MEDS: Calcium Carbonate/Vitamin D3 625 MG-125 Unit Tab PO SCH (08:13)
[2022-02-12] MEDS: Acetaminophen 650 MG Tab.ER PO SCH ×3 (08:13→17:31)
[2022-02-12] MEDS: LORazepam 0.5 MG Tab PO SCH (20:07)
[2022-02-12] MEDS: Pregabalin 75 MG Cap PO SCH (20:08)
[2022-02-12] MEDS: Mirtazapine 15 MG Tab PO SCH (20:08)
[2022-02-12] MEDS: Pantoprazole 40 MG Tab.CR PO SCH (20:08)
[2022-02-13] MEDS: Magnesium Oxide 400 MG Tab PO SCH (07:07)
[2022-02-13] MEDS: Calcium Carbonate/Vitamin D3 625 MG-125 Unit Tab PO SCH (07:07)
[2022-02-13] MEDS: Metoprolol Succinate 25 MG Tab.ER PO SCH ×2 (07:07→17:04)
[2022-02-13] MEDS: Losartan 25 MG Tab PO SCH (07:07)
[2022-02-13] MEDS: Acetaminophen 650 MG Tab.ER PO SCH ×3 (07:07→17:03)
[2022-02-13] MEDS: Cholecalciferol (Vitamin D3) 25 MCG Tab PO SCH (07:08)
[2022-02-13 17:05] VITALS: BP 0/0; PULSE 0
[2022-02-13] MEDS: Mirtazapine 15 MG Tab PO SCH (20:02)
[2022-02-13] MEDS: Pantoprazole 40 MG Tab.CR PO SCH (20:02)
[2022-02-13] MEDS: LORazepam 0.5 MG Tab PO SCH (20:03)
[2022-02-13] MEDS: Pregabalin 75 MG Cap PO SCH (20:03)
[2022-02-14] MEDS: Losartan 25 MG Tab PO SCH (07:07)
[2022-02-14] MEDS: Metoprolol Succinate 25 MG Tab.ER PO SCH ×2 (07:07→17:02)
[2022-02-14] MEDS: Cholecalciferol (Vitamin D3) 25 MCG Tab PO SCH (07:08)
[2022-02-14] MEDS: Magnesium Oxide 400 MG Tab PO SCH (07:08)
[2022-02-14] MEDS: Calcium Carbonate/Vitamin D3 625 MG-125 Unit Tab PO SCH (07:08)
[2022-02-14] MEDS: Acetaminophen 650 MG Tab.ER PO SCH ×3 (07:08→17:01)
[2022-02-14] MEDS: Mirtazapine 15 MG Tab PO SCH (19:58)
[2022-02-14] MEDS: Pantoprazole 40 MG Tab.CR PO SCH (19:58)
[2022-02-14] MEDS: LORazepam 0.5 MG Tab PO SCH (19:59)
[2022-02-14] MEDS: Pregabalin 75 MG Cap PO SCH (19:59)
[2022-02-15] MEDS: Magnesium Oxide 400 MG Tab PO SCH (07:00)
[2022-02-15] MEDS: Losartan 25 MG Tab PO SCH (07:00)
[2022-02-15] MEDS: Calcium Carbonate/Vitamin D3 625 MG-125 Unit Tab PO SCH (07:00)
[2022-02-15] MEDS: Metoprolol Succinate 25 MG Tab.ER PO SCH ×2 (07:01→17:06)
[2022-02-15] MEDS: Cholecalciferol (Vitamin D3) 25 MCG Tab PO SCH (07:01)
[2022-02-15] MEDS: Acetaminophen 650 MG Tab.ER PO SCH ×3 (07:01→17:06)
[2022-02-15] MEDS: Pantoprazole 40 MG Tab.CR PO SCH (19:22)
[2022-02-15] MEDS: Mirtazapine 15 MG Tab PO SCH (19:22)
[2022-02-15] MEDS: Pregabalin 75 MG Cap PO SCH (19:23)
[2022-02-15] MEDS: LORazepam 0.5 MG Tab PO SCH (19:23)
[2022-02-16] MEDS: Calcium Carbonate/Vitamin D3 625 MG-125 Unit Tab PO SCH (07:11)
[2022-02-16] MEDS: Metoprolol Succinate 25 MG Tab.ER PO SCH ×2 (07:11→17:05)
[2022-02-16] MEDS: Magnesium Oxide 400 MG Tab PO SCH (07:11)
[2022-02-16] MEDS: Losartan 25 MG Tab PO SCH (07:11)
[2022-02-16] MEDS: Cholecalciferol (Vitamin D3) 25 MCG Tab PO SCH (07:12)
[2022-02-16] MEDS: Acetaminophen 650 MG Tab.ER PO SCH ×3 (07:12→17:05)
[2022-02-16] MEDS: LORazepam 0.5 MG Tab PO SCH (19:54)
[2022-02-16] MEDS: Pregabalin 75 MG Cap PO SCH (19:54)
[2022-02-16] MEDS: Pantoprazole 40 MG Tab.CR PO SCH (19:54)
[2022-02-16] MEDS: Mirtazapine 15 MG Tab PO SCH (19:54)
[2022-02-17] MEDS: Magnesium Oxide 400 MG Tab PO SCH (07:11)
[2022-02-17] MEDS: Calcium Carbonate/Vitamin D3 625 MG-125 Unit Tab PO SCH (07:11)
[2022-02-17] MEDS: Metoprolol Succinate 25 MG Tab.ER PO SCH (07:11)
[2022-02-17] MEDS: Cholecalciferol (Vitamin D3) 25 MCG Tab PO SCH (07:12)
[2022-02-17] MEDS: Acetaminophen 650 MG Tab.ER PO SCH ×2 (07:12→11:27)
[2022-02-17] MEDS ORDERED: Losartan 50 MG Tab PO SCH (08:00)
== END 2022-02-17 13:00 | disposition swing bed (61) | DRG 56 ==
LOC: LL.SWG 15:21 → LL.MS 02-16 10:25 → LL.SWG 02-16 10:32
PROVIDERS: ADMIT Nurse Practitioner Family; ATTEND Nurse Practitioner Family
DX: G30.0 Alzheimer's disease with early onset (principal); I50.23 Acute on chronic systolic (congestive) heart failure; I13.0 Hypertensive heart and chronic kidney disease with heart failure and stage 1 through stage 4 chronic kidney disease, or unspecified chronic kidney disease; C18.9 Malignant neoplasm of colon, unspecified; R53.1 Weakness; I25.10 Atherosclerotic heart disease of native coronary artery without angina pectoris; Z20.822 Contact with and (suspected) exposure to COVID-19; F41.8 Other specified anxiety disorders; F02.80 Dementia in other diseases classified elsewhere, unspecified severity, without behavioral disturbance, psychotic disturbance, mood disturbance, and anxiety; H91.90 Unspecified hearing loss, unspecified ear; H54.7 Unspecified visual loss; E78.00 Pure hypercholesterolemia, unspecified; K59.09 Other constipation; K21.9 Gastro-esophageal reflux disease without esophagitis; K44.9 Diaphragmatic hernia without obstruction or gangrene; K76.0 Fatty (change of) liver, not elsewhere classified; N18.9 Chronic kidney disease, unspecified; E11.22 Type 2 diabetes mellitus with diabetic chronic kidney disease; M54.9 Dorsalgia, unspecified; M54.2 Cervicalgia; G89.29 Other chronic pain; M81.0 Age-related osteoporosis without current pathological fracture; E11.42 Type 2 diabetes mellitus with diabetic polyneuropathy; J43.1 Panlobular emphysema; F41.9 Anxiety disorder, unspecified; F32.A Depression, unspecified; Z91.013 Allergy to seafood; Z88.6 Allergy status to analgesic agent; Z79.899 Other long term (current) drug therapy; Z87.01 Personal history of pneumonia (recurrent)
CPT/HCPCS: 36415; 80048; 80053; 81001; 82947; 83880; 85025; 87086; 87088; 87186; 97110-GP; 97161-GP; 97164-GP; 97166-GO; 97530-GP; A9270-GY; U0002

== ENCOUNTER 2022-02-15 10:34 | Inpatient (IN) | payer MEDICARE, MEDICAID ==
[2022-02-17] MEDS ORDERED: Menthol 10%/Methyl Salicylate 15% 85 GM Tube TOP PRN (14:00)
[2022-02-17] MEDS: Metoprolol Succinate 25 MG Tab.ER PO SCH (17:27)
[2022-02-17] MEDS: Acetaminophen 650 MG Tab.ER PO SCH (17:27)
[2022-02-17] MEDS: Mirtazapine 15 MG Tab PO SCH (19:59)
[2022-02-17] MEDS: LORazepam 0.5 MG Tab PO SCH (19:59)
[2022-02-17] MEDS ORDERED: Pregabalin 75 MG Cap PO SCH (20:00)
[2022-02-17] MEDS: Pantoprazole 40 MG Tab.CR PO SCH (20:00)
[2022-02-18] MEDS: Acetaminophen 650 MG Tab.ER PO SCH ×3 (07:06→17:21)
[2022-02-18] MEDS: Calcium Carbonate/Vitamin D3 625 MG-125 Unit Tab PO SCH (07:06)
[2022-02-18] MEDS: Magnesium Oxide 400 MG Tab PO SCH (07:06)
[2022-02-18] MEDS: Losartan 50 MG Tab PO SCH (07:07)
[2022-02-18] MEDS: Metoprolol Succinate 25 MG Tab.ER PO SCH ×2 (07:07→17:21)
[2022-02-18] MEDS: Cholecalciferol (Vitamin D3) 25 MCG Tab PO SCH (07:08)
[2022-02-18] MEDS: LORazepam 0.5 MG Tab PO SCH (19:25)
[2022-02-18] MEDS: Mirtazapine 15 MG Tab PO SCH (19:25)
[2022-02-18] MEDS: Pantoprazole 40 MG Tab.CR PO SCH (19:25)
[2022-02-19] MEDS: Metoprolol Succinate 25 MG Tab.ER PO SCH ×2 (07:38→17:03)
[2022-02-19] MEDS: Losartan 50 MG Tab PO SCH (07:38)
[2022-02-19] MEDS: Calcium Carbonate/Vitamin D3 625 MG-125 Unit Tab PO SCH (07:39)
[2022-02-19] MEDS: Magnesium Oxide 400 MG Tab PO SCH (07:39)
[2022-02-19] MEDS: Cholecalciferol (Vitamin D3) 25 MCG Tab PO SCH (07:39)
[2022-02-19] MEDS: Acetaminophen 650 MG Tab.ER PO SCH ×3 (07:39→17:04)
[2022-02-19] MEDS: Acetaminophen 325 MG Tab PO PRN (17:04)
[2022-02-19] MEDS: LORazepam 0.5 MG Tab PO SCH (20:18)
[2022-02-19] MEDS: Pantoprazole 40 MG Tab.CR PO SCH (20:19)
[2022-02-19] MEDS: Mirtazapine 15 MG Tab PO SCH (20:19)
[2022-02-20] MEDS: Metoprolol Succinate 25 MG Tab.ER PO SCH ×2 (07:08→17:03)
[2022-02-20] MEDS: Losartan 50 MG Tab PO SCH (07:08)
[2022-02-20] MEDS: Magnesium Oxide 400 MG Tab PO SCH (07:09)
[2022-02-20] MEDS: Acetaminophen 650 MG Tab.ER PO SCH ×3 (07:09→17:04)
[2022-02-20] MEDS: Calcium Carbonate/Vitamin D3 625 MG-125 Unit Tab PO SCH (07:09)
[2022-02-20] MEDS: Cholecalciferol (Vitamin D3) 25 MCG Tab PO SCH (07:11)
[2022-02-20] MEDS: LORazepam 0.5 MG Tab PO SCH (19:53)
[2022-02-20] MEDS: Mirtazapine 15 MG Tab PO SCH (19:54)
[2022-02-20] MEDS: Pantoprazole 40 MG Tab.CR PO SCH (19:54)
[2022-02-21] MEDS: Magnesium Oxide 400 MG Tab PO SCH (07:41)
[2022-02-21] MEDS: Acetaminophen 650 MG Tab.ER PO SCH ×3 (07:41→17:08)
[2022-02-21] MEDS: Cholecalciferol (Vitamin D3) 25 MCG Tab PO SCH (07:42)
[2022-02-21] MEDS: Losartan 50 MG Tab PO SCH (07:42)
[2022-02-21] MEDS: Metoprolol Succinate 25 MG Tab.ER PO SCH ×2 (07:42→17:06)
[2022-02-21] MEDS: Calcium Carbonate/Vitamin D3 625 MG-125 Unit Tab PO SCH (07:43)
[2022-02-21] MEDS: LORazepam 0.5 MG Tab PO SCH (19:48)
[2022-02-21] MEDS: Mirtazapine 15 MG Tab PO SCH (19:49)
[2022-02-21] MEDS: Pantoprazole 40 MG Tab.CR PO SCH (19:49)
[2022-02-22] MEDS: Cholecalciferol (Vitamin D3) 25 MCG Tab PO SCH (07:14)
[2022-02-22] MEDS: Acetaminophen 650 MG Tab.ER PO SCH ×3 (07:14→17:22)
[2022-02-22] MEDS: Magnesium Oxide 400 MG Tab PO SCH (07:14)
[2022-02-22] MEDS: Metoprolol Succinate 25 MG Tab.ER PO SCH ×2 (07:14→17:22)
[2022-02-22] MEDS: Losartan 50 MG Tab PO SCH (07:14)
[2022-02-22] MEDS: Calcium Carbonate/Vitamin D3 625 MG-125 Unit Tab PO SCH (07:15)
[2022-02-22] MEDS: LORazepam 0.5 MG Tab PO SCH (20:10)
[2022-02-22] MEDS: Mirtazapine 15 MG Tab PO SCH (20:11)
[2022-02-22] MEDS: Pantoprazole 40 MG Tab.CR PO SCH (20:11)
[2022-02-23] MEDS: Losartan 50 MG Tab PO SCH (08:05)
[2022-02-23] MEDS: Metoprolol Succinate 25 MG Tab.ER PO SCH ×2 (08:05→17:16)
[2022-02-23] MEDS: Magnesium Oxide 400 MG Tab PO SCH (08:05)
[2022-02-23] MEDS: Calcium Carbonate/Vitamin D3 625 MG-125 Unit Tab PO SCH (08:05)
[2022-02-23] MEDS: Acetaminophen 650 MG Tab.ER PO SCH ×3 (08:06→17:16)
[2022-02-23] MEDS: Cholecalciferol (Vitamin D3) 25 MCG Tab PO SCH (08:06)
[2022-02-23] MEDS: Amoxicillin 250 MG Cap PO SCH (19:57)
[2022-02-23] MEDS: Mirtazapine 15 MG Tab PO SCH (19:58)
[2022-02-23] MEDS: LORazepam 0.5 MG Tab PO SCH (19:58)
[2022-02-23] MEDS: Pantoprazole 40 MG Tab.CR PO SCH (19:58)
[2022-02-23] MEDS: Acetaminophen 325 MG Tab PO PRN (22:28)
[2022-02-24] MEDS: LORazepam 0.5 MG Tab PO PRN (04:02)
[2022-02-24] MEDS: Magnesium Oxide 400 MG Tab PO SCH (08:01)
[2022-02-24] MEDS: Calcium Carbonate/Vitamin D3 625 MG-125 Unit Tab PO SCH (08:01)
[2022-02-24] MEDS: Acetaminophen 650 MG Tab.ER PO SCH ×3 (08:01→17:08)
[2022-02-24] MEDS: Losartan 50 MG Tab PO SCH (08:01)
[2022-02-24] MEDS: Metoprolol Succinate 25 MG Tab.ER PO SCH ×2 (08:02→17:08)
[2022-02-24] MEDS: Amoxicillin 250 MG Cap PO SCH ×3 (08:03→17:08)
[2022-02-24] MEDS: Cholecalciferol (Vitamin D3) 25 MCG Tab PO SCH (08:03)
[2022-02-24] MEDS: LORazepam 0.5 MG Tab PO SCH (20:27)
[2022-02-24] MEDS: Pantoprazole 40 MG Tab.CR PO SCH (20:27)
[2022-02-24] MEDS: Mirtazapine 15 MG Tab PO SCH (20:27)
[2022-02-25] MEDS: Amoxicillin 250 MG Cap PO SCH ×3 (07:00→18:45)
[2022-02-25] MEDS: Magnesium Oxide 400 MG Tab PO SCH (07:00)
[2022-02-25] MEDS: Calcium Carbonate/Vitamin D3 625 MG-125 Unit Tab PO SCH (07:00)
[2022-02-25] MEDS: Cholecalciferol (Vitamin D3) 25 MCG Tab PO SCH (07:00)
[2022-02-25] MEDS: Acetaminophen 650 MG Tab.ER PO SCH ×3 (07:00→18:45)
[2022-02-25] MEDS: Metoprolol Succinate 25 MG Tab.ER PO SCH ×2 (07:01→18:45)
[2022-02-25] MEDS: Losartan 50 MG Tab PO SCH (07:01)
[2022-02-25] MEDS: Pantoprazole 40 MG Tab.CR PO SCH (20:05)
[2022-02-25] MEDS: Mirtazapine 15 MG Tab PO SCH (20:05)
[2022-02-25] MEDS: LORazepam 0.5 MG Tab PO SCH (20:05)
[2022-02-26] MEDS: Amoxicillin 250 MG Cap PO SCH ×3 (07:17→17:15)
[2022-02-26] MEDS: Metoprolol Succinate 25 MG Tab.ER PO SCH ×2 (07:17→17:15)
[2022-02-26] MEDS: Losartan 50 MG Tab PO SCH (07:17)
[2022-02-26] MEDS: Calcium Carbonate/Vitamin D3 625 MG-125 Unit Tab PO SCH (07:18)
[2022-02-26] MEDS: Magnesium Oxide 400 MG Tab PO SCH (07:18)
[2022-02-26] MEDS: Acetaminophen 650 MG Tab.ER PO SCH ×3 (07:18→17:16)
[2022-02-26] MEDS: Cholecalciferol (Vitamin D3) 25 MCG Tab PO SCH (07:18)
[2022-02-26] MEDS: LORazepam 0.5 MG Tab PO PRN (11:12)
[2022-02-26] MEDS: LORazepam 0.5 MG Tab PO SCH (19:52)
[2022-02-26] MEDS: Mirtazapine 15 MG Tab PO SCH (19:53)
[2022-02-26] MEDS: Pantoprazole 40 MG Tab.CR PO SCH (19:53)
[2022-02-27] MEDS: Amoxicillin 250 MG Cap PO SCH ×3 (07:23→17:11)
[2022-02-27] MEDS: Calcium Carbonate/Vitamin D3 625 MG-125 Unit Tab PO SCH (07:25)
[2022-02-27] MEDS: Losartan 50 MG Tab PO SCH (07:25)
[2022-02-27] MEDS: Metoprolol Succinate 25 MG Tab.ER PO SCH ×2 (07:25→17:12)
[2022-02-27] MEDS: Magnesium Oxide 400 MG Tab PO SCH (07:25)
[2022-02-27] MEDS: Cholecalciferol (Vitamin D3) 25 MCG Tab PO SCH (07:26)
[2022-02-27] MEDS: Acetaminophen 650 MG Tab.ER PO SCH ×3 (07:26→17:12)
[2022-02-27] MEDS: LORazepam 0.5 MG Tab PO SCH (20:12)
[2022-02-27] MEDS: Mirtazapine 15 MG Tab PO SCH (20:13)
[2022-02-27] MEDS: Pantoprazole 40 MG Tab.CR PO SCH (20:13)
[2022-02-28] MEDS: Amoxicillin 250 MG Cap PO SCH ×3 (07:09→17:13)
[2022-02-28] MEDS: Losartan 50 MG Tab PO SCH (07:09)
[2022-02-28] MEDS: Acetaminophen 650 MG Tab.ER PO SCH ×3 (07:10→17:16)
[2022-02-28] MEDS: Calcium Carbonate/Vitamin D3 625 MG-125 Unit Tab PO SCH (07:10)
[2022-02-28] MEDS: Magnesium Oxide 400 MG Tab PO SCH (07:10)
[2022-02-28] MEDS: Metoprolol Succinate 25 MG Tab.ER PO SCH ×2 (07:10→17:14)
[2022-02-28] MEDS: Cholecalciferol (Vitamin D3) 25 MCG Tab PO SCH (07:11)
[2022-02-28] MEDS: Acetaminophen 325 MG Tab PO PRN (17:14)
[2022-02-28] MEDS: LORazepam 0.5 MG Tab PO SCH (20:24)
[2022-02-28] MEDS: Pantoprazole 40 MG Tab.CR PO SCH (20:24)
[2022-02-28] MEDS: Mirtazapine 15 MG Tab PO SCH (20:25)
[2022-03-01] MEDS: Amoxicillin 250 MG Cap PO SCH ×3 (08:22→17:29)
[2022-03-01] MEDS: Losartan 50 MG Tab PO SCH (08:23)
[2022-03-01] MEDS: Calcium Carbonate/Vitamin D3 625 MG-125 Unit Tab PO SCH (08:24)
[2022-03-01] MEDS: Metoprolol Succinate 25 MG Tab.ER PO SCH ×2 (08:24→17:29)
[2022-03-01] MEDS: Magnesium Oxide 400 MG Tab PO SCH (08:24)
[2022-03-01] MEDS: Cholecalciferol (Vitamin D3) 25 MCG Tab PO SCH (08:25)
[2022-03-01] MEDS: Acetaminophen 650 MG Tab.ER PO SCH ×3 (08:25→17:30)
[2022-03-01 19:05] LABS: ANION GAP 7.5 meq/L (7-15)
[2022-03-01] MEDS: LORazepam 0.5 MG Tab PO SCH (19:52)
[2022-03-01] MEDS: Pantoprazole 40 MG Tab.CR PO SCH (19:54)
[2022-03-01] MEDS: Mirtazapine 15 MG Tab PO SCH (19:54)
[2022-03-01] MEDS: Melatonin 3 MG Tab PO PRN (19:55)
[2022-03-02] MEDS: Magnesium Oxide 400 MG Tab PO SCH (08:10)
[2022-03-02] MEDS: Losartan 50 MG Tab PO SCH (08:10)
[2022-03-02] MEDS: Amoxicillin 250 MG Cap PO SCH ×4 (08:10→17:48)
[2022-03-02] MEDS: Calcium Carbonate/Vitamin D3 625 MG-125 Unit Tab PO SCH (08:10)
[2022-03-02] MEDS: Acetaminophen 650 MG Tab.ER PO SCH ×3 (08:11→17:06)
[2022-03-02] MEDS: Cholecalciferol (Vitamin D3) 25 MCG Tab PO SCH (08:11)
[2022-03-02] MEDS: Metoprolol Succinate 25 MG Tab.ER PO SCH ×2 (08:11→17:05)
[2022-03-02] MEDS: LORazepam 0.5 MG Tab PO SCH (19:41)
[2022-03-02] MEDS: Pantoprazole 40 MG Tab.CR PO SCH (19:42)
[2022-03-02] MEDS: Mirtazapine 15 MG Tab PO SCH (19:42)
[2022-03-03] MEDS: Metoprolol Succinate 25 MG Tab.ER PO SCH ×2 (07:46→17:05)
[2022-03-03] MEDS: Magnesium Oxide 400 MG Tab PO SCH (07:46)
[2022-03-03] MEDS: Losartan 50 MG Tab PO SCH (07:46)
[2022-03-03] MEDS: Calcium Carbonate/Vitamin D3 625 MG-125 Unit Tab PO SCH (07:46)
[2022-03-03] MEDS: Acetaminophen 650 MG Tab.ER PO SCH ×3 (07:47→17:05)
[2022-03-03] MEDS: Cholecalciferol (Vitamin D3) 25 MCG Tab PO SCH (07:47)
[2022-03-03] MEDS: Mirtazapine 15 MG Tab PO SCH (20:07)
[2022-03-03] MEDS: LORazepam 0.5 MG Tab PO SCH (20:07)
[2022-03-03] MEDS: Pantoprazole 40 MG Tab.CR PO SCH (20:07)
[2022-03-04] MEDS: Losartan 50 MG Tab PO SCH (07:15)
[2022-03-04] MEDS: Metoprolol Succinate 25 MG Tab.ER PO SCH ×2 (07:15→17:05)
[2022-03-04] MEDS: Cholecalciferol (Vitamin D3) 25 MCG Tab PO SCH (07:16)
[2022-03-04] MEDS: Magnesium Oxide 400 MG Tab PO SCH (07:16)
[2022-03-04] MEDS: Acetaminophen 650 MG Tab.ER PO SCH ×3 (07:16→17:05)
[2022-03-04] MEDS: Calcium Carbonate/Vitamin D3 625 MG-125 Unit Tab PO SCH (07:16)
[2022-03-04] MEDS: Pantoprazole 40 MG Tab.CR PO SCH (20:13)
[2022-03-04] MEDS: LORazepam 0.5 MG Tab PO SCH (20:13)
[2022-03-04] MEDS: Mirtazapine 15 MG Tab PO SCH (20:14)
[2022-03-05] MEDS: Losartan 50 MG Tab PO SCH (07:21)
[2022-03-05] MEDS: Metoprolol Succinate 25 MG Tab.ER PO SCH ×2 (07:21→17:04)
[2022-03-05] MEDS: Magnesium Oxide 400 MG Tab PO SCH (07:22)
[2022-03-05] MEDS: Cholecalciferol (Vitamin D3) 25 MCG Tab PO SCH (07:22)
[2022-03-05] MEDS: Acetaminophen 650 MG Tab.ER PO SCH ×3 (07:22→17:04)
[2022-03-05] MEDS: Calcium Carbonate/Vitamin D3 625 MG-125 Unit Tab PO SCH (07:22)
[2022-03-05 07:42] LABS: ANION GAP 6.5 meq/L (7-15)
[2022-03-05] MEDS: LORazepam 0.5 MG Tab PO SCH (20:01)
[2022-03-05] MEDS: Mirtazapine 15 MG Tab PO SCH (20:02)
[2022-03-05] MEDS: Pantoprazole 40 MG Tab.CR PO SCH (20:02)
[2022-03-05] MEDS: Melatonin 3 MG Tab PO PRN (20:03)
[2022-03-06] MEDS: Calcium Carbonate/Vitamin D3 625 MG-125 Unit Tab PO SCH (07:06)
[2022-03-06] MEDS: Acetaminophen 650 MG Tab.ER PO SCH ×3 (07:06→17:03)
[2022-03-06] MEDS: Magnesium Oxide 400 MG Tab PO SCH (07:06)
[2022-03-06] MEDS: Losartan 50 MG Tab PO SCH (07:06)
[2022-03-06] MEDS: Metoprolol Succinate 25 MG Tab.ER PO SCH ×2 (07:06→17:03)
[2022-03-06] MEDS: Cholecalciferol (Vitamin D3) 25 MCG Tab PO SCH (07:06)
[2022-03-06] MEDS: LORazepam 0.5 MG Tab PO SCH (19:51)
[2022-03-06] MEDS: Pantoprazole 40 MG Tab.CR PO SCH (19:52)
[2022-03-06] MEDS: Mirtazapine 15 MG Tab PO SCH (19:52)
[2022-03-06] MEDS: Melatonin 3 MG Tab PO PRN (19:52)
[2022-03-07] MEDS: Losartan 50 MG Tab PO SCH (07:11)
[2022-03-07] MEDS: Metoprolol Succinate 25 MG Tab.ER PO SCH ×2 (07:11→17:49)
[2022-03-07] MEDS: Calcium Carbonate/Vitamin D3 625 MG-125 Unit Tab PO SCH (07:11)
[2022-03-07] MEDS: Cholecalciferol (Vitamin D3) 25 MCG Tab PO SCH (07:12)
[2022-03-07] MEDS: Magnesium Oxide 400 MG Tab PO SCH (07:12)
[2022-03-07] MEDS: Acetaminophen 650 MG Tab.ER PO SCH ×3 (07:12→17:49)
[2022-03-07] MEDS: LORazepam 0.5 MG Tab PO SCH (19:50)
[2022-03-07] MEDS: Pantoprazole 40 MG Tab.CR PO SCH (19:51)
[2022-03-07] MEDS: Mirtazapine 15 MG Tab PO SCH (19:51)
[2022-03-07] MEDS: Melatonin 3 MG Tab PO PRN (19:52)
[2022-03-08] MEDS: Metoprolol Succinate 25 MG Tab.ER PO SCH ×2 (07:11→18:01)
[2022-03-08] MEDS: Losartan 50 MG Tab PO SCH (07:11)
[2022-03-08] MEDS: Calcium Carbonate/Vitamin D3 625 MG-125 Unit Tab PO SCH (07:12)
[2022-03-08] MEDS: Acetaminophen 650 MG Tab.ER PO SCH ×3 (07:12→18:01)
[2022-03-08] MEDS: Magnesium Oxide 400 MG Tab PO SCH (07:12)
[2022-03-08] MEDS: Cholecalciferol (Vitamin D3) 25 MCG Tab PO SCH (07:12)
[2022-03-08] MEDS: LORazepam 0.5 MG Tab PO PRN (08:44)
[2022-03-08] MEDS: LORazepam 0.5 MG Tab PO SCH (20:08)
[2022-03-08] MEDS: Pantoprazole 40 MG Tab.CR PO SCH (20:09)
[2022-03-08] MEDS: Mirtazapine 15 MG Tab PO SCH (20:09)
[2022-03-08] MEDS: Melatonin 3 MG Tab PO PRN (20:09)
[2022-03-09] MEDS: Losartan 50 MG Tab PO SCH (07:20)
[2022-03-09] MEDS: Magnesium Oxide 400 MG Tab PO SCH (07:20)
[2022-03-09] MEDS: Calcium Carbonate/Vitamin D3 625 MG-125 Unit Tab PO SCH (07:20)
[2022-03-09] MEDS: Metoprolol Succinate 25 MG Tab.ER PO SCH ×2 (07:21→17:31)
[2022-03-09] MEDS: Cholecalciferol (Vitamin D3) 25 MCG Tab PO SCH (07:21)
[2022-03-09] MEDS: Acetaminophen 650 MG Tab.ER PO SCH ×3 (07:21→17:31)
[2022-03-09] MEDS: LORazepam 0.5 MG Tab PO SCH (20:06)
[2022-03-09] MEDS: Pantoprazole 40 MG Tab.CR PO SCH (20:07)
[2022-03-09] MEDS: Mirtazapine 15 MG Tab PO SCH (20:07)
[2022-03-10] MEDS: Metoprolol Succinate 25 MG Tab.ER PO SCH ×2 (07:18→17:13)
[2022-03-10] MEDS: MEMANTINE 5 MG PO SCH (07:18)
[2022-03-10] MEDS: Losartan 50 MG Tab PO SCH (07:18)
[2022-03-10] MEDS: Magnesium Oxide 400 MG Tab PO SCH (07:20)
[2022-03-10] MEDS: Calcium Carbonate/Vitamin D3 625 MG-125 Unit Tab PO SCH (07:21)
[2022-03-10] MEDS: Acetaminophen 650 MG Tab.ER PO SCH ×3 (07:21→17:13)
[2022-03-10] MEDS: Cholecalciferol (Vitamin D3) 25 MCG Tab PO SCH (07:22)
[2022-03-10] MEDS ORDERED: Memantine 10 MG Tab PO SCH (08:00)
[2022-03-10] MEDS: LORazepam 0.5 MG Tab PO SCH (19:22)
[2022-03-10] MEDS: LEVOFLOXACIN 250 MG PO SCH (19:22)
[2022-03-10] MEDS: Mirtazapine 15 MG Tab PO SCH (19:23)
[2022-03-10] MEDS: Pantoprazole 40 MG Tab.CR PO SCH (19:23)
[2022-03-10] MEDS: Melatonin 3 MG Tab PO PRN (19:23)
[2022-03-11] MEDS: Losartan 50 MG Tab PO SCH (07:10)
[2022-03-11] MEDS: Magnesium Oxide 400 MG Tab PO SCH (07:11)
[2022-03-11] MEDS: MEMANTINE 5 MG PO SCH (07:12)
[2022-03-11] MEDS: Calcium Carbonate/Vitamin D3 625 MG-125 Unit Tab PO SCH (07:12)
[2022-03-11] MEDS: Metoprolol Succinate 25 MG Tab.ER PO SCH ×2 (07:12→17:03)
[2022-03-11] MEDS: Cholecalciferol (Vitamin D3) 25 MCG Tab PO SCH (07:13)
[2022-03-11] MEDS: Acetaminophen 650 MG Tab.ER PO SCH ×3 (07:13→17:03)
[2022-03-11] MEDS: LEVOFLOXACIN 250 MG PO SCH (17:03)
[2022-03-11] MEDS: Mirtazapine 15 MG Tab PO SCH (20:06)
[2022-03-11] MEDS: Pantoprazole 40 MG Tab.CR PO SCH (20:06)
[2022-03-11] MEDS: LORazepam 0.5 MG Tab PO SCH (20:06)
[2022-03-11] MEDS: Melatonin 3 MG Tab PO PRN (20:07)
[2022-03-11] MEDS ORDERED: cloNIDine 0.1 MG Tab PO ONE (23:42)
[2022-03-12] MEDS: Nitroglycerin 0.4 MG Tab.SL SL PRN ×4 (00:11→18:00)
[2022-03-12] MEDS: Acetaminophen 325 MG Tab PO PRN (01:06)
[2022-03-12] MEDS: LORazepam 0.5 MG Tab PO PRN ×2 (02:56→11:02)
[2022-03-12] MEDS: Losartan 50 MG Tab PO SCH (07:45)
[2022-03-12] MEDS: MEMANTINE 5 MG PO SCH (07:46)
[2022-03-12] MEDS: Acetaminophen 650 MG Tab.ER PO SCH ×3 (07:46→17:00)
[2022-03-12] MEDS: Metoprolol Succinate 25 MG Tab.ER PO SCH ×2 (07:46→17:00)
[2022-03-12] MEDS: Cholecalciferol (Vitamin D3) 25 MCG Tab PO SCH (07:47)
[2022-03-12] MEDS: Calcium Carbonate/Vitamin D3 625 MG-125 Unit Tab PO SCH (07:47)
[2022-03-12 07:48] VITALS: PULSE 0
[2022-03-12] MEDS: Magnesium Oxide 400 MG Tab PO SCH (07:50)
[2022-03-12] MEDS: LEVOFLOXACIN 250 MG PO SCH (17:00)
[2022-03-12] MEDS ORDERED: Nitroglycerin 0.4 MG Tab.SL SL PRN ×2 (18:25→18:27)
[2022-03-12 18:31] VITALS: BP 218/87
[2022-03-12] MEDS ORDERED: Morphine 15 MG Tab PO PRN (19:38)
[2022-03-12] MEDS ORDERED: LORazepam 0.5 MG Tab PO SCH (20:00)
[2022-03-12] MEDS ORDERED: Melatonin 3 MG Tab PO SCH (20:00)
[2022-03-12] MEDS: Mirtazapine 15 MG Tab PO SCH (20:54)
[2022-03-12] MEDS: Pantoprazole 40 MG Tab.CR PO SCH (20:54)
[2022-03-17] MEDS ORDERED: MEMANTINE 5 MG PO SCH (08:00)
== END 2022-03-12 22:15 | disposition critical access hospital (66) | DRG 949 ==
LOC: LL.SWG 02-17 13:08
PROVIDERS: ADMIT Nurse Practitioner Family; ATTEND Nurse Practitioner Family
DX: Z48.3 Aftercare following surgery for neoplasm (principal); I13.0 Hypertensive heart and chronic kidney disease with heart failure and stage 1 through stage 4 chronic kidney disease, or unspecified chronic kidney disease; I50.22 Chronic systolic (congestive) heart failure; G30.0 Alzheimer's disease with early onset; F41.9 Anxiety disorder, unspecified; Z66 Do not resuscitate; K59.09 Other constipation; J44.9 Chronic obstructive pulmonary disease, unspecified; K21.9 Gastro-esophageal reflux disease without esophagitis; F32.A Depression, unspecified; E11.22 Type 2 diabetes mellitus with diabetic chronic kidney disease; E83.42 Hypomagnesemia; M81.0 Age-related osteoporosis without current pathological fracture; F02.80 Dementia in other diseases classified elsewhere, unspecified severity, without behavioral disturbance, psychotic disturbance, mood disturbance, and anxiety; M85.80 Other specified disorders of bone density and structure, unspecified site; D50.9 Iron deficiency anemia, unspecified; R53.1 Weakness; N18.9 Chronic kidney disease, unspecified; I25.10 Atherosclerotic heart disease of native coronary artery without angina pectoris; I25.83 Coronary atherosclerosis due to lipid rich plaque; E78.2 Mixed hyperlipidemia; Z79.899 Other long term (current) drug therapy; Z79.52 Long term (current) use of systemic steroids; Z79.1 Long term (current) use of non-steroidal anti-inflammatories (NSAID); Z98.42 Cataract extraction status, left eye; Z98.41 Cataract extraction status, right eye; Z97.3 Presence of spectacles and contact lenses; I25.2 Old myocardial infarction; Z95.5 Presence of coronary angioplasty implant and graft; Z86.79 Personal history of other diseases of the circulatory system; Z87.01 Personal history of pneumonia (recurrent); Z86.39 Personal history of other endocrine, nutritional and metabolic disease; Z90.49 Acquired absence of other specified parts of digestive tract; Z87.09 Personal history of other diseases of the respiratory system; Z79.4 Long term (current) use of insulin; Z87.19 Personal history of other diseases of the digestive system; Z87.440 Personal history of urinary (tract) infections; Z87.81 Personal history of (healed) traumatic fracture; Z88.8 Allergy status to other drugs, medicaments and biological substances; Z91.013 Allergy to seafood; Z88.5 Allergy status to narcotic agent
CPT/HCPCS: 36415; 70450; 71046; 74019; 80053; 81001; 81003; 82140; 82378; 82947; 83605; 85025; 87086; 87088; 87186; 97110-GP; A9270-GY

== ENCOUNTER 2022-03-12 18:10 | Emergency (ER) | payer MEDICARE, MEDICAID ==
[2022-03-12 18:28] VITALS: BP 163/79; PULSE 80
[2022-03-12 19:12] LABS: CHLORIDE,CL 99 mmol/L (98-107); SODIUM,NA 134 mmol/L (136-145)
[2022-03-12 19:13] LABS: ANION GAP 12.4 meq/L (7-15); ESTIMATED GFR 39 mL/min (>=60)
[2022-03-12 19:16] LABS: PTT,PARTIAL THROMBOPLSTIN TIME 25.5 SEC (23.6-29.8)
== END 2022-03-12 20:40 | disposition expired ==
LOC: LL.ED 18:10
DX: I21.9 Acute myocardial infarction, unspecified (principal); I25.10 Atherosclerotic heart disease of native coronary artery without angina pectoris; E11.22 Type 2 diabetes mellitus with diabetic chronic kidney disease; E11.42 Type 2 diabetes mellitus with diabetic polyneuropathy; I13.0 Hypertensive heart and chronic kidney disease with heart failure and stage 1 through stage 4 chronic kidney disease, or unspecified chronic kidney disease; N18.9 Chronic kidney disease, unspecified; I50.9 Heart failure, unspecified; D63.1 Anemia in chronic kidney disease; I25.2 Old myocardial infarction; Z88.5 Allergy status to narcotic agent; Z91.018 Allergy to other foods; Z88.8 Allergy status to other drugs, medicaments and biological substances; Z79.899 Other long term (current) drug therapy
CPT/HCPCS: 36415; 71046; 80053; 82550; 83615; 84484; 85025; 85610; 85730; 93005; 99285